=== PATIENT | male | born 1970 | race Caucasian/White ===

== ENCOUNTER 2021-03-29 15:04 | Emergency (ER) | payer MEDICAID, SELFPAY ==
--- NOTE | ~2021-03-29 | XR_ITS ---
EXAMINATION: XR WRIST, RIGHT CLINICAL INFORMATION: Pain COMPARISON: None TECHNIQUE: PA, lateral, and oblique views of the right wrist. FINDINGS: An old unhealed ulnar styloid fracture versus congenitally unfused ossification center. The bones and soft tissues are normal. No fracture. Alignment is anatomic with normal joint spaces. No erosions or abnormal soft tissue calcifications. XR/XR wrist RT 2V IMPRESSION: No radiographic evidence of acute fracture. 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
[2021-03-29 15:09] VITALS: BP 137/99; PULSE 93; RESP 18; TEMP 36.7; O2SAT 96; BMI 48.0
--- NOTE | 2021-03-29 17:17 | ED.EXTPRO ---
HPI - Extremity Problem General Chief complaint: Extremity Injury, Upper Stated complaint: hand inj Time Seen by Provider: 03/29/21 17:17 Source: patient Limitations: language barrier History of Present Illness HPI Narrative: Patient interviewed with a patient access complaining of right wrist pain the patient states he injured his wrist over a month ago. Patient has a splint currently at this time. Patient states pain increases with palpation or movement of the right wrist. Symptoms are moderate. No other complaints this time. Related Data Previous Rx's Medication Instructions Recorded tramadol 50 mg PO BID PRN #14 tab 03/29/21 Allergies Allergy/AdvReac Type Severity Reaction Status Date / Time No Known Allergies Allergy Verified 03/29/21 17:18 [No Known Allergies*] Review of Systems Review of Systems: Yes all other systems are reviewed and are negative Constitutional: Constitutional: Denies chills, Denies fever(s) and Denies headache(s) ENT: Denies headache(s) Cardiovascular: Cardiovascular: Denies chest pain and Denies dyspnea Respiratory: Respiratory: Denies cough and Denies dyspnea Gastrointestinal: Gastrointestinal: Denies diarrhea, Denies nausea and Denies vomiting Musculoskeletal: Musculoskeletal: Reports arthralgias and Denies numbness Comments: Left wrist pain Neurologic: Denies headache(s) and Denies numbness Hematologic/Lymphatic: Hematologic/Lymphatic: Reports no additional hematologic/lymphatic complaints PMFSH Past Medical History Attestation statement: The following information was validated with the patient. Social History Social History Advance Directives: No Advance Directives Information Provided: No Physical Exam Vital Signs: Vital Signs: Last Vital Signs Temp 98.0 F 03/29/21 15:09 Pulse 93 03/29/21 15:09 Resp 18 03/29/21 15:09 BP 137/99 H 03/29/21 15:09 Pulse Ox 96 03/29/21 15:09 Body Mass Index 48.0 vital signs have been reviewed as normal and appeared to be correct. Blood pressure normal. Heart rate normal. Respiration rate normal. Temperature normal. Oxygen saturation normal. Appearance: Alert. Oriented X3. No acute distress. Head: Normal external exam. Normocephalic. Atraumatic. Eyes: PERRLA. EOMI. Conjunctiva and sclera normal. Eyelids normal. ENT: Pharynx normal. Uvula midline. Moist mucous membranes. Neck: Soft full range of motion, no JVD CVS: Heart regular rate and rhythm no murmurs and rubs Respiratory: Breath sounds are clear to auscultation bilaterally. No accessory muscle use noted. Skin: Skin warm and dry. Normal skin color. Normal skin turgor. No rashes/lesions/lacerations noted. Extremities: right wrist distal ulnar tenderness full range of motion positive pulses positive sensation Neuro: Oriented X 3. No motor deficit. No sensory deficit. Reflexes normal. Course Course Course Narrative: Right wrist fracture Contusion Sprain Nonhealing fracture right wrist MDM - Extremity (Nontraumatic) Imaging Data wrist: Radiologist's impression: [address] [id number] ReportSigned Patient: Gelacio GarciaMR#: [id number]: 1970Acct:[id number]/Sex: 50 / MADM Date: 03/29/21Loc: EDAttending Dr: Ordering Physician: Generic ED Physician Date of Service: 03/29/21 Procedure(s): XR wrist RT 2V Accession Number(s): [id number] cc: Generic ED Physician~ EXAMINATION: XR WRIST, RIGHT CLINICAL INFORMATION: Pain COMPARISON: None TECHNIQUE: PA, lateral, and oblique views of the right wrist. FINDINGS: An old unhealed ulnar styloid fracture versus congenitally unfused ossification center. The bones and soft tissues are normal. No fracture. Alignment is anatomic with normal joint spaces. No erosions or abnormal soft tissue calcifications. XR/XR wrist RT 2V IMPRESSION: No radiographic evidence of acute fracture. 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 Dictated By:JAMES COOPER MDSigned By:<Electronically signed by JAMES COOPER MD in OV>03/29/21 1524 DD/ 1517TD/TT: Retina Subspecialist: Discharge Plan Discharge Clinical Impression: Acute pain of right wrist Patient Disposition: Home, Self-Care Additional Instructions: rest splint elevation Prescriptions: New tramadol 50 mg tablet 50 mg PO BID PRN (Reason: pain) Qty: 14 RF: 0 Referrals: Mariely Oleary MD [Physician] - 2 days Print Language: [place] Islander
== END 2021-03-29 17:32 | disposition home or self-care (01) ==
PROVIDERS: Emergency Provider Internal Medicine
DX: M25.531 Pain in right wrist (principal)
CPT/HCPCS: 73100; 99283

== ENCOUNTER → 2021-04-06 13:50 | Outpatient (BNVA) | payer MEDICAID, SELFPAY | PROVIDERS: Visit Provider Physician Assistant | DX: S63.501A Unspecified sprain of right wrist, initial encounter (principal) | CPT/HCPCS: 99202 ==

== ENCOUNTER 2021-04-19 17:15 | Emergency (ER) | payer MEDICAID, SELFPAY ==
--- NOTE | 2021-04-19 | ECG_ITS ---
Test Reason : CHEST PAIN Blood Pressure : / mmHG Vent. Rate : 085 BPM Atrial Rate : 085 BPM P-R Int : 152 ms QRS Dur : 094 ms QT Int : 368 ms P-R-T Axes : 042 065 037 degrees QTc Int : 437 ms Normal sinus rhythm Normal ECG When compared with ECG of 06-AUG-2019 09:24, Vent. rate has increased BY 28 BPM Referred By: Generic ED Physician Electronically Signed By:Lam Cisneros
[2021-04-19 17:17] VITALS: BP 134/85; PULSE 84; RESP 18; TEMP 36.1; O2SAT 98; BMI 25.8
== END 2021-04-19 21:32 | disposition left against medical advice (07) ==
LOC: HO.ED 22:10
PROVIDERS: Emergency Provider Emergency Medicine
DX: R07.9 Chest pain, unspecified (principal)
CPT/HCPCS: 93005; 99283

== ENCOUNTER 2021-05-04 14:15 | Emergency (ER) | payer MEDICAID, SELFPAY ==
--- NOTE | ~2021-05-04 | XR_ITS ---
EXAMINATION: XR KNEE, RIGHT CLINICAL INFORMATION: Syncope. Fall. COMPARISON: None TECHNIQUE: Four views of the right knee. FINDINGS: No fracture. No dislocation. There is no joint effusion. There is a soft tissue ossification at the distal thigh at the lateral side of the suprapatellar soft tissues measuring 1.8 x 1 X 0.6 cm. XR/XR knee RT 4V IMPRESSION: No acute abnormality of the knee.
--- NOTE | ~2021-05-04 | US_ITS ---
EXAMINATION: US ABDOMEN LIMITED CLINICAL INFORMATION: Abnormal LFTs and lipase. Alcohol abuse. COMPARISON: Ultrasound abdomen 06/01/2019 TECHNIQUE: Real-time imaging of the right upper quadrant abdominal viscera. FINDINGS: PANCREAS: Normal. LIVER: Liver size could not be adequately assessed. The liver contour is normal. There is diffuse increased liver parenchymal echogenicity, consistent with hepatic steatosis. No focal hepatic lesion. There is no intrahepatic biliary duct dilatation seen. GALLBLADDER: The gallbladder is physiologically distended without evidence of stones, sludge, polyps, wall thickening or pericholecystic fluid. COMMON BILE DUCT: Normal in caliber measuring 0.3 cm in diameter. RIGHT KIDNEY: Normal. No hydronephrosis. No renal calculi or focal parenchymal lesions. The kidney measures 10.6 cm in maximum dimension. FREE FLUID: None. US/US abdomen limited IMPRESSION: Echogenic liver consistent with hepatic steatosis. Similar findings were noted in the past.
--- NOTE | ~2021-05-04 | CT_ITS ---
EXAMINATION: CT HEAD WITHOUT CONTRAST CT CERVICAL SPINE WITHOUT CONTRAST CLINICAL INFORMATION: Syncope and fall. EtOH. COMPARISON: CT from 03/04/2019. TECHNIQUE: Contiguous axial imaging was performed from the skullbase to vertex without intravenous administration of contrast. Multidetector helical imaging was performed through the cervical spine. This CT examination was performed using dose optimization techniques as appropriate, variously including the following: *Automated exposure control *Adjustment of mA and/or kV according to patient size (this includes techniques or standardized protocols for targeted exams where dose is matched to indication/reason for exam; i.e. extremities or head) *Use of iterative reconstruction technique DLP: 693, 330 mGy-cm. FINDINGS: HEAD: There is no evidence of acute intracranial hemorrhage or territorial infarction. No abnormal mass effect or midline shift is seen. [place] to white matter differentiation is well preserved. No extra-axial fluid collections are identified. There is moderate diffuse parenchymal volume loss for patient age. No hydrocephalus. Nonspecific mild patchy areas of low-density change are present in the cerebral white matter. The osseous structures and soft tissues are normal. The mastoid air cells are well aerated. There is mild to moderate ethmoid sinus mucosal thickening and milder bilateral maxillary sinus mucosal thickening. CERVICAL SPINE: No acute fracture or subluxation is identified in the cervical spine. Mild disc space narrowing and endplate spurring visible at the C5-C6 and C6-C7 levels. Mild atherosclerotic wall calcifications at the carotid bifurcations. The atlantoaxial articulation is normally maintained. The paraspinal soft tissues are normal. The lung apices are clear. CT/CT cervical spine wo con IMPRESSION: 1. No acute intracranial pathology. Moderate diffuse parenchymal volume loss for patient age. 2. No evidence of acute cervical spine traumatic injury. Mild to moderate lower cervical spondylosis.
--- NOTE | ~2021-05-04 | XR_ITS ---
EXAMINATION: XR CHEST CLINICAL INFORMATION: Syncope COMPARISON: Chest x-ray November 08, 2018 TECHNIQUE: Frontal portable view of the chest was obtained. 3:53 PM FINDINGS: No significant abnormality is noted involving the heart, lungs, mediastinum, bony thorax or soft tissues. XR/XR chest 1V IMPRESSION: Unremarkable examination.
--- NOTE | ~2021-05-04 | XR_ITS ---
EXAMINATION: XR WRIST, RIGHT CLINICAL INFORMATION: Fall. EtOH. COMPARISON: None TECHNIQUE: Four views of the right wrist. FINDINGS: Bones are normal anatomic alignment. I do not appreciate any acute superimposed fracture or dislocation. 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 Incidental ulnar negative variance of the wrist. Carpal bone alignment is unremarkable. Extensive vascular calcification noted. XR/XR wrist RT min 3V IMPRESSION: Chronic appearing changes as described above. I do not appreciate any acute fracture or dislocation.
--- NOTE | ~2021-05-04 | XR_ITS ---
EXAMINATION: XR LUMBOSACRAL SPINE CLINICAL INFORMATION: Syncope. Fall. COMPARISON: 05/25/2016 plain films and 01/29/2018 CT scan TECHNIQUE: Three views of the lumbosacral spine. FINDINGS: Trace anterolisthesis of L5 on S1 is again seen with chronic bilateral pars defects at this level best appreciated on the prior 01/29/2018 CT scan. Otherwise anatomic alignment with no acute fracture or acute appearing spondylolisthesis. Vertebral body heights are preserved. Bowel gas pattern unremarkable. XR/XR lumbar spine 2-3V IMPRESSION: Chronic appearing changes at L5/S1 similar to multiple prior studies. No acute bony abnormality.
[2021-05-04 14:36] VITALS: BP 127/84; PULSE 89; RESP 18; TEMP 36.6; O2SAT 98; BMI 22.9
--- NOTE | 2021-05-04 15:38 | ECG_ITS ---
Test Reason : FALL Blood Pressure : / mmHG Vent. Rate : 072 BPM Atrial Rate : 072 BPM P-R Int : 150 ms QRS Dur : 086 ms QT Int : 404 ms P-R-T Axes : 074 074 059 degrees QTc Int : 442 ms Normal sinus rhythm Normal ECG When compared with ECG of 19-APR-2021 17:24, No significant change was found Referred By: Marilee León Electronically Signed By:ARON BROWER
--- NOTE | 2021-05-04 15:40 | ED.FALL ---
HPI - Fall General Chief Complaint: Fall Stated Complaint: ?SYNCOPE, LEG/PAIN PAIN, FOUND ON SIDEWALK Time Seen by Provider: 05/04/21 15:25 Source: patient and EMS Mode of arrival: EMS History of Present Illness HPI Narrative: 50-year-old male with no significant past medical history BIBA after being found on the sidewalk s/p syncopal episode. Patient admits to drinking 6 pack of beer today, states he was outside in the sun, walked a long distance became dizzy/lightheaded and syncopized. Reports right knee and low back pain. Patient is poor historian. Reports feeling lightheaded/dizzy, having CP/SOB, and palpitations prior to episode. Reports feeling improved at present. Denies headache, nausea/vomiting, abdominal pain, urinary incontinence, numbness, tingling, weakness complaint: fall Onset (ago): hour(s) Related Data Previous Rx's Medication Instructions Recorded tramadol 50 mg tablet 50 mg PO BID PRN #14 tab 03/29/21 Allergies Allergy/AdvReac Type Severity Reaction Status Date / Time No Known Allergies Allergy Verified 04/06/21 13:54 [No Known Allergies*] Review of Systems Review of Systems: Constitutional: No Fever, No Chills,No Fatigue, No Malaise ENT/Mouth: No Hearing loss, No Ear Pain, No Swallowing Difficulty Eyes: No Eye Pain, No Swelling Cardiovascular: + Chest Pain, + SOB, + Palpitations Respiratory: No Cough, No Dyspnea Gastrointestinal: No Nausea, No Vomiting, No Diarrhea, No Abdominal pain Genitourinary: No Dysuria, No Urinary Frequency, No Hematuria, No Urinary Incontinence Musculoskeletal: + joint pain, No Myalgias, No Joint Swelling Skin: No Skin Lesions, No rash Neuro: No Weakness, No Numbness, No Paresthesias, + Loss of Consciousness, + Dizziness, No Headache Patient is poor historian Yes all other systems are reviewed and are negative [facility] Past Medical History Attestation statement: The following information was validated with the patient. Social History Social History (Updated 04/06/21 @ 14:19 by Malik Bolivar) Alcohol intake: current Alcohol intake frequency: a few times a month Patient Tobacco Use Status: Tobacco use Unknown Use of substances other than those prescribed or required for medical reasons: No Advance Directives: No Advance Directives Information Provided: Yes Current occupational status: disabled Current occupation: rt handed Physical Exam Vital Signs: Vital Signs: Last Vital Signs Temp 98.6 F 05/04/21 17:29 Pulse 104 H 05/04/21 22:01 Resp 20 05/04/21 17:29 BP 103/78 05/04/21 22:01 Pulse Ox 95 05/04/21 17:29 Body Mass Index 22.9 Const: Other: Appears intoxicated General: cooperative and no acute distress Orientation/consciousness: oriented to person and oriented to place Limitations: no limitations HENMT: Head: Yes normal to inspection and Yes atraumatic Ears: hearing grossly normal bilaterally General nose exam: Normal external nose present Face and sinus: Yes normal facial exam Throat: Yes posterior oropharynx normal Eyes: General: appearance normal, both eyes and all related structures Pupils: Equal, round and reactive pupils present EOM: EOMs intact bilaterally Neck: Other: No midline cervical spinous tenderness/step-off Neck: Yes normal visual inspection and Yes no meningeal signs Chest: Chest palpation & inspection: normal inspection of the chest, no crepitus and no tenderness Resp: Effort & Inspection: normal respiratory effort Auscultation: clear to auscultation bilaterally, no rales, no rhonchi and no wheezes Cardio: Rate: regular rate Heart sounds: S1 normal heart sound present and S2 normal heart sound present GI: Inspection: Yes normal to inspection Palpation (GI): Soft to palpation, nontender, no guarding and not rigid : General: Yes no CVA tenderness Back/Spine/Pelvis: Other: No midline thoracic/lumbar spinous tenderness or step-off/deformity Back: no CVA tenderness Skin: Rashes: no rashes Wounds: no wounds Neuro: General: oriented to person, oriented to place, tone normal, moves all extremities, no meningeal signs, no focal motor deficits and CN's II-XI intact bilaterally Cranial nerves: Yes Equal, round and reactive pupils present Gait exam (Neuro): Normal gait present Coordination: [id number] test normal Extrem: Other: Right knee tender to palpation. ROM intact. Neurovascularly intact distally General: Yes normal to inspection Course Course Course Narrative: -1733--wrist and lumbar x-ray without acute findings, knee x-ray and CXR unremarkable -leukopenia 3.8 > will obtain COVID-19 testing. H&H around patient's baseline -1833--AST/ALT elevated suggestive of alcoholic liver disease. CPK 914 likely from dehydration. Lipase elevated to 116 > will obtain abdomen ultrasound for further eval -UA negative, ethanol elevated to 326 -195--COVID-[address] head/brain wo con & CT cervical spine wo con IMPRESSION: 1. No acute intracranial pathology. Moderate diffuse parenchymal volume loss for patient age. 2. No evidence of acute cervical spine traumatic injury. Mild to moderate lower cervical spondylosis. US abdomen limited IMPRESSION: Echogenic liver consistent with hepatic steatosis. Similar findings were noted in the past. -2009--on re-evaluation patient is sleeping comfortably in stretcher. In no acute distress -2245--repeat troponin without 50% rise. Results discussed with patient in library clerk talking books including worrisome signs and symptoms and strict return precautions. Patient is to follow-up with his PCP, who verbalized understanding. Patient has a sober ride coming to pick him up from the ED MDM - Fall MDM Narrative Medical decision making narrative: 50-year-old male with no significant past medical history BIBA after being found on the sidewalk s/p syncopal episode. Patient admits to drinking 6 pack of beer today, states he was outside in the sun, walked a long distance became dizzy/lightheaded and syncopized. Patient is poor historian. On exam VSS, NAD, appears intoxicated, A&O x2, no evidence of trauma, no midline spinous tenderness throughout, no focal neuro deficits. Rule out fracture/ICH vs metabolic abnormalities and infectious etiology vs ETOH complication vs ACS. Low concern for PE Plan: EKG, labs, UA, head/C-spine CT, x-rays, IVF, orthostatic vital signs, reassess Medical Records Attestation: I reviewed the patient's medical records. Lab Data Attestation: I reviewed the patient's lab results. Result diagrams: 05/04/21 17:28 05/04/21 17:28 Labs: Lab Results 05/04/21 05/04/21 05/04/21 Range/Units 17:28 17:28 17:28 WBC 3.8 L (4.8-10.8) X10*3/uL RBC 3.99 L (4.60-5.80) X10*6/uL Hgb 13.5 L (14.0-18.0) g/dl Hct 37.8 L (42-52) % MCV 94.7 (80-98) fL MCH 33.8 H (27.0-33.0) pg MCHC 35.7 (31.0-36.0) g/dl RDW 14.3 (11.0-16.0) % Plt Count 146 L (160-400) X10*3/uL MPV 9.2 L (9.4-12.4) fL Immature Gran % (Auto) 0.3 (0.0-0.4) % Neut % (Auto) 40.9 L (45-73) % Lymph % (Auto) 41.3 H (20-40) % [place] % (Auto) 13.6 H (2-11) % Eos % (Auto) 2.6 (0-4) % Baso % (Auto) 1.3 (0-2) % Lymph # (Auto) 1.6 (1.2-4.9) X10*3/uL [place] # (Auto) 0.5 (0.1-1.2) X10*3/uL Eos # (Auto) 0.1 (0.0-0.4) X10*3/uL Baso # (Auto) 0.1 (0.0-0.2) X10*3/uL Abs Immat Gran (auto) 0.01 (0.00-0.03) X10*3/uL Absolute Neuts (auto) 1.6 L (2.0-8.3) X10*3/uL Absolute Nucleated RBC 0.000 (0.0-0.012) X10*3/uL Nucleated RBC % (auto) 0.0 (0.0-0.2) /100WBC Sodium 145 (135-145) mmol/L Potassium 4.1 (3.3-5.1) mmol/L Chloride 107 (96-108) mmol/L Carbon Dioxide 24 (22-29) mmol/L Anion Gap 18 (12-20) BUN 7 L (9-16) mg/dL Creatinine 0.74 (0.5-1.4) mg/dL Estim Creat Clear Calc 123.9 Estimated GFR > 60 Random Glucose 82 (60-115) mg/dL Calcium 9.2 (8.4-10.2) mg/dL Magnesium 2.2 (1.6-2.6) mg/dL Total Bilirubin 0.6 (0.0-1.0) mg/dL Direct Bilirubin 0.3 (0.0-0.5) mg/dL AST 164 H (5-37) U/L ALT 90 H (0-40) U/L Alkaline Phosphatase 90 (39-117) U/L Total Creatine Kinase 914 H (38-174) U/L Troponin I High Sens 3.8 (<3.5-35.0) ng/L Total Protein 8.6 H (6.5-8.0) g/dL Albumin 4.3 (3.5-5.0) g/dL Lipase 116 H (8-78) U/L Urine Color Urine Appearance Urine pH (5.0-8.0) Ur Specific [place] (1.005-1.025) Urine Protein (NEG-TRACE) MG/DL Urine Glucose (UA) (NEG) MG/DL Urine Ketones (NEG) MG/DL Urine Blood (NEG) Urine Nitrite (NEG) Ur Leukocyte Esterase (NEG) Salicylates < 5.0 L (15-30) mg/dL Urine Opiates Screen (Not Detect) Urine Fentanyl Screen (Not Detect) Acetaminophen < 1 (<30) mcg/mL Ur Barbiturates Screen (Not Detect) Ur Phencyclidine Scrn (Not Detect) Ur Amphetamines Screen (Not Detect) U Benzodiazepines Scrn (Not Detect) Urine Cocaine Screen (Not Detect) U Marijuana (THC) Screen (Not Detect) Ethyl Alcohol mg/dL COVID-19 ([facility]) (Negative) COVID-19 Clin Com 05/04/21 05/04/21 05/04/21 Range/Units 17:28 17:34 17:34 WBC (4.8-10.8) X10*3/uL RBC (4.60-5.80) X10*6/uL Hgb (14.0-18.0) g/dl Hct (42-52) % MCV (80-98) fL MCH (27.0-33.0) pg MCHC (31.0-36.0) g/dl RDW (11.0-16.0) % Plt Count (160-400) X10*3/uL MPV (9.4-12.4) fL Immature Gran % (Auto) (0.0-0.4) % Neut % (Auto) (45-73) % Lymph % (Auto) (20-40) % [place] % (Auto) (2-11) % Eos % (Auto) (0-4) % Baso % (Auto) (0-2) % Lymph # (Auto) (1.2-4.9) X10*3/uL [place] # (Auto) (0.1-1.2) X10*3/uL Eos # (Auto) (0.0-0.4) X10*3/uL Baso # (Auto) (0.0-0.2) X10*3/uL Abs Immat Gran (auto) (0.00-0.03) X10*3/uL Absolute Neuts (auto) (2.0-8.3) X10*3/uL Absolute Nucleated RBC (0.0-0.012) X10*3/uL Nucleated RBC % (auto) (0.0-0.2) /100WBC Sodium (135-145) mmol/L Potassium (3.3-5.1) mmol/L Chloride (96-108) mmol/L Carbon Dioxide (22-29) mmol/L Anion Gap (12-20) BUN (9-16) mg/dL Creatinine (0.5-1.4) mg/dL Estim Creat Clear Calc Estimated GFR Random Glucose (60-115) mg/dL Calcium (8.4-10.2) mg/dL Magnesium (1.6-2.6) mg/dL Total Bilirubin (0.0-1.0) mg/dL Direct Bilirubin (0.0-0.5) mg/dL AST (5-37) U/L ALT (0-40) U/L Alkaline Phosphatase (39-117) U/L Total Creatine Kinase (38-174) U/L Troponin I High Sens (<3.5-35.0) ng/L Total Protein (6.5-8.0) g/dL Albumin (3.5-5.0) g/dL Lipase (8-78) U/L Urine Color STRAW Urine Appearance CLEAR Urine pH 6.0 (5.0-8.0) Ur Specific [place] <= 1.005 (1.005-1.025) Urine Protein NEG (NEG-TRACE) MG/DL Urine Glucose (UA) NEG (NEG) MG/DL Urine Ketones NEG (NEG) MG/DL Urine Blood NEG (NEG) Urine Nitrite NEG (NEG) Ur Leukocyte Esterase NEG (NEG) Salicylates (15-30) mg/dL Urine Opiates Screen Not Detected (Not Detect) Urine Fentanyl Screen Not Detected (Not Detect) Acetaminophen (<30) mcg/mL Ur Barbiturates Screen Not Detected (Not Detect) Ur Phencyclidine Scrn Not Detected (Not Detect) Ur Amphetamines Screen Not Detected (Not Detect) U Benzodiazepines Scrn Not Detected (Not Detect) Urine Cocaine Screen Not Detected (Not Detect) U Marijuana (THC) Screen Not Detected (Not Detect) Ethyl Alcohol 326 H* mg/dL COVID-19 ([facility]) (Negative) COVID-19 Clin Com 05/04/21 05/04/21 Range/Units 19:29 22:10 WBC (4.8-10.8) X10*3/uL RBC (4.60-5.80) X10*6/uL Hgb (14.0-18.0) g/dl Hct (42-52) % MCV (80-98) fL MCH (27.0-33.0) pg MCHC (31.0-36.0) g/dl RDW (11.0-16.0) % Plt Count (160-400) X10*3/uL MPV (9.4-12.4) fL Immature Gran % (Auto) (0.0-0.4) % Neut % (Auto) (45-73) % Lymph % (Auto) (20-40) % [place] % (Auto) (2-11) % Eos % (Auto) (0-4) % Baso % (Auto) (0-2) % Lymph # (Auto) (1.2-4.9) X10*3/uL [place] # (Auto) (0.1-1.2) X10*3/uL Eos # (Auto) (0.0-0.4) X10*3/uL Baso # (Auto) (0.0-0.2) X10*3/uL Abs Immat Gran (auto) (0.00-0.03) X10*3/uL Absolute Neuts (auto) (2.0-8.3) X10*3/uL Absolute Nucleated RBC (0.0-0.012) X10*3/uL Nucleated RBC % (auto) (0.0-0.2) /100WBC Sodium (135-145) mmol/L Potassium (3.3-5.1) mmol/L Chloride (96-108) mmol/L Carbon Dioxide (22-29) mmol/L Anion Gap (12-20) BUN (9-16) mg/dL Creatinine (0.5-1.4) mg/dL Estim Creat Clear Calc Estimated GFR Random Glucose (60-115) mg/dL Calcium (8.4-10.2) mg/dL Magnesium (1.6-2.6) mg/dL Total Bilirubin (0.0-1.0) mg/dL Direct Bilirubin (0.0-0.5) mg/dL AST (5-37) U/L ALT (0-40) U/L Alkaline Phosphatase (39-117) U/L Total Creatine Kinase (38-174) U/L Troponin I High Sens 3.9 (<3.5-35.0) ng/L Total Protein (6.5-8.0) g/dL Albumin (3.5-5.0) g/dL Lipase (8-78) U/L Urine Color Urine Appearance Urine pH (5.0-8.0) Ur Specific [place] (1.005-1.025) Urine Protein (NEG-TRACE) MG/DL Urine Glucose (UA) (NEG) MG/DL Urine Ketones (NEG) MG/DL Urine Blood (NEG) Urine Nitrite (NEG) Ur Leukocyte Esterase (NEG) Salicylates (15-30) mg/dL Urine Opiates Screen (Not Detect) Urine Fentanyl Screen (Not Detect) Acetaminophen (<30) mcg/mL Ur Barbiturates Screen (Not Detect) Ur Phencyclidine Scrn (Not Detect) Ur Amphetamines Screen (Not Detect) U Benzodiazepines Scrn (Not Detect) Urine Cocaine Screen (Not Detect) U Marijuana (THC) Screen (Not Detect) Ethyl Alcohol mg/dL COVID-19 ([facility]) Negative (Negative) COVID-19 Clin Com See Note Discharge Plan Discharge Clinical Impression: Syncope, Alcohol intoxication Patient Disposition: Home, Self-Care Instructions: Syncope (ED), Alcohol Intoxication (ED) Additional Instructions: Your blood work showed elevations in your liver and pancreatic enzymes, and dehydration likely from your alcohol consumption, avoid use of alcohol, you need to follow-up with your primary care doctor for repeat lab work in 1 week Make sure you are drinking plenty of fluids at home, water, Gatorade and Pedialyte You are dehydrated. If your symptoms persist or worsen, you pass out again you have chest pain, shortness of breath please return to the ED Your imaging studies did not show any new fractures rest Doss an?lisis de dylan mostr? elevaciones en jennie enzimas hep?xavier y pancre?xavier, y probablemente deshidrataci?n por doss consumo de alcohol, evite el consumo de alcohol, necesita hacer un seguimiento con doss m?dico de atenci?n primaria para repetir los an?lisis de laboratorio en 1 semana Aseg?rese de beber muchos l?quidos en casa, agua, Gatorade y Pedialyte. Est?s deshidratado. Si jennie s?ntomas persisten o empeoran, se desmaya nuevamente, tiene dolor en el pecho, dificultad para respirar, regrese al servicio de urgencias Jennie estudios de im?genes no mostraron nuevas fracturas. descanso Prescriptions: No Action tramadol 50 mg tablet 50 mg PO BID PRN (Reason: pain) Qty: 14 RF: 0 Referrals: Carla Abraham MD [Primary Care Provider] - 2 days Print Language: [place]ian
[2021-05-04 17:29] VITALS: BP 126/85; PULSE 64; RESP 20; TEMP 37; O2SAT 95
[2021-05-04 17:42] LABS: MANUAL DIFF FLAG NO
[2021-05-04 17:43] LABS: Basophils Absolute Auto 0.1 X10*3/uL (0.0-0.2); Basophils Percent Auto 1.3 % (0-2); Eosinophils Absolute Auto 0.1 X10*3/uL (0.0-0.4); Eosinophils Percent Auto 2.6 % (0-4); Hematocrit 37.8 % (42-52); Hemoglobin 13.5 g/dl (14.0-18.0); Imm Gran Abs Auto 0.01 X10*3/uL (0.00-0.03); Imm Gran Pct Auto 0.3 % (0.0-0.4); Lymphocytes Absolute Auto 1.6 X10*3/uL (1.2-4.9); Lymphocytes Percent Auto 41.3 % (20-40); Mean Corpuscular HGB Conc 35.7 g/dl (31.0-36.0); Mean Corpuscular Hemoglobin 33.8 pg (27.0-33.0); Mean Corpuscular Volume 94.7 fL (80-98); Mean Platelet Volume 9.2 fL (9.4-12.4); Monocytes Absolute Auto 0.5 X10*3/uL (0.1-1.2); Monocytes Percent Auto 13.6 % (2-11); Neutrophils Absolute Auto 1.6 X10*3/uL (2.0-8.3); Neutrophils Percent Auto 40.9 % (45-73); Platelet Count 146 X10*3/uL (160-400); Red Blood Count 3.99 X10*6/uL (4.60-5.80); Red Cell Distribution Width 14.3 % (11.0-16.0); White Blood Count 3.8 X10*3/uL (4.8-10.8)
[2021-05-04 17:47] LABS: Glucose Urine UA NEG (NEG); Leukocyte Esterase Urine NEG (NEG); Nitrite Urine NEG (NEG); Specific Gravity - Urine <= 1.005 (1.005-1.025); Urine Blood NEG (NEG); Urine Ketones NEG (NEG); Urine Protein NEG (NEG-TRACE)
[2021-05-04] MEDS: 0.9 % Sodium Chloride 1,000 ML 999 ML IVCONT ×2 (17:47→19:00)
[2021-05-04 17:49] LABS: Appearance Urine CLEAR; Color Urine STRAW
[2021-05-04 18:06] LABS: Ethanol 326 mg/dL
[2021-05-04 18:09] LABS: Amphetamine Screen Urine Not Detected (Not Detect); Barbiturates, Urine Not Detected (Not Detect); Benzodiazepines Screen Urine Not Detected (Not Detect); Cannabinoid Screen Urine Not Detected (Not Detect); Cocaine Screen Urine Not Detected (Not Detect); Fentanyl, urine Not Detected (Not Detect); Opiate Screen Urine Not Detected (Not Detect); Phencyclidine Screen Urine Not Detected (Not Detect)
[2021-05-04 18:11] LABS: Acetaminophen LAB < 1 mcg/mL (<30); Alanine Aminotransferase 90 U/L (0-40); Albumin Level 4.3 g/dL (3.5-5.0); Alkaline Phosphatase 90 U/L (39-117); Anion Gap 18 (12-20); Aspartate Amino Transferase 164 U/L (5-37); Bilirubin Direct 0.3 mg/dL (0.0-0.5); Bilirubin Total 0.6 mg/dL (0.0-1.0); Blood Urea Nitrogen 7 mg/dL (9-16); Calcium 9.2 mg/dL (8.4-10.2); Carbon Dioxide 24 mmol/L (22-29); Chloride 107 mmol/L (96-108); Creatinine Clr Calc Pharmacy 123.9; Estimated Glomerular Filt Rate > 60; Glucose Random 82 mg/dL (60-115); Lipase 116 U/L (8-78); Magnesium 2.2 mg/dL (1.6-2.6); Potassium 4.1 mmol/L (3.3-5.1); Sodium 145 mmol/L (135-145); Total Protein 8.6 g/dL (6.5-8.0)
[2021-05-04 18:12] LABS: Troponin-I High Sensitivity 3.8 ng/L (<3.5-35.0)
[2021-05-04 18:16] LABS: Salicylate < 5.0 mg/dL (15-30)
[2021-05-04 19:49] LABS: COVID-19 Test Negative (Negative)
[2021-05-04 21:58] VITALS: BP 122/83; PULSE 72
[2021-05-04 22:00] VITALS: BP 120/87; PULSE 83
[2021-05-04 22:01] VITALS: BP 103/78; PULSE 104
[2021-05-04 22:40] LABS: Troponin-I High Sensitivity 3.9 ng/L (<3.5-35.0)
== END 2021-05-04 23:33 | disposition home or self-care (01) ==
PROVIDERS: Physician Assistant; Emergency Provider Emergency Medicine; PCP Internal Medicine
DX: R55 Syncope and collapse (principal); F10.920 Alcohol use, unspecified with intoxication, uncomplicated; Y90.8 Blood alcohol level of 240 mg/100 ml or more; Z20.822 Contact with and (suspected) exposure to COVID-19; R74.8 Abnormal levels of other serum enzymes; R06.02 Shortness of breath
CPT/HCPCS: 36415; 70450; 71045; 72100; 72125; 73110; 73564; 76705; 80048; 80076; 80143; 80179; 80307; 81003; 82077; 82550; 83690; 83735; 84484; 85025; 87635; 93005; 96360; 96361; 99285

== ENCOUNTER 2021-05-20 08:28 | Emergency (ER) | payer MEDICAID, SELFPAY ==
[2021-05-20 09:10] VITALS: BP 140/88; PULSE 73; RESP 16; TEMP 36.6; O2SAT 98; BMI 27.6
--- NOTE | 2021-05-20 09:17 | ED_ITS ---
HPI - Psych General Chief Complaint: Psychiatric Symptoms <MANUEL Ko - Last Filed: 05/20/21 17:28> Stated Complaint: SI <MANUEL Ko - Last Filed: 05/20/21 17:28> Time Seen by Provider: 05/20/21 09:00 <MANUEL Ko - Last Filed: 05/20/21 17:28> Source: patient <MANUEL Ko - Last Filed: 05/20/21 17:28> Mode of arrival: ambulatory <MANUEL Ko - Last Filed: 05/20/21 17:28> Limitations: language barrier <MANUEL Ko - Last Filed: 05/20/21 17:28> History of Present Illness HPI Narrative: 50 y/o male with history of alcohol abuse presents to the ER with increased depression, suicidal thoughts and desire to get sober. He reports trying to drink himself to at home. He drinks 30 beers per day and 2 nips. He wants to stop drinking and get sober. He was recently seen here in the ER for alcohol intoxication & syncope on 05/04. <MANUEL Ko - Last Filed: 05/20/21 17:28> MD complaint: feels depressed and alcohol abuse <MANUEL Ko - Last Filed: 05/20/21 17:28> Onset (ago): week(s) <MANUEL Ko - Last Filed: 05/20/21 17:28> Duration: constant <MANUEL Ko - Last Filed: 05/20/21 17:28> History of same: Yes <MANUEL Ko - Last Filed: 05/20/21 17:28> Relieving factors: none <MANUEL Ko - Last Filed: 05/20/21 17:28> Exacerbating factors: alcohol <MANUEL Ko - Last Filed: 05/20/21 17:28> Context: recent alcohol abuse <MANUEL Ko - Last Filed: 05/20/21 17:28> Associated psychiatric symptoms: depression and suicidal ideation <MANUEL Ko - Last Filed: 05/20/21 17:28> Associated symptoms: denies other symptoms <MANUEL Ko - Last Filed: 05/20/21 17:28> Treatments prior to arrival: none <MANUEL Ko - Last Filed: 05/20/21 17:28> If self harm: admits thoughts of self harm <MANUEL Ko - Last Filed: 05/20/21 17:28> Related Data Home Medications: Home Medications Medication Instructions Recorded Confirmed No Known Home Meds 05/20/21 05/20/21 <MANUEL Ko - Last Filed: 05/20/21 17:28> Allergies/Adverse Reactions: Allergies Allergy/AdvReac Type Severity Reaction Status Date / Time No Known Allergies Allergy Verified 04/06/21 13:54 [No Known Allergies*] <MANUEL Ko - Last Filed: 05/20/21 17:28> Review of Systems Review of Systems: Constitutional: No Fever, No Chills ENT/Mouth: No sore throat, No Rhinorrhea, No Swallowing Difficulty Cardiovascular: No Chest Pain, No SOB, No Orthopnea, No Edema Respiratory: No Cough, No Sputum, No Wheezing, No dyspnea Gastrointestinal: No Nausea, No Vomiting, No Diarrhea, No abdominal Pain Genitourinary: No Dysuria, No Urinary Frequency, No Hematuria Musculoskeletal: No joint pain, No Myalgias Skin: No Skin Lesions, No rash Neuro: No Weakness, No Numbness, No Dizziness, No Headache Psych: + Anxiety/Panic, + Depression Heme/Lymph: No Bruising, No Lymphadenopathy Endocrine: No Polyuria, No Polydipsia <MANUEL Ko - Last Filed: 05/20/21 17:28> [facility] Past Medical History Attestation statement: The following information was validated with the patient. <MANUEL Ko - Last Filed: 05/20/21 17:28> Social History Social History: Social History Alcohol intake: current Alcohol intake frequency: a few times a month Patient Tobacco Use Status: Never used Tobacco Use of substances other than those prescribed or required for medical reasons: No Advance Directives: Yes Advance Directives Information Provided: Yes Advance Directives on File: No Current occupational status: disabled Current occupation: rt handed <MANUEL Ko - Last Filed: 05/20/21 17:28> Physical Exam Vital Signs: Vital Signs: Last Vital Signs Temp 99.9 F 05/20/21 18:03 Pulse 80 05/20/21 18:03 Resp 20 05/20/21 18:03 BP 135/89 05/20/21 18:03 Pulse Ox 96 05/20/21 18:03 Body Mass Index 27.6 <MANUEL Ko - Last Filed: 05/20/21 17:28> Vital Signs: Last Vital Signs Temp 99.9 F 05/20/21 18:03 Pulse 80 05/20/21 18:03 Resp 20 05/20/21 18:03 BP 135/89 05/20/21 18:03 Pulse Ox 96 05/20/21 18:03 Body Mass Index 27.6 <Celena Reagan NP - Last Filed: 05/20/21 20:29> Appearance: Alert. Oriented X3. Thin, frail, appears older than stated age Eyes: Pupils equal, round and reactive to light. ENT: Pharynx normal. Neck: Normal inspection. Neck supple. CVS: Normal heart rate and rhythm. Pulses normal. Respiratory: No respiratory distress. Breath sounds normal. Abdomen: Soft and nontender. +BS x4 Skin: Skin warm and dry. Normal skin color. Normal skin turgor. No rashes. Extremities: No lower extremity edema. Neuro/psych: Oriented X 3. No motor deficit. No sensory deficit. Flat affect, depressed, suicidal, poor insight & judgement <MANUEL Ko - Last Filed: 05/20/21 17:28> Course Course Course Narrative: 50 y/o male with history of severe alcohol abuse presenting with worsening depression and suicidal thoughts related to his severe alcohol disease. Will get basic labs, Utox, ETOH level, and COVID swab. Will require N evaluation. <MANUEL Ko - Last Filed: 05/20/21 17:28> Reevaluation(s) Reevaluation #1: Patient found to be COVID positive on routine swab. He currently has NO symptoms of COVID-19. He was told of the diagnosis. He denies sick contacts. He will be moved out of the pod to bed 3 in the main for isolation. CARE Team to see once ETOH level returns. <MANUEL Ko - Last Filed: 05/20/21 17:28> Reevaluation #2: ETOH 179 - Vickie from CARE team will speak to him soon. He is starting to c/o anxiety and has a slight tremor. Will check CIWA score and give small dose of ativan for probable early withdrawal. Physician observation started at 4pm. Patient placed in physician observation because patient is awaiting [facility] evaluation for the possible need of inpatient psych admission. At the time observation was started patient's vital signs were stable. Patient is alert and oriented. Neuro exam is non-focal. CV: RRR and lungs are clear. Will continue to monitor. <MANUEL Ko - Last Filed: 05/20/21 17:28> Time: 20:27 <Celena Reagan NP - Last Filed: 05/20/21 20:29> Reevaluation #3: Patient was seen by crisis. He is currently not suicidal. He is not actively withdrawing. His vitals are stable. He is COVID positive Asymptomatic. The family have obtained a detox bed for him in [facility] and will bring him there. Plan for discharge with family. <Celena Reagan NP - Last Filed: 05/20/21 20:29> MDM - Psych Lab Data Result diagrams: : 05/20/21 13:08 05/20/21 13:08 <MANUEL Ko - Last Filed: 05/20/21 17:28> Labs: Lab Results 05/20/21 05/20/21 05/20/21 Range/Units 09:42 09:43 11:24 WBC (4.8-10.8) X10*3/uL RBC (4.60-5.80) X10*6/uL Hgb (14.0-18.0) g/dl Hct (42-52) % MCV (80-98) fL MCH (27.0-33.0) pg MCHC (31.0-36.0) g/dl RDW (11.0-16.0) % Plt Count (160-400) X10*3/uL MPV (9.4-12.4) fL Immature Gran % (Auto) (0.0-0.4) % Neut % (Auto) (45-73) % Lymph % (Auto) (20-40) % Jack % (Auto) (2-11) % Eos % (Auto) (0-4) % Baso % (Auto) (0-2) % Lymph # (Auto) (1.2-4.9) X10*3/uL Jack # (Auto) (0.1-1.2) X10*3/uL Eos # (Auto) (0.0-0.4) X10*3/uL Baso # (Auto) (0.0-0.2) X10*3/uL Abs Immat Gran (auto) (0.00-0.03) X10*3/uL Absolute Neuts (auto) (2.0-8.3) X10*3/uL Absolute Nucleated RBC (0.0-0.012) X10*3/uL Nucleated RBC % (auto) (0.0-0.2) /100WBC Sodium (135-145) mmol/L Potassium (3.3-5.1) mmol/L Chloride (96-108) mmol/L Carbon Dioxide (22-29) mmol/L Anion Gap (12-20) BUN (9-16) mg/dL Creatinine (0.5-1.4) mg/dL Estim Creat Clear Calc Estimated GFR Random Glucose (60-115) mg/dL Calcium (8.4-10.2) mg/dL Magnesium (1.6-2.6) mg/dL Total Bilirubin (0.0-1.0) mg/dL Direct Bilirubin (0.0-0.5) mg/dL AST (5-37) U/L ALT (0-40) U/L Alkaline Phosphatase (39-117) U/L Total Protein (6.5-8.0) g/dL Albumin (3.5-5.0) g/dL Urine Color YELLOW Urine Appearance CLEAR Urine pH 6.0 (5.0-8.0) Ur Specific [place] <= 1.005 (1.005-1.025) Urine Protein NEG (NEG-TRACE) MG/DL Urine Glucose (UA) NEG (NEG) MG/DL Urine Ketones NEG (NEG) MG/DL Urine Blood NEG (NEG) Urine Nitrite NEG (NEG) Ur Leukocyte Esterase NEG (NEG) Urine Opiates Screen Not Detected (Not Detect) Urine Fentanyl Screen Not Detected (Not Detect) Ur Barbiturates Screen Not Detected (Not Detect) Ur Phencyclidine Scrn Not Detected (Not Detect) Ur Amphetamines Screen Not Detected (Not Detect) U Benzodiazepines Scrn Not Detected (Not Detect) Urine Cocaine Screen Not Detected (Not Detect) U Marijuana (THC) Screen Not Detected (Not Detect) Ethyl Alcohol mg/dL COVID-19 ([facility]IA) Positive A (Negative) COVID-19 Clin Com See Note 05/20/21 05/20/21 05/20/21 Range/Units 13:08 13:08 13:08 WBC 4.0 L (4.8-10.8) X10*3/uL RBC 3.92 L (4.60-5.80) X10*6/uL Hgb 13.2 L (14.0-18.0) g/dl Hct 38.1 L (42-52) % MCV 97.2 (80-98) fL MCH 33.7 H (27.0-33.0) pg MCHC 34.6 (31.0-36.0) g/dl RDW 14.1 (11.0-16.0) % Plt Count 152 L (160-400) X10*3/uL MPV 9.0 L (9.4-12.4) fL Immature Gran % (Auto) 0.2 (0.0-0.4) % Neut % (Auto) 65.0 (45-73) % Lymph % (Auto) 18.9 L (20-40) % Jack % (Auto) 12.7 H (2-11) % Eos % (Auto) 2.2 (0-4) % Baso % (Auto) 1.0 (0-2) % Lymph # (Auto) 0.8 L (1.2-4.9) X10*3/uL Jack # (Auto) 0.5 (0.1-1.2) X10*3/uL Eos # (Auto) 0.1 (0.0-0.4) X10*3/uL Baso # (Auto) 0.0 (0.0-0.2) X10*3/uL Abs Immat Gran (auto) 0.01 (0.00-0.03) X10*3/uL Absolute Neuts (auto) 2.6 (2.0-8.3) X10*3/uL Absolute Nucleated RBC 0.000 (0.0-0.012) X10*3/uL Nucleated RBC % (auto) 0.0 (0.0-0.2) /100WBC Sodium 140 (135-145) mmol/L Potassium 4.0 (3.3-5.1) mmol/L Chloride 107 (96-108) mmol/L Carbon Dioxide 23 (22-29) mmol/L Anion Gap 14 (12-20) BUN 7 L (9-16) mg/dL Creatinine 0.70 (0.5-1.4) mg/dL Estim Creat Clear Calc 135.9 Estimated GFR > 60 Random Glucose 100 (60-115) mg/dL Calcium 8.9 (8.4-10.2) mg/dL Magnesium 2.2 (1.6-2.6) mg/dL Total Bilirubin 0.5 (0.0-1.0) mg/dL Direct Bilirubin 0.2 (0.0-0.5) mg/dL AST 136 H (5-37) U/L ALT 60 H (0-40) U/L Alkaline Phosphatase 79 (39-117) U/L Total Protein 8.2 H (6.5-8.0) g/dL Albumin 4.0 (3.5-5.0) g/dL Urine Color Urine Appearance Urine pH (5.0-8.0) Ur Specific [place] (1.005-1.025) Urine Protein (NEG-TRACE) MG/DL Urine Glucose (UA) (NEG) MG/DL Urine Ketones (NEG) MG/DL Urine Blood (NEG) Urine Nitrite (NEG) Ur Leukocyte Esterase (NEG) Urine Opiates Screen (Not Detect) Urine Fentanyl Screen (Not Detect) Ur Barbiturates Screen (Not Detect) Ur Phencyclidine Scrn (Not Detect) Ur Amphetamines Screen (Not Detect) U Benzodiazepines Scrn (Not Detect) Urine Cocaine Screen (Not Detect) U Marijuana (THC) Screen (Not Detect) Ethyl Alcohol 179 mg/dL COVID-19 ([facility]ANIA) (Negative) COVID-19 Clin Com <MANUEL Ko - Last Filed: 05/20/21 17:28> Lab Results 05/20/21 05/20/21 05/20/21 Range/Units 09:42 09:43 11:24 WBC (4.8-10.8) X10*3/uL RBC (4.60-5.80) X10*6/uL Hgb (14.0-18.0) g/dl Hct (42-52) % MCV (80-98) fL MCH (27.0-33.0) pg MCHC (31.0-36.0) g/dl RDW (11.0-16.0) % Plt Count (160-400) X10*3/uL MPV (9.4-12.4) fL Immature Gran % (Auto) (0.0-0.4) % Neut % (Auto) (45-73) % Lymph % (Auto) (20-40) % Jack % (Auto) (2-11) % Eos % (Auto) (0-4) % Baso % (Auto) (0-2) % Lymph # (Auto) (1.2-4.9) X10*3/uL Jack # (Auto) (0.1-1.2) X10*3/uL Eos # (Auto) (0.0-0.4) X10*3/uL Baso # (Auto) (0.0-0.2) X10*3/uL Abs Immat Gran (auto) (0.00-0.03) X10*3/uL Absolute Neuts (auto) (2.0-8.3) X10*3/uL Absolute Nucleated RBC (0.0-0.012) X10*3/uL Nucleated RBC % (auto) (0.0-0.2) /100WBC Sodium (135-145) mmol/L Potassium (3.3-5.1) mmol/L Chloride (96-108) mmol/L Carbon Dioxide (22-29) mmol/L Anion Gap (12-20) BUN (9-16) mg/dL Creatinine (0.5-1.4) mg/dL Estim Creat Clear Calc Estimated GFR Random Glucose (60-115) mg/dL Calcium (8.4-10.2) mg/dL Magnesium (1.6-2.6) mg/dL Total Bilirubin (0.0-1.0) mg/dL Direct Bilirubin (0.0-0.5) mg/dL AST (5-37) U/L ALT (0-40) U/L Alkaline Phosphatase (39-117) U/L Total Protein (6.5-8.0) g/dL Albumin (3.5-5.0) g/dL Urine Color YELLOW Urine Appearance CLEAR Urine pH 6.0 (5.0-8.0) Ur Specific [place] <= 1.005 (1.005-1.025) Urine Protein NEG (NEG-TRACE) MG/DL Urine Glucose (UA) NEG (NEG) MG/DL Urine Ketones NEG (NEG) MG/DL Urine Blood NEG (NEG) Urine Nitrite NEG (NEG) Ur Leukocyte Esterase NEG (NEG) Urine Opiates Screen Not Detected (Not Detect) Urine Fentanyl Screen Not Detected (Not Detect) Ur Barbiturates Screen Not Detected (Not Detect) Ur Phencyclidine Scrn Not Detected (Not Detect) Ur Amphetamines Screen Not Detected (Not Detect) U Benzodiazepines Scrn Not Detected (Not Detect) Urine Cocaine Screen Not Detected (Not Detect) U Marijuana (THC) Screen Not Detected (Not Detect) Ethyl Alcohol mg/dL COVID-19 ([facility]) Positive A (Negative) COVID-19 Clin Com See Note 05/20/21 05/20/21 05/20/21 Range/Units 13:08 13:08 13:08 WBC 4.0 L (4.8-10.8) X10*3/uL RBC 3.92 L (4.60-5.80) X10*6/uL Hgb 13.2 L (14.0-18.0) g/dl Hct 38.1 L (42-52) % MCV 97.2 (80-98) fL MCH 33.7 H (27.0-33.0) pg MCHC 34.6 (31.0-36.0) g/dl RDW 14.1 (11.0-16.0) % Plt Count 152 L (160-400) X10*3/uL MPV 9.0 L (9.4-12.4) fL Immature Gran % (Auto) 0.2 (0.0-0.4) % Neut % (Auto) 65.0 (45-73) % Lymph % (Auto) 18.9 L (20-40) % Jack % (Auto) 12.7 H (2-11) % Eos % (Auto) 2.2 (0-4) % Baso % (Auto) 1.0 (0-2) % Lymph # (Auto) 0.8 L (1.2-4.9) X10*3/uL Jack # (Auto) 0.5 (0.1-1.2) X10*3/uL Eos # (Auto) 0.1 (0.0-0.4) X10*3/uL Baso # (Auto) 0.0 (0.0-0.2) X10*3/uL Abs Immat Gran (auto) 0.01 (0.00-0.03) X10*3/uL Absolute Neuts (auto) 2.6 (2.0-8.3) X10*3/uL Absolute Nucleated RBC 0.000 (0.0-0.012) X10*3/uL Nucleated RBC % (auto) 0.0 (0.0-0.2) /100WBC Sodium 140 (135-145) mmol/L Potassium 4.0 (3.3-5.1) mmol/L Chloride 107 (96-108) mmol/L Carbon Dioxide 23 (22-29) mmol/L Anion Gap 14 (12-20) BUN 7 L (9-16) mg/dL Creatinine 0.70 (0.5-1.4) mg/dL Estim Creat Clear Calc 135.9 Estimated GFR > 60 Random Glucose 100 (60-115) mg/dL Calcium 8.9 (8.4-10.2) mg/dL Magnesium 2.2 (1.6-2.6) mg/dL Total Bilirubin 0.5 (0.0-1.0) mg/dL Direct Bilirubin 0.2 (0.0-0.5) mg/dL AST 136 H (5-37) U/L ALT 60 H (0-40) U/L Alkaline Phosphatase 79 (39-117) U/L Total Protein 8.2 H (6.5-8.0) g/dL Albumin 4.0 (3.5-5.0) g/dL Urine Color Urine Appearance Urine pH (5.0-8.0) Ur Specific [place] (1.005-1.025) Urine Protein (NEG-TRACE) MG/DL Urine Glucose (UA) (NEG) MG/DL Urine Ketones (NEG) MG/DL Urine Blood (NEG) Urine Nitrite (NEG) Ur Leukocyte Esterase (NEG) Urine Opiates Screen (Not Detect) Urine Fentanyl Screen (Not Detect) Ur Barbiturates Screen (Not Detect) Ur Phencyclidine Scrn (Not Detect) Ur Amphetamines Screen (Not Detect) U Benzodiazepines Scrn (Not Detect) Urine Cocaine Screen (Not Detect) U Marijuana (THC) Screen (Not Detect) Ethyl Alcohol 179 mg/dL COVID-19 ([facility]) (Negative) COVID-19 Clin Com <Celena Reagan NP - Last Filed: 05/20/21 20:29> Discharge Plan Discharge Clinical Impression: Alcohol abuse, COVID-19 Depression Qualifiers: Depression Type: unspecified Qualified Code(s): F32.9 - Major depressive disorder, single episode, unspecified <MANUEL Ko - Last Filed: 05/20/21 17:28> Patient Disposition: Home, Self-Care <MANUEL Ko - Last Filed: 05/20/21 17:28> Instructions: Depression (ED), Abuse of Alcohol (ED), COVID-19 (Coronavirus Disease 2019) (ED) <MANUEL Ko - Last Filed: 05/20/21 17:28> Additional Instructions: Go direct to detox as arranged by your family <MANUEL Ko - Last Filed: 05/20/21 17:28> Prescriptions: No Action No Known Home Meds RF: 0 <MANUEL Ko - Last Filed: 05/20/21 17:28> Referrals: Carla Abraham MD [Primary Care Provider] - 2 days (as needed) <MANUEL Ko - Last Filed: 05/20/21 17:28>
[2021-05-20 10:18] LABS: COVID-19 Test Positive (Negative); IDNOW Serial# 9DD0AD1C
[2021-05-20 10:22] LABS: Amphetamine Screen Urine Not Detected (Not Detect); Barbiturates, Urine Not Detected (Not Detect); Benzodiazepines Screen Urine Not Detected (Not Detect); Cannabinoid Screen Urine Not Detected (Not Detect); Cocaine Screen Urine Not Detected (Not Detect); Fentanyl, urine Not Detected (Not Detect); Opiate Screen Urine Not Detected (Not Detect); Phencyclidine Screen Urine Not Detected (Not Detect)
[2021-05-20] MEDS: Magnesium Hydrox/Alum Hydrox 30 ML ORAL.SUSP PO (11:11)
[2021-05-20 11:26] LABS: Appearance Urine CLEAR; Color Urine YELLOW; Glucose Urine UA NEG (NEG); Leukocyte Esterase Urine NEG (NEG); Nitrite Urine NEG (NEG); Specific Gravity - Urine <= 1.005 (1.005-1.025); Urine Blood NEG (NEG); Urine Ketones NEG (NEG); Urine Protein NEG (NEG-TRACE)
[2021-05-20 13:13] LABS: MANUAL DIFF FLAG NO
[2021-05-20 13:17] LABS: Eosinophils Absolute Auto 0.1 X10*3/uL (0.0-0.4); Eosinophils Percent Auto 2.2 % (0-4); Hematocrit 38.1 % (42-52); Hemoglobin 13.2 g/dl (14.0-18.0); Imm Gran Abs Auto 0.01 X10*3/uL (0.00-0.03); Imm Gran Pct Auto 0.2 % (0.0-0.4); Lymphocytes Absolute Auto 0.8 X10*3/uL (1.2-4.9); Lymphocytes Percent Auto 18.9 % (20-40); Mean Corpuscular HGB Conc 34.6 g/dl (31.0-36.0); Mean Corpuscular Hemoglobin 33.7 pg (27.0-33.0); Mean Corpuscular Volume 97.2 fL (80-98); Monocytes Absolute Auto 0.5 X10*3/uL (0.1-1.2); Monocytes Percent Auto 12.7 % (2-11); Neutrophils Absolute Auto 2.6 X10*3/uL (2.0-8.3); Platelet Count 152 X10*3/uL (160-400); Red Blood Count 3.92 X10*6/uL (4.60-5.80); Red Cell Distribution Width 14.1 % (11.0-16.0)
[2021-05-20 13:36] LABS: Ethanol 179 mg/dL
[2021-05-20 13:47] LABS: Alanine Aminotransferase 60 U/L (0-40); Alkaline Phosphatase 79 U/L (39-117); Anion Gap 14 (12-20); Aspartate Amino Transferase 136 U/L (5-37); Bilirubin Direct 0.2 mg/dL (0.0-0.5); Bilirubin Total 0.5 mg/dL (0.0-1.0); Blood Urea Nitrogen 7 mg/dL (9-16); Calcium 8.9 mg/dL (8.4-10.2); Carbon Dioxide 23 mmol/L (22-29); Chloride 107 mmol/L (96-108); Creatinine Clr Calc Pharmacy 135.9; Estimated Glomerular Filt Rate > 60; Glucose Random 100 mg/dL (60-115); Magnesium 2.2 mg/dL (1.6-2.6); Sodium 140 mmol/L (135-145); Total Protein 8.2 g/dL (6.5-8.0)
[2021-05-20 14:23] VITALS: BP 129/90; PULSE 96; RESP 18; O2SAT 98
[2021-05-20] MEDS: LORazepam 1 MG TABLET PO (14:25)
--- NOTE | 2021-05-20 17:12 | PC.NURSE ---
pt is currently calm and cooperative, sitter at bedside pt awaiting bhn evaluation
[2021-05-20 18:03] VITALS: BP 135/89; PULSE 80; RESP 20; TEMP 37.7; O2SAT 96
--- NOTE | 2021-05-20 18:15 | PC.NURSE ---
pt is currently resting in the stretcher, vs stable, pt denies si, stats he sometimes feels like hurting himself while he is drinking, pt has very slight tremor and slight headache at this time. pt reports drinking about 28 beers a day and 2 nips as well. pt awaiting n evaluation
--- NOTE | 2021-05-20 20:37 | PC.NURSE ---
Renetta SPOKE WITH PT, REPORTS THAT HE IS NO LONGER FEELING SUICIDAL. Renetta SPOKE WITH SISTER JESSE, PLAN IS FOR PT TO DETOX AND QUARANTINE, PT HAS A BED AT A FACILITY IN [facility]. PRIMARY SISTER DAIN CALLED, ASKED THAT WE CALL JESSE, HIS OTHER SISTER. JESSE SPOKE WITH Renetta, SHE IS SENDING HER TO PICK HIM UP. DANIEL LIVES WITH JESSE. BOTH PATIENT AND JESSE UNDERSTAND THAT THEY NEED TO QUARANTINE FOR 10 DAYS.
--- NOTE | 2021-05-20 21:32 | PC.NURSE ---
PT DRESSED, READY FOR DISCHARGE. BROTHER IN LAW HERE TO BRING HIM HOME. UNDERSTANDS ABOUT QUARANTINE. PT INSTRUCTED TO RETURN IF EXPERIENCING DYSPNEA.
== END 2021-05-20 21:40 | disposition home or self-care (01) ==
PROVIDERS: Physician Assistant; Emergency Provider Emergency Medicine; PCP Internal Medicine
DX: F32.9 Major depressive disorder, single episode, unspecified (principal); R45.851 Suicidal ideations; F41.9 Anxiety disorder, unspecified; F10.10 Alcohol abuse, uncomplicated; Y90.6 Blood alcohol level of 120-199 mg/100 ml; U07.1 COVID-19
CPT/HCPCS: 36415; 80048; 80076; 80307; 81003; 82077; 83735; 85025; 87635; 99285

== ENCOUNTER 2021-06-08 16:42 | Emergency (ER) | payer MEDICAID, SELFPAY ==
--- NOTE | ~2021-06-08 | XR_ITS ---
EXAMINATION: XR KNEE, RIGHT CLINICAL INFORMATION: Swelling. COMPARISON: None TECHNIQUE: Four views of the right knee. FINDINGS: The tricompartment joint space is maintained normal. No loose bodies, joint effusion or fracture seen. There is soft tissue calcification along the posterior quadriceps tendon likely old injury or calcific tendinitis. There is moderate edema of the quadriceps tendon. XR/XR knee RT 2V IMPRESSION: No acute fracture or dislocation. Moderate soft tissue edema with calcification of the quadriceps tendon likely old or calcific tendinitis.
[2021-06-08 17:41] VITALS: BP 102/55; PULSE 78; RESP 18; TEMP 37.2; O2SAT 98; BMI 26.6
--- NOTE | 2021-06-08 18:18 | ED_ITS ---
HPI - Extremity Problem General Chief complaint: Extremity Problem Stated complaint: rt knee pain Time Seen by Provider: 06/08/21 18:15 Source: patient and project management Mode of arrival: ambulatory Limitations: language barrier History of Present Illness HPI Narrative: 50-year-old male previously healthy here with complaints of right knee swelling and pain for 2 weeks. Denies any injury or trauma. Does report some redness and warmth the knee but denies any difficulty extending or flexing the knee. No fevers or chills. The patient is able to ambulate with some assistance Related Data Previous Rx's Medication Instructions Recorded naproxen 500 mg tablet 500 mg PO BID #20 tab 06/08/21 prednisone 20 mg tablet 40 mg PO DAILY #10 tab 06/08/21 Allergies Allergy/AdvReac Type Severity Reaction Status Date / Time No Known Allergies Allergy Verified 04/06/21 13:54 [No Known Allergies*] Review of Systems Review of Systems: Yes all other systems are reviewed and are negative Constitutional: Constitutional: Reports no additional constitutional complaints, Denies body ache(s), Denies chills, Denies fever(s), Denies headache(s) and Denies weakness Eyes: Eyes: Reports no additional eye complaints and Denies change in vision ENT: Reports system reviewed and no additional complaints, except as documented, Denies dizziness, Denies headache(s), Denies nasal congestion, Denies nasal discharge and Denies neck pain Cardiovascular: Cardiovascular: Reports no additional cardiovascular complaints, Denies chest pain, Denies leg edema and Denies dyspnea Respiratory: Respiratory: Reports no additional respiratory complaints, Denies cough and Denies dyspnea Gastrointestinal: Gastrointestinal: Reports no additional gastrointestinal complaints, Denies abdominal pain, Denies diarrhea, Denies nausea and Denies vomiting Genitourinary: Genitourinary: Denies urinary incontinence Musculoskeletal: Musculoskeletal: Reports no additional musculoskeletal complaints, Denies back pain, Reports arthralgias, Reports joint swelling, Reports limited range of motion, Denies neck pain, Denies numbness and Denies tingling Integumentary/Breasts: Skin/Breast: Reports system reviewed and no additional complaints, except as docu and Denies rash Neurologic: Reports system reviewed and no additional complaints, except as documented, Denies Abnormal speech present, Denies dizziness, Denies headache(s), Denies numbness, Denies tingling and Denies weakness PMFSH Past Medical History Attestation statement: The following information was validated with the patient. Source: old records reviewed and nursing notes reviewed Social History Social History Alcohol intake: current Alcohol intake frequency: a few times a month Patient Tobacco Use Status: Never used Tobacco Advance Directives: No Advance Directives Information Provided: No Current occupational status: disabled Current occupation: rt handed Physical Exam Vital Signs: Vital Signs: Last Vital Signs Temp 99.0 F 06/08/21 17:41 Pulse 78 06/08/21 17:41 Resp 18 06/08/21 17:41 BP 102/55 L 06/08/21 17:41 Pulse Ox 98 06/08/21 17:41 Body Mass Index 26.6 Const: General: cooperative, healthy appearing, comfortable and no acute distress Orientation/consciousness: patient oriented x3 Limitations: no limitations HENMT: Head: Yes normal to inspection Ears: hearing grossly normal bilaterally and TM's normal bilaterally General nose exam: Normal external nose present Face and sinus: Yes normal facial exam Mouth: Normal oral and palatal mucosa present Throat: Yes posterior oropharynx normal, Yes tonsils normal and Yes uvula midline Eyes: General: appearance normal, both eyes and all related structures Pupils: Equal, round and reactive pupils present Neck: Neck: Yes normal visual inspection Chest: Chest palpation & inspection: normal inspection of the chest Resp: Effort & Inspection: normal respiratory effort Auscultation: clear to auscultation bilaterally Cardio: Rate: regular rate Rhythm: regular rhythm Peripheral pulses: Peripheral pulses 2+ throughout GI: Inspection: Yes normal to inspection Palpation (GI): Soft to palpation and nontender Auscultation: normal bowel sounds Back/Spine/Pelvis: Thoracic/Lumbar Spine: thoracic and lumbar spine normal to inspection Skin: General skin exam: no rashes or lesions noted Neuro: General: patient oriented x3, no focal motor deficits and normal sensation to monofilament Cranial nerves: Yes Equal, round and reactive pupils present Cognition (Neuro): normal cognition Speech: No Abnormal speech present Gait exam (Neuro): Normal gait present Motor exam (neuro): 5/5 motor strength present throughout Extrem: Other: To the right knee there is moderate swelling. There is some warmth and tenderness over the anterior aspect of the knee. The patient is able to flex and extend the knee without any difficulty. He does have some tenderness over the lateral aspect of the knee. No pain over the posterior aspect. No calf pain or swelling General: Yes normal to inspection Course Course Course Narrative: Atraumatic right knee pain with swelling for 2 weeks. No fevers or chills. On exam the patient has moderate swelling. He has tenderness over the lateral aspect of the right knee. He is able to flex and extend the knee with no difficulty. No fever here. No diabetes history, X-rays consistent with a quadriceps tendonitis. There is no effusion noted on x-ray. Will give patient pred burst, NSAID and refer to orthopedics for follow-up. Reviewed worrisome signs and symptoms of when to return to the emergency department. Comfortable discharge home. MDM - Extremity (Nontraumatic) MDM Narrative Medical decision making narrative: low concern for septic joint with FROM of the joint. Medical Records Attestation: I reviewed the patient's medical records. Lab Data Attestation: I reviewed the patient's lab results. Imaging Data right knee xray: Attestation: I personally reviewed and interpreted this imaging study as follows: Radiologist's impression: [address] [address] XRay Report Signed Patient: Gelacio Garcia MR#: [id number] : 1970 Acct:[id number] Age/Sex: 50 / M ADM Date: 06/08/21 Loc: .ED Attending Dr: Ordering Physician: Generic ED Physician Date of Service: 06/08/21 Procedure(s): XR knee RT 2V Accession Number(s): [id number] cc: Generic ED Physician~ EXAMINATION: XR KNEE, RIGHT? CLINICAL INFORMATION: Swelling.? COMPARISON: None? TECHNIQUE: Four views of the right knee. FINDINGS: The tricompartment joint space is maintained normal. No loose bodies, joint effusion or fracture seen. There is soft tissue calcification along the posterior quadriceps tendon likely old injury or calcific tendinitis. There is moderate edema of the quadriceps tendon. XR/XR knee RT 2V IMPRESSION: No acute fracture or dislocation. ? Moderate soft tissue edema with calcification of the quadriceps tendon likely old or calcific tendinitis. ? Procedures Procedure Narrative Procedure Narrative: Felice wrap Crutches Discharge Plan Discharge Clinical Impression: Tendonitis Patient Disposition: Home, Self-Care Instructions: Tendinitis (ED) Additional Instructions: felice wrap, crutches for ambulation elevation, ice 20 minutes on 20 minutes off Call orthopedics for a follow-up appointment. Return for fever, inability to extend or flex the knee Prescriptions: New prednisone 20 mg tablet 40 mg PO DAILY Qty: 10 RF: 0 naproxen 500 mg tablet 500 mg PO BID Qty: 20 RF: 0 Referrals: Luis Manuel Francisco MD [Physician] - 2 days Interventions: ED Discharge Assessment Last Done: 06/08/21 19:18 Discharge Date/Time: 06/08/21 19:27 Print Language: Kinyarwanda
[2021-06-08] MEDS: Ketorolac Tromethamine 60 MG/2 ML VIAL IM (19:12)
== END 2021-06-08 19:27 | disposition home or self-care (01) ==
LOC: HO.ED 18:19
PROVIDERS: Emergency Provider Emergency Medicine; PCP Family Medicine
DX: M65.261 Calcific tendinitis, right lower leg (principal); M25.561 Pain in right knee; Z79.899 Other long term (current) drug therapy
CPT/HCPCS: 73560; 96372; 99284; J1885

== ENCOUNTER 2021-09-01 08:45 | Outpatient (REF) | payer MEDICAID, SELFPAY ==
--- NOTE | ~2021-09-01 | US_ITS ---
EXAMINATION: US ABDOMEN COMPLETE CLINICAL INFORMATION: Elevated LFTs. COMPARISON: CT abdomen and pelvis 08/19/2021. Limited abdominal ultrasound 05/04/2021. Ultrasound abdomen 06/01/2019. TECHNIQUE: Real-time imaging of the abdominal viscera. FINDINGS: PANCREAS: No abnormal mass or peripancreatic inflammatory change. ABDOMINAL AORTA: The proximal, mid, and distal segments are normal in caliber. INFERIOR VENA CAVA: Visualized portions are normal. LIVER: The liver is normal in size. The liver contour is normal. There is diffusely increased echogenicity consistent with fatty infiltration. No focal hepatic lesion. There is no intrahepatic biliary duct dilatation seen. GALLBLADDER: Normal. The gallbladder is physiologically distended without evidence of stones, sludge, polyps, wall thickening or pericholecystic fluid. COMMON BILE DUCT: Normal in caliber measuring 0.3 cm in diameter. RIGHT KIDNEY: Normal. No hydronephrosis. No renal calculi or focal parenchymal lesions. The kidney measures 10.4 cm in maximum dimension. LEFT KIDNEY: Normal. No hydronephrosis. No renal calculi or focal parenchymal lesions. The kidney measures 11.7 cm in maximum dimension. SPLEEN: Normal. The spleen measures 8.2 cm in maximum dimension. FREE FLUID: None. US/US abdomen complete IMPRESSION: Diffusely increased echogenicity of the liver consistent with fatty infiltration.
== END 2021-09-01 08:46 | disposition home or self-care (01) ==
LOC: HO.US 08:45
PROVIDERS: PCP Family Medicine; Visit Provider Family Medicine
DX: R77.2 Abnormality of alphafetoprotein (principal)
CPT/HCPCS: 76700

== ENCOUNTER → 2021-09-28 11:43 | Outpatient (BNVA) | payer MEDICAID, SELFPAY | PROVIDERS: PCP Family Medicine; Referring Provider Family Medicine; Visit Provider Nurse Practitioner Family ==

== ENCOUNTER 2021-09-29 09:22 | Outpatient (REF) | payer MEDICAID, SELFPAY ==
[2021-09-29 09:39] LABS: Binax Internal Control QC Valid; Binax Now Covid-19 Ag Negative (Negative)
== END 2021-09-29 09:23 | disposition home or self-care (01) ==
LOC: HO.LAB 09:22
PROVIDERS: Visit Provider Internal Medicine
DX: Z20.822 Contact with and (suspected) exposure to COVID-19 (principal)
CPT/HCPCS: C9803

== ENCOUNTER 2021-09-29 19:10 | Emergency (ER) | payer MEDICAID, SELFPAY ==
[2021-09-29 19:40] VITALS: BP 112/74; PULSE 94; RESP 18; TEMP 37.1; O2SAT 96; BMI 15.8
--- NOTE | 2021-09-29 20:01 | ED.PSYCH ---
HPI - Psych General Chief Complaint: Psychiatric Symptoms Stated Complaint: Detox Time Seen by Provider: 09/29/21 20:01 Source: patient Mode of arrival: ambulatory Limitations: language barrier History of Present Illness HPI Narrative: 51-year-old male presents to the emergency department asking for detox. During triage stated he had mild SI. States this started drinking as soon as he wakes up at approximately 5:00 a.m.. complaint: feels depressed and alcohol abuse Onset (ago): year(s) Duration: constant History of same: Yes Relieving factors: none Exacerbating factors: alcohol Context: recent alcohol abuse Associated psychiatric symptoms: depression and suicidal ideation Associated symptoms: denies other symptoms Treatments prior to arrival: none If self harm: admits thoughts of self harm Related Data Home Medications Medication Instructions Recorded Confirmed No Known Home Meds 09/29/21 09/29/21 Allergies Allergy/AdvReac Type Severity Reaction Status Date / Time No Known Allergies Allergy Verified 04/06/21 13:54 [No Known Allergies*] Review of Systems Review of Systems: Constitutional: No Fever, No Chills ENT/Mouth: No sore throat, No Rhinorrhea Eyes: No Eye Pain, No Swelling, No Redness Cardiovascular: No Chest Pain, No SOB Respiratory: No Cough, No Sputum Gastrointestinal: No Nausea, No Vomiting, No Diarrhea, No abdominal Pain Genitourinary: No Dysuria, No Hematuria Musculoskeletal: No joint pain, No Myalgias, No Joint Swelling Skin: No Skin Lesions, No rash Neuro: No Weakness, No Numbness, No Loss of Consciousness, No Dizziness, No Headache Psych: Positive alcohol abuse, No Anxiety, No Depression, No SI/HI/AH/VH Heme/Lymph: No Bruising, No Bleeding,No Lymphadenopathy Endocrine: No Polyuria, No Polydipsia Yes all other systems are reviewed and are negative PMFSH Past Medical History Attestation statement: The following information was validated with the patient. Source: old records reviewed Social History Social History Alcohol intake: current Alcohol intake frequency: a few times a month Patient Tobacco Use Status: Never used Tobacco Advance Directives: No Advance Directives Information Provided: Yes Current occupational status: disabled Current occupation: rt handed Physical Exam Vital Signs: Vital Signs: Last Vital Signs Temp 98.8 F 09/29/21 19:40 Pulse 94 09/29/21 19:40 Resp 18 09/29/21 19:40 BP 112/74 09/29/21 19:40 Pulse Ox 96 09/29/21 19:40 BMI result Body Mass Index 15.8 Appearance: Alert. Oriented X3. Mild distress. Thin. Eyes: Pupils equal, round and reactive to light. EOMI. No nystagmus. Sclerae nonicteric. ENT: Pharynx normal. Moist mucous membranes. Neck: Normal inspection. Neck supple. CVS: Normal heart rate and rhythm. Pulses normal. Respiratory: No respiratory distress. Breath sounds normal. Abdomen: Soft and nontender. Skin: Skin warm and dry. Normal skin color. Normal skin turgor. Extremities: No lower extremity edema. Moves all extremities against resistance. Gait well-balanced well coordinated. No asterixis. Neuro: No motor deficit. No sensory deficit. Cranial nerves 2-12 intact. Course Course Course Narrative: 51-year-old male presents to the emergency department for alcohol detox and suicidal ideation. Had been living with his sister, drinks large quantities of alcohol daily. Does not know how much. Usually starts at 5:00 a.m. and drinks only passes out. Has history of withdrawal seizures. States that his last drink was earlier this morning but does not recall what time. His sister brought him to the emergency department because he is seeking assistance to help with alcohol addiction. 9:00 p.m. ETOH level 412. CIWA Q 2, Ativan 2 mg q.3 hours p.r.n. as needed. aerial installer utilized for all correspondence. MDM - Psych MDM Narrative Medical decision making narrative: Alcohol withdrawal Differential Diagnosis Differential diagnosis: Likely suicidal ideation, depression, substance abuse and alcohol intoxication Medical Records Attestation: I reviewed the patient's medical records. Lab Data Attestation: I reviewed the patient's lab results. Result diagrams: 09/29/21 20:09 09/29/21 20:09 Labs: Lab Results 09/29/21 09/29/21 09/29/21 Range/Units 19:51 19:59 19:59 WBC (4.8-10.8) X10*3/uL RBC (4.60-5.80) X10*6/uL Hgb (14.0-18.0) g/dl Hct (42.0-52.0) % MCV (80.0-98.0) fL MCH (27.0-33.0) pg MCHC (31.0-36.0) g/dl RDW (11.0-16.0) % Plt Count (160-400) X10*3/uL MPV (9.4-12.4) fL Immature Gran % (Auto) (0.0-0.4) % Neut % (Auto) (45-73) % Lymph % (Auto) (20-40) % Geary % (Auto) (2-11) % Eos % (Auto) (0-4) % Baso % (Auto) (0-2) % Lymph # (Auto) (1.2-4.9) X10*3/uL Geary # (Auto) (0.1-1.2) X10*3/uL Eos # (Auto) (0.0-0.4) X10*3/uL Baso # (Auto) (0.0-0.2) X10*3/uL Abs Immat Gran (auto) (0.00-0.03) X10*3/uL Absolute Neuts (auto) (2.0-8.3) x10*3/uL Absolute Nucleated RBC (0.0-0.012) X10*3/uL Nucleated RBC % (auto) (0.0-0.2) /100WBC Sodium (135-145) mmol/L Potassium (3.3-5.1) mmol/L Chloride (96-108) mmol/L Carbon Dioxide (22-29) mmol/L Anion Gap (12-20) BUN (9-16) mg/dL Creatinine (0.5-1.4) mg/dL Estim Creat Clear Calc Estimated GFR Random Glucose (60-115) mg/dL Calcium (8.4-10.2) mg/dL Urine Color STRAW Urine Appearance CLEAR Urine pH 6.0 (5.0-8.0) Ur Specific [place] <= 1.005 (1.005-1.025) Urine Protein NEG (NEG-TRACE) MG/DL Urine Glucose (UA) NEG (NEG) MG/DL Urine Ketones NEG (NEG) MG/DL Urine Blood NEG (NEG) Urine Nitrite NEG (NEG) Ur Leukocyte Esterase NEG (NEG) Urine RBC 0 (0) /HPF Urine WBC 0 (0-4) /HPF Ur Squamous Epith Cells TRACE /LPF Urine Bacteria NONE /LPF Urine Opiates Screen Not Detected (Not Detect) Urine Fentanyl Screen Not Detected (Not Detect) Ur Barbiturates Screen Not Detected (Not Detect) Ur Phencyclidine Scrn Not Detected (Not Detect) Ur Amphetamines Screen Not Detected (Not Detect) U Benzodiazepines Scrn Not Detected (Not Detect) Urine Cocaine Screen Not Detected (Not Detect) U Marijuana (THC) Screen Not Detected (Not Detect) Ethyl Alcohol mg/dL COVID-19 ([facility]) Negative (Negative) COVID-19 Clin Com See Note 09/29/21 09/29/21 09/29/21 Range/Units 20:09 20:09 20:09 WBC 6.3 (4.8-10.8) X10*3/uL RBC 4.16 L (4.60-5.80) X10*6/uL Hgb 13.8 L (14.0-18.0) g/dl Hct 39.8 L (42.0-52.0) % MCV 95.7 (80.0-98.0) fL MCH 33.2 H (27.0-33.0) pg MCHC 34.7 (31.0-36.0) g/dl RDW 12.4 (11.0-16.0) % Plt Count 199 (160-400) X10*3/uL MPV 8.7 L (9.4-12.4) fL Immature Gran % (Auto) 0.2 (0.0-0.4) % Neut % (Auto) 33.4 L (45-73) % Lymph % (Auto) 54.7 H (20-40) % Geary % (Auto) 8.8 (2-11) % Eos % (Auto) 2.1 (0-4) % Baso % (Auto) 0.8 (0-2) % Lymph # (Auto) 3.4 (1.2-4.9) X10*3/uL Geary # (Auto) 0.6 (0.1-1.2) X10*3/uL Eos # (Auto) 0.1 (0.0-0.4) X10*3/uL Baso # (Auto) 0.1 (0.0-0.2) X10*3/uL Abs Immat Gran (auto) 0.01 (0.00-0.03) X10*3/uL Absolute Neuts (auto) 2.1 (2.0-8.3) x10*3/uL Absolute Nucleated RBC 0.000 (0.0-0.012) X10*3/uL Nucleated RBC % (auto) 0.0 (0.0-0.2) /100WBC Sodium 140 (135-145) mmol/L Potassium 3.9 (3.3-5.1) mmol/L Chloride 107 (96-108) mmol/L Carbon Dioxide 24 (22-29) mmol/L Anion Gap 13 (12-20) BUN 8 L (9-16) mg/dL Creatinine 0.73 (0.5-1.4) mg/dL Estim Creat Clear Calc 109.4 Estimated GFR > 60 Random Glucose 85 (60-115) mg/dL Calcium 9.0 (8.4-10.2) mg/dL Urine Color Urine Appearance Urine pH (5.0-8.0) Ur Specific [place] (1.005-1.025) Urine Protein (NEG-TRACE) MG/DL Urine Glucose (UA) (NEG) MG/DL Urine Ketones (NEG) MG/DL Urine Blood (NEG) Urine Nitrite (NEG) Ur Leukocyte Esterase (NEG) Urine RBC (0) /HPF Urine WBC (0-4) /HPF Ur Squamous Epith Cells /LPF Urine Bacteria /LPF Urine Opiates Screen (Not Detect) Urine Fentanyl Screen (Not Detect) Ur Barbiturates Screen (Not Detect) Ur Phencyclidine Scrn (Not Detect) Ur Amphetamines Screen (Not Detect) U Benzodiazepines Scrn (Not Detect) Urine Cocaine Screen (Not Detect) U Marijuana (THC) Screen (Not Detect) Ethyl Alcohol 415 H* mg/dL COVID-19 ([facility]) (Negative) COVID-19 Clin Com Discharge Plan Discharge Clinical Impression: Alcohol abuse Depression Qualifiers: Depression Type: major depressive disorder Major depression recurrence: recurrent Active/Remission status: currently active Major depression episode severity: moderate Qualified Code(s): F33.1 - Major depressive disorder, recurrent, moderate Patient Disposition: Still a Patient Prescriptions: No Action No Known Home Meds RF: 0
[2021-09-29 20:06] LABS: Appearance Urine CLEAR; Color Urine STRAW; Glucose Urine UA NEG (NEG); Leukocyte Esterase Urine NEG (NEG); Nitrite Urine NEG (NEG); Specific Gravity - Urine <= 1.005 (1.005-1.025); Urine Blood NEG (NEG); Urine Ketones NEG (NEG); Urine Protein NEG (NEG-TRACE)
[2021-09-29 20:13] LABS: COVID-19 Test Negative (Negative)
[2021-09-29 20:13] LABS: MANUAL DIFF FLAG NO
[2021-09-29 20:15] LABS: Basophils Absolute Auto 0.1 X10*3/uL (0.0-0.2); Basophils Percent Auto 0.8 % (0-2); Eosinophils Absolute Auto 0.1 X10*3/uL (0.0-0.4); Eosinophils Percent Auto 2.1 % (0-4); Hematocrit 39.8 % (42.0-52.0); Hemoglobin 13.8 g/dl (14.0-18.0); Imm Gran Abs Auto 0.01 X10*3/uL (0.00-0.03); Imm Gran Pct Auto 0.2 % (0.0-0.4); Lymphocytes Absolute Auto 3.4 X10*3/uL (1.2-4.9); Lymphocytes Percent Auto 54.7 % (20-40); Mean Corpuscular HGB Conc 34.7 g/dl (31.0-36.0); Mean Corpuscular Hemoglobin 33.2 pg (27.0-33.0); Mean Corpuscular Volume 95.7 fL (80.0-98.0); Mean Platelet Volume 8.7 fL (9.4-12.4); Monocytes Absolute Auto 0.6 X10*3/uL (0.1-1.2); Monocytes Percent Auto 8.8 % (2-11); Neutrophils Absolute Auto 2.1 x10*3/uL (2.0-8.3); Neutrophils Percent Auto 33.4 % (45-73); Platelet Count 199 X10*3/uL (160-400); Red Blood Count 4.16 X10*6/uL (4.60-5.80); Red Cell Distribution Width 12.4 % (11.0-16.0); White Blood Count 6.3 X10*3/uL (4.8-10.8)
[2021-09-29 20:21] LABS: Amphetamine Screen Urine Not Detected (Not Detect); Barbiturates, Urine Not Detected (Not Detect); Benzodiazepines Screen Urine Not Detected (Not Detect); Cannabinoid Screen Urine Not Detected (Not Detect); Cocaine Screen Urine Not Detected (Not Detect); Fentanyl, urine Not Detected (Not Detect); Opiate Screen Urine Not Detected (Not Detect); Phencyclidine Screen Urine Not Detected (Not Detect)
[2021-09-29 20:23] LABS: RBC Urine 0 /HPF (0); Squamous Epithelial Cell Urine TRACE /LPF; WBC Urine 0 /HPF (0-4)
[2021-09-29 20:25] LABS: Ethanol 415 mg/dL
[2021-09-29 20:27] LABS: Anion Gap 13 (12-20); Blood Urea Nitrogen 8 mg/dL (9-16); Carbon Dioxide 24 mmol/L (22-29); Chloride 107 mmol/L (96-108); Creatinine Clr Calc Pharmacy 109.4; Estimated Glomerular Filt Rate > 60; Glucose Random 85 mg/dL (60-115); Potassium 3.9 mmol/L (3.3-5.1); Sodium 140 mmol/L (135-145)
--- NOTE | 2021-09-30 05:58 | PC.NURSE ---
Patient slept through the night, no distress observed/reported, asymptomatic of withdrawal at this time, patient will be assessed by assistant coach in the morning for detox help, behavior appropriate and cooperative, VSS, will continue to monitor
[2021-09-30 06:36] VITALS: BP 106/72; PULSE 100; RESP 17; TEMP 37.5; O2SAT 98
[2021-09-30] MEDS: LORazepam 1 MG TABLET 2 MG PO ×2 (07:09→16:09)
--- NOTE | 2021-09-30 07:23 | PC.NURSE ---
patient appears to remain at rest at present patient arose soon after t/ws arrival and soon thereafter reported EVANS patient received 2mg ativan PO for seemingly mild etoh WD sx. patient appears minimally distressed this AM. to see acetone recovery worker.
--- NOTE | 2021-09-30 09:05 | ECG_ITS ---
Test Reason : med clearance Blood Pressure : / mmHG Vent. Rate : 106 BPM Atrial Rate : 106 BPM P-R Int : 140 ms QRS Dur : 086 ms QT Int : 320 ms P-R-T Axes : 042 073 043 degrees QTc Int : 425 ms Artifact in tracing Sinus tachycardia Otherwise normal ECG When compared with ECG of 04-MAY-2021 17:13, No significant change was found Referred By: Marilee León Electronically Signed By:CHRIS LAWRENCE
--- NOTE | 2021-09-30 11:07 | MHC.RECOVSUP ---
Recovery Support note: Patient is a 51 year old Greek speaking male who presented to [facility] ED seeking detox reporting vague SI. Patient reports drinking at least two nips of fireball everyday and reports drinking much more some days, including on 09/29/21 when he presented to [facility]. Patient expressed interest in going to detox and reports he has been before, stating he was at [facility] several years ago. Patient was referred to [facility] however was unable to complete intake. yoga coordinator reports that she was unable to get the necessary information from patient and that the information she got was concerning. Patient reportedly stated that he feels people are trying to hurt him and he is hearing voices telling him to get a knife. Discussed case with CARE Team and ED provider. Patient will be referred to [facility] for crisis evaluation.
[2021-09-30 11:08] VITALS: BP 132/74; PULSE 91; O2SAT 98
[2021-09-30 16:01] VITALS: BP 130/93; PULSE 95; TEMP 36.6; O2SAT 97
--- NOTE | 2021-09-30 19:14 | MHC.RECOVSUP ---
Met with Pt. states that he's been drinking for awhile .Stated that he was trying to get into a detox but had covid. Spoke to the provider and she stated that the sister does not want him back.Told the provider that I will leave a note with the care team and hopefully they will be able to find a detox for him in the morning. Gave the Pt. information and resoures about HF.
[2021-10-01 03:48] VITALS: BP 129/92; PULSE 108; RESP 18; TEMP 36.6; O2SAT 99
--- NOTE | 2021-10-01 05:48 | PC.NURSE ---
Patient slept through the night, no distress observed/reported, asymptomatic of withdrawal, VSS, BHN cleared the patient, refinery operator light ends recovery will coordinate detox bed search, behavior appropriate, medication compliant, will continue to monitor.
--- NOTE | 2021-10-01 07:12 | PC.NURSE ---
Report recieved. PT currently eating breakfast, in no apparent distress. Pt awaiting oil recovery unit operator detox placement.
[2021-10-01 08:02] VITALS: BP 149/97; PULSE 104; RESP 12; TEMP 36.8; O2SAT 99
--- NOTE | 2021-10-01 12:21 | MHC.RECOVSUP ---
? Reason for consult:Recovery Support o Current location:[facility] o Identified substance use concern:ETOH - Withdrawal - Seeking ATS (detox) - Support ? Intervention: o ATS bed search started/completed/in process o MAT started or to be started o Community resources provided o ? Plan: o Follow up tomorrow o Patient to follow up with [facility] after discharge ? Additional information:Referred patient to [facility] and Sandy Khalil. Patient still looking for a bed to detox. Patient given community resources
[2021-10-01 14:26] VITALS: BP 141/99; PULSE 94; TEMP 36.5; O2SAT 100
== END 2021-10-01 15:06 | disposition home or self-care (01) ==
PROVIDERS: Nurse Practitioner Family; Emergency Provider Student in an Organized Health Care Education/Training Program; PCP Family Medicine
DX: F33.1 Major depressive disorder, recurrent, moderate (principal); R45.851 Suicidal ideations; F10.10 Alcohol abuse, uncomplicated; Y90.8 Blood alcohol level of 240 mg/100 ml or more; Z20.822 Contact with and (suspected) exposure to COVID-19
CPT/HCPCS: 36415; 80048; 80307; 81001; 82077; 85025; 87635; 93005; 99285

== ENCOUNTER 2022-05-16 21:03 | Emergency (ER) | payer MEDICAID, SELFPAY ==
--- NOTE | 2022-05-16 | ECG_ITS ---
Test Reason : CP Blood Pressure : / mmHG Vent. Rate : 076 BPM Atrial Rate : 076 BPM P-R Int : 172 ms QRS Dur : 100 ms QT Int : 374 ms P-R-T Axes : 055 022 021 degrees QTc Int : 420 ms Normal sinus rhythm RSR' or QR pattern in V1 suggests right ventricular conduction delay Abnormal ECG When compared with ECG of 30-SEP-2021 09:50, RSR' or QR pattern in V1 suggests right ventricular conduction delay Heart rate has decreased Referred By: Generic ED Physician Electronically Signed By:ARON BROWER
--- NOTE | ~2022-05-16 | XR_ITS ---
EXAMINATION: XR CHEST CLINICAL INFORMATION: Chest pain COMPARISON: Chest x-ray 05/04/2021 TECHNIQUE: Frontal view of the chest was obtained. FINDINGS: The lungs are clear. No airspace consolidation, pleural effusion, or pneumothorax. The cardiomediastinal silhouette is within normal limits. No acute osseous injury. Tiny punctate metallic foreign body projects over the lower left lateral hemithorax, unchanged. XR/XR chest 1V IMPRESSION: No acute pulmonary process.
[2022-05-16 21:10] VITALS: BP 119/83; PULSE 83; RESP 18; TEMP 36.9; O2SAT 100; BMI 23.3
[2022-05-16 21:34] LABS: MANUAL DIFF FLAG NO
[2022-05-16 21:41] LABS: Eosinophils Absolute Auto 0.1 X10*3/uL (0.0-0.4); Eosinophils Percent Auto 2.6 % (0-4); Hematocrit 36.7 % (42.0-52.0); Hemoglobin 12.9 g/dl (14.0-18.0); Imm Gran Abs Auto 0.01 X10*3/uL (0.00-0.03); Imm Gran Pct Auto 0.2 % (0.0-0.4); Lymphocytes Absolute Auto 1.9 X10*3/uL (1.2-4.9); Lymphocytes Percent Auto 44.8 % (20-40); Mean Corpuscular HGB Conc 35.1 g/dl (31.0-36.0); Mean Corpuscular Hemoglobin 32.6 pg (27.0-33.0); Mean Corpuscular Volume 92.7 fL (80.0-98.0); Mean Platelet Volume 8.6 fL (9.4-12.4); Monocytes Absolute Auto 0.7 X10*3/uL (0.1-1.2); Monocytes Percent Auto 15.8 % (2-11); Neutrophils Absolute Auto 1.5 x10*3/uL (2.0-8.3); Neutrophils Percent Auto 35.6 % (45-73); Platelet Count 136 X10*3/uL (160-400); Red Blood Count 3.96 X10*6/uL (4.60-5.80); Red Cell Distribution Width 14.2 % (11.0-16.0); White Blood Count 4.2 X10*3/uL (4.8-10.8)
--- NOTE | 2022-05-16 21:54 | ED_ITS ---
HPI - Chest Pain General Chief Complaint: Chest Pain Stated Complaint: chest pain, difficulty breathing Time Seen by Provider: 05/16/22 21:40 Source: patient Mode of arrival: ambulatory Limitations: no limitations History of Present Illness HPI narrative: 51-year-old male presents for a racing heart and chest pain that started around 16:00 while he was mowing the lawn. Patient states to have been drinking alcoho l and using cocaine today during strenuous physical activity. MD complaint: chest pain Onset (ago): hour(s) (A few hours prior to arrival) Timing of current episode: episodic Prior episodes: Yes Onset: during exertion Pain location: substernal Pain radiation: none Severity: moderate Pain scale (0-10): 4 Quality: tightness Relieving factors: nothing Exacerbating factors: other (Exertion and cocaine) Associated symptoms: cough Treatment prior to arrival: none Risk Factors Coronary artery disease risk factors: smoking history Thoracic aortic dissection risk factors: none Related Data Home Medications Medication Instructions Recorded Confirmed folic acid 1 mg tablet 1 mg PO DAILY 10/01/21 thiamine HCl (vitamin B1) 100 mg 100 mg PO DAILY 10/01/21 tablet Allergies Allergy/AdvReac Type Severity Reaction Status Date / Time No Known Allergies Allergy Verified 05/16/22 21:17 [No Known Allergies*] Review of Systems Review of Systems: Constitutional: No Fever, No Chills ENT/Mouth: No Ear Pain, No Hoarseness, No sore throat Eyes: No Eye Pain, No Swelling, No Redness, No Foreign Body Cardiovascular: No Chest Pain, No SOB Respiratory: No Cough, No Dyspnea Gastrointestinal: No Nausea, No Vomiting, No Diarrhea, No abdominal Pain Genitourinary: No Dysuria, No Hematuria Musculoskeletal: positive chest wall pain, No Myalgias, No Joint Swelling Skin: No Skin lacerations, No rash Neuro: No Weakness, No Numbness, No Paresthesias, No Loss of Consciousness, No Dizziness, No Headache Psych: Positive substance abuse, No Anxiety/Panic, No Depression Heme/Lymph: no easy bruising, no Lymphadenopathy Endocrine: No Polyuria, No Polydipsia Yes all other systems are reviewed and are negative [facility] Past Medical History Attestation statement: The following information was validated with the patient. Source: old records reviewed Social History Social History Alcohol intake: current Alcohol intake frequency: a few times a month Patient Tobacco Use Status: Never used Tobacco Advance Directives: No Advance Directives Information Provided: No Current occupational status: disabled Current occupation: rt handed Physical Exam Vital Signs: Vital Signs: Last Vital Signs Temp 98.5 F 05/16/22 21:10 Pulse 65 05/16/22 23:58 Resp 16 05/16/22 23:58 BP 125/81 05/16/22 23:58 Pulse Ox 98 05/16/22 23:58 O2 Del Method 05/16/22 23:58 BMI result Body Mass Index 23.3 Appearance: Alert. Oriented X3. No acute distress. Eyes: Pupils equal, round and reactive to light. ENT: Pharynx normal. Neck: Normal inspection. Neck supple. CVS: Normal heart rate and rhythm. Pulses normal. Reproducible chest pain to palpation Respiratory: No respiratory distress. Breath sounds normal. Abdomen: Soft and nontender. Skin: Skin warm and dry. Normal skin color. Normal skin turgor. Extremities: No lower extremity edema. Gait well-balanced well coordinated Neuro: No motor deficit. No sensory deficit. Cranial nerves 2-12 intact Course Course Course Narrative: 51-year-old male presents for chest tightness and palpitations that started around 16:00 when he was mowing the lawn. He does report drinking approximately 12 beers or more, and using cocaine throughout the day. Patient appears comfortable, is speaking in complete sentences, is afebrile, nontoxic, and vital signs are stable within normal limits. Will order EKG, labs, and COVID testing. 23:24 labs are consistent with his prior values, x-rays negative for acute findings, EKG is normal sinus, troponins are negative, COVID is positive. Plan of care is to discharge home with supportive measures. Patient verbalized understanding of and agrees to plan of care. dye house worker utilized for all correspondence. Google translate utilized for discharge instructions. MDM - Chest Pain Differential Diagnosis Differential diagnosis: Likely pneumothorax, stable angina, atypical chest pain, st elevation myocardial infarction, costochondritis and chest pain Medical Records Data Attestation: I reviewed the patient's medical records. Lab Data Attestation: I reviewed the patient's lab results. Result diagrams: 05/16/22 21:22 05/16/22 21:22 Labs: Lab Results 05/16/22 05/16/22 05/16/22 Range/Units 21:22 21:22 21:22 WBC 4.2 L (4.8-10.8) X10*3/uL RBC 3.96 L (4.60-5.80) X10*6/uL Hgb 12.9 L (14.0-18.0) g/dl Hct 36.7 L (42.0-52.0) % MCV 92.7 (80.0-98.0) fL MCH 32.6 (27.0-33.0) pg MCHC 35.1 (31.0-36.0) g/dl RDW 14.2 (11.0-16.0) % Plt Count 136 L D (160-400) X10*3/uL MPV 8.6 L (9.4-12.4) fL Immature Gran % (Auto) 0.2 (0.0-0.4) % Neut % (Auto) 35.6 L (45-73) % Lymph % (Auto) 44.8 H (20-40) % [place] % (Auto) 15.8 H (2-11) % Eos % (Auto) 2.6 (0-4) % Baso % (Auto) 1.0 (0-2) % Lymph # (Auto) 1.9 (1.2-4.9) X10*3/uL [place] # (Auto) 0.7 (0.1-1.2) X10*3/uL Eos # (Auto) 0.1 (0.0-0.4) X10*3/uL Baso # (Auto) 0.0 (0.0-0.2) X10*3/uL Abs Immat Gran (auto) 0.01 (0.00-0.03) X10*3/uL Absolute Neuts (auto) 1.5 L (2.0-8.3) x10*3/uL Absolute Nucleated RBC 0.000 (0.0-0.012) X10*3/uL Nucleated RBC % (auto) 0.0 (0.0-0.2) /100WBC Sodium 137 (135-145) mmol/L Potassium 3.6 (3.3-5.1) mmol/L Chloride 102 (96-108) mmol/L Carbon Dioxide 22 (22-29) mmol/L Anion Gap 17 (12-20) BUN 9 (9-16) mg/dL Creatinine 0.86 (0.5-1.4) mg/dL Estim Creat Clear Calc 92.7 Estimated GFR > 60 Random Glucose 123 H D (60-115) mg/dL Calcium 8.2 L D (8.4-10.2) mg/dL Troponin I High Sens 3.6 (<3.5-35.0) ng/L COVID-19 ([facility]) (Negative) COVID-19 Clin Com 05/16/22 Range/Units 21:44 WBC (4.8-10.8) X10*3/uL RBC (4.60-5.80) X10*6/uL Hgb (14.0-18.0) g/dl Hct (42.0-52.0) % MCV (80.0-98.0) fL MCH (27.0-33.0) pg MCHC (31.0-36.0) g/dl RDW (11.0-16.0) % Plt Count (160-400) X10*3/uL MPV (9.4-12.4) fL Immature Gran % (Auto) (0.0-0.4) % Neut % (Auto) (45-73) % Lymph % (Auto) (20-40) % [place] % (Auto) (2-11) % Eos % (Auto) (0-4) % Baso % (Auto) (0-2) % Lymph # (Auto) (1.2-4.9) X10*3/uL [place] # (Auto) (0.1-1.2) X10*3/uL Eos # (Auto) (0.0-0.4) X10*3/uL Baso # (Auto) (0.0-0.2) X10*3/uL Abs Immat Gran (auto) (0.00-0.03) X10*3/uL Absolute Neuts (auto) (2.0-8.3) x10*3/uL Absolute Nucleated RBC (0.0-0.012) X10*3/uL Nucleated RBC % (auto) (0.0-0.2) /100WBC Sodium (135-145) mmol/L Potassium (3.3-5.1) mmol/L Chloride (96-108) mmol/L Carbon Dioxide (22-29) mmol/L Anion Gap (12-20) BUN (9-16) mg/dL Creatinine (0.5-1.4) mg/dL Estim Creat Clear Calc Estimated GFR Random Glucose (60-115) mg/dL Calcium (8.4-10.2) mg/dL Troponin I High Sens (<3.5-35.0) ng/L COVID-19 ([facility]) Positive A (Negative) COVID-19 Clin Com See Note Imaging Data Chest x-ray: Attestation: I personally reviewed and interpreted this imaging study as follows: Radiologist's impression: EXAMINATION: XR CHEST CLINICAL INFORMATION: Chest pain COMPARISON: Chest x-ray 05/04/2021 TECHNIQUE: Frontal view of the chest was obtained. FINDINGS: The lungs are clear. No airspace consolidation, pleural effusion, or pneumothorax. The cardiomediastinal silhouette is within normal limits. No acute osseous injury. Tiny punctate metallic foreign body projects over the lower left lateral hemithorax, unchanged. XR/XR chest 1V IMPRESSION: ECG Data ECG #1: Attestation: I personally reviewed and interpreted this ECG as follows: ECG interpretation date: 05/16/22 ECG interpretation time: 21:17 Prior ECG tracings: available for review Interpretation: Ventricular rate 76, [place] 172, QRS 100, QT 374, QTC 420, normal sinus rhythm, no indication of ST elevation or depression, no changes when compared to 05/04/2021 Scores Heart Score History: -0- slightly suspicious ECG: -0- normal Age: -1- >45 - <65 Risk factory: -1- 1 or 2 risk factors Troponin: -0- < or = normal limit Score: 2 Risk: 1.7% Discharge Plan Discharge Clinical Impression: COVID-19, Atypical chest pain Patient Disposition: Home, Self-Care Instructions: Noncardiac Chest Pain (ED), COVID-19 (Coronavirus Disease 2019) (ED) Additional Instructions: Le evaluaron por dolor en el pecho. Chaudhari electrocardiograma es de ritmo sinusal normal. Chaudhari prueba de COVID jamey positivo. Mantenga las pautas de aislamiento seg?n las regulaciones estatales y federales. Seguimiento con m?dico de atenci?n primaria. Regrese al departamento de emergencias por cualquier s?ntoma nuevo, preocupante o que empeore. You were evaluated for chest pain. Your EKG is normal sinus rhythm. Your COVID test came back positive. Please maintain isolation guidelines per state and Federal regulations. Follow-up with primary care physician. Return to the emergency department for any new, concerning, worsening symptoms. Prescriptions: No Action folic acid 1 mg tablet 1 mg PO DAILY thiamine HCl (vitamin B1) 100 mg tablet 100 mg PO DAILY Stand Alone Forms: Work/School Release Interventions: ED Discharge Assessment Last Done: 05/17/22 00:09 Discharge Date/Time: 05/17/22 00:04 Print Language: [place] Islander
[2022-05-16 21:58] LABS: Anion Gap 17 (12-20); Blood Urea Nitrogen 9 mg/dL (9-16); Calcium 8.2 mg/dL (8.4-10.2); Carbon Dioxide 22 mmol/L (22-29); Chloride 102 mmol/L (96-108); Creatinine Clr Calc Pharmacy 92.7; Estimated Glomerular Filt Rate > 60; Glucose Random 123 mg/dL (60-115); Potassium 3.6 mmol/L (3.3-5.1); Sodium 137 mmol/L (135-145)
[2022-05-16 22:10] LABS: Troponin-I High Sensitivity 3.6 ng/L (<3.5-35.0)
[2022-05-16 22:15] LABS: COVID-19 Test Positive (Negative)
[2022-05-16 23:58] VITALS: BP 125/81; PULSE 65; RESP 16; O2SAT 98
== END 2022-05-17 00:04 | disposition home or self-care (01) ==
PROVIDERS: Internal Medicine; Emergency Provider Emergency Medicine; PCP Internal Medicine
DX: U07.1 COVID-19 (principal); R07.89 Other chest pain; R06.02 Shortness of breath; Z79.899 Other long term (current) drug therapy
CPT/HCPCS: 36415; 71045; 80048; 84484; 85025; 87635; 93005; 99284

== ENCOUNTER 2022-05-22 19:01 | Emergency (ER) | payer MEDICAID, SELFPAY ==
[2022-05-22 20:11] VITALS: BP 116/76; PULSE 81; RESP 18; TEMP 36.9; O2SAT 96; BMI 22.1
[2022-05-22 20:43] LABS: Basophils Percent Auto 0.6 % (0-2); Eosinophils Absolute Auto 0.1 X10*3/uL (0.0-0.4); Eosinophils Percent Auto 1.9 % (0-4); Hemoglobin 12.9 g/dl (14.0-18.0); Mean Corpuscular Volume 91.9 fL (80.0-98.0); PLT CLUMP 1; Red Cell Distribution Width 13.7 % (11.0-16.0); SCAN SMEAR FLAG 1
[2022-05-22 20:45] LABS: Hematocrit 36.1 % (42.0-52.0); Imm Gran Abs Auto 0.02 X10*3/uL (0.00-0.03); Imm Gran Pct Auto 0.4 % (0.0-0.4); Lymphocytes Absolute Auto 2.1 X10*3/uL (1.2-4.9); Lymphocytes Percent Auto 42.9 % (20-40); Mean Corpuscular HGB Conc 35.7 g/dl (31.0-36.0); Mean Corpuscular Hemoglobin 32.8 pg (27.0-33.0); Mean Platelet Volume 8.8 fL (9.4-12.4); Monocytes Absolute Auto 0.6 X10*3/uL (0.1-1.2); Monocytes Percent Auto 13.2 % (2-11); Red Blood Count 3.93 X10*6/uL (4.60-5.80)
[2022-05-22 20:53] LABS: MANUAL DIFF FLAG NO; Platelet Count 159 X10*3/uL (160-400); White Blood Count 4.8 X10*3/uL (4.8-10.8)
[2022-05-22 20:56] LABS: Anion Gap 18 (12-20); Blood Urea Nitrogen 8 mg/dL (9-16); Calcium 8.6 mg/dL (8.4-10.2); Carbon Dioxide 21 mmol/L (22-29); Chloride 101 mmol/L (96-108); Creatinine Clr Calc Pharmacy 109.8; Estimated Glomerular Filt Rate > 60; Glucose Random 100 mg/dL (60-115); Potassium 3.8 mmol/L (3.3-5.1); Sodium 136 mmol/L (135-145)
[2022-05-23 00:41] VITALS: BP 120/75; PULSE 67; RESP 16; TEMP 36.8; O2SAT 98
[2022-05-23 02:19] VITALS: BP 121/83; PULSE 79; RESP 18; TEMP 36.6; O2SAT 98
--- NOTE | 2022-05-23 03:58 | ED_ITS ---
HPI - Extremity Problem General Chief complaint: Extremity Problem Stated complaint: left leg/ toe pain Time Seen by Provider: 05/23/22 02:29 Source: patient Mode of arrival: ambulatory Limitations: language barrier ( Faroese speaking only, iPad emergency management consultant used) History of Present Illness HPI Narrative: 51-year-old male who presents emergency department for evaluation of left lower abdominal pain and pain and numbness in his left leg. Patient states that the pain started yesterday and got progressively worse. He describes the pain is a burning sensation and he states he is feeling a numb sensation in his toes. He states that his leg is not weak but he is limping secondary to the pain. He states that the pain is 10/10. He denied any injury to his leg or to his lower back. He denied any systemic symptoms such as fever, chills, rhinorrhea, sore throat, cough, chest pain, shortness of breath, dyspnea on exertion, nausea, vomiting or diarrhea. This is the patient's 1st episode of this type of pain. The patient states he does drink alcohol daily. He drinks 12 beers per day. He denies using injection drugs. Related Data Home Medications Medication Instructions Recorded Confirmed folic acid 1 mg tablet 1 mg PO DAILY 10/01/21 thiamine HCl (vitamin B1) 100 mg 100 mg PO DAILY 10/01/21 tablet Previous Rx's Medication Instructions Recorded multivit no.40-iron 18 mg-folate 1 cap PO DAILY #30 caps 05/23/22 comb no.1 1 mg-dha 300 mg capsule prednisone 20 mg tablet 60 mg PO DAILY 7 days #21 tabs 05/23/22 thiamine HCl (vitamin B1) 100 mg 100 mg PO DAILY #30 tabs 05/23/22 tablet Allergies Allergy/AdvReac Type Severity Reaction Status Date / Time No Known Allergies Allergy Verified 05/22/22 20:14 [No Known Allergies*] Review of Systems Review of Systems: Yes all other systems are reviewed and are negative [facility] Past Medical History [facility] Narrative: Past medical history: Depression. Past surgical history: None. Social history: He denies tobacco use. He drinks 12 beers per day. He denies drug use. Social History Social History Alcohol intake: current Alcohol intake frequency: a few times a month Patient Tobacco Use Status: Never used Tobacco Advance Directives: No Advance Directives Information Provided: Yes Current occupational status: disabled Current occupation: rt handed Physical Exam Vital Signs: Vital Signs: Last Vital Signs Temp 97.9 F 05/23/22 02:19 Pulse 79 05/23/22 02:19 Resp 18 05/23/22 02:19 BP 121/83 05/23/22 02:19 Pulse Ox 98 05/23/22 02:19 O2 Del Method 05/23/22 02:19 BMI result Body Mass Index 22.1 Const: General: cooperative and no acute distress Orientation/consciousness: oriented to person and oriented to place Limitations: no limitations HEENT: Head: Yes normal to inspection, Yes normocephalic and Yes atraumatic Ears: external ears normal General nose exam: Normal external nose present Face and sinus: Yes normal facial exam Mouth: Normal oral and palatal mucosa present Throat: Yes posterior oropharynx normal Eyes: General: appearance normal, both eyes and all related structures Pupils: Equal, round and reactive pupils present Neck: Neck: Yes normal visual inspection, Yes no lymphadenopathy, Yes trachea midline and Yes supple Chest: Chest palpation & inspection: normal inspection of the chest and normal palpation of entire chest wall Resp: Effort & Inspection: normal respiratory effort and able to speak in complete sentences Auscultation: clear to auscultation bilaterally Cardio: Rate: regular rate Rhythm: regular rhythm Heart sounds: S1 normal heart sound present, S2 normal heart sound present and no murmurs GI: Inspection: Yes normal to inspection Palpation (GI): Soft to palpation, nontender and no guarding Auscultation: normal bowel sounds : General: Yes no CVA tenderness Back/Spine/Pelvis: Other: patient has tenderness palpation of his left lower paraspinal muscles, the patient also has tenderness palpation of his left SI joint. He has negative straight leg raises bilaterally. Back: no CVA tenderness Skin: General skin exam: no rashes or lesions noted Neuro: General: oriented to person and oriented to place Cranial nerves: Yes CN's II-XII intact bilaterally and Yes Equal, round and reactive pupils present Cognition (Neuro): normal cognition Motor exam (neuro): 5/5 motor strength present throughout Extrem: Other: The patient has no swelling of his left lower extremity compared to the right. There is no increased warmth noted, there is no lesions noted, patient has no pain with palpation of his left lower extremity. Psych: Appearance: grossly normal Speech and movement: Normal speech and movement present Affect: normal affect Attitude: cooperative Thought process: Normal thought process present Thought content: Normal thought content present Course Course Course Narrative: 51-year-old male who presents emergency department for evaluation of left lower back pain and left leg pain with numbness of his toes which began yesterday. Patient does not recount any injury. He states that the pain is a burning like sensation in his leg feels warm on the left compared to the right. The patient did have tenderness palpation of his left lower back paraspinal muscles and his left SI joint but he had negative straight leg raises bila terally. At this time I believe the patient's pain is secondary to lower back strain with radiculopathy. I do not think that he has cellulitis, DVT or a arterial/vascular injury. Patient does drink a significant amount of alcohol daily and he does not want to get into a detox program. The patient will be treated with prednisone 60 mg once a day for 1 week. He was given his 1st dose here in the emergency department. I will start the patient on a multi vitamin with thiamine and folate to see if this also helps improve his symptoms. Patient was advised to follow-up with his PCP in 1 week. MDM - Extremity (Nontraumatic) Lab Data Result diagrams: 05/22/22 20:36 05/22/22 20:36 Labs: Lab Results 05/22/22 05/22/22 Range/Units 20:36 20:36 WBC 4.8 (4.8-10.8) X10*3/uL RBC 3.93 L (4.60-5.80) X10*6/uL Hgb 12.9 L (14.0-18.0) g/dl Hct 36.1 L (42.0-52.0) % MCV 91.9 (80.0-98.0) fL MCH 32.8 (27.0-33.0) pg MCHC 35.7 (31.0-36.0) g/dl RDW 13.7 (11.0-16.0) % Plt Count 159 L (160-400) X10*3/uL MPV 8.8 L (9.4-12.4) fL Immature Gran % (Auto) 0.4 (0.0-0.4) % Neut % (Auto) 41.0 L (45-73) % Lymph % (Auto) 42.9 H (20-40) % [place] % (Auto) 13.2 H (2-11) % Eos % (Auto) 1.9 (0-4) % Baso % (Auto) 0.6 (0-2) % Lymph # (Auto) 2.1 (1.2-4.9) X10*3/uL [place] # (Auto) 0.6 (0.1-1.2) X10*3/uL Eos # (Auto) 0.1 (0.0-0.4) X10*3/uL Baso # (Auto) 0.0 (0.0-0.2) X10*3/uL Abs Immat Gran (auto) 0.02 (0.00-0.03) X10*3/uL Absolute Neuts (auto) 2.0 (2.0-8.3) x10*3/uL Absolute Nucleated RBC 0.000 (0.0-0.012) X10*3/uL Nucleated RBC % (auto) 0.0 (0.0-0.2) /100WBC Sodium 136 (135-145) mmol/L Potassium 3.8 (3.3-5.1) mmol/L Chloride 101 (96-108) mmol/L Carbon Dioxide 21 L (22-29) mmol/L Anion Gap 18 (12-20) BUN 8 L (9-16) mg/dL Creatinine 0.75 (0.5-1.4) mg/dL Estim Creat Clear Calc 109.8 Estimated GFR > 60 Random Glucose 100 (60-115) mg/dL Calcium 8.6 (8.4-10.2) mg/dL Discharge Plan Discharge Clinical Impression: Lower back pain, Acute left lumbar radiculopathy, Alcohol use disorder, severe, dependence Patient Disposition: Home, Self-Care Instructions: Lumbar Radiculopathy (ED) Prescriptions: New prednisone 20 mg tablet 60 mg PO DAILY 7 Days Qty: 21 0RF thiamine HCl (vitamin B1) 100 mg tablet 100 mg PO DAILY Qty: 30 0RF multivit [id number] 1-dha 18 mg iron- 1 mg-300 mg capsule 1 cap PO DAILY Qty: 30 0RF No Action folic acid 1 mg tablet 1 mg PO DAILY thiamine HCl (vitamin B1) 100 mg tablet 100 mg PO DAILY Interventions: LWBS Worksheet Last Done: 05/22/22 23:49
[2022-05-23 04:00] VITALS: BP 126/87; PULSE 76; O2SAT 97
[2022-05-23] MEDS: predniSONE 20 MG TABLET 60 MG PO (04:26)
== END 2022-05-23 04:31 | disposition home or self-care (01) ==
PROVIDERS: Emergency Medicine; Emergency Provider Emergency Medicine Emergency Medical Services
DX: M54.50 Low back pain, unspecified (principal); M54.16 Radiculopathy, lumbar region; F10.20 Alcohol dependence, uncomplicated; Y90.9 Presence of alcohol in blood, level not specified; Z79.899 Other long term (current) drug therapy
CPT/HCPCS: 36415; 80048; 85025; 99283

== ENCOUNTER 2022-06-08 15:19 | Emergency (ER) | payer MEDICAID, SELFPAY ==
--- NOTE | ~2022-06-08 | XR_ITS ---
EXAMINATION: XR hand wrist LT CLINICAL INFORMATION: Reason for Exam fall COMPARISON: Left hand radiographs 11/28/2015 TECHNIQUE: 3 views left hand FINDINGS: No acute fracture or dislocation. Healed fourth metacarpal fracture deformity redemonstrated. Joint spaces are maintained. Small 1-2 mm punctate metallic foreign body in the palmar soft tissues overlying the index finger proximal phalanx is noted. Atherosclerotic vascular calcifications of the radial and ulnar arteries also seen. XR/XR hand wrist LT IMPRESSION: No acute fracture or dislocation.
--- NOTE | ~2022-06-08 | CT_ITS ---
EXAMINATION: NONCONTRAST HEAD CT NONCONTRAST CERVICAL SPINE CT INDICATION INFORMATION: Fall 2 days ago drinking. Headache COMPARISON: CT head cervical spine 05/04/2021 TECHNIQUE: Separate noncontrast CT examinations of the head and cervical spine were performed. Coronal and sagittal images were created for each examination at the technologist workstation. This CT examination was performed using dose optimization techniques as appropriate, variously including the following: *Automated exposure control *Adjustment of mA and/or kV according to patient size (this includes techniques or standardized protocols for targeted exams where dose is matched to indication/reason for exam; i.e. extremities or head) *Use of iterative reconstruction technique DLP: 1033 mGy-cm FINDINGS: HEAD: No intra or extra-axial fluid collection, hemorrhage, or mass. No ventriculomegaly. No midline shift or herniation. Basal cisterns are patent. Barrios-white matter differentiation is maintained. No territorial encephalomalacia. Proportional prominence of the ventricles and sulcal spaces is consistent with mild to moderate volume loss, prominent for patient age. Scattered mild hypoattenuation in the subcortical white matter bilaterally, nonspecific and unchanged. No calvarial fracture or soft tissue abnormality. No mucosal thickening in a few ethmoid air cells and right maxillary sinus. Mastoid air cells normally aerated. CERVICAL SPINE: Alignment: Straightening and slight reversal the normal cervical lordosis. Minimal retrolisthesis at C5-C6 and C6-C7. No additional subluxation. Vertebra: No acute fracture. No prevertebral soft tissue swelling. Degenerative disc disease: Cervical spondylosis at C5-C6, C6-C7, and C7-T1 with mild disc height loss, endplate sclerosis, and endplate proliferative change. Bilateral uncovertebral spurring in the mid and lower cervical spine and mild facet arthrosis. Other findings: Visualized lung apices grossly clear. No cervical lymphadenopathy or appreciable mass in the [id number]. CT/CT head/brain wo IV con IMPRESSION: 1. No intracranial hemorrhage or calvarial fracture. 2. No traumatic subluxation or acute cervical spine fracture.
--- NOTE | ~2022-06-08 | CT_ITS ---
EXAMINATION: NONCONTRAST HEAD CT NONCONTRAST CERVICAL SPINE CT INDICATION INFORMATION: Fall 2 days ago drinking. Headache COMPARISON: CT head cervical spine 05/04/2021 TECHNIQUE: Separate noncontrast CT examinations of the head and cervical spine were performed. Coronal and sagittal images were created for each examination at the technologist workstation. This CT examination was performed using dose optimization techniques as appropriate, variously including the following: *Automated exposure control *Adjustment of mA and/or kV according to patient size (this includes techniques or standardized protocols for targeted exams where dose is matched to indication/reason for exam; i.e. extremities or head) *Use of iterative reconstruction technique DLP: 1033 mGy-cm FINDINGS: HEAD: No intra or extra-axial fluid collection, hemorrhage, or mass. No ventriculomegaly. No midline shift or herniation. Basal cisterns are patent. Barrios-white matter differentiation is maintained. No territorial encephalomalacia. Proportional prominence of the ventricles and sulcal spaces is consistent with mild to moderate volume loss, prominent for patient age. Scattered mild hypoattenuation in the subcortical white matter bilaterally, nonspecific and unchanged. No calvarial fracture or soft tissue abnormality. No mucosal thickening in a few ethmoid air cells and right maxillary sinus. Mastoid air cells normally aerated. CERVICAL SPINE: Alignment: Straightening and slight reversal the normal cervical lordosis. Minimal retrolisthesis at C5-C6 and C6-C7. No additional subluxation. Vertebra: No acute fracture. No prevertebral soft tissue swelling. Degenerative disc disease: Cervical spondylosis at C5-C6, C6-C7, and C7-T1 with mild disc height loss, endplate sclerosis, and endplate proliferative change. Bilateral uncovertebral spurring in the mid and lower cervical spine and mild facet arthrosis. Other findings: Visualized lung apices grossly clear. No cervical lymphadenopathy or appreciable mass in the [id number]. CT/CT cervical spine wo IV con IMPRESSION: 1. No intracranial hemorrhage or calvarial fracture. 2. No traumatic subluxation or acute cervical spine fracture.
--- NOTE | ~2022-06-08 | XR_ITS ---
EXAMINATION: XR HIP, LEFT CLINICAL INFORMATION: Fall. COMPARISON: None TECHNIQUE: Frontal view of pelvis. Two views of the left hip. FINDINGS: Bones and soft tissues are normal. No fracture. Alignment is anatomic. Hip joint space is maintained. Vascular calcifications in the soft tissues of the thigh XR/XR hip LT min 2V IMPRESSION: Normal left hip.
[2022-06-08 17:49] VITALS: BP 127/91; PULSE 87; RESP 18; TEMP 36.4; O2SAT 97; BMI 22.6
--- NOTE | 2022-06-08 21:03 | ED.GENADULT ---
HPI - General Adult General Chief complaint: Fall Stated complaint: fall left hand finger injury leg pain Time Seen by Provider: 06/08/22 20:50 Source: patient Mode of arrival: ambulatory Limitations: no limitations History of Present Illness HPI narrative: 51-year-old male presents to ED for left hip pain, left middle finger pain, and headache after falling 2 days ago after tripping over wound. Patient admits he was drinking alcohol at that time. He denies any loss of consciousness. Patient denies any chest pain, shortness of breath, abdominal pain, or rectal bleeding Related Data Home Medications Medication Instructions Recorded Confirmed folic acid 1 mg tablet 1 mg PO DAILY 10/01/21 thiamine HCl (vitamin B1) 100 mg 100 mg PO DAILY 10/01/21 tablet Previous Rx's Medication Instructions Recorded multivit no.40-iron 18 mg-folate 1 cap PO DAILY #30 caps 05/23/22 comb no.1 1 mg-dha 300 mg capsule prednisone 20 mg tablet 60 mg PO DAILY 7 days #21 tabs 05/23/22 thiamine HCl (vitamin B1) 100 mg 100 mg PO DAILY #30 tabs 05/23/22 tablet naproxen 500 mg tablet 500 mg PO BID PRN pain 10 days #20 06/08/22 tabs Allergies Allergy/AdvReac Type Severity Reaction Status Date / Time No Known Allergies Allergy Verified 06/08/22 17:49 [No Known Allergies*] Review of Systems Review of Systems: fall. Left finger pain. Left hip pain Yes all other systems are reviewed and are negative PMFSH Social History Social History Alcohol intake: current Alcohol intake frequency: a few times a month Patient Tobacco Use Status: Never used Tobacco Advance Directives: No Advance Directives Information Provided: Yes Current occupational status: disabled Current occupation: rt handed Physical Exam ED Vital Signs: Vital Signs - 24 hr 06/08/22 17:49 06/08/22 21:50 Temperature 97.5 F Pulse Rate 87 98 Respiratory Rate 18 Blood Pressure 127/91 H 104/67 Pulse Oximetry 97 63 L Oxygen Delivery Method Room Air Room Air BMI result Body Mass Index 22.6 Const General: cooperative, healthy appearing, comfortable, no acute distress, well developed, alert, awake and Physically active Orientation/consciousness: oriented to time and patient oriented x3 HENMT Head: Yes normal to inspection, Yes No palpable skull fracture present, Yes normocephalic, Yes atraumatic and No abrasion Eyes General: appearance normal, both eyes and all related structures Neck Neck: Yes normal visual inspection, Yes full ROM, Yes no lymphadenopathy, Yes no meningeal signs, Yes trachea midline, Yes supple, No anterior neck swelling and No tender Chest Chest palpation & inspection: normal inspection of the chest and normal palpation of entire chest wall Resp Effort & Inspection: normal respiratory effort and able to speak in complete sentences Auscultation: clear to auscultation bilaterally Cardio Jugular venous distension: no JVD Heart sounds: S1 normal heart sound present and S2 normal heart sound present GI Inspection: Yes normal to inspection and No abdominal wall ecchymosis Palpation (GI): Soft to palpation, not firm, nontender, no guarding and not rigid General: No CVA tenderness and Yes no CVA tenderness Back/Spine/Pelvis Back: no CVA tenderness, No CVA tenderness and No back tenderness Skin General skin exam: no rashes or lesions noted and elasticity normal Neuro General: oriented to time, patient oriented x3, gait normal, no meningeal signs and CN's II-XI intact bilaterally Cranial nerves: Yes CN's II-XII intact bilaterally Extrem General: Yes normal to inspection and Yes full ROM Hand/finger images: 1. positive for ecchymosis and slight swelling. negaitive for crepitus, redness, or coldness. Capillar refill intact. pain on range of motion. Rest of hand is normal. vascular, motor, and neuro exam is intact Psych Appearance: grossly normal, well kempt and not disheveled Course Course Course Narrative: patient was sent for left hand and left hip x-ray which were normal or negative for fractures. Due to patient drinking alcohol and falling and states headaches since falling was sent for head CT scanning shows no brain bleed. Reevaluation(s) Reevaluation #1: Patient is safe for discharges. Images are negative. 02 sat read of 63 placed in chart was actually 95 % as per nurse Torres. 02 sat of 63% was written in error 02 sat before discharge was 97%. Patient placed in finger splint Time: 23:15 Medical Decision Making MDM Narrative Medical decision making narrative: finger sprain. contusion Discharge Plan Discharge Clinical Impression: Finger sprain, Contusion Patient Disposition: Home, Self-Care Instructions: Contusion in Adults (ED), Finger Sprain (ED) Additional Instructions: Tus im?genes volvieron a la normalidad. Por favor, daniella un seguimiento con el PCP. Regrese al servicio de urgencias inmediatamente si tiene dolor de jesica, dolor de pecho, dificultad para respirar, mareos, debilidad, dolor abdominal, hinchaz?n, enrojecimiento o cualquier otro s?ntoma preocupante. Prescriptions: New naproxen 500 mg tablet 500 mg PO BID PRN (Reason: pain) 10 Days Qty: 20 0RF No Action prednisone 20 mg tablet 60 mg PO DAILY 7 Days Qty: 21 0RF thiamine HCl (vitamin B1) 100 mg tablet 100 mg PO DAILY Qty: 30 0RF multivit [id number] 1-dha 18 mg iron- 1 mg-300 mg capsule 1 cap PO DAILY Qty: 30 0RF folic acid 1 mg tablet 1 mg PO DAILY thiamine HCl (vitamin B1) 100 mg tablet 100 mg PO DAILY Stand Alone Forms: Work/School Release Print Language: Malay
[2022-06-08 21:50] VITALS: BP 104/67; PULSE 98; O2SAT 63
--- NOTE | 2022-06-09 00:15 | PC.NURSE ---
Attempted to give discharge instructions to pt. pt left before discharge instruction given.
== END 2022-06-09 00:15 | disposition home or self-care (01) ==
PROVIDERS: Emergency Provider Emergency Medicine
DX: S63.613A Unspecified sprain of left middle finger, initial encounter (principal); M25.552 Pain in left hip; R51.9 Headache, unspecified; M79.642 Pain in left hand; M54.2 Cervicalgia; W01.0XXA Fall on same level from slipping, tripping and stumbling without subsequent striking against object, initial encounter; Y93.9 Activity, unspecified; Y92.9 Unspecified place or not applicable; Y99.9 Unspecified external cause status; Z79.899 Other long term (current) drug therapy
CPT/HCPCS: 70450; 72125; 73110; 73130; 73502; 99283; 99284

== ENCOUNTER 2022-06-13 15:42 | Emergency (ER) | payer MEDICAID, SELFPAY ==
--- NOTE | ~2022-06-13 | XR_ITS ---
EXAMINATION: XR CHEST CLINICAL INFORMATION: Chest pain COMPARISON: Chest x-ray 05/08/2022 TECHNIQUE: Frontal view of the chest was obtained. FINDINGS: The lungs are clear. No airspace consolidation, pleural effusion, or pneumothorax. The cardiomediastinal silhouette is within normal limits. No acute osseous injury. Punctate metallic foreign body projecting over the left lower hemithorax is unchanged. XR/XR chest 1V IMPRESSION: No acute pulmonary process.
--- NOTE | 2022-06-13 15:45 | ECG_ITS ---
Test Reason : CP Blood Pressure : / mmHG Vent. Rate : 076 BPM Atrial Rate : 076 BPM P-R Int : 150 ms QRS Dur : 096 ms QT Int : 376 ms P-R-T Axes : 057 041 043 degrees QTc Int : 423 ms Normal sinus rhythm RSR' or QR pattern in V1 suggests right ventricular conduction delay Abnormal ECG When compared with ECG of 16-MAY-2022 21:17, No significant change was found Referred By: Generic ED Physician Electronically Signed By:ARON BROWER
[2022-06-13 15:46] VITALS: BP 141/83; PULSE 80; O2SAT 99
[2022-06-13 16:06] LABS: MANUAL DIFF FLAG NO
[2022-06-13 16:08] LABS: Basophils Percent Auto 0.7 % (0-2); Eosinophils Percent Auto 0.5 % (0-4); Hematocrit 37.2 % (42.0-52.0); Hemoglobin 13.2 g/dl (14.0-18.0); Imm Gran Abs Auto 0.01 X10*3/uL (0.00-0.03); Imm Gran Pct Auto 0.2 % (0.0-0.4); Lymphocytes Absolute Auto 1.9 X10*3/uL (1.2-4.9); Lymphocytes Percent Auto 34.3 % (20-40); Mean Corpuscular HGB Conc 35.5 g/dl (31.0-36.0); Mean Corpuscular Hemoglobin 33.2 pg (27.0-33.0); Mean Corpuscular Volume 93.5 fL (80.0-98.0); Mean Platelet Volume 8.6 fL (9.4-12.4); Monocytes Absolute Auto 0.5 X10*3/uL (0.1-1.2); Monocytes Percent Auto 9.4 % (2-11); Neutrophils Percent Auto 54.9 % (45-73); Platelet Count 208 X10*3/uL (160-400); Red Blood Count 3.98 X10*6/uL (4.60-5.80); Red Cell Distribution Width 13.2 % (11.0-16.0); White Blood Count 5.5 X10*3/uL (4.8-10.8)
[2022-06-13 16:21] LABS: Anion Gap 18 (12-20); Blood Urea Nitrogen 6 mg/dL (9-16); Calcium 8.6 mg/dL (8.4-10.2); Carbon Dioxide 20 mmol/L (22-29); Chloride 103 mmol/L (96-108); Estimated Glomerular Filt Rate > 60; Glucose Random 98 mg/dL (60-115); Sodium 137 mmol/L (135-145)
[2022-06-13 16:29] LABS: Troponin-I High Sensitivity < 3.5 ng/L (<3.5-35.0)
[2022-06-13 17:19] VITALS: BP 113/79; PULSE 92; RESP 18; TEMP 36.7; O2SAT 98; BMI 21.1
== END 2022-06-13 21:33 | disposition left against medical advice (07) ==
PROVIDERS: Emergency Provider Emergency Medicine
DX: R07.89 Other chest pain (principal); R11.10 Vomiting, unspecified; Z79.899 Other long term (current) drug therapy
CPT/HCPCS: 36415; 71045; 80048; 84484; 85025; 93005; 99283

== ENCOUNTER 2022-06-16 06:36 | Emergency (ER) | payer MEDICAID, SELFPAY ==
[2022-06-16 06:40] VITALS: BP 133/82; PULSE 88; RESP 15; TEMP 36.6; O2SAT 96; BMI 26.9
[2022-06-16 07:07] LABS: MANUAL DIFF FLAG NO
[2022-06-16 07:37] LABS: Basophils Percent Auto 0.3 % (0-2); Hematocrit 38.7 % (42.0-52.0); Hemoglobin 13.6 g/dl (14.0-18.0); Imm Gran Abs Auto 0.01 X10*3/uL (0.00-0.03); Imm Gran Pct Auto 0.3 % (0.0-0.4); Lymphocytes Absolute Auto 0.5 X10*3/uL (1.2-4.9); Lymphocytes Percent Auto 15.6 % (20-40); Mean Corpuscular HGB Conc 35.1 g/dl (31.0-36.0); Mean Corpuscular Hemoglobin 32.9 pg (27.0-33.0); Mean Corpuscular Volume 93.7 fL (80.0-98.0); Monocytes Absolute Auto 0.1 X10*3/uL (0.1-1.2); Monocytes Percent Auto 2.4 % (2-11); Neutrophils Absolute Auto 2.4 x10*3/uL (2.0-8.3); Neutrophils Percent Auto 81.4 % (45-73); Platelet Count 199 X10*3/uL (160-400); Red Blood Count 4.13 X10*6/uL (4.60-5.80); Red Cell Distribution Width 13.3 % (11.0-16.0); White Blood Count 2.9 X10*3/uL (4.8-10.8)
[2022-06-16 07:49] LABS: Alanine Aminotransferase 46 U/L (0-40); Albumin Level 4.3 g/dL (3.5-5.0); Alkaline Phosphatase 84 U/L (39-117); Anion Gap 19 (12-20); Aspartate Amino Transferase 78 U/L (5-37); Bilirubin Total 0.6 mg/dL (0.0-1.0); Blood Urea Nitrogen 7 mg/dL (9-16); Calcium 9.1 mg/dL (8.4-10.2); Carbon Dioxide 21 mmol/L (22-29); Chloride 104 mmol/L (96-108); Creatinine Clr Calc Pharmacy 140.7; Estimated Glomerular Filt Rate > 60; Glucose Random 170 mg/dL (60-115); Potassium 4.2 mmol/L (3.3-5.1); Sodium 140 mmol/L (135-145); Total Protein 7.9 g/dL (6.5-8.0)
--- NOTE | 2022-06-16 16:53 | ED_ITS ---
HPI - Wound/Laceration General Chief Complaint: Wound/Laceration Stated Complaint: R Foot pain Time Seen by Provider: 06/16/22 11:15 Source: patient Mode of arrival: ambulatory Limitations: language barrier (Croatian-speaking) History of Present Illness HPI narrative: 51-year-old male presenting to the ER with complaints of a burn to his right thigh that he believes he sustained from a muffler while he was working on a car a few days ago. He reports he is unsure if he is up-to-date on tetanus. He denies any fevers, chills, history of MRSA or any other injuries complaints or concerns at this time. Onset (ago): day(s) (Few days ago worse today) Extremity Location: right: thigh Place: outdoors Patient tetanus UTD: No Context: accidental Associated symptoms: pain Related Data Home Medications Medication Instructions Recorded Confirmed folic acid 1 mg tablet 1 mg PO DAILY 10/01/21 thiamine HCl (vitamin B1) 100 mg 100 mg PO DAILY 10/01/21 tablet Previous Rx's Medication Instructions Recorded multivit no.40-iron 18 mg-folate 1 cap PO DAILY #30 caps 05/23/22 comb no.1 1 mg-dha 300 mg capsule prednisone 20 mg tablet 60 mg PO DAILY 7 days #21 tabs 05/23/22 thiamine HCl (vitamin B1) 100 mg 100 mg PO DAILY #30 tabs 05/23/22 tablet naproxen 500 mg tablet 500 mg PO BID PRN pain 10 days #20 06/08/22 tabs cephalexin 500 mg capsule 500 mg PO Q6H 10 days #40 caps 06/16/22 doxycycline monohydrate 100 mg 100 mg PO BID 10 days #20 tabs 06/16/22 tablet ibuprofen 600 mg tablet 600 mg PO Q6H PRN fever #10 tabs 06/16/22 oxycodone 5 mg tablet 5 mg PO Q6H PRN pain #10 tabs 06/16/22 silver sulfadiazine 1 % topical 1 appl topical BID Second-degree 06/16/22 cream (Silvadene) burn #400 grams Allergies Allergy/AdvReac Type Severity Reaction Status Date / Time No Known Allergies Allergy Verified 06/08/22 17:49 [No Known Allergies*] Review of Systems Review of Systems: Constitutional : Denies history of same, Denies any other sites involved, Denies IV drug use, Denies history of MRSA, Denies swollen glands, Denies injury, Denies Fever, Denies Chills, + Sig Pain, Denies Systemic symptoms Cardiovascular : No Chest Pain, No SOB Respiratory : No Dyspnea Gastrointestinal : No abdominal pain Musculoskeletal : No Joint Swelling Skin : + skin burn with surrounding erythema. No abscess, No skin laceration, No Foreign bodies, No spreading rash, Denies bites, Denies discharge, Neuro : No Weakness, No Numbness/tingling Psych : No SI/HI/thoughts of self injury Yes all other systems are reviewed and are negative [facility] Past Medical History Attestation statement: The following information was validated with the patient. Source: old records reviewed Social History Social History Alcohol intake: current Alcohol intake frequency: a few times a month Patient Tobacco Use Status: Never used Tobacco Advance Directives: No Advance Directives Information Provided: Yes Current occupational status: disabled Current occupation: rt handed Physical Exam Vital Signs: Vital Signs: Last Vital Signs Temp 97.8 F 06/16/22 06:40 Pulse 88 06/16/22 06:40 Resp 15 06/16/22 06:40 BP 133/82 06/16/22 06:40 Pulse Ox 96 06/16/22 06:40 O2 Del Method 06/16/22 06:40 BMI result Body Mass Index 26.9 vital signs have been reviewed as normal and appeared to be correct. Blood pre ssure normal Heart rate normal. Respiration rate normal. Temperature normal. Oxygen saturation normal. Appearance: Alert. Oriented X3. No acute distress. Head: Normal external exam. Normocephalic. Atraumatic. Eyes: PERRLA. EOMI. Conjunctiva and sclera normal. Eyelids normal. ENT: Pharynx normal. Uvula midline. Moist mucous membranes. Neck: Normal inspection. Neck supple. FROM. CVS: Normal heart rate and rhythm. Respiratory: No respiratory distress. Painless inspiration. Skin: Skin warm and dry. Normal skin color. Normal skin turgor. Patient with superficial second-degree burn to the right thigh with mild surrounding erythema/warmth to touch in tenderness to palpation consistent with cellulitis. No streaking noted. No fluctuance noted. No foreign bodies noted. No purulent drainage noted. No additional rashes/lesions/lacerations noted. Extremities: No lower extremity edema. Extremities exhibit normal range of motion. Extremities nontender. Neuro: Oriented X 3. No motor deficit. No sensory deficit. Reflexes normal. Normal steady gait. No focal neuro deficits noted. Course Course Course Narrative: Labs were obtained while the patient the patient was in the waiting room patient has a white blood cell count of 2000. Mild baseline anemia which is similar compared to prior. Carbon dioxide 21. BUN 7. These are chronic. Random glucose 170. AST/ALT 78/46. Otherwise all other labs are within normal limits. No imaging indicated at this time. Will DC home with antibiotics and symptomatic treatment instructions return in 2 days if symptoms worsen and to follow-up with the wound clinic and PCP. Patient understands agrees with this plan. MDM - Wound/Laceration Medical Records Attestation: I reviewed the patient's medical records. Lab Data Attestation: I reviewed the patient's lab results. Result diagrams: 06/16/22 07:01 06/16/22 07:01 Labs: Lab Results 06/16/22 06/16/22 Range/Units 07:01 07:01 WBC 2.9 L (4.8-10.8) X10*3/uL RBC 4.13 L (4.60-5.80) X10*6/uL Hgb 13.6 L (14.0-18.0) g/dl Hct 38.7 L (42.0-52.0) % MCV 93.7 (80.0-98.0) fL MCH 32.9 (27.0-33.0) pg MCHC 35.1 (31.0-36.0) g/dl RDW 13.3 (11.0-16.0) % Plt Count 199 (160-400) X10*3/uL MPV 9.0 L (9.4-12.4) fL Immature Gran % (Auto) 0.3 (0.0-0.4) % Neut % (Auto) 81.4 H (45-73) % Lymph % (Auto) 15.6 L (20-40) % [place] % (Auto) 2.4 (2-11) % Eos % (Auto) 0.0 (0-4) % Baso % (Auto) 0.3 (0-2) % Lymph # (Auto) 0.5 L (1.2-4.9) X10*3/uL [place] # (Auto) 0.1 (0.1-1.2) X10*3/uL Eos # (Auto) 0.0 (0.0-0.4) X10*3/uL Baso # (Auto) 0.0 (0.0-0.2) X10*3/uL Abs Immat Gran (auto) 0.01 (0.00-0.03) X10*3/uL Absolute Neuts (auto) 2.4 (2.0-8.3) x10*3/uL Absolute Nucleated RBC 0.000 (0.0-0.012) X10*3/uL Nucleated RBC % (auto) 0.0 (0.0-0.2) /100WBC Sodium 140 (135-145) mmol/L Potassium 4.2 (3.3-5.1) mmol/L Chloride 104 (96-108) mmol/L Carbon Dioxide 21 L (22-29) mmol/L Anion Gap 19 (12-20) BUN 7 L (9-16) mg/dL Creatinine 0.73 (0.5-1.4) mg/dL Estim Creat Clear Calc 140.7 Estimated GFR > 60 Random Glucose 170 H D (60-115) mg/dL Calcium 9.1 (8.4-10.2) mg/dL Total Bilirubin 0.6 (0.0-1.0) mg/dL AST 78 H (5-37) U/L ALT 46 H (0-40) U/L Alkaline Phosphatase 84 (39-117) U/L Total Protein 7.9 (6.5-8.0) g/dL Albumin 4.3 (3.5-5.0) g/dL Discharge Plan Discharge Clinical Impression: Burn of second degree of right thigh, initial encounter, Cellulitis of right thigh Patient Disposition: Home, Self-Care Instructions: Cellulitis (ED), Second Degree Burn (ED) Prescriptions: New doxycycline monohydrate 100 mg tablet 100 mg PO BID 10 Days Qty: 20 0RF cephalexin 500 mg capsule 500 mg PO Q6H 10 Days Qty: 40 0RF oxycodone 5 mg tablet 5 mg PO Q6H PRN (Reason: pain) Qty: 10 0RF Rx Instructions: Partial Fill upon patient request. ibuprofen 600 mg tablet 600 mg PO Q6H PRN (Reason: fever) Qty: 10 0RF silver sulfadiazine [Silvadene] 1 % cream 1 appl topical BID Qty: 400 0RF Rx Instructions: apply a 1.5 mm thickness No Action prednisone 20 mg tablet 60 mg PO DAILY 7 Days Qty: 21 0RF thiamine HCl (vitamin B1) 100 mg tablet 100 mg PO DAILY Qty: 30 0RF multivit [id number] 1-dha 18 mg iron- 1 mg-300 mg capsule 1 cap PO DAILY Qty: 30 0RF naproxen 500 mg tablet 500 mg PO BID PRN (Reason: pain) 10 Days Qty: 20 0RF folic acid 1 mg tablet 1 mg PO DAILY thiamine HCl (vitamin B1) 100 mg tablet 100 mg PO DAILY Referrals: [facility] [place] Wound Care Management [Provider Group] (Call to make a follow-up appointment within the next 1-2 weeks) [place],[facility] [Primary Care Provider] - 2 days
[2022-06-16] MEDS: cephALEXin 500 MG CAPSULE PO (17:59)
[2022-06-16] MEDS: Diphth,Pertus(ACell),Tet Adult 0.5 ML SYRINGE IM (17:59)
[2022-06-16] MEDS: Bacitracin Oint 14 GM TUBE 1 APPL TOPICAL (18:04)
== END 2022-06-16 18:06 | disposition home or self-care (01) ==
PROVIDERS: Emergency Provider Emergency Medicine
DX: T24.211A Burn of second degree of right thigh, initial encounter (principal); T31.0 Burns involving less than 10% of body surface; X17.XXXA Contact with hot engines, machinery and tools, initial encounter; Y93.89 Activity, other specified; Y92.9 Unspecified place or not applicable; Y99.9 Unspecified external cause status; L03.115 Cellulitis of right lower limb; Z20.822 Contact with and (suspected) exposure to COVID-19
CPT/HCPCS: 36415; 80053; 85025; 90471; 90715; 99282; 99284

== ENCOUNTER 2022-07-04 13:24 | Emergency (ER) | payer MEDICAID, SELFPAY ==
--- NOTE | ~2022-07-04 | XR_ITS ---
EXAMINATION: XR chest 1V CLINICAL INFORMATION: Reason for Exam cp COMPARISON: Chest radiograph 06/13/2022 TECHNIQUE: One view of the chest FINDINGS: Clear lungs. No pneumothorax or pleural effusion. Cardiac silhouette appears mildly enlarged with respect to recent prior, however may be exaggerated by AP technique. XR/XR chest 1V Impression: * Cardiac silhouette appears mildly enlarged with respect to recent prior, however may be exaggerated by AP technique.
--- NOTE | ~2022-07-04 | CT_ITS ---
EXAMINATION: CT ANGIOGRAM OF THE CHEST WITH AND WITHOUT CONTRAST (CT PULMONARY ANGIOGRAM FOR PE) CLINICAL INFORMATION: Reason for Exam Chest pain and elevated D-dimer COMPARISON: Chest x-ray dated 07/04/2022. The scan of the chest dated 08/19/2021. TECHNIQUE: Prior to contrast administration, noncontrast localization images were obtained. Subsequently, multidetector volumetric imaging was performed from the thoracic inlet to below the diaphragms following the administration of 65 mL Omnipaque 350 intravenous contrast. No contrast reaction reported Sagittal, coronal, and MIP oblique sagittal reformatted images were obtained on the CT workstation, uploaded to PACS, and reviewed. This CT examination was performed using dose optimization techniques as appropriate, variously including the following: *Automated exposure control *Adjustment of mA and/or kV according to patient size (this includes techniques or standardized protocols for targeted exams where dose is matched to indication/reason for exam; i.e. extremities or head) *Use of iterative reconstruction technique Total exam dose-length product 241 mGy-cm FINDINGS: Pulmonary arteries: The bolus timing on this study was acceptable for visualization of the pulmonary arterial tree. Evaluation is, however, mildly limited due to motion artifact as well as beam hardening artifact related to dense contrast bolus in the SVC and 2 overlying metallic EKG wires. There are no central or segmental pulmonary emboli. Subsegmental pulmonary emboli are difficult to exclude Lungs: Again seen are scattered tiny 2-3 mm solid noncalcified pulmonary nodules, largest of which is seen anteriorly within the right lower lobe (series 7, image 285). In the posterior lateral left lower lobe, a elongated pleural-based opacity is seen, similar to slightly smaller compared to 08/19/2021. No new or enlarging pulmonary nodule or mass is seen. Small calcified granuloma seen in the right upper lobe. No pleural effusion or pneumothorax. The central airways are patent. Aorta and heart: The heart is normal in size. The aorta is normal. There is no pericardial effusion, No ventricular septal bowing seen to suggest right heart strain. No reflux of contrast into the intrahepatic IVC or hepatic veins is noted. Lymphatic structures: There is no lymphadenopathy. Upper abdomen: Limited evaluation of the upper abdominal viscera demonstrates no focal abnormality. Bones: No significant focal findings. CT/CT angio chest PE protocol IMPRESSION: 1. No evidence of central or segmental pulmonary embolism. 2. Tiny micronodules in the lungs bilaterally are unchanged since 08/19/2021. According to the UPDATED 2017 Fleischner Society recommendations, the advised follow-up imaging for solid nodules < 6 mm is: LOW RISK PATIENT: No routine follow-up. HIGH RISK PATIENT: Optional CT at 12 months. VTE: Negative
[2022-07-04 13:28] VITALS: BP 130/90; PULSE 66; O2SAT 99; BMI 21.1
[2022-07-04 13:35] VITALS: BP 122/87; PULSE 63; RESP 13; TEMP 36.6; O2SAT 98
--- NOTE | 2022-07-04 13:49 | ECG_ITS ---
Test Reason : CHEST PAIN Blood Pressure : / mmHG Vent. Rate : 063 BPM Atrial Rate : 063 BPM P-R Int : 160 ms QRS Dur : 098 ms QT Int : 406 ms P-R-T Axes : 061 066 052 degrees QTc Int : 415 ms Normal sinus rhythm Incomplete right bundle branch block Abnormal ECG When compared with ECG of 13-JUN-2022 15:53, No significant change was found Referred By: Vianey Ferrari Electronically Signed By:TYLER PARISI MD
--- NOTE | 2022-07-04 13:55 | ED_ITS ---
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 Chest wall pain started 2 days ago, pain is localized to the left chest area with no radiation, feels dull aching pain, pain is worsening with touch and palpation, no SOB, no fever, no chills, no fever, no chest wall injuries or trauma. No recent travel, no lower extremity swelling or tenderness. Patient admitted that he has been walking a lot lately and this may be causing his pain. Patient drank 12 beers before coming to the hospital. Related Data Home Medications Medication Instructions Recorded Confirmed folic acid 1 mg tablet 1 mg PO DAILY 10/01/21 thiamine HCl (vitamin B1) 100 mg 100 mg PO DAILY 10/01/21 tablet Previous Rx's Medication Instructions Recorded multivit no.40-iron 18 mg-folate 1 cap PO DAILY #30 caps 05/23/22 comb no.1 1 mg-dha 300 mg capsule prednisone 20 mg tablet 60 mg PO DAILY 7 days #21 tabs 05/23/22 thiamine HCl (vitamin B1) 100 mg 100 mg PO DAILY #30 tabs 05/23/22 tablet naproxen 500 mg tablet 500 mg PO BID PRN pain 10 days #20 06/08/22 tabs cephalexin 500 mg capsule 500 mg PO Q6H 10 days #40 caps 06/16/22 doxycycline monohydrate 100 mg 100 mg PO BID 10 days #20 tabs 06/16/22 tablet ibuprofen 600 mg tablet 600 mg PO Q6H PRN fever #10 tabs 06/16/22 oxycodone 5 mg tablet 5 mg PO Q6H PRN pain #14 tabs 06/16/22 silver sulfadiazine 1 % topical 1 appl topical BID Second-degree 06/16/22 cream (Silvadene) burn #400 grams Allergies Allergy/AdvReac Type Severity Reaction Status Date / Time No Known Allergies Allergy Verified 06/08/22 17:49 [No Known Allergies*] Review of Systems Review of Systems: All other systems are reviewed and are negative Constitutional: Reports as per HPI and Reports no additional constitutional complaints Eyes: Reports as per HPI and Reports no additional eye complaints Reports system reviewed and no additional complaints, except as documented Cardiovascular: Reports as per HPI and Reports no additional cardiovascular complaints Respiratory: Reports as per HPI and Reports no additional respiratory complaints Gastrointestinal: Reports as per HPI and Reports no additional gastrointestinal complaints Genitourinary: Reports no additional female genitourinary complaints Musculoskeletal: Reports no additional musculoskeletal complaints Skin/Breast: Reports system reviewed and no additional complaints, except as docu Psychiatric: Reports no additional psychiatric complaints Endocrine: Reports no additional endocrine complaints Hematologic/Lymphatic: Reports no additional hematologic/lymphatic complaints Allergic/Immunologic: Reports no additional allergic/immunologic complaints Reports system reviewed and no additional complaints, except as documented and Reports Abnormal speech present [facility] Social History Social History Alcohol intake: current Alcohol intake frequency: 3 or more drinks per day Alcohol type: beer Patient Tobacco Use Status: Never used Tobacco Use of substances other than those prescribed or required for medical reasons: No Advance Directives: No Advance Directives Information Provided: Yes Current occupational status: disabled Current occupation: rt handed Physical Exam Vital Signs: Vital Signs: Last Vital Signs Temp 98 F 07/04/22 13:35 Pulse 63 07/04/22 13:35 Resp 13 07/04/22 13:35 BP 122/87 07/04/22 13:35 Pulse Ox 98 07/04/22 13:35 BMI result Body Mass Index 21.1 Vital signs have been reviewed as appeared to be correct. Blood pressure normal. Heart rate normal. Respiration rate normal. Temperature normal. Oxygen saturation normal. Appearance: Alert. Oriented X3. No acute distress. Head: Normal external exam. Normocephalic. Atraumatic. No Zepeda signs noted. No raccoon eyes noted Eyes: PERRLA. EOMI. Conjunctiva and sclera normal. Eyelids normal. ENT: TM's Normal. Pharynx normal. Uvula midline. Moist mucous membranes. No trismus noted. No drooling noted. No muffled voice noted. Neck: Normal inspection. Neck supple. FROM. No adenopathy. Thyroid Normal. No meningeal signs. No neck mass noted. CVS: Normal heart rate and rhythm. Heart sound normal. No murmurs noted. Pulses normal throughout. Respiratory: No respiratory distress. Painless inspiration. Breath sounds normal. No wheezes/rales/rhonchi noted. Left chest wall reproducible tenderness, no step-off, no deformity. No accessory muscle usage noted or decreased air movement noted. Abdomen: Soft and nontender. Bowel sounds normal in all 4 quadrants. No distention noted. No organomegaly noted. No visible injury noted. Back: No CVA tenderness. Full range of motion noted. Skin: Skin warm and dry. Normal skin color. Normal skin turgor. No rashes/lesions/lacerations noted. Extremities: No lower extremity edema. Extremities exhibit normal range of motion. Extremities nontender. Neuro: Oriented X 3. Cranial nerve exam: II-XII are grossly intact No motor deficit. No sensory deficit. Reflexes normal. Course Course Course Narrative: 51-year-old male came in for evaluation of chest pain, symptoms exam and risk factor not suggesting ACS patient with HEART score of 1, patient at low risk for PE however D-dimer slightly elevated patient will get CT angiogram of the chest, patient will be monitored in the emergency department until he is sober. Case signed out to . [facility] - Chest Pain Lab Data Attestation: I reviewed the patient's lab results. Result diagrams: 07/04/22 14:05 07/04/22 14:05 Labs: Lab Results 07/04/22 07/04/22 07/04/22 Range/Units 14:05 14:05 14:05 WBC 3.7 L (4.8-10.8) X10*3/uL RBC 4.04 L (4.60-5.80) X10*6/uL Hgb 13.5 L (14.0-18.0) g/dl Hct 38.8 L (42.0-52.0) % MCV 96.0 (80.0-98.0) fL MCH 33.4 H (27.0-33.0) pg MCHC 34.8 (31.0-36.0) g/dl RDW 13.2 (11.0-16.0) % Plt Count 157 L (160-400) X10*3/uL MPV 8.9 L (9.4-12.4) fL Immature Gran % (Auto) 0.0 (0.0-0.4) % Neut % (Auto) 47.0 (45-73) % Lymph % (Auto) 39.4 (20-40) % [place] % (Auto) 10.6 (2-11) % Eos % (Auto) 1.6 (0-4) % Baso % (Auto) 1.4 (0-2) % Lymph # (Auto) 1.5 (1.2-4.9) X10*3/uL [place] # (Auto) 0.4 (0.1-1.2) X10*3/uL Eos # (Auto) 0.1 (0.0-0.4) X10*3/uL Baso # (Auto) 0.1 (0.0-0.2) X10*3/uL Abs Immat Gran (auto) 0.00 (0.00-0.03) X10*3/uL Absolute Neuts (auto) 1.7 L (2.0-8.3) x10*3/uL Absolute Nucleated RBC 0.000 (0.0-0.012) X10*3/uL Nucleated RBC % (auto) 0.0 (0.0-0.2) /100WBC D-Dimer High Sensitivty NG/ML Sodium 138 (135-145) mmol/L Potassium 3.8 (3.3-5.1) mmol/L Chloride 102 (96-108) mmol/L Carbon Dioxide 23 (22-29) mmol/L Anion Gap 17 (12-20) BUN 6 L (9-16) mg/dL Creatinine 0.66 (0.5-1.4) mg/dL Estim Creat Clear Calc 115.9 Estimated GFR > 60 Random Glucose 120 H (60-115) mg/dL Calcium 8.7 (8.4-10.2) mg/dL Total Bilirubin 0.5 (0.0-1.0) mg/dL Direct Bilirubin 0.2 (0.0-0.5) mg/dL AST 118 H (5-37) U/L ALT 58 H (0-40) U/L Alkaline Phosphatase 84 (39-117) U/L Troponin I High Sens < 3.5 (<3.5-35.0) ng/L Total Protein 7.9 (6.5-8.0) g/dL Albumin 4.2 (3.5-5.0) g/dL Lipase 90 H (8-78) U/L Urine Color Urine Appearance Urine pH (5.0-9.0) Ur Specific [place] (1.005-1.025) Urine Protein (Neg-Trace) mg/dL Urine Glucose (UA) (Negative) mg/dL Urine Ketones (Negative) mg/dL Urine Blood (Negative) Urine Nitrite (Negative) Ur Leukocyte Esterase (Negative) Ethyl Alcohol mg/dL 07/04/22 07/04/22 07/04/22 Range/Units 14:05 14:05 14:37 WBC (4.8-10.8) X10*3/uL RBC (4.60-5.80) X10*6/uL Hgb (14.0-18.0) g/dl Hct (42.0-52.0) % MCV (80.0-98.0) fL MCH (27.0-33.0) pg MCHC (31.0-36.0) g/dl RDW (11.0-16.0) % Plt Count (160-400) X10*3/uL MPV (9.4-12.4) fL Immature Gran % (Auto) (0.0-0.4) % Neut % (Auto) (45-73) % Lymph % (Auto) (20-40) % [place] % (Auto) (2-11) % Eos % (Auto) (0-4) % Baso % (Auto) (0-2) % Lymph # (Auto) (1.2-4.9) X10*3/uL [place] # (Auto) (0.1-1.2) X10*3/uL Eos # (Auto) (0.0-0.4) X10*3/uL Baso # (Auto) (0.0-0.2) X10*3/uL Abs Immat Gran (auto) (0.00-0.03) X10*3/uL Absolute Neuts (auto) (2.0-8.3) x10*3/uL Absolute Nucleated RBC (0.0-0.012) X10*3/uL Nucleated RBC % (auto) (0.0-0.2) /100WBC D-Dimer High Sensitivty 249 NG/ML Sodium (135-145) mmol/L Potassium (3.3-5.1) mmol/L Chloride (96-108) mmol/L Carbon Dioxide (22-29) mmol/L Anion Gap (12-20) BUN (9-16) mg/dL Creatinine (0.5-1.4) mg/dL Estim Creat Clear Calc Estimated GFR Random Glucose (60-115) mg/dL Calcium (8.4-10.2) mg/dL Total Bilirubin (0.0-1.0) mg/dL Direct Bilirubin (0.0-0.5) mg/dL AST (5-37) U/L ALT (0-40) U/L Alkaline Phosphatase (39-117) U/L Troponin I High Sens (<3.5-35.0) ng/L Total Protein (6.5-8.0) g/dL Albumin (3.5-5.0) g/dL Lipase (8-78) U/L Urine Color Yellow Urine Appearance Clear Urine pH 5.5 (5.0-9.0) Ur Specific [place] <= 1.005 (1.005-1.025) Urine Protein Negative (Neg-Trace) mg/dL Urine Glucose (UA) Negative (Negative) mg/dL Urine Ketones Negative (Negative) mg/dL Urine Blood Negative (Negative) Urine Nitrite Negative (Negative) Ur Leukocyte Esterase Negative (Negative) Ethyl Alcohol 436 H* mg/dL Imaging Data Chest x-ray: Attestation: I personally reviewed and interpreted this imaging study as follows: Radiologist's impression: *? Cardiac silhouette appears mildly enlarged with respect to recent prior, however may be exaggerated by AP technique. ? ECG Data ECG #1: Attestation: I personally reviewed and interpreted this ECG as follows: Interpretation: Normal sinus rhythm at 63 beats per minutes, normal axis deviation, normal intervals no ST-T changes. Discharge Plan Discharge Clinical Impression: Chest pain, Alcohol intoxication Patient Disposition: Still a Patient Prescriptions: No Action prednisone 20 mg tablet 60 mg PO DAILY 7 Days Qty: 21 0RF thiamine HCl (vitamin B1) 100 mg tablet 100 mg PO DAILY Qty: 30 0RF multivit [id number] 1-dha 18 mg iron- 1 mg-300 mg capsule 1 cap PO DAILY Qty: 30 0RF naproxen 500 mg tablet 500 mg PO BID PRN (Reason: pain) 10 Days Qty: 20 0RF doxycycline monohydrate 100 mg tablet 100 mg PO BID 10 Days Qty: 20 0RF cephalexin 500 mg capsule 500 mg PO Q6H 10 Days Qty: 40 0RF ibuprofen 600 mg tablet 600 mg PO Q6H PRN (Reason: fever) Qty: 10 0RF silver sulfadiazine [Silvadene] 1 % cream 1 appl topical BID Qty: 400 0RF Rx Instructions: apply a 1.5 mm thickness oxycodone 5 mg tablet 5 mg PO Q6H PRN (Reason: pain) Qty: 14 0RF Rx Instructions: Partial Fill upon patient request. folic acid 1 mg tablet 1 mg PO DAILY thiamine HCl (vitamin B1) 100 mg tablet 100 mg PO DAILY
[2022-07-04] MEDS: Ibuprofen 600 MG TABLET PO (14:11)
[2022-07-04 14:15] LABS: MANUAL DIFF FLAG NO
[2022-07-04 14:17] LABS: Basophils Absolute Auto 0.1 X10*3/uL (0.0-0.2); Basophils Percent Auto 1.4 % (0-2); Eosinophils Absolute Auto 0.1 X10*3/uL (0.0-0.4); Eosinophils Percent Auto 1.6 % (0-4); Hematocrit 38.8 % (42.0-52.0); Hemoglobin 13.5 g/dl (14.0-18.0); Lymphocytes Absolute Auto 1.5 X10*3/uL (1.2-4.9); Lymphocytes Percent Auto 39.4 % (20-40); Mean Corpuscular HGB Conc 34.8 g/dl (31.0-36.0); Mean Corpuscular Hemoglobin 33.4 pg (27.0-33.0); Mean Platelet Volume 8.9 fL (9.4-12.4); Monocytes Absolute Auto 0.4 X10*3/uL (0.1-1.2); Monocytes Percent Auto 10.6 % (2-11); Neutrophils Absolute Auto 1.7 x10*3/uL (2.0-8.3); Platelet Count 157 X10*3/uL (160-400); Red Blood Count 4.04 X10*6/uL (4.60-5.80); Red Cell Distribution Width 13.2 % (11.0-16.0); White Blood Count 3.7 X10*3/uL (4.8-10.8)
[2022-07-04 14:25] LABS: D Dimer High Sensitivity 249 NG/ML
[2022-07-04 14:30] LABS: Ethanol 436 mg/dL
[2022-07-04 14:35] LABS: Alanine Aminotransferase 58 U/L (0-40); Albumin Level 4.2 g/dL (3.5-5.0); Alkaline Phosphatase 84 U/L (39-117); Anion Gap 17 (12-20); Aspartate Amino Transferase 118 U/L (5-37); Bilirubin Direct 0.2 mg/dL (0.0-0.5); Bilirubin Total 0.5 mg/dL (0.0-1.0); Blood Urea Nitrogen 6 mg/dL (9-16); Calcium 8.7 mg/dL (8.4-10.2); Carbon Dioxide 23 mmol/L (22-29); Chloride 102 mmol/L (96-108); Creatinine Clr Calc Pharmacy 115.9; Estimated Glomerular Filt Rate > 60; Glucose Random 120 mg/dL (60-115); Lipase 90 U/L (8-78); Potassium 3.8 mmol/L (3.3-5.1); Sodium 138 mmol/L (135-145); Total Protein 7.9 g/dL (6.5-8.0); Troponin-I High Sensitivity < 3.5 ng/L (<3.5-35.0)
[2022-07-04 14:44] LABS: Appearance Urine Clear; Color Urine Yellow; Glucose Urine UA Negative (Negative); Leukocyte Esterase Urine Negative (Negative); Nitrite Urine Negative (Negative); PH 5.5 (5.0-9.0); Specific Gravity - Urine <= 1.005 (1.005-1.025); Urine Blood Negative (Negative); Urine Ketones Negative (Negative); Urine Protein Negative (Neg-Trace)
[2022-07-04] MEDS: iohexoL 350 MG/ML 75 ML INFUS..BTL 65 ML IV (16:11)
[2022-07-04 16:12] VITALS: BP 113/74; PULSE 65; RESP 16; TEMP 36.4; O2SAT 98
[2022-07-04] MEDS: 0.9 % Sodium Chloride 1,000 ML 999 ML IV (16:13)
[2022-07-04 23:21] VITALS: BP 112/72; PULSE 90; RESP 13; O2SAT 97
[2022-07-05 03:39] VITALS: BP 122/74; PULSE 67; RESP 16; TEMP 36.7; O2SAT 97
[2022-07-05 09:03] VITALS: BP 127/76; PULSE 77; RESP 12; O2SAT 94
[2022-07-05] MEDS: LORazepam 1 MG TABLET 2 MG PO (09:34)
--- NOTE | 2022-07-05 10:05 | PHA.MEDREC ---
Pharmacy Consult ? Medication Reconciliation Pharmacy has completed the medication reconciliation. Rubber Gasket Inspector Trimmer used. Patient states he is taking only vitamins and his antibiotics for his leg. Patient admits to only taking about 3 to 4 days of his antibiotics and the last time hes taken them was about two weeks ago.
--- NOTE | 2022-07-05 11:57 | MHC.RECOVRN ---
T/W met w/ pt, pt alert, oriented, laying in bed. Pt reports was living in [place] doing well. Pt reports left [place] and since has had a reoccurrence. Pt reports drinking daily past 2-3 months. Pt reports 6 beers daily. Pt states in the past had been to ATS, CSS and further treatment in [facility]. Pt reports approximately 2-3 years ago went to detox at [facility]. Pt states in the past had taken MAT for AUD, could not recall name of medication. Pt states is working until July-August and then will seek treatment. Pt states not interested in treatment at this time. Pt states has work tomorrow a.m and eager to discharge. T/W and pt discussed recovery resources, pt agreeable to review recovery resources.
== END 2022-07-05 12:28 | disposition home or self-care (01) ==
PROVIDERS: Emergency Provider Emergency Medicine
DX: R07.89 Other chest pain (principal); F10.129 Alcohol abuse with intoxication, unspecified; Y90.8 Blood alcohol level of 240 mg/100 ml or more; Z79.899 Other long term (current) drug therapy
CPT/HCPCS: 36415; 71045; 71275; 80048; 80076; 81003; 82077; 83690; 84484; 85025; 85379; 93005; 99285; Q9967

== ENCOUNTER 2022-07-10 09:56 | Emergency (ER) | payer MEDICAID, SELFPAY ==
--- NOTE | ~2022-07-10 | XR_ITS ---
EXAMINATION: XR FOREARM, RIGHT CLINICAL INFORMATION: Right forearm pain. COMPARISON: None TECHNIQUE: AP and lateral views of the right forearm were obtained. FINDINGS: The radius and ulna are intact is no acute fracture or dislocation. Nonunited corticated ulnar styloid. Mild soft tissue swelling proximally. Moderate to severe atherosclerosis in the ulnar artery. XR/XR forearm RT 2V IMPRESSION: Mild soft tissue swelling proximally without acute underlying osseous abnormality.
--- NOTE | ~2022-07-10 | XR_ITS ---
EXAMINATION: CR X-RAY HAND AND WRIST CLINICAL INFORMATION: Right hand and wrist pain status post trauma. COMPARISON: None TECHNIQUE: 4 views of the right hand and wrist are obtained. Indicator arrow points to the base of the first digit. FINDINGS: There is no acute fracture or dislocation. The joint spaces are unremarkable the carpal bones are normally aligned. The distal radius and ulna are intact. There is a nonunited corticated ulnar styloid. Moderate atherosclerosis is noted. XR/XR hand wrist RT IMPRESSION: No acute abnormality in the right hand and wrist.
[2022-07-10 11:00] VITALS: BP 111/77; PULSE 77; RESP 16; TEMP 36.3; O2SAT 98; BMI 20.3
--- NOTE | 2022-07-10 11:07 | ED_ITS ---
HPI - Extremity Problem General Chief complaint: Extremity Injury, Upper Stated complaint: L arm pain Time Seen by Provider: 07/10/22 10:33 Source: patient Mode of arrival: ambulatory History of Present Illness HPI Narrative: 51-year-old male with a past medical history of ETOH abuse presenting to the ED complaining of right wrist and forearm pain/swelling s/p box falling on it at work on . Admits to drinking a 6 pack of beers today. Denies injury to the area, numbness, tingling, weakness, fever. MD Complaint: extremity pain, extremity swelling and joint pain Related Data Previous Rx's Medication Instructions Recorded multivit no.40-iron 18 mg-folate 1 cap PO DAILY #30 caps 05/23/22 comb no.1 1 mg-dha 300 mg capsule thiamine HCl (vitamin B1) 100 mg 100 mg PO DAILY #30 tabs 05/23/22 tablet cephalexin 500 mg capsule 500 mg PO Q6H 10 days #40 caps 06/16/22 doxycycline monohydrate 100 mg 100 mg PO BID 10 days #20 tabs 06/16/22 tablet Allergies Allergy/AdvReac Type Severity Reaction Status Date / Time No Known Allergies Allergy Verified 06/08/22 17:49 [No Known Allergies*] Review of Systems Review of Systems: Constitutional: No Fever, No Chills ENT/Mouth: No Ear Pain, No Nasal Congestion, No sore throat, No Rhinorrhea, No Swallowing Difficulty Cardiovascular: No Chest Pain, No SOB Respiratory: No Cough, No Sputum, No Wheezing Gastrointestinal: No Nausea, No Vomiting, No Abdominal pain Genitourinary: No Dysuria, No Urinary Frequency, No Hematuria, No Urgency, No Flank Pain Musculoskeletal: + joint pain, No Myalgias, + Joint Swelling Skin: No Skin Lesions, No rash Neuro: No Weakness, No Numbness, No Paresthesias Yes all other systems are reviewed and are negative Constitutional: Constitutional: Reports as per [facility] Past Medical History Attestation statement: The following information was validated with the patient. Social History Social History Alcohol intake: current Alcohol intake frequency: 3 or more drinks per day Alcohol type: beer Patient Tobacco Use Status: Never used Tobacco Advance Directives: No Current occupational status: disabled Current occupation: rt handed Physical Exam Vital Signs: Vital Signs: Last Vital Signs Temp 97.4 F 07/10/22 11:00 Pulse 77 07/10/22 11:00 Resp 16 07/10/22 11:00 BP 111/77 07/10/22 11:00 Pulse Ox 98 07/10/22 11:00 O2 Del Method 07/10/22 11:00 BMI result Body Mass Index 20.3 Const: General: cooperative, healthy appearing and no acute distress Orientation/consciousness: patient oriented x3 Limitations: no limitations HEENT: Head: Yes normal to inspection and Yes atraumatic Ears: hearing grossly normal bilaterally General nose exam: Normal external nose present Face and sinus: Yes normal facial exam Eyes: General: appearance normal, both eyes and all related structures EOM: EOMs intact bilaterally Neck: Neck: Yes normal visual inspection and Yes no meningeal signs Resp: Effort & Inspection: normal respiratory effort and no respiratory distress Auscultation: clear to auscultation bilaterally Cardio: Rate: regular rate Heart sounds: S1 normal heart sound present and S2 normal heart sound present Peripheral pulses: radial pulses present and ulnar radial pulses present GI: Inspection: Yes normal to inspection Palpation (GI): Soft to palpation and nontender Skin: Rashes: no rashes Wounds: no wounds Neuro: General: patient oriented x3, gait normal, tone normal, moves all extremities and no meningeal signs Gait exam (Neuro): Normal gait present Extrem: Other: Right wrist/forearm with mild swelling. Mid forearm with tenderness. Wrist diffusely tender with + snuffbox tenderness. Sensation intact to light touch. Wrist ROM limited secondary to pain. No warmth or erythema Shoulder/elbow/digits nontender. Full range of motion intact of forearm and digits. Course Course Course Narrative: XR hand wrist RT IMPRESSION: No acute abnormality in the right hand and wrist.? XR forearm RT 2V IMPRESSION: Mild soft tissue swelling proximally without acute underlying osseous abnormality. >> due to snuffbox tenderness thumb spica applied. Discussed with patient r esults and needed close follow-up with Orthopedics. Results discussed with patient including worrisome signs and symptoms and strict return precautions, and when to return to the emergency department. They verbalized understanding and feel safe for discharge at this time. MDM - Extremity (Nontraumatic) MDM Narrative Medical decision making narrative: 51-year-old male with a past medical history of ETOH abuse presenting to the ED complaining of right wrist and forearm pain/swelling s/p box falling on it at work on . On exam vital signs stable, NAD, nontoxic appearing, sleepy, chronic ETOH abuser, appears clinically sober, ambulating with steady gait, physical exam as above. Concern for fracture versus sprain. No evidence of infection Plan: X-rays Medical Records Attestation: I reviewed the patient's medical records. Lab Data Attestation: I reviewed the patient's lab results. Discharge Plan Discharge Clinical Impression: Tenderness of anatomical snuffbox, Arm injury Patient Disposition: Home, Self-Care Instructions: Scaphoid Fracture (ED) Additional Instructions: Your x-rays show soft tissue swelling, no appreciable fracture. Due to the location of her pain there is concern for an underlying fracture that we cannot see YOU NEED TO KEEP SPLINT ON UNTIL YOU FOLLOW-UP WITH ENGINE BOSS. CALL ON TUESDAY TO MAKE AN APPOINTMENT Ice and elevate. If pain persists or worsens return to the emergency department Jennie radiograf?as muestran hinchaz?n de los tejidos blandos, sin fractura apreciable. Debido a la ubicaci?n del dolor, existe preocupaci?n por barbara fractura subyacente que no podemos melissa. NECESITA MANTENER LA F?OMARI PUESTA HASTA QUE TONY UN SEGUIMIENTO CON UN ESPECIALISTA ORTOP?DICO. LLAME EL LUNES PARA HACER BARBARA VAUGHN Hielo y eleva. Si el dolor persiste o empeora, regrese al servicio de urgencias. Prescriptions: No Action thiamine HCl (vitamin B1) 100 mg tablet 100 mg PO DAILY Qty: 30 0RF multivit 29-ohqc-bjcqoo 1-dha 18 mg iron- 1 mg-300 mg capsule 1 cap PO DAILY Qty: 30 0RF doxycycline monohydrate 100 mg tablet 100 mg PO BID 10 Days Qty: 20 0RF cephalexin 500 mg capsule 500 mg PO Q6H 10 Days Qty: 40 0RF Referrals: [facility] [Provider Group] - 1 week Print Language: Greenlandic
== END 2022-07-10 12:14 | disposition home or self-care (01) ==
PROVIDERS: Emergency Provider Emergency Medicine
DX: S59.912A Unspecified injury of left forearm, initial encounter (principal); W20.8XXA Other cause of strike by thrown, projected or falling object, initial encounter; Y93.89 Activity, other specified; Y92.512 Supermarket, store or market as the place of occurrence of the external cause; Y99.0 Civilian activity done for income or pay
CPT/HCPCS: 29125; 73090; 73110; 73130; 99282; 99283

== ENCOUNTER 2022-07-19 18:09 | Emergency (ER) | payer MEDICAID, SELFPAY ==
--- NOTE | ~2022-07-19 | XR_ITS ---
EXAMINATION: XR CHEST CLINICAL INFORMATION: Chest pain COMPARISON: Chest x-ray 07/04/2022 TECHNIQUE: Frontal portable view of the chest was obtained. 6:27 PM FINDINGS: No significant abnormality is noted involving the heart, lungs, mediastinum, bony thorax or soft tissues. XR/XR chest 1V IMPRESSION: Unremarkable examination.
[2022-07-19 18:15] VITALS: BP 131/87; PULSE 77; O2SAT 98
--- NOTE | 2022-07-19 18:19 | ECG_ITS ---
Test Reason : CHEST PAIN Blood Pressure : / mmHG Vent. Rate : 076 BPM Atrial Rate : 076 BPM P-R Int : 158 ms QRS Dur : 100 ms QT Int : 382 ms P-R-T Axes : 061 040 044 degrees QTc Int : 429 ms Sinus rhythm Intra-ventricular conduction delay RSR' or QR pattern in V1 suggests right ventricular conduction delay Abnormal ECG When compared with ECG of 04-JUL-2022 14:07, No significant changes seen Referred By: Generic ED Physician Electronically Signed By:TYLER PARISI MD
[2022-07-19 18:38] VITALS: BP 127/81; PULSE 74; RESP 16; TEMP 36.9; O2SAT 99; BMI 20.9
[2022-07-19 18:39] LABS: MANUAL DIFF FLAG NO
[2022-07-19 18:40] LABS: Basophils Absolute Auto 0.1 X10*3/uL (0.0-0.2); Basophils Percent Auto 1.2 % (0-2); Eosinophils Absolute Auto 0.1 X10*3/uL (0.0-0.4); Eosinophils Percent Auto 1.7 % (0-4); Hematocrit 37.2 % (42.0-52.0); Hemoglobin 12.9 g/dl (14.0-18.0); Imm Gran Abs Auto 0.01 X10*3/uL (0.00-0.03); Imm Gran Pct Auto 0.2 % (0.0-0.4); Lymphocytes Absolute Auto 1.7 X10*3/uL (1.2-4.9); Lymphocytes Percent Auto 40.1 % (20-40); Mean Corpuscular HGB Conc 34.7 g/dl (31.0-36.0); Mean Corpuscular Hemoglobin 32.9 pg (27.0-33.0); Mean Corpuscular Volume 94.9 fL (80.0-98.0); Mean Platelet Volume 8.8 fL (9.4-12.4); Monocytes Absolute Auto 0.4 X10*3/uL (0.1-1.2); Monocytes Percent Auto 9.4 % (2-11); Neutrophils Percent Auto 47.4 % (45-73); Platelet Count 129 X10*3/uL (160-400); Red Blood Count 3.92 X10*6/uL (4.60-5.80); Red Cell Distribution Width 13.1 % (11.0-16.0); White Blood Count 4.2 X10*3/uL (4.8-10.8)
--- NOTE | 2022-07-19 18:46 | ED.CHESTPAIN ---
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 Around 03:00 o'clock patient was working had feeling of palpitation of the left side of his chest, patient also felt a mild dull aching pain localized to the left side of the chest with no radiation, no other associated symptoms, pain is intermittent lasts for few minutes then go away, patient admitted that has been under stress because of daughter situation. Patient drinks every day and he drank a 12 pack of beers today. Related Data Previous Rx's Medication Instructions Recorded multivit no.40-iron 18 mg-folate 1 cap PO DAILY #30 caps 05/23/22 comb no.1 1 mg-dha 300 mg capsule thiamine HCl (vitamin B1) 100 mg 100 mg PO DAILY #30 tabs 05/23/22 tablet cephalexin 500 mg capsule 500 mg PO Q6H 10 days #40 caps 06/16/22 doxycycline monohydrate 100 mg 100 mg PO BID 10 days #20 tabs 06/16/22 tablet diazepam 5 mg tablet 5 mg PO TID PRN muscle spasm #10 07/22/22 tabs ibuprofen 600 mg tablet 600 mg PO Q6H PRN pain #30 tabs 07/22/22 Allergies Allergy/AdvReac Type Severity Reaction Status Date / Time No Known Allergies Allergy Verified 06/08/22 17:49 [No Known Allergies*] Review of Systems Review of Systems: All other systems are reviewed and are negative Constitutional: Reports as per HPI and Reports no additional constitutional complaints Eyes: Reports as per HPI and Reports no additional eye complaints Reports system reviewed and no additional complaints, except as documented Cardiovascular: Reports as per HPI and Reports no additional cardiovascular complaints Respiratory: Reports as per HPI and Reports no additional respiratory complaints Gastrointestinal: Reports as per HPI and Reports no additional gastrointestinal complaints Genitourinary: Reports no additional female genitourinary complaints Musculoskeletal: Reports no additional musculoskeletal complaints Skin/Breast: Reports system reviewed and no additional complaints, except as docu Psychiatric: Reports no additional psychiatric complaints Endocrine: Reports no additional endocrine complaints Hematologic/Lymphatic: Reports no additional hematologic/lymphatic complaints Allergic/Immunologic: Reports no additional allergic/immunologic complaints Reports system reviewed and no additional complaints, except as documented and Reports Abnormal speech present [facility] Social History Social History Alcohol intake: current Alcohol intake frequency: a few times a week Alcohol type: beer Patient Tobacco Use Status: Never used Tobacco Smoked in Last 30 Days: No Use of substances other than those prescribed or required for medical reasons: No Advance Directives: No Advance Directives Information Provided: Yes Current occupational status: disabled Current occupation: rt handed Physical Exam Vital Signs: Vital Signs: Last Vital Signs Temp 98.4 F 07/19/22 18:38 Pulse 75 07/19/22 22:33 Resp 16 07/19/22 22:33 BP 113/73 07/19/22 22:33 Pulse Ox 97 07/19/22 22:33 O2 Del Method 07/19/22 22:33 BMI result Body Mass Index 20.9 Vital signs have been reviewed as appeared to be correct. Blood pressure normal. Heart rate normal. Respiration rate normal. Temperature normal. Oxygen saturation normal. Appearance: Alert. Oriented X3. No acute distress. Head: Normal external exam. Normocephalic. Atraumatic. No Zepeda signs noted. No raccoon eyes noted Eyes: PERRLA. EOMI. Conjunctiva and sclera normal. Eyelids normal. ENT: TM's Normal. Pharynx normal. Uvula midline. Moist mucous membranes. No trismus noted. No drooling noted. No muffled voice noted. Neck: Normal inspection. Neck supple. FROM. No adenopathy. Thyroid Normal. No meningeal signs. No neck mass noted. CVS: Normal heart rate and rhythm. Heart sound normal. No murmurs noted. Pulses normal throughout. Respiratory: No respiratory distress. Painless inspiration. Breath sounds normal. No wheezes/rales/rhonchi noted. Chest nontender. No accessory muscle usage noted or decreased air movement noted. Abdomen: Soft and nontender. Bowel sounds normal in all 4 quadrants. No distention noted. No organomegaly noted. No visible injury noted. Back: No CVA tenderness. Full range of motion noted. Skin: Skin warm and dry. Normal skin color. Normal skin turgor. No rashes/lesions/lacerations noted. Extremities: No lower extremity edema. Extremities exhibit normal range of motion. Extremities nontender. Neuro: Oriented X 3. Cranial nerve exam: II-XII are grossly intact No motor deficit. No sensory deficit. Reflexes normal. Course Course Course Narrative: 51-year-old male with chronic alcohol abuse disorder came in with palpitation and chest pain that is believed to be secondary to anxiety and stress, patient has negative troponin and unremarkable EKG. Will discharge the patient negative 2nd troponin. MDM - Chest Pain Lab Data Result diagrams: 07/19/22 18:33 07/19/22 18:33 Labs: Lab Results 07/19/22 07/19/22 07/19/22 Range/Units 18:33 18:33 18:33 WBC 4.2 L (4.8-10.8) X10*3/uL RBC 3.92 L (4.60-5.80) X10*6/uL Hgb 12.9 L (14.0-18.0) g/dl Hct 37.2 L (42.0-52.0) % MCV 94.9 (80.0-98.0) fL MCH 32.9 (27.0-33.0) pg MCHC 34.7 (31.0-36.0) g/dl RDW 13.1 (11.0-16.0) % Plt Count 129 L (160-400) X10*3/uL MPV 8.8 L (9.4-12.4) fL Immature Gran % (Auto) 0.2 (0.0-0.4) % Neut % (Auto) 47.4 (45-73) % Lymph % (Auto) 40.1 H (20-40) % [place] % (Auto) 9.4 (2-11) % Eos % (Auto) 1.7 (0-4) % Baso % (Auto) 1.2 (0-2) % Lymph # (Auto) 1.7 (1.2-4.9) X10*3/uL [place] # (Auto) 0.4 (0.1-1.2) X10*3/uL Eos # (Auto) 0.1 (0.0-0.4) X10*3/uL Baso # (Auto) 0.1 (0.0-0.2) X10*3/uL Abs Immat Gran (auto) 0.01 (0.00-0.03) X10*3/uL Absolute Neuts (auto) 2.0 (2.0-8.3) x10*3/uL Absolute Nucleated RBC 0.000 (0.0-0.012) X10*3/uL Nucleated RBC % (auto) 0.0 (0.0-0.2) /100WBC Sodium 141 (135-145) mmol/L Potassium 4.1 (3.3-5.1) mmol/L Chloride 105 (96-108) mmol/L Carbon Dioxide 24 (22-29) mmol/L Anion Gap 16 (12-20) BUN 7 L (9-16) mg/dL Creatinine 0.72 (0.5-1.4) mg/dL Estim Creat Clear Calc 102.3 Estimated GFR > 60 Random Glucose 69 D (60-115) mg/dL Calcium 8.8 (8.4-10.2) mg/dL Total Bilirubin 0.2 (0.0-1.0) mg/dL Direct Bilirubin 0.2 (0.0-0.5) mg/dL AST 140 H (5-37) U/L ALT 64 H (0-40) U/L Alkaline Phosphatase 79 (39-117) U/L Troponin I High Sens < 3.5 (<3.5-35.0) ng/L B-Natriuretic Peptide < 10 (<100) pg/mL Total Protein 8.0 (6.5-8.0) g/dL Albumin 4.1 (3.5-5.0) g/dL Lipase 94 H (8-78) U/L Urine Color Urine Appearance Urine pH (5.0-9.0) Ur Specific [place] (1.005-1.025) Urine Protein (Neg-Trace) mg/dL Urine Glucose (UA) (Negative) mg/dL Urine Ketones (Negative) mg/dL Urine Blood (Negative) Urine Nitrite (Negative) Ur Leukocyte Esterase (Negative) COVID-19 ([facility]) (Negative) COVID-19 Clin Com 07/19/22 07/19/22 07/19/22 Range/Units 18:33 21:35 21:35 WBC (4.8-10.8) X10*3/uL RBC (4.60-5.80) X10*6/uL Hgb (14.0-18.0) g/dl Hct (42.0-52.0) % MCV (80.0-98.0) fL MCH (27.0-33.0) pg MCHC (31.0-36.0) g/dl RDW (11.0-16.0) % Plt Count (160-400) X10*3/uL MPV (9.4-12.4) fL Immature Gran % (Auto) (0.0-0.4) % Neut % (Auto) (45-73) % Lymph % (Auto) (20-40) % [place] % (Auto) (2-11) % Eos % (Auto) (0-4) % Baso % (Auto) (0-2) % Lymph # (Auto) (1.2-4.9) X10*3/uL [place] # (Auto) (0.1-1.2) X10*3/uL Eos # (Auto) (0.0-0.4) X10*3/uL Baso # (Auto) (0.0-0.2) X10*3/uL Abs Immat Gran (auto) (0.00-0.03) X10*3/uL Absolute Neuts (auto) (2.0-8.3) x10*3/uL Absolute Nucleated RBC (0.0-0.012) X10*3/uL Nucleated RBC % (auto) (0.0-0.2) /100WBC Sodium (135-145) mmol/L Potassium (3.3-5.1) mmol/L Chloride (96-108) mmol/L Carbon Dioxide (22-29) mmol/L Anion Gap (12-20) BUN (9-16) mg/dL Creatinine (0.5-1.4) mg/dL Estim Creat Clear Calc Estimated GFR Random Glucose (60-115) mg/dL Calcium (8.4-10.2) mg/dL Total Bilirubin (0.0-1.0) mg/dL Direct Bilirubin (0.0-0.5) mg/dL AST (5-37) U/L ALT (0-40) U/L Alkaline Phosphatase (39-117) U/L Troponin I High Sens < 3.5 (<3.5-35.0) ng/L B-Natriuretic Peptide (<100) pg/mL Total Protein (6.5-8.0) g/dL Albumin (3.5-5.0) g/dL Lipase (8-78) U/L Urine Color Yellow Urine Appearance Cloudy Urine pH 5.5 (5.0-9.0) Ur Specific [place] <= 1.005 (1.005-1.025) Urine Protein Negative (Neg-Trace) mg/dL Urine Glucose (UA) Negative (Negative) mg/dL Urine Ketones Negative (Negative) mg/dL Urine Blood Negative (Negative) Urine Nitrite Negative (Negative) Ur Leukocyte Esterase Negative (Negative) COVID-19 ([facility]) Negative (Negative) COVID-19 Clin Com See Note ECG Data ECG #1: Attestation: I personally reviewed and interpreted this ECG as follows: Interpretation: Normal sinus rhythm at 76 beats per minute, normal intervals, no ST-T changes. No change from old EKG. Discharge Plan Discharge Clinical Impression: Atypical chest pain, Alcohol abuse with alcohol-induced anxiety disorder Patient Disposition: Home, Self-Care Instructions: Alcohol Use Disorder (ED) Prescriptions: No Action thiamine HCl (vitamin B1) 100 mg tablet 100 mg PO DAILY Qty: 30 0RF multivit [id number] 1-dha 18 mg iron- 1 mg-300 mg capsule 1 cap PO DAILY Qty: 30 0RF doxycycline monohydrate 100 mg tablet 100 mg PO BID 10 Days Qty: 20 0RF cephalexin 500 mg capsule 500 mg PO Q6H 10 Days Qty: 40 0RF diazepam 5 mg tablet 5 mg PO TID PRN (Reason: muscle spasm) Qty: 10 0RF ibuprofen 600 mg tablet 600 mg PO Q6H PRN (Reason: pain) Qty: 30 0RF Referrals: [facility] [Primary Care Provider] - Interventions: ED Discharge Assessment Last Done: 07/19/22 22:35 Discharge Date/Time: 07/19/22 22:36
[2022-07-19 19:04] LABS: COVID-19 Test Negative (Negative); IDNOW Serial# 55D5AD1C
[2022-07-19 19:05] LABS: B Type Natriuretic Peptide < 10 pg/mL (<100); Troponin-I High Sensitivity < 3.5 ng/L (<3.5-35.0)
[2022-07-19 20:07] LABS: Alanine Aminotransferase 64 U/L (0-40); Albumin Level 4.1 g/dL (3.5-5.0); Alkaline Phosphatase 79 U/L (39-117); Anion Gap 16 (12-20); Aspartate Amino Transferase 140 U/L (5-37); Bilirubin Direct 0.2 mg/dL (0.0-0.5); Bilirubin Total 0.2 mg/dL (0.0-1.0); Blood Urea Nitrogen 7 mg/dL (9-16); Calcium 8.8 mg/dL (8.4-10.2); Carbon Dioxide 24 mmol/L (22-29); Chloride 105 mmol/L (96-108); Creatinine Clr Calc Pharmacy 102.3; Estimated Glomerular Filt Rate > 60; Glucose Random 69 mg/dL (60-115); Lipase 94 U/L (8-78); Potassium 4.1 mmol/L (3.3-5.1); Sodium 141 mmol/L (135-145)
[2022-07-19 21:51] LABS: Appearance Urine Cloudy; Color Urine Yellow; Glucose Urine UA Negative (Negative); Leukocyte Esterase Urine Negative (Negative); Nitrite Urine Negative (Negative); PH 5.5 (5.0-9.0); Specific Gravity - Urine <= 1.005 (1.005-1.025); Urine Blood Negative (Negative); Urine Ketones Negative (Negative); Urine Protein Negative (Neg-Trace)
--- NOTE | 2022-07-19 22:00 | PC.NURSE ---
pt has been sleeping comfortably on stretcher since this RN assumed care at 1915. repeat troponin being drawn, if WNL patient will be discharged back home. call salgado within reach. will continue to monitor.
[2022-07-19 22:04] LABS: Troponin-I High Sensitivity < 3.5 ng/L (<3.5-35.0)
[2022-07-19 22:33] VITALS: BP 113/73; PULSE 75; RESP 16; O2SAT 97
--- NOTE | 2022-07-19 22:35 | PC.NURSE ---
pt ambulatory with steady gait - pt has no current complaints or pain
== END 2022-07-19 22:36 | disposition home or self-care (01) ==
PROVIDERS: Emergency Provider Emergency Medicine
DX: R07.89 Other chest pain (principal); R00.2 Palpitations; F41.1 Generalized anxiety disorder; F43.0 Acute stress reaction; F10.10 Alcohol abuse, uncomplicated; Y90.9 Presence of alcohol in blood, level not specified; Z20.822 Contact with and (suspected) exposure to COVID-19; Z79.899 Other long term (current) drug therapy
CPT/HCPCS: 36415; 71045; 80048; 80076; 81003; 83690; 83880; 84484; 85025; 87635; 93005; 99283

== ENCOUNTER 2022-07-22 15:54 | Emergency (ER) | payer MEDICAID, SELFPAY ==
--- NOTE | ~2022-07-22 | XR_ITS ---
EXAMINATION: XR chest 2V CLINICAL INFORMATION: Reason for Exam R CP COMPARISON: Chest radiograph 07/19/2022 TECHNIQUE: 2 views of the chest FINDINGS: Clear lungs. No pneumothorax or pleural effusion. Normal cardiomediastinal silhouette. XR/XR chest 2V Impression: * Clear lungs.
[2022-07-22 16:22] VITALS: BP 118/89; BP 128/86; PULSE 66; PULSE 74; RESP 25; TEMP 36.9; O2SAT 97; O2SAT 99; BMI 21.1
--- NOTE | 2022-07-22 16:33 | ECG_ITS ---
Test Reason : chest pain Blood Pressure : / mmHG Vent. Rate : 072 BPM Atrial Rate : 072 BPM P-R Int : 146 ms QRS Dur : 094 ms QT Int : 396 ms P-R-T Axes : 049 025 034 degrees QTc Int : 433 ms Normal sinus rhythm RSR' or QR pattern in V1 suggests right ventricular conduction delay Borderline ECG When compared with ECG of 19-JUL-2022 18:23, No significant change was found Referred By: Howie Arce Electronically Signed By:TYLER PARISI MD
--- NOTE | 2022-07-22 16:35 | ED_ITS ---
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 He denies any trauma. He denies any shortness of breath, has had some associated sweats. The pain is sharp, is worsened with movement and taking a deep breath. Patient denies any pain or swelling in his legs. He denies any dizziness. He feels like his heart is going fast. Related Data Previous Rx's Medication Instructions Recorded multivit no.40-iron 18 mg-folate 1 cap PO DAILY #30 caps 05/23/22 comb no.1 1 mg-dha 300 mg capsule thiamine HCl (vitamin B1) 100 mg 100 mg PO DAILY #30 tabs 05/23/22 tablet cephalexin 500 mg capsule 500 mg PO Q6H 10 days #40 caps 06/16/22 doxycycline monohydrate 100 mg 100 mg PO BID 10 days #20 tabs 06/16/22 tablet diazepam 5 mg tablet 5 mg PO TID PRN muscle spasm #10 07/22/22 tabs ibuprofen 600 mg tablet 600 mg PO Q6H PRN pain #30 tabs 07/22/22 Allergies Allergy/AdvReac Type Severity Reaction Status Date / Time No Known Allergies Allergy Verified 06/08/22 17:49 [No Known Allergies*] Review of Systems Review of Systems: Yes all other systems are reviewed and are negative Constitutional: Constitutional: Reports as per HPI and Denies fever(s) Eyes: Eyes: Reports as per HPI and Reports no additional eye complaints ENT: Reports system reviewed and no additional complaints, except as documented, Reports as per HPI, Denies nasal congestion, Denies nasal discharge and Denies sore throat Cardiovascular: Cardiovascular: Reports as per HPI, Reports chest pain and Denies dyspnea Respiratory: Respiratory: Reports as per HPI, Denies cough and Denies dyspnea Gastrointestinal: Gastrointestinal: Reports as per HPI, Denies abdominal pain, Denies diarrhea and Denies vomiting Genitourinary: Genitourinary: Reports as per HPI, Denies hematuria, Denies dysuria and Denies urinary frequency Musculoskeletal: Musculoskeletal: Reports no additional musculoskeletal complaints and Denies numbness Integumentary/Breasts: Skin/Breast: Reports as per HPI and Denies rash Neurologic: Reports as per HPI, Denies focal weakness and Denies numbness Psychiatric: Psychiatric: Reports no additional psychiatric complaints and Reports as per HPI Endocrine: Endocrine: Reports no additional endocrine complaints and Reports as per HPI Hematologic/Lymphatic: Hematologic/Lymphatic: Reports no additional hematologic/lymphatic complaints, Reports as per HPI and Reports other (No peripheral edema) [facility] Social History Social History Alcohol intake: current Alcohol intake frequency: a few times a week Alcohol type: beer Patient Tobacco Use Status: Never used Tobacco Smoked in Last 30 Days: No Use of substances other than those prescribed or required for medical reasons: No Advance Directives: No Advance Directives Information Provided: No Current occupational status: disabled Current occupation: rt handed Physical Exam Vital Signs: Vital Signs: Last Vital Signs Temp 98.5 F 07/22/22 16:22 Pulse 73 07/22/22 19:19 Resp 12 07/22/22 19:19 BP 118/82 07/22/22 19:19 Pulse Ox 99 07/22/22 19:19 O2 Del Method 07/22/22 19:19 BMI result Body Mass Index 21.1 Const: Other: Patient is somewhat anxious appearing, hyperkinetic, rolling around and groaning in pain PERRLA Conj Berger Mucous membranes moist Throat clear Neck supple Lungs CTA Heart RRR no murmurs rubs or gallops Abd soft, non tender, non distended Extremities no pitting edema Neuro alert and oriented x 3, non focal MDM - Chest Pain [facility] Narrative Medical decision making narrative: Patient with right-sided chest pain, onset while working. EKG and chest x-ray normal. Labs unremarkable including a negative troponin. Patient was improved with Valium and Toradol. Lab Data Attestation: I reviewed the patient's lab results. Result diagrams: 07/22/22 17:09 07/22/22 17:09 Labs: Lab Results 07/22/22 07/22/22 07/22/22 Range/Units 17:09 17:09 17:09 WBC 4.3 L (4.8-10.8) X10*3/uL RBC 3.97 L (4.60-5.80) X10*6/uL Hgb 13.0 L (14.0-18.0) g/dl Hct 37.3 L (42.0-52.0) % MCV 94.0 (80.0-98.0) fL MCH 32.7 (27.0-33.0) pg MCHC 34.9 (31.0-36.0) g/dl RDW 12.7 (11.0-16.0) % Plt Count 116 L (160-400) X10*3/uL MPV 9.2 L (9.4-12.4) fL Immature Gran % (Auto) 0.2 (0.0-0.4) % Neut % (Auto) 45.7 (45-73) % Lymph % (Auto) 41.0 H (20-40) % [place] % (Auto) 10.5 (2-11) % Eos % (Auto) 1.9 (0-4) % Baso % (Auto) 0.7 (0-2) % Lymph # (Auto) 1.8 (1.2-4.9) X10*3/uL [place] # (Auto) 0.5 (0.1-1.2) X10*3/uL Eos # (Auto) 0.1 (0.0-0.4) X10*3/uL Baso # (Auto) 0.0 (0.0-0.2) X10*3/uL Abs Immat Gran (auto) 0.01 (0.00-0.03) X10*3/uL Absolute Neuts (auto) 2.0 (2.0-8.3) x10*3/uL Absolute Nucleated RBC 0.000 (0.0-0.012) X10*3/uL Nucleated RBC % (auto) 0.0 (0.0-0.2) /100WBC Sodium 138 (135-145) mmol/L Potassium 3.8 (3.3-5.1) mmol/L Chloride 103 (96-108) mmol/L Carbon Dioxide 20 L (22-29) mmol/L Anion Gap 19 (12-20) BUN 7 L (9-16) mg/dL Creatinine 0.68 (0.5-1.4) mg/dL Estim Creat Clear Calc 112.5 Estimated GFR > 60 Random Glucose 88 (60-115) mg/dL Calcium 8.7 (8.4-10.2) mg/dL Total Bilirubin 0.6 (0.0-1.0) mg/dL AST 115 H (5-37) U/L ALT 61 H (0-40) U/L Alkaline Phosphatase 77 (39-117) U/L Troponin I High Sens < 3.5 (<3.5-35.0) ng/L Total Protein 7.9 (6.5-8.0) g/dL Albumin 4.2 (3.5-5.0) g/dL Discharge Plan Discharge Clinical Impression: Anxiety, Acute chest wall pain Patient Disposition: Home, Self-Care Instructions: Noncardiac Chest Pain (ED), Anxiety (ED), Chest Wall Pain (ED) Additional Instructions: Follow-up with your primary care physician. Use ibuprofen and diazepam as prescribed. Prescriptions: New diazepam 5 mg tablet 5 mg PO TID PRN (Reason: muscle spasm) Qty: 10 0RF ibuprofen 600 mg tablet 600 mg PO Q6H PRN (Reason: pain) Qty: 30 0RF No Action thiamine HCl (vitamin B1) 100 mg tablet 100 mg PO DAILY Qty: 30 0RF multivit 62-frkt-tillvl 1-dha 18 mg iron- 1 mg-300 mg capsule 1 cap PO DAILY Qty: 30 0RF doxycycline monohydrate 100 mg tablet 100 mg PO BID 10 Days Qty: 20 0RF cephalexin 500 mg capsule 500 mg PO Q6H 10 Days Qty: 40 0RF Interventions: ED Discharge Assessment Last Done: 07/22/22 19:18 Discharge Date/Time: 07/22/22 19:20
--- NOTE | 2022-07-22 17:02 | PC.NURSE ---
pt ekg was a delay because pt was being uncooperative ,rn aware . .
[2022-07-22] MEDS: diazePAM 2 MG TABLET 4 MG PO (17:10)
[2022-07-22] MEDS: Ketorolac Tromethamine 15 MG/ML VIAL IVPUSH (17:10)
[2022-07-22 17:13] LABS: MANUAL DIFF FLAG NO
[2022-07-22 17:16] LABS: Basophils Percent Auto 0.7 % (0-2); Eosinophils Absolute Auto 0.1 X10*3/uL (0.0-0.4); Eosinophils Percent Auto 1.9 % (0-4); Hematocrit 37.3 % (42.0-52.0); Imm Gran Abs Auto 0.01 X10*3/uL (0.00-0.03); Imm Gran Pct Auto 0.2 % (0.0-0.4); Lymphocytes Absolute Auto 1.8 X10*3/uL (1.2-4.9); Mean Corpuscular HGB Conc 34.9 g/dl (31.0-36.0); Mean Corpuscular Hemoglobin 32.7 pg (27.0-33.0); Mean Platelet Volume 9.2 fL (9.4-12.4); Monocytes Absolute Auto 0.5 X10*3/uL (0.1-1.2); Monocytes Percent Auto 10.5 % (2-11); Neutrophils Percent Auto 45.7 % (45-73); Platelet Count 116 X10*3/uL (160-400); Red Blood Count 3.97 X10*6/uL (4.60-5.80); Red Cell Distribution Width 12.7 % (11.0-16.0); White Blood Count 4.3 X10*3/uL (4.8-10.8)
[2022-07-22 17:38] LABS: Troponin-I High Sensitivity < 3.5 ng/L (<3.5-35.0)
[2022-07-22 17:45] LABS: Alanine Aminotransferase 61 U/L (0-40); Albumin Level 4.2 g/dL (3.5-5.0); Alkaline Phosphatase 77 U/L (39-117); Anion Gap 19 (12-20); Aspartate Amino Transferase 115 U/L (5-37); Bilirubin Total 0.6 mg/dL (0.0-1.0); Blood Urea Nitrogen 7 mg/dL (9-16); Calcium 8.7 mg/dL (8.4-10.2); Carbon Dioxide 20 mmol/L (22-29); Chloride 103 mmol/L (96-108); Creatinine Clr Calc Pharmacy 112.5; Estimated Glomerular Filt Rate > 60; Glucose Random 88 mg/dL (60-115); Potassium 3.8 mmol/L (3.3-5.1); Sodium 138 mmol/L (135-145); Total Protein 7.9 g/dL (6.5-8.0)
[2022-07-22 19:19] VITALS: BP 118/82; PULSE 73; RESP 12; O2SAT 99
--- NOTE | 2022-07-22 19:19 | PC.NURSE ---
pt discharged, instructions given, verbalized understanding pt alert and oriented left ambulatory independently IV removed
== END 2022-07-22 19:20 | disposition home or self-care (01) ==
PROVIDERS: Emergency Provider Emergency Medicine
DX: F41.9 Anxiety disorder, unspecified (principal); R07.89 Other chest pain
CPT/HCPCS: 36415; 71046; 80053; 84484; 85025; 93005; 96374; 99284; J1885

== ENCOUNTER 2022-07-24 15:51 | Emergency (ER) | payer MEDICAID, SELFPAY ==
[2022-07-24 15:59] VITALS: BP 124/85; BP 134/90; PULSE 70; PULSE 84; RESP 16; TEMP 36.9; O2SAT 98; BMI 23.5
--- NOTE | 2022-07-24 16:03 | ECG_ITS ---
Test Reason : CX PAIN Blood Pressure : / mmHG Vent. Rate : 078 BPM Atrial Rate : 078 BPM P-R Int : 162 ms QRS Dur : 100 ms QT Int : 354 ms P-R-T Axes : 033 026 035 degrees QTc Int : 403 ms Normal sinus rhythm Incomplete right bundle branch block Borderline ECG When compared with ECG of 22-JUL-2022 17:04, No significant change was found Referred By: Generic ED Physician Electronically Signed By:TYLER PARISI MD
--- NOTE | 2022-07-24 17:08 | ED_ITS ---
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 Patient is a poor historian but states that he has been drinking alcohol and is unsure of how much. Otherwise, he is sleeping comfortably but is easily arousable. Related Data Previous Rx's Medication Instructions Recorded multivit no.40-iron 18 mg-folate 1 cap PO DAILY #30 caps 05/23/22 comb no.1 1 mg-dha 300 mg capsule thiamine HCl (vitamin B1) 100 mg 100 mg PO DAILY #30 tabs 05/23/22 tablet cephalexin 500 mg capsule 500 mg PO Q6H 10 days #40 caps 06/16/22 doxycycline monohydrate 100 mg 100 mg PO BID 10 days #20 tabs 06/16/22 tablet diazepam 5 mg tablet 5 mg PO TID PRN muscle spasm #10 07/22/22 tabs ibuprofen 600 mg tablet 600 mg PO Q6H PRN pain #30 tabs 07/22/22 Allergies Allergy/AdvReac Type Severity Reaction Status Date / Time No Known Allergies Allergy Verified 06/08/22 17:49 [No Known Allergies*] Review of Systems Review of Systems: Pertinent positives and negatives as stated in the HPI 10 point review of systems is otherwise negative. PMFSH Past Medical History Source: nursing notes reviewed Social History Social History Alcohol intake: current Alcohol intake frequency: a few times a week Alcohol type: beer Patient Tobacco Use Status: Never used Tobacco Advance Directives: No Advance Directives Information Provided: Yes Current occupational status: disabled Current occupation: rt handed Physical Exam Vital Signs: Vital Signs: Last Vital Signs Temp 97.9 F 07/24/22 18:42 Pulse 71 07/24/22 18:42 Resp 16 07/24/22 18:42 BP 110/71 07/24/22 18:42 Pulse Ox 99 07/24/22 18:42 O2 Del Method 07/24/22 18:42 BMI result Body Mass Index 23.5 VITAL SIGNS: Reviewed. GENERAL: Well developed, well nourished, in no acute distress. HEAD: Normocephalic/atraumatic EYES: PERRLA, EOMI EARS: Ext canals without abnormality OROPHARYNX: no oral lesions noted, posterior pharynx clear, dry mucosa NECK: Supple, no adenopathy LUNGS: Normal breath sounds. No adventitious sounds or accessory muscle use. SpO2<98> CARDIOVASCULAR: Regular rate and rhythm without noted murmurs, no JVD or lower extremity edema. ABDOMEN: Soft, patient is tender in the epigastrium/right upper quadrant, non- distended with bowel sounds. MUSCULOSKELETAL: No tenderness, deformities, or effusions noted on gross inspection. EXTREMITIES: No cyanosis, clubbing or edema. SKIN: Inspection of the skin reveals no rashes NEUROLOGIC: Alert and oriented x 4. Strength and sensation to light touch were grossly intact x 4. Course Course Course Narrative: 51-year-old male with history and clinical presentation most consistent with acute alcohol intoxication and based on clinical exam may have pancreatitis. He is otherwise hemodynamically stable, oxygenating well. Review of all investigations consistent with alcohol intoxication suspect patient has component of alcoholic gastritis as no elevated lipase and otherwise troponins and EKG are without acute findings. Patient will be observed until clinically sober. Reevaluation(s) Reevaluation #1: Patient placed in physician observation because the patient needed more time to become clinically sober. At the time observation was started the patient's vital signs were stable, patient is alert and oriented, neuro: Nonfocal, CV RRR, lungs clear Time: 22:13 MDM - Chest Pain Lab Data Result diagrams: 07/24/22 17:13 07/24/22 21:18 Labs: Lab Results 07/24/22 07/24/22 07/24/22 Range/Units 17:13 17:13 17:51 WBC 3.4 L (4.8-10.8) X10*3/uL RBC 3.59 L (4.60-5.80) X10*6/uL Hgb 12.1 L (14.0-18.0) g/dl Hct 34.2 L (42.0-52.0) % MCV 95.3 (80.0-98.0) fL MCH 33.7 H (27.0-33.0) pg MCHC 35.4 (31.0-36.0) g/dl RDW 12.9 (11.0-16.0) % Plt Count 108 L (160-400) X10*3/uL MPV 9.3 L (9.4-12.4) fL Immature Gran % (Auto) 0.6 H (0.0-0.4) % Neut % (Auto) 46.7 (45-73) % Lymph % (Auto) 40.9 H (20-40) % [place] % (Auto) 10.0 (2-11) % Eos % (Auto) 0.9 (0-4) % Baso % (Auto) 0.9 (0-2) % Lymph # (Auto) 1.4 (1.2-4.9) X10*3/uL [place] # (Auto) 0.3 (0.1-1.2) X10*3/uL Eos # (Auto) 0.0 (0.0-0.4) X10*3/uL Baso # (Auto) 0.0 (0.0-0.2) X10*3/uL Abs Immat Gran (auto) 0.02 (0.00-0.03) X10*3/uL Absolute Neuts (auto) 1.6 L (2.0-8.3) x10*3/uL Absolute Nucleated RBC 0.000 (0.0-0.012) X10*3/uL Nucleated RBC % (auto) 0.0 (0.0-0.2) /100WBC Sodium 136 (135-145) mmol/L Potassium 3.9 (3.3-5.1) mmol/L Chloride 102 (96-108) mmol/L Carbon Dioxide 20 L (22-29) mmol/L Anion Gap 18 (12-20) BUN 6 L (9-16) mg/dL Creatinine 0.68 (0.5-1.4) mg/dL Estim Creat Clear Calc 121.5 Estimated GFR > 60 Random Glucose 95 (60-115) mg/dL Calcium 8.2 L (8.4-10.2) mg/dL Total Bilirubin 0.6 (0.0-1.0) mg/dL AST 128 H (5-37) U/L ALT 59 H (0-40) U/L Alkaline Phosphatase 72 (39-117) U/L Troponin I High Sens (<3.5-35.0) ng/L Total Protein 7.4 (6.5-8.0) g/dL Albumin 4.0 (3.5-5.0) g/dL Lipase 76 (8-78) U/L Urine Opiates Screen (Not Detect) Urine Fentanyl Screen (Not Detect) Ur Barbiturates Screen (Not Detect) Ur Phencyclidine Scrn (Not Detect) Ur Amphetamines Screen (Not Detect) U Benzodiazepines Scrn (Not Detect) Urine Cocaine Screen (Not Detect) U Marijuana (THC) Screen (Not Detect) Ethyl Alcohol 435 H* mg/dL COVID-19 ([facility]) Negative (Negative) COVID-19 Clin Com See Note 07/24/22 07/24/22 07/24/22 Range/Units 17:51 21:18 21:18 WBC (4.8-10.8) X10*3/uL RBC (4.60-5.80) X10*6/uL Hgb (14.0-18.0) g/dl Hct (42.0-52.0) % MCV (80.0-98.0) fL MCH (27.0-33.0) pg MCHC (31.0-36.0) g/dl RDW (11.0-16.0) % Plt Count (160-400) X10*3/uL MPV (9.4-12.4) fL Immature Gran % (Auto) (0.0-0.4) % Neut % (Auto) (45-73) % Lymph % (Auto) (20-40) % [place] % (Auto) (2-11) % Eos % (Auto) (0-4) % Baso % (Auto) (0-2) % Lymph # (Auto) (1.2-4.9) X10*3/uL [place] # (Auto) (0.1-1.2) X10*3/uL Eos # (Auto) (0.0-0.4) X10*3/uL Baso # (Auto) (0.0-0.2) X10*3/uL Abs Immat Gran (auto) (0.00-0.03) X10*3/uL Absolute Neuts (auto) (2.0-8.3) x10*3/uL Absolute Nucleated RBC (0.0-0.012) X10*3/uL Nucleated RBC % (auto) (0.0-0.2) /100WBC Sodium 142 (135-145) mmol/L Potassium 4.0 (3.3-5.1) mmol/L Chloride 108 (96-108) mmol/L Carbon Dioxide 20 L (22-29) mmol/L Anion Gap 18 (12-20) BUN 5 L (9-16) mg/dL Creatinine 0.69 (0.5-1.4) mg/dL Estim Creat Clear Calc 119.7 Estimated GFR > 60 Random Glucose 86 (60-115) mg/dL Calcium 8.0 L (8.4-10.2) mg/dL Total Bilirubin (0.0-1.0) mg/dL AST (5-37) U/L ALT (0-40) U/L Alkaline Phosphatase (39-117) U/L Troponin I High Sens < 3.5 (<3.5-35.0) ng/L Total Protein (6.5-8.0) g/dL Albumin (3.5-5.0) g/dL Lipase (8-78) U/L Urine Opiates Screen Not Detected (Not Detect) Urine Fentanyl Screen Not Detected (Not Detect) Ur Barbiturates Screen Not Detected (Not Detect) Ur Phencyclidine Scrn Not Detected (Not Detect) Ur Amphetamines Screen Not Detected (Not Detect) U Benzodiazepines Scrn Not Detected (Not Detect) Urine Cocaine Screen Not Detected (Not Detect) U Marijuana (THC) Screen Not Detected (Not Detect) Ethyl Alcohol mg/dL COVID-19 ([facility]) (Negative) COVID-19 Clin Com ECG Data ECG #1: Attestation: I personally reviewed and interpreted this ECG as follows: Prior ECG tracings: available for review Interpretation: NSR, HR-78, no STEMI, MS/QRS/QTC are within normal limits. Discharge Plan Discharge Clinical Impression: Alcohol intoxication, Alcohol use disorder Patient Disposition: Still a Patient Instructions: Alcohol Intoxication (ED), Alcohol Use Disorder (ED) Prescriptions: No Action thiamine HCl (vitamin B1) 100 mg tablet 100 mg PO DAILY Qty: 30 0RF multivit [id number] 1-dha 18 mg iron- 1 mg-300 mg capsule 1 cap PO DAILY Qty: 30 0RF doxycycline monohydrate 100 mg tablet 100 mg PO BID 10 Days Qty: 20 0RF cephalexin 500 mg capsule 500 mg PO Q6H 10 Days Qty: 40 0RF diazepam 5 mg tablet 5 mg PO TID PRN (Reason: muscle spasm) Qty: 10 0RF ibuprofen 600 mg tablet 600 mg PO Q6H PRN (Reason: pain) Qty: 30 0RF
[2022-07-24] MEDS: 0.9 % Sodium Chloride 1,000 ML 999 ML IV (17:15)
[2022-07-24 17:17] LABS: MANUAL DIFF FLAG NO
[2022-07-24 17:39] LABS: Alanine Aminotransferase 59 U/L (0-40); Alkaline Phosphatase 72 U/L (39-117); Anion Gap 18 (12-20); Aspartate Amino Transferase 128 U/L (5-37); Bilirubin Total 0.6 mg/dL (0.0-1.0); Blood Urea Nitrogen 6 mg/dL (9-16); Calcium 8.2 mg/dL (8.4-10.2); Carbon Dioxide 20 mmol/L (22-29); Chloride 102 mmol/L (96-108); Creatinine Clr Calc Pharmacy 121.5; Estimated Glomerular Filt Rate > 60; Ethanol 435 mg/dL; Glucose Random 95 mg/dL (60-115); Lipase 76 U/L (8-78); Potassium 3.9 mmol/L (3.3-5.1); Sodium 136 mmol/L (135-145); Total Protein 7.4 g/dL (6.5-8.0)
[2022-07-24 17:43] LABS: Basophils Percent Auto 0.9 % (0-2); Eosinophils Percent Auto 0.9 % (0-4); Hematocrit 34.2 % (42.0-52.0); Hemoglobin 12.1 g/dl (14.0-18.0); Imm Gran Abs Auto 0.02 X10*3/uL (0.00-0.03); Imm Gran Pct Auto 0.6 % (0.0-0.4); Lymphocytes Absolute Auto 1.4 X10*3/uL (1.2-4.9); Lymphocytes Percent Auto 40.9 % (20-40); Mean Corpuscular HGB Conc 35.4 g/dl (31.0-36.0); Mean Corpuscular Hemoglobin 33.7 pg (27.0-33.0); Mean Corpuscular Volume 95.3 fL (80.0-98.0); Mean Platelet Volume 9.3 fL (9.4-12.4); Monocytes Absolute Auto 0.3 X10*3/uL (0.1-1.2); Neutrophils Absolute Auto 1.6 x10*3/uL (2.0-8.3); Neutrophils Percent Auto 46.7 % (45-73); Platelet Count 108 X10*3/uL (160-400); Red Blood Count 3.59 X10*6/uL (4.60-5.80); Red Cell Distribution Width 12.9 % (11.0-16.0); White Blood Count 3.4 X10*3/uL (4.8-10.8)
[2022-07-24 18:13] LABS: COVID-19 Test Negative (Negative)
[2022-07-24 18:18] LABS: Amphetamine Screen Urine Not Detected (Not Detect); Barbiturates, Urine Not Detected (Not Detect); Benzodiazepines Screen Urine Not Detected (Not Detect); Cannabinoid Screen Urine Not Detected (Not Detect); Cocaine Screen Urine Not Detected (Not Detect); Fentanyl, urine Not Detected (Not Detect); Opiate Screen Urine Not Detected (Not Detect); Phencyclidine Screen Urine Not Detected (Not Detect)
[2022-07-24 18:42] VITALS: BP 110/71; PULSE 71; RESP 16; TEMP 36.6; O2SAT 99
[2022-07-24 21:54] LABS: Anion Gap 18 (12-20); Blood Urea Nitrogen 5 mg/dL (9-16); Carbon Dioxide 20 mmol/L (22-29); Chloride 108 mmol/L (96-108); Creatinine Clr Calc Pharmacy 119.7; Estimated Glomerular Filt Rate > 60; Glucose Random 86 mg/dL (60-115); Sodium 142 mmol/L (135-145)
[2022-07-24 22:01] LABS: Troponin-I High Sensitivity < 3.5 ng/L (<3.5-35.0)
--- NOTE | 2022-07-24 22:47 | PC.NURSE ---
pt's brother jia called. Jia is not a person of contact for this pt. explained this to pt's brother and that I could not give him an update at this time do to this fact.
[2022-07-24 23:47] VITALS: BP 115/85; PULSE 65; RESP 15; TEMP 36.8; O2SAT 94
[2022-07-25 01:39] VITALS: BP 110/62; PULSE 68; RESP 14; TEMP 37; O2SAT 95
== END 2022-07-25 09:43 | disposition home or self-care (01) ==
PROVIDERS: Emergency Provider Student in an Organized Health Care Education/Training Program
DX: F10.120 Alcohol abuse with intoxication, uncomplicated (principal); Y90.8 Blood alcohol level of 240 mg/100 ml or more; R07.9 Chest pain, unspecified; M79.605 Pain in left leg; Z20.822 Contact with and (suspected) exposure to COVID-19
CPT/HCPCS: 36415; 80048; 80053; 80307; 82077; 83690; 84484; 85025; 87635; 93005; 96360; 99284; 99285

== ENCOUNTER 2022-07-30 16:42 | Emergency (ER) | payer MEDICAID, SELFPAY ==
--- NOTE | 2022-07-30 | ECG_ITS ---
Test Reason : CHEST PAIN Blood Pressure : / mmHG Vent. Rate : 075 BPM Atrial Rate : 075 BPM P-R Int : 156 ms QRS Dur : 092 ms QT Int : 366 ms P-R-T Axes : 048 030 034 degrees QTc Int : 408 ms Normal sinus rhythm RSR' or QR pattern in V1 suggests right ventricular conduction delay Otherwise normal ECG When compared with ECG of 24-JUL-2022 16:05, No significant change was found Referred By: Generic ED Physician Electronically Signed By:TYLER PARISI MD
--- NOTE | ~2022-07-30 | XR_ITS ---
EXAMINATION: XR CHEST CLINICAL INFORMATION: Chest pain COMPARISON: 07/22/2022 TECHNIQUE: Frontal view of the chest was obtained. FINDINGS: Low lung volumes. No focal consolidation or mass. Normal pulmonary vascularity. No pleural effusion or pneumothorax. Cardiac silhouette appears prominent, accentuated by low lung volumes. XR/XR chest 1V IMPRESSION: No acute pulmonary disease.
[2022-07-30 16:44] VITALS: BP 135/87; PULSE 78; RESP 20; TEMP 36.3; O2SAT 99; BMI 22.6
[2022-07-30 17:14] LABS: MANUAL DIFF FLAG NO
[2022-07-30 17:16] LABS: Basophils Percent Auto 0.8 % (0-2); Eosinophils Absolute Auto 0.1 X10*3/uL (0.0-0.4); Eosinophils Percent Auto 2.6 % (0-4); Hematocrit 37.5 % (42.0-52.0); Hemoglobin 12.9 g/dl (14.0-18.0); Lymphocytes Absolute Auto 1.7 X10*3/uL (1.2-4.9); Lymphocytes Percent Auto 44.5 % (20-40); Mean Corpuscular HGB Conc 34.4 g/dl (31.0-36.0); Mean Corpuscular Hemoglobin 32.8 pg (27.0-33.0); Mean Corpuscular Volume 95.4 fL (80.0-98.0); Mean Platelet Volume 9.1 fL (9.4-12.4); Monocytes Absolute Auto 0.5 X10*3/uL (0.1-1.2); Monocytes Percent Auto 13.5 % (2-11); Neutrophils Absolute Auto 1.5 x10*3/uL (2.0-8.3); Neutrophils Percent Auto 38.6 % (45-73); Platelet Count 114 X10*3/uL (160-400); Red Blood Count 3.93 X10*6/uL (4.60-5.80); Red Cell Distribution Width 12.9 % (11.0-16.0); White Blood Count 3.8 X10*3/uL (4.8-10.8)
[2022-07-30 17:30] LABS: Alanine Aminotransferase 62 U/L (0-40); Albumin Level 4.2 g/dL (3.5-5.0); Alkaline Phosphatase 86 U/L (39-117); Anion Gap 18 (12-20); Aspartate Amino Transferase 130 U/L (5-37); Bilirubin Total 0.4 mg/dL (0.0-1.0); Blood Urea Nitrogen 7 mg/dL (9-16); Calcium 8.7 mg/dL (8.4-10.2); Carbon Dioxide 23 mmol/L (22-29); Chloride 105 mmol/L (96-108); Creatinine Clr Calc Pharmacy 113.3; Estimated Glomerular Filt Rate > 60; Glucose Random 105 mg/dL (60-115); Potassium 3.7 mmol/L (3.3-5.1); Sodium 142 mmol/L (135-145); Total Protein 8.2 g/dL (6.5-8.0)
[2022-07-30 17:36] LABS: Troponin-I High Sensitivity < 3.5 ng/L (<3.5-35.0)
--- NOTE | 2022-07-30 18:05 | ED.CHESTPAIN ---
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 Patient states that right after he got off of work he began to have non-specific chest pain. Patient denies any dizziness, lightheadedness, abdominal pain, nausea, vomiting, fever, chills, blurry vision, double vision, loss of vision, difficulty breathing, shortness of breath, back pain, night sweats, pain with urination, increased urinary frequency, increased urinary urgency, blood in his urine or stool, syncope or a near syncopal episode, recent trauma or falls, bowel incontinence, bladder incontinence, bowel retention, bladder retention, or any other complaints at this time. MD complaint: chest pain Pain radiation: none Severity: mild Pain scale (0-10): 3 Quality: dull Relieving factors: nothing Exacerbating factors: nothing Treatment prior to arrival: none Related Data Previous Rx's Medication Instructions Recorded multivit no.40-iron 18 mg-folate 1 cap PO DAILY #30 caps 05/23/22 comb no.1 1 mg-dha 300 mg capsule thiamine HCl (vitamin B1) 100 mg 100 mg PO DAILY #30 tabs 05/23/22 tablet cephalexin 500 mg capsule 500 mg PO Q6H 10 days #40 caps 06/16/22 doxycycline monohydrate 100 mg 100 mg PO BID 10 days #20 tabs 06/16/22 tablet diazepam 5 mg tablet 5 mg PO TID PRN muscle spasm #10 07/22/22 tabs ibuprofen 600 mg tablet 600 mg PO Q6H PRN pain #30 tabs 07/22/22 Allergies Allergy/AdvReac Type Severity Reaction Status Date / Time No Known Allergies Allergy Verified 06/08/22 17:49 [No Known Allergies*] Review of Systems Constitutional: Constitutional: Reports no additional constitutional complaints, Denies chills, Denies fever(s) and Denies night sweats Eyes: Eyes: Reports no additional eye complaints, Denies blurry vision, Denies change in vision, Denies diplopia, Denies eye discharge, Denies loss of vision and Denies eye pain ENT: Denies dizziness Cardiovascular: Cardiovascular: Reports no additional cardiovascular complaints, Reports chest pain, Denies lightheadedness, Denies Loss of Consciousness and Denies dyspnea Respiratory: Respiratory: Reports no additional respiratory complaints and Denies dyspnea Gastrointestinal: Gastrointestinal: Reports no additional gastrointestinal complaints, Denies abdominal pain, Denies melena, Denies hematochezia, Denies change in bowel habits and Denies change in stool character Genitourinary: Genitourinary: Reports no additional male genitourinary complaints, Denies hematuria, Denies oliguria, Denies difficulty urinating, Denies dysuria, Denies urinary frequency, Denies urinary hesitancy, Denies urinary incontinence and Denies urinary urgency Musculoskeletal: Musculoskeletal: Reports no additional musculoskeletal complaints, Denies numbness and Denies tingling Neurologic: Denies dizziness, Denies loss of vision, Denies numbness and Denies tingling Psychiatric: Psychiatric: Reports no additional psychiatric complaints Endocrine: Endocrine: Reports no additional endocrine complaints Hematologic/Lymphatic: Hematologic/Lymphatic: Reports no additional hematologic/lymphatic complaints Allergic/Immunologic: Allergic/Immunologic: Reports no additional allergic/immunologic complaints PMFSH Past Medical History Attestation statement: The following information was validated with the patient. Source: old records reviewed Social History Social History Alcohol intake: current Alcohol intake frequency: a few times a week Alcohol type: beer Patient Tobacco Use Status: Never used Tobacco Advance Directives: No Advance Directives Information Provided: No Current occupational status: disabled Current occupation: rt handed Physical Exam Vital Signs: Vital Signs: Last Vital Signs Temp 97.3 F 07/30/22 16:44 Pulse 78 07/30/22 20:19 Resp 18 07/30/22 20:19 BP 106/76 07/30/22 20:19 Pulse Ox 96 07/30/22 20:19 O2 Del Method 07/30/22 20:19 BMI result Body Mass Index 22.6 Const: General: cooperative, no acute distress, alert and awake Nutritional Appearance: well nourished Orientation/consciousness: patient oriented x3 Limitations: no limitations HEENT: Head: Yes normal to inspection and Yes atraumatic Ears: hearing grossly normal bilaterally and external ears normal General nose exam: Normal external nose present, no nasal discharge noted and no epistaxis Face and sinus: Yes normal facial exam, No abrasion and No laceration Mouth: Normal oral and palatal mucosa present, no drooling and no muffled voice Eyes: General: appearance normal, both eyes and all related structures Periorbital: periorbital findings normal Eyelids: Yes eyelids normal Conjunctivae: conjunctivae normal Pupils: Equal, round and reactive pupils present EOM: EOMs intact bilaterally Neck: Neck: Yes normal visual inspection, Yes full ROM and Yes no lymphadenopathy Chest: Chest palpation & inspection: normal inspection of the chest Resp: Effort & Inspection: normal respiratory effort and able to speak in complete sentences Auscultation: clear to auscultation bilaterally Cardio: Rate: regular rate Rhythm: regular rhythm GI: Inspection: Yes normal to inspection Neuro: General: patient oriented x3 and moves all extremities Cranial nerves: Yes Equal, round and reactive pupils present Cognition (Neuro): normal cognition Motor exam (neuro): 5/5 motor strength present throughout Sensory Exam: Normal double simultaneous stimulation for sensation Coordination: [id number] test normal Extrem: General: Yes normal to inspection, Yes full ROM and Yes capillary refill normal Psych: Appearance: grossly normal Mental Status: mental status grossly normal Affect: normal affect Attitude: cooperative Thought process: Normal thought process present Thought content: Normal thought content present Insight: Good insight present (Psych) Course Course Course Narrative: RME completed by Aylin De Luna PA-C. Patient placed back in waiting room pending room availability and results of ordered testing. CBC, CMP, Trop, and chest XR ordered. EKG normal. Patient eloped from the department before his results could be reviewed with him. MDM - Chest Pain Medical Records Data Attestation: I reviewed the patient's medical records. Lab Data Result diagrams: 07/30/22 17:09 07/30/22 17:09 Labs: Lab Results 07/30/22 07/30/22 07/30/22 Range/Units 17:09 17:09 17:09 WBC 3.8 L (4.8-10.8) X10*3/uL RBC 3.93 L (4.60-5.80) X10*6/uL Hgb 12.9 L (14.0-18.0) g/dl Hct 37.5 L (42.0-52.0) % MCV 95.4 (80.0-98.0) fL MCH 32.8 (27.0-33.0) pg MCHC 34.4 (31.0-36.0) g/dl RDW 12.9 (11.0-16.0) % Plt Count 114 L (160-400) X10*3/uL MPV 9.1 L (9.4-12.4) fL Immature Gran % (Auto) 0.0 (0.0-0.4) % Neut % (Auto) 38.6 L (45-73) % Lymph % (Auto) 44.5 H (20-40) % [place] % (Auto) 13.5 H (2-11) % Eos % (Auto) 2.6 (0-4) % Baso % (Auto) 0.8 (0-2) % Lymph # (Auto) 1.7 (1.2-4.9) X10*3/uL [place] # (Auto) 0.5 (0.1-1.2) X10*3/uL Eos # (Auto) 0.1 (0.0-0.4) X10*3/uL Baso # (Auto) 0.0 (0.0-0.2) X10*3/uL Abs Immat Gran (auto) 0.00 (0.00-0.03) X10*3/uL Absolute Neuts (auto) 1.5 L (2.0-8.3) x10*3/uL Absolute Nucleated RBC 0.000 (0.0-0.012) X10*3/uL Nucleated RBC % (auto) 0.0 (0.0-0.2) /100WBC Sodium 142 (135-145) mmol/L Potassium 3.7 (3.3-5.1) mmol/L Chloride 105 (96-108) mmol/L Carbon Dioxide 23 (22-29) mmol/L Anion Gap 18 (12-20) BUN 7 L (9-16) mg/dL Creatinine 0.70 (0.5-1.4) mg/dL Estim Creat Clear Calc 113.3 Estimated GFR > 60 Random Glucose 105 (60-115) mg/dL Calcium 8.7 D (8.4-10.2) mg/dL Total Bilirubin 0.4 (0.0-1.0) mg/dL AST 130 H (5-37) U/L ALT 62 H (0-40) U/L Alkaline Phosphatase 86 (39-117) U/L Troponin I High Sens < 3.5 (<3.5-35.0) ng/L Total Protein 8.2 H (6.5-8.0) g/dL Albumin 4.2 (3.5-5.0) g/dL ECG Data ECG #1: Attestation: I personally reviewed and interpreted this ECG as follows: ECG interpretation date: 07/30/22 ECG interpretation time: 16:52 Prior ECG tracings: available for review Interpretation: Vent. Rate: 075 BPM ? ? Atrial Rate: 075 BPM P-R Int: 156 ms? QRS Dur: 092 ms QT Int: 366 ms ? ? ? P-R-T Axes: 048 030 034 degrees QTc Int: 408 ms ? Normal sinus rhythm Normal ECG When compared with ECG of 24-JUL-2022 16:05, No significant change was found DD/ [id number] Discharge Plan Discharge Clinical Impression: Chest pain Patient Disposition: Elopement Prescriptions: No Action thiamine HCl (vitamin B1) 100 mg tablet 100 mg PO DAILY Qty: 30 0RF multivit [id number] 1-dha 18 mg iron- 1 mg-300 mg capsule 1 cap PO DAILY Qty: 30 0RF doxycycline monohydrate 100 mg tablet 100 mg PO BID 10 Days Qty: 20 0RF cephalexin 500 mg capsule 500 mg PO Q6H 10 Days Qty: 40 0RF diazepam 5 mg tablet 5 mg PO TID PRN (Reason: muscle spasm) Qty: 10 0RF ibuprofen 600 mg tablet 600 mg PO Q6H PRN (Reason: pain) Qty: 30 0RF Discharge Date/Time: 07/30/22 21:54
[2022-07-30 20:19] VITALS: BP 106/76; PULSE 78; RESP 18; O2SAT 96
== END 2022-07-30 21:54 | disposition left against medical advice (07) ==
PROVIDERS: Emergency Provider Emergency Medicine
DX: R07.89 Other chest pain (principal); Z79.899 Other long term (current) drug therapy
CPT/HCPCS: 36415; 71045; 80053; 84484; 85025; 93005; 99281; 99283

== ENCOUNTER 2022-07-31 13:05 | Emergency (ER) | payer MEDICAID, SELFPAY ==
--- NOTE | 2022-07-31 13:14 | ED_ITS ---
HPI - Chest Pain General Chief Complaint: Psychiatric Symptoms Stated Complaint: cp Time Seen by Provider: 07/31/22 13:12 Source: patient, EMS and old records reviewed Mode of arrival: EMS Limitations: no limitations History of Present Illness HPI narrative: 51-year-old male with a history of alcohol abuse presents to the ER for the 4th time in 2 weeks with chest pain. He was just seen and evaluated for similar complaints last night and discharge after negative cardiac workup. He also presented in June a couple of times with alcohol intoxication and chest wall pain. He had a negative CTA at that time. On arrival to the ER today patient says he has left-sided chest pain that has been coming and going for a long time. He states he is very depressed and has been drinking excessive amounts of alcohol. He has family problems that are extensive and he does not want to be in his home. He states he wants to hurt himself, will not discuss details. He wants to go to [facility] for mental health and detox from alcohol. States he drinks a six-pack today and does drink alcohol and abuses it every day. MD complaint: chest pain Onset (ago): unknown Timing of current episode: episodic Prior episodes: Yes Onset: during rest Pain location: left chest and right chest Pain radiation: none Quality: sharp Relieving factors: nothing Exacerbating factors: stress Treatment prior to arrival: none Risk Factors Coronary artery disease risk factors: none Thoracic aortic dissection risk factors: none Related Data Previous Rx's Medication Instructions Recorded multivit no.40-iron 18 mg-folate 1 cap PO DAILY #30 caps 05/23/22 comb no.1 1 mg-dha 300 mg capsule thiamine HCl (vitamin B1) 100 mg 100 mg PO DAILY #30 tabs 05/23/22 tablet cephalexin 500 mg capsule 500 mg PO Q6H 10 days #40 caps 06/16/22 doxycycline monohydrate 100 mg 100 mg PO BID 10 days #20 tabs 06/16/22 tablet diazepam 5 mg tablet 5 mg PO TID PRN muscle spasm #10 07/22/22 tabs ibuprofen 600 mg tablet 600 mg PO Q6H PRN pain #30 tabs 07/22/22 Allergies Allergy/AdvReac Type Severity Reaction Status Date / Time No Known Allergies Allergy Verified 06/08/22 17:49 [No Known Allergies*] Review of Systems Review of Systems: Constitutional: No Fever, No Chills ENT/Mouth: No sore throat, No Rhinorrhea Cardiovascular: + Chest Pain, No SOB, No Orthopnea, No Edema Respiratory: No Cough, No Sputum, No Wheezing, No dyspnea Gastrointestinal: No Nausea, No Vomiting, No Diarrhea, No abdominal Pain, No Hematochezia, No Melena Genitourinary: No Dysuria, No Urinary Frequency, No Hematuria Musculoskeletal: No joint pain, No Myalgias Skin: No Skin Lesions, No rash Neuro: No Weakness, No Numbness, No Dizziness, No Headache Psych: + Anxiety/Panic, + Depression, No HI, +SI, No AH, No VH Heme/Lymph: No Bruising, No Lymphadenopathy [facility] Social History Social History Alcohol intake: current Alcohol intake frequency: a few times a week Alcohol type: beer Patient Tobacco Use Status: Never used Tobacco Advance Directives: No Advance Directives Information Provided: Yes Current occupational status: disabled Current occupation: rt handed Physical Exam Vital Signs: Vital Signs: Last Vital Signs Temp 98.3 F 07/31/22 13:22 Pulse 73 07/31/22 13:22 Resp 18 07/31/22 13:22 BP 129/85 07/31/22 13:22 Pulse Ox 97 07/31/22 13:22 O2 Del Method 07/31/22 13:22 BMI result Body Mass Index 21.9 Appearance: Alert. Oriented X3. No acute distress. Eyes: Pupils equal, round and reactive to light. ENT: Pharynx normal. Neck: Normal inspection. Neck supple. CVS: Normal heart rate and rhythm. Pulses normal. chest wall tenderness between middle and lower ribs on the left side Respiratory: No respiratory distress. Breath sounds normal. Abdomen: Soft and nontender. +BS x4 Skin: Skin warm and dry. Normal skin color. Normal skin turgor. No rashes. Extremities: No lower extremity edema. Neuro/psych: Oriented X 3. No motor deficit. No sensory deficit. CN II-XII intact. Makes brief eye contact, vague historian, anxious. suicidal. Course Course Course Narrative: 51-year-old male presents to the ER for recurrent chest pain. He states this chest pain is a result of his depression. He had an unremarkable EKG negative troponin yesterday. Seen also several times throughout the last couple of months for chest pain with unremarkable workup. No cardiac risk factors. He is an alcoholic and wants to get help. He is suicidal and depressed. He has been here several times for the same. He is requesting a bed at [facility] for mental health. Will get alcohol level, EKG, troponin and medical workup. Will have crisis team in asset recovery specialist evaluate him once medically cleared. Reevaluation(s) Reevaluation #1: EKG without any ischemic changes. Troponin is negative. Alcohol level is 400. He has stable pancytopenia. Labs otherwise unremarkable. Will place patient in physician observation at this time. Physician observation started at 14:45. Patient placed in physician observation because patient is awaiting [facility] evaluation for the possible need of inpatient psych admission. He is intoxicated and needs to be clinically sober for evaluation. At the time observation was started patient's vital signs were stable. Patient is alert and oriented. Neuro exam is non-focal. CV: RRR and lungs are clear. Will continue to monitor. MDM - Chest Pain Medical Records Data Attestation: I reviewed the patient's medical records. Lab Data Attestation: I reviewed the patient's lab results. Result diagrams: 07/31/22 14:07 07/31/22 14:06 Labs: Lab Results 07/31/22 07/31/22 07/31/22 Range/Units 14:04 14:06 14:07 WBC 3.3 L (4.8-10.8) X10*3/uL RBC 3.68 L (4.60-5.80) X10*6/uL Hgb 12.7 L (14.0-18.0) g/dl Hct 36.0 L (42.0-52.0) % MCV 97.8 (80.0-98.0) fL MCH 34.5 H (27.0-33.0) pg MCHC 35.3 (31.0-36.0) g/dl RDW 13.5 (11.0-16.0) % Plt Count 104 L (160-400) X10*3/uL MPV 9.9 (9.4-12.4) fL Immature Gran % (Auto) 0.3 (0.0-0.4) % Neut % (Auto) 37.7 L (45-73) % Lymph % (Auto) 41.0 H (20-40) % [place] % (Auto) 16.2 H (2-11) % Eos % (Auto) 3.3 (0-4) % Baso % (Auto) 1.5 (0-2) % Lymph # (Auto) 1.4 (1.2-4.9) X10*3/uL [place] # (Auto) 0.5 (0.1-1.2) X10*3/uL Eos # (Auto) 0.1 (0.0-0.4) X10*3/uL Baso # (Auto) 0.1 (0.0-0.2) X10*3/uL Abs Immat Gran (auto) 0.01 (0.00-0.03) X10*3/uL Absolute Neuts (auto) 1.3 L (2.0-8.3) x10*3/uL Absolute Nucleated RBC 0.000 (0.0-0.012) X10*3/uL Nucleated RBC % (auto) 0.0 (0.0-0.2) /100WBC Sodium 138 (135-145) mmol/L Potassium 3.8 (3.3-5.1) mmol/L Chloride 103 (96-108) mmol/L Carbon Dioxide 21 L (22-29) mmol/L Anion Gap 18 (12-20) BUN 5 L (9-16) mg/dL Creatinine 0.70 (0.5-1.4) mg/dL Estim Creat Clear Calc 113.3 Estimated GFR > 60 Random Glucose 98 (60-115) mg/dL Calcium 8.2 L (8.4-10.2) mg/dL Magnesium 2.1 (1.6-2.6) mg/dL Total Bilirubin 0.4 (0.0-1.0) mg/dL Direct Bilirubin 0.2 (0.0-0.5) mg/dL AST 143 H (5-37) U/L ALT 63 H (0-40) U/L Alkaline Phosphatase 80 (39-117) U/L Troponin I High Sens (<3.5-35.0) ng/L Total Protein 7.5 (6.5-8.0) g/dL Albumin 3.8 (3.5-5.0) g/dL Ethyl Alcohol 413 H* mg/dL COVID-19 ([facility]) Negative (Negative) COVID-19 Clin Com See Note 07/31/22 Range/Units 14:07 WBC (4.8-10.8) X10*3/uL RBC (4.60-5.80) X10*6/uL Hgb (14.0-18.0) g/dl Hct (42.0-52.0) % MCV (80.0-98.0) fL MCH (27.0-33.0) pg MCHC (31.0-36.0) g/dl RDW (11.0-16.0) % Plt Count (160-400) X10*3/uL MPV (9.4-12.4) fL Immature Gran % (Auto) (0.0-0.4) % Neut % (Auto) (45-73) % Lymph % (Auto) (20-40) % [place] % (Auto) (2-11) % Eos % (Auto) (0-4) % Baso % (Auto) (0-2) % Lymph # (Auto) (1.2-4.9) X10*3/uL [place] # (Auto) (0.1-1.2) X10*3/uL Eos # (Auto) (0.0-0.4) X10*3/uL Baso # (Auto) (0.0-0.2) X10*3/uL Abs Immat Gran (auto) (0.00-0.03) X10*3/uL Absolute Neuts (auto) (2.0-8.3) x10*3/uL Absolute Nucleated RBC (0.0-0.012) X10*3/uL Nucleated RBC % (auto) (0.0-0.2) /100WBC Sodium (135-145) mmol/L Potassium (3.3-5.1) mmol/L Chloride (96-108) mmol/L Carbon Dioxide (22-29) mmol/L Anion Gap (12-20) BUN (9-16) mg/dL Creatinine (0.5-1.4) mg/dL Estim Creat Clear Calc Estimated GFR Random Glucose (60-115) mg/dL Calcium (8.4-10.2) mg/dL Magnesium (1.6-2.6) mg/dL Total Bilirubin (0.0-1.0) mg/dL Direct Bilirubin (0.0-0.5) mg/dL AST (5-37) U/L ALT (0-40) U/L Alkaline Phosphatase (39-117) U/L Troponin I High Sens < 3.5 (<3.5-35.0) ng/L Total Protein (6.5-8.0) g/dL Albumin (3.5-5.0) g/dL Ethyl Alcohol mg/dL COVID-19 ([facility]) (Negative) COVID-19 Clin Com ECG Data ECG #1: Attestation: I personally reviewed and interpreted this ECG as follows: ECG interpretation date: 07/31/22 ECG interpretation time: 14:51 Prior ECG tracings: available for review Interpretation: normal sinus rhythm, HR 75 bpm, normal ME interval, normal QTc, no ST segment elevations or depressions Discharge Plan Discharge Clinical Impression: Suicidal ideation, Atypical chest pain, Alcohol intoxication Patient Disposition: Still a Patient Prescriptions: No Action thiamine HCl (vitamin B1) 100 mg tablet 100 mg PO DAILY Qty: 30 0RF multivit [id number] 1-dha 18 mg iron- 1 mg-300 mg capsule 1 cap PO DAILY Qty: 30 0RF doxycycline monohydrate 100 mg tablet 100 mg PO BID 10 Days Qty: 20 0RF cephalexin 500 mg capsule 500 mg PO Q6H 10 Days Qty: 40 0RF diazepam 5 mg tablet 5 mg PO TID PRN (Reason: muscle spasm) Qty: 10 0RF ibuprofen 600 mg tablet 600 mg PO Q6H PRN (Reason: pain) Qty: 30 0RF
--- NOTE | 2022-07-31 13:16 | ECG_ITS ---
Test Reason : CHEST PAIN Blood Pressure : / mmHG Vent. Rate : 075 BPM Atrial Rate : 075 BPM P-R Int : 160 ms QRS Dur : 100 ms QT Int : 376 ms P-R-T Axes : 059 032 042 degrees QTc Int : 419 ms Normal sinus rhythm Normal ECG When compared with ECG of 30-JUL-2022 16:52, No significant change was found Referred By: Yudy Walter Electronically Signed By:TYLER PARISI MD
[2022-07-31 13:22] VITALS: BP 129/85; PULSE 73; RESP 18; TEMP 36.8; O2SAT 97; BMI 21.9
[2022-07-31 14:12] LABS: MANUAL DIFF FLAG NO
[2022-07-31 14:14] LABS: Basophils Absolute Auto 0.1 X10*3/uL (0.0-0.2); Basophils Percent Auto 1.5 % (0-2); Eosinophils Absolute Auto 0.1 X10*3/uL (0.0-0.4); Eosinophils Percent Auto 3.3 % (0-4); Hemoglobin 12.7 g/dl (14.0-18.0); Imm Gran Abs Auto 0.01 X10*3/uL (0.00-0.03); Imm Gran Pct Auto 0.3 % (0.0-0.4); Lymphocytes Absolute Auto 1.4 X10*3/uL (1.2-4.9); Mean Corpuscular HGB Conc 35.3 g/dl (31.0-36.0); Mean Corpuscular Hemoglobin 34.5 pg (27.0-33.0); Mean Corpuscular Volume 97.8 fL (80.0-98.0); Mean Platelet Volume 9.9 fL (9.4-12.4); Monocytes Absolute Auto 0.5 X10*3/uL (0.1-1.2); Monocytes Percent Auto 16.2 % (2-11); Neutrophils Absolute Auto 1.3 x10*3/uL (2.0-8.3); Neutrophils Percent Auto 37.7 % (45-73); Platelet Count 104 X10*3/uL (160-400); Red Blood Count 3.68 X10*6/uL (4.60-5.80); Red Cell Distribution Width 13.5 % (11.0-16.0); White Blood Count 3.3 X10*3/uL (4.8-10.8)
[2022-07-31 14:29] LABS: COVID-19 Test Negative (Negative); IDNOW Serial# 16C4AD1C
[2022-07-31 14:33] LABS: Alanine Aminotransferase 63 U/L (0-40); Albumin Level 3.8 g/dL (3.5-5.0); Alkaline Phosphatase 80 U/L (39-117); Anion Gap 18 (12-20); Aspartate Amino Transferase 143 U/L (5-37); Bilirubin Direct 0.2 mg/dL (0.0-0.5); Bilirubin Total 0.4 mg/dL (0.0-1.0); Blood Urea Nitrogen 5 mg/dL (9-16); Calcium 8.2 mg/dL (8.4-10.2); Carbon Dioxide 21 mmol/L (22-29); Chloride 103 mmol/L (96-108); Creatinine Clr Calc Pharmacy 113.3; Estimated Glomerular Filt Rate > 60; Ethanol 413 mg/dL; Glucose Random 98 mg/dL (60-115); Magnesium 2.1 mg/dL (1.6-2.6); Potassium 3.8 mmol/L (3.3-5.1); Sodium 138 mmol/L (135-145); Total Protein 7.5 g/dL (6.5-8.0)
[2022-07-31 14:39] LABS: Troponin-I High Sensitivity < 3.5 ng/L (<3.5-35.0)
[2022-07-31 14:52] LABS: Amphetamine Screen Urine Not Detected (Not Detect); Barbiturates, Urine Not Detected (Not Detect); Benzodiazepines Screen Urine Not Detected (Not Detect); Cannabinoid Screen Urine Not Detected (Not Detect); Cocaine Screen Urine Not Detected (Not Detect); Fentanyl, urine Not Detected (Not Detect); Opiate Screen Urine Not Detected (Not Detect); Phencyclidine Screen Urine Not Detected (Not Detect)
[2022-07-31 23:23] VITALS: BP 112/69; PULSE 77; RESP 17; TEMP 37.2; O2SAT 97
[2022-07-31] MEDS: LORazepam 1 MG TABLET 2 MG PO (23:33)
--- NOTE | 2022-07-31 23:35 | PC.NURSE ---
Spot Facer called and in room for CIWA and med administration.
--- NOTE | 2022-08-01 03:58 | PC.NURSE ---
Pt sleeping respirations regular and adequate.
--- NOTE | 2022-08-01 07:17 | PC.NURSE ---
Addendum entered by Kya Palma 08/01/22 11:36: Per ashwin from care: N reports pt is safe d/c home to community. Original Note: Report taken from overnight shift. No acute incidents. Plan is for [facility] follow up this AM
== END 2022-08-01 12:27 | disposition home or self-care (01) ==
PROVIDERS: Physician Assistant; Emergency Provider Emergency Medicine
DX: R45.851 Suicidal ideations (principal); R07.89 Other chest pain; F10.220 Alcohol dependence with intoxication, uncomplicated; Y90.8 Blood alcohol level of 240 mg/100 ml or more; F32.A Depression, unspecified; Z20.822 Contact with and (suspected) exposure to COVID-19
CPT/HCPCS: 80048; 80076; 80307; 82077; 83735; 84484; 85025; 87635; 93005; 99285

== ENCOUNTER 2022-08-06 14:06 | Emergency (ER) | payer MEDICAID, SELFPAY ==
--- NOTE | ~2022-08-06 | CT_ITS ---
EXAMINATION: CT ABDOMEN AND PELVIS WITH CONTRAST CLINICAL INFORMATION: Right upper and lower quadrant as well as epigastric pain. COMPARISON: CT abdomen and pelvis 01/29/2018 TECHNIQUE: Multidetector volumetric images were obtained from the superior aspect of the liver through the pubic symphysis following administration 85 mL of Omnipaque 350 intravenous contrast. Sagittal and coronal reformatted images were obtained on the technologist's workstation. Oral contrast: No This CT examination was performed using dose optimization techniques as appropriate, variously including the following: *Automated exposure control *Adjustment of mA and/or kV according to patient size (this includes techniques or standardized protocols for targeted exams where dose is matched to indication/reason for exam; i.e. extremities or head) *Use of iterative reconstruction technique DLP: 415 mGy-cm FINDINGS: LUNG BASES: Unchanged small sub-4 mm right lower lobe pulmonary nodule consistent with benign etiology. Lung bases otherwise clear. LIVER, GALLBLADDER, AND BILIARY TREE: Mild hepatic hypoattenuation/steatosis. No liver lesion or biliary ductal dilation. The gallbladder is unremarkable with no evidence of radiopaque gallstones, gallbladder wall thickening, or obvious pericholecystic inflammatory changes. PANCREAS: Unremarkable. SPLEEN: Unremarkable. ADRENAL GLANDS: Unremarkable. KIDNEYS AND URETERS: The kidneys are normal in size, shape, and attenuation. No hydronephrosis, hydroureter, or calculi seen. No perinephric stranding. BLADDER: Minimal wall thickening likely due to incomplete distention. No focal bladder wall thickening. GASTROINTESTINAL TRACT: The small and large bowel are unremarkable. The appendix is unremarkable. No ascites or free air. ABDOMINAL WALL: No significant hernia is appreciated. LYMPH NODES: Normal. VASCULAR: Unremarkable. PELVIC VISCERA: Unremarkable. OSSEOUS STRUCTURES: No acute fracture or suspicious osseous lesion. Grade 1 anterolisthesis at L5-S1 secondary to bilateral L5 pars defects. Moderate degenerative disc disease at L4-L5 and L5-S1. CT/CT abdomen pelvis w IV con IMPRESSION: 1. No acute intra-abdominal process identified. 2. Mild hepatic steatosis.
--- NOTE | ~2022-08-06 | XR_ITS ---
EXAMINATION: XR CHEST CLINICAL INFORMATION: Chest pain COMPARISON: Chest x-ray 07/30/2022 TECHNIQUE: Frontal upright view of the chest was obtained. 3:01 PM FINDINGS: No significant abnormality is noted involving the heart, lungs, mediastinum, bony thorax or soft tissues. XR/XR chest 1V IMPRESSION: Unremarkable examination.
--- NOTE | 2022-08-06 14:16 | ED_ITS ---
HPI - Alcohol General Chief Complaint: General Medical Stated Complaint: ETOH,CP Time Seen by Provider: 08/06/22 14:14 Source: patient and EMS Mode of arrival: EMS History of Present Illness HPI narrative: 51-year-old male with past medical history of ETOH abuse, presenting to the ED complaining ETOH intoxication, chest pain, epigastric abdominal pain, and nausea x days. Admits to drinking about 30pk ETOH daily, last drink this morning. Also reports vague SI, states feels better in the hospital. Denies SOB, vomiting, diarrhea, dysuria/hematuria, illicit drug use, HI MD complaint: alcohol intoxication Last drink: Just prior to admission Related Data Previous Rx's Medication Instructions Recorded multivit no.40-iron 18 mg-folate 1 cap PO DAILY #30 caps 05/23/22 comb no.1 1 mg-dha 300 mg capsule thiamine HCl (vitamin B1) 100 mg 100 mg PO DAILY #30 tabs 05/23/22 tablet cephalexin 500 mg capsule 500 mg PO Q6H 10 days #40 caps 06/16/22 doxycycline monohydrate 100 mg 100 mg PO BID 10 days #20 tabs 06/16/22 tablet diazepam 5 mg tablet 5 mg PO TID PRN muscle spasm #10 07/22/22 tabs ibuprofen 600 mg tablet 600 mg PO Q6H PRN pain #30 tabs 07/22/22 Allergies Allergy/AdvReac Type Severity Reaction Status Date / Time No Known Allergies Allergy Verified 06/08/22 17:49 [No Known Allergies*] Review of Systems Review of Systems: Constitutional: No Fever, No Chills, No Fatigue, No Malaise ENT/Mouth: No Ear Pain, No Nasal Congestion, No Sinus Pain, No Hoarseness, No sore throat, No Rhinorrhea, No Swallowing Difficulty Eyes: No Eye Pain, No Swelling, No Redness, No Vision Changes Cardiovascular: + Chest Pain, No SOB, No Edema, No Palpitations Respiratory: No Cough, No Sputum, No Dyspnea Gastrointestinal: + Nausea, No Vomiting, No Diarrhea, No Constipation, + A bdominal pain Genitourinary: No Dysuria, No Urinary Frequency, No Hematuria, No Urinary Incontinence/retention, No Flank Pain Musculoskeletal: No joint pain, No Myalgias, No Joint Swelling Skin: No Skin Lesions, No rash Neuro: No Weakness, No Loss of Consciousness, No Dizziness, No Headache Psych: No Anxiety/Panic, + Depression, + SI, No HI/AH/VH, No Social Issues Yes all other systems are reviewed and are negative Constitutional: Constitutional: Reports as per [facility] Past Medical History Attestation statement: The following information was validated with the patient. Social History Social History Alcohol intake: current Alcohol intake frequency: 3 or more drinks per day Alcohol type: beer Patient Tobacco Use Status: Never used Tobacco Smoked in Last 30 Days: No Advance Directives: No Advance Directives Information Provided: No Current occupational status: disabled Current occupation: rt handed Physical Exam ED Vital Signs: Vital Signs - 24 hr 08/06/22 14:45 08/06/22 17:20 Temperature 98.7 F Pulse Rate 70 67 Respiratory Rate 15 18 Blood Pressure 123/86 115/88 Pulse Oximetry 98 98 Oxygen Delivery Method Room Air Room Air BMI result Body Mass Index 21.9 Const Other: + EtOH odor on breath General: cooperative, no acute distress, alert and awake Orientation/consciousness: patient oriented x3 Limitations: no limitations HENMT Head: Yes normal to inspection and Yes atraumatic Ears: hearing grossly normal bilaterally General nose exam: Normal external nose present Face and sinus: Yes normal facial exam Mouth: Normal oral and palatal mucosa present Eyes General: appearance normal, both eyes and all related structures EOM: EOMs intact bilaterally Neck Neck: Yes normal visual inspection and Yes no meningeal signs Resp Effort & Inspection: normal respiratory effort and no respiratory distress Auscultation: clear to auscultation bilaterally, no crackles, no rales, no rhonchi and no wheezes Cardio Rate: regular rate Heart sounds: S1 normal heart sound present and S2 normal heart sound present GI Inspection: Yes normal to inspection Palpation (GI): Soft to palpation, Tenderness to palpation present (GI) in the epigastrum, in the RLQ and in the RUQ; with no rebound tenderness, no guarding and not rigid General: Yes no CVA tenderness Back/Spine/Pelvis Back: no CVA tenderness Skin Other: + old ecchymosis noted to left upper arm with mild tenderness. Rashes: no rashes Wounds: no wounds Neuro General: patient oriented x3, tone normal, moves all extremities, no meningeal signs and CN's II-XI intact bilaterally Extrem General: Yes normal to inspection Psych Affect: Sad affect present Attitude: cooperative Thought content: Suicidality present Course Course Course Narrative: -1703--chronic pancytopenia. Chronic transaminitis likely from chronic EtOH use. Troponin negative -ethanol 378 XR chest 1V IMPRESSION: Unremarkable examination. ? CT abdomen pelvis w IV con IMPRESSION: 1.? No acute intra-abdominal process identified. 2.? Mild hepatic steatosis. ? > patient medically cleared for crisis evaluation. Physician observation initiated at 17:05 2100--ED care transferred to Dr. Lucas pending crisis evaluation Medications Administered Generic Name Dose Route Start Last Admin Trade Name Freq PRN Reason Stop Dose Admin Chlordiazepoxide HCl 25 mg 08/06/22 17:06 08/06/22 17:24 Chlordiazepoxide Hcl 25 Mg Capsule PO 25 mg TID PRN Administration Alcohol Withdrawal Discontinued Medications Generic Name Dose Route Start Last Admin Trade Name Freq PRN Reason Stop Dose Admin Al Hydroxide/Mg Hydroxide 30 ml 08/06/22 14:25 08/06/22 16:06 Magnesium Hydrox/Alum Hydrox 30 Ml Oral.Susp PO 08/06/22 14:26 30 ml ONCE ONE Administration Famotidine 20 mg 08/06/22 14:25 08/06/22 16:07 Famotidine/Pf 20 Mg/2 Ml Vial IVPUSH 08/06/22 14:26 20 mg ONCE ONE Administration Sodium Chloride 1,000 mls @ 999 mls/hr 08/06/22 14:30 08/06/22 17:17 Ns IV 08/06/22 15:30 Infused .Q1H1M JOSE GUADALUPE Infusion Iohexol 100 ml 08/06/22 16:35 08/06/22 16:35 Iohexol 350 Mg/Ml 100 Ml Infus..Btl IV 08/06/22 16:36 85 ml ONCE ONE Administration Multivitamins/Vitamin C 1 tab 08/06/22 14:30 08/06/22 16:07 Multivitamin Tablet PO 08/06/22 14:31 1 tab ONCE ONE Administration MDM - Alcohol MDM Narrative Medical decision making narrative: 51-year-old male with past medical history of ETOH abuse, presenting to the ED complaining of ETOH intoxication, chest pain, epigastric abdominal pain, and nausea x days. On exam vital signs stable, NAD, EtOH odor on breath, no at evidence of tremors or tongue fasciculations, no evidence of withdrawal at this time. Lungs CTA. Abdomen soft with epigastric/RUQ and RLQ tenderness, no rebound or guarding. Concern for ETOH intoxication vs ACS vs pancreatitis vs cholecystitis/lithiasis. Lower suspicion for pneumonia, dissection, PE/DVT Plan: EKG, labs, CXR, CT/AP, drug screen, crisis consult Differential Diagnosis Differential diagnosis: Likely alcohol dependence and alcohol intoxication Medical Records Attestation: I reviewed the patient's medical records. Lab Data Attestation: I reviewed the patient's lab results. Result diagrams: 08/06/22 15:46 08/06/22 15:46 Labs: Lab Results 08/06/22 08/06/22 08/06/22 Range/Units 15:46 15:46 15:46 WBC 3.7 L (4.8-10.8) X10*3/uL RBC 4.02 L (4.60-5.80) X10*6/uL Hgb 13.3 L (14.0-18.0) g/dl Hct 38.5 L (42.0-52.0) % MCV 95.8 (80.0-98.0) fL MCH 33.1 H (27.0-33.0) pg MCHC 34.5 (31.0-36.0) g/dl RDW 13.1 (11.0-16.0) % Plt Count 142 L D (160-400) X10*3/uL MPV 9.0 L (9.4-12.4) fL Immature Gran % (Auto) 0.3 (0.0-0.4) % Neut % (Auto) 43.7 L (45-73) % Lymph % (Auto) 40.3 H (20-40) % [place] % (Auto) 12.4 H (2-11) % Eos % (Auto) 1.9 (0-4) % Baso % (Auto) 1.4 (0-2) % Lymph # (Auto) 1.5 (1.2-4.9) X10*3/uL [place] # (Auto) 0.5 (0.1-1.2) X10*3/uL Eos # (Auto) 0.1 (0.0-0.4) X10*3/uL Baso # (Auto) 0.1 (0.0-0.2) X10*3/uL Abs Immat Gran (auto) 0.01 (0.00-0.03) X10*3/uL Absolute Neuts (auto) 1.6 L (2.0-8.3) x10*3/uL Absolute Nucleated RBC 0.000 (0.0-0.012) X10*3/uL Nucleated RBC % (auto) 0.0 (0.0-0.2) /100WBC Sodium 142 (135-145) mmol/L Potassium 3.7 (3.3-5.1) mmol/L Chloride 107 (96-108) mmol/L Carbon Dioxide 26 (22-29) mmol/L Anion Gap 13 (12-20) BUN 6 L (9-16) mg/dL Creatinine 0.67 (0.5-1.4) mg/dL Estim Creat Clear Calc 118.4 Estimated GFR > 60 Random Glucose 71 (60-115) mg/dL Calcium 8.6 (8.4-10.2) mg/dL Magnesium 2.2 (1.6-2.6) mg/dL Total Bilirubin 0.5 (0.0-1.0) mg/dL Direct Bilirubin 0.2 (0.0-0.5) mg/dL AST 113 H (5-37) U/L ALT 57 H (0-40) U/L Alkaline Phosphatase 79 (39-117) U/L Troponin I High Sens < 3.5 (<3.5-35.0) ng/L Total Protein 7.7 (6.5-8.0) g/dL Albumin 3.9 (3.5-5.0) g/dL Lipase 46 (8-78) U/L Urine Opiates Screen (Not Detect) Urine Fentanyl Screen (Not Detect) Ur Barbiturates Screen (Not Detect) Ur Phencyclidine Scrn (Not Detect) Ur Amphetamines Screen (Not Detect) U Benzodiazepines Scrn (Not Detect) Urine Cocaine Screen (Not Detect) U Marijuana (THC) Screen (Not Detect) Ethyl Alcohol 378 H* mg/dL COVID-19 ([facility]) (Negative) COVID-19 Clin Com 08/06/22 08/06/22 Range/Units 15:46 15:49 WBC (4.8-10.8) X10*3/uL RBC (4.60-5.80) X10*6/uL Hgb (14.0-18.0) g/dl Hct (42.0-52.0) % MCV (80.0-98.0) fL MCH (27.0-33.0) pg MCHC (31.0-36.0) g/dl RDW (11.0-16.0) % Plt Count (160-400) X10*3/uL MPV (9.4-12.4) fL Immature Gran % (Auto) (0.0-0.4) % Neut % (Auto) (45-73) % Lymph % (Auto) (20-40) % [place] % (Auto) (2-11) % Eos % (Auto) (0-4) % Baso % (Auto) (0-2) % Lymph # (Auto) (1.2-4.9) X10*3/uL [place] # (Auto) (0.1-1.2) X10*3/uL Eos # (Auto) (0.0-0.4) X10*3/uL Baso # (Auto) (0.0-0.2) X10*3/uL Abs Immat Gran (auto) (0.00-0.03) X10*3/uL Absolute Neuts (auto) (2.0-8.3) x10*3/uL Absolute Nucleated RBC (0.0-0.012) X10*3/uL Nucleated RBC % (auto) (0.0-0.2) /100WBC Sodium (135-145) mmol/L Potassium (3.3-5.1) mmol/L Chloride (96-108) mmol/L Carbon Dioxide (22-29) mmol/L Anion Gap (12-20) BUN (9-16) mg/dL Creatinine (0.5-1.4) mg/dL Estim Creat Clear Calc Estimated GFR Random Glucose (60-115) mg/dL Calcium (8.4-10.2) mg/dL Magnesium (1.6-2.6) mg/dL Total Bilirubin (0.0-1.0) mg/dL Direct Bilirubin (0.0-0.5) mg/dL AST (5-37) U/L ALT (0-40) U/L Alkaline Phosphatase (39-117) U/L Troponin I High Sens (<3.5-35.0) ng/L Total Protein (6.5-8.0) g/dL Albumin (3.5-5.0) g/dL Lipase (8-78) U/L Urine Opiates Screen Not Detected (Not Detect) Urine Fentanyl Screen Not Detected (Not Detect) Ur Barbiturates Screen Not Detected (Not Detect) Ur Phencyclidine Scrn Not Detected (Not Detect) Ur Amphetamines Screen Not Detected (Not Detect) U Benzodiazepines Scrn Not Detected (Not Detect) Urine Cocaine Screen Not Detected (Not Detect) U Marijuana (THC) Screen Not Detected (Not Detect) Ethyl Alcohol mg/dL COVID-19 ([facility]) Negative (Negative) COVID-19 Clin Com See Note Discharge Plan Discharge Clinical Impression: Alcohol intoxication, Chest pain, Abdominal pain, Suicidal ideations Patient Disposition: Still a Patient Prescriptions: No Action thiamine HCl (vitamin B1) 100 mg tablet 100 mg PO DAILY Qty: 30 0RF multivit [id number] 1-dha 18 mg iron- 1 mg-300 mg capsule 1 cap PO DAILY Qty: 30 0RF doxycycline monohydrate 100 mg tablet 100 mg PO BID 10 Days Qty: 20 0RF cephalexin 500 mg capsule 500 mg PO Q6H 10 Days Qty: 40 0RF diazepam 5 mg tablet 5 mg PO TID PRN (Reason: muscle spasm) Qty: 10 0RF ibuprofen 600 mg tablet 600 mg PO Q6H PRN (Reason: pain) Qty: 30 0RF
[2022-08-06 14:21] VITALS: BP 150/70; PULSE 62; O2SAT 98
--- NOTE | 2022-08-06 14:25 | ECG_ITS ---
Test Reason : CHEST PAIN Blood Pressure : / mmHG Vent. Rate : 064 BPM Atrial Rate : 064 BPM P-R Int : 154 ms QRS Dur : 098 ms QT Int : 412 ms P-R-T Axes : 050 052 042 degrees QTc Int : 425 ms Normal sinus rhythm Low voltage QRS RSR' or QR pattern in V1 suggests right ventricular conduction delay Borderline ECG When compared with ECG of 31-JUL-2022 13:41, No significant change was found Referred By: Marilee Ortiz Electronically Signed By:TYLER PARISI MD
[2022-08-06 14:45] VITALS: BP 123/86; PULSE 70; RESP 15; O2SAT 98; BMI 21.9
[2022-08-06 15:56] LABS: MANUAL DIFF FLAG NO
[2022-08-06 16:00] LABS: Basophils Absolute Auto 0.1 X10*3/uL (0.0-0.2); Basophils Percent Auto 1.4 % (0-2); Eosinophils Absolute Auto 0.1 X10*3/uL (0.0-0.4); Eosinophils Percent Auto 1.9 % (0-4); Hematocrit 38.5 % (42.0-52.0); Hemoglobin 13.3 g/dl (14.0-18.0); Imm Gran Abs Auto 0.01 X10*3/uL (0.00-0.03); Imm Gran Pct Auto 0.3 % (0.0-0.4); Lymphocytes Absolute Auto 1.5 X10*3/uL (1.2-4.9); Lymphocytes Percent Auto 40.3 % (20-40); Mean Corpuscular HGB Conc 34.5 g/dl (31.0-36.0); Mean Corpuscular Hemoglobin 33.1 pg (27.0-33.0); Mean Corpuscular Volume 95.8 fL (80.0-98.0); Monocytes Absolute Auto 0.5 X10*3/uL (0.1-1.2); Monocytes Percent Auto 12.4 % (2-11); Neutrophils Absolute Auto 1.6 x10*3/uL (2.0-8.3); Neutrophils Percent Auto 43.7 % (45-73); Platelet Count 142 X10*3/uL (160-400); Red Blood Count 4.02 X10*6/uL (4.60-5.80); Red Cell Distribution Width 13.1 % (11.0-16.0); White Blood Count 3.7 X10*3/uL (4.8-10.8)
[2022-08-06] MEDS: Magnesium Hydrox/Alum Hydrox 30 ML ORAL.SUSP PO (16:06)
[2022-08-06] MEDS: 0.9 % Sodium Chloride 1,000 ML 999 ML IV (16:06)
[2022-08-06] MEDS: Famotidine/PF 20 MG/2 ML VIAL IVPUSH (16:07)
[2022-08-06] MEDS: Multivitamin TABLET 1 TAB PO (16:07)
[2022-08-06 16:10] LABS: Amphetamine Screen Urine Not Detected (Not Detect); Barbiturates, Urine Not Detected (Not Detect); Benzodiazepines Screen Urine Not Detected (Not Detect); Cannabinoid Screen Urine Not Detected (Not Detect); Cocaine Screen Urine Not Detected (Not Detect); Fentanyl, urine Not Detected (Not Detect); Opiate Screen Urine Not Detected (Not Detect); Phencyclidine Screen Urine Not Detected (Not Detect)
[2022-08-06 16:14] LABS: COVID-19 Test Negative (Negative); IDNOW Serial# 16C4AD1C
[2022-08-06 16:16] LABS: Alanine Aminotransferase 57 U/L (0-40); Albumin Level 3.9 g/dL (3.5-5.0); Alkaline Phosphatase 79 U/L (39-117); Anion Gap 13 (12-20); Aspartate Amino Transferase 113 U/L (5-37); Bilirubin Direct 0.2 mg/dL (0.0-0.5); Bilirubin Total 0.5 mg/dL (0.0-1.0); Blood Urea Nitrogen 6 mg/dL (9-16); Calcium 8.6 mg/dL (8.4-10.2); Carbon Dioxide 26 mmol/L (22-29); Chloride 107 mmol/L (96-108); Creatinine Clr Calc Pharmacy 118.4; Estimated Glomerular Filt Rate > 60; Ethanol 378 mg/dL; Glucose Random 71 mg/dL (60-115); Lipase 46 U/L (8-78); Magnesium 2.2 mg/dL (1.6-2.6); Potassium 3.7 mmol/L (3.3-5.1); Sodium 142 mmol/L (135-145); Total Protein 7.7 g/dL (6.5-8.0)
[2022-08-06 16:29] LABS: Troponin-I High Sensitivity < 3.5 ng/L (<3.5-35.0)
[2022-08-06] MEDS: iohexoL 350 MG/ML 100 ML INFUS..BTL IV (16:35)
[2022-08-06 17:20] VITALS: BP 115/88; PULSE 67; RESP 18; TEMP 37.1; O2SAT 98
[2022-08-06] MEDS: chlordiazePOXIDE HCl 25 MG CAPSULE PO (17:24)
--- NOTE | 2022-08-06 20:31 | PC.NURSE ---
patient alert and oriented x4. ambulating with steady gait. currently in bed watching tv. calm and cooperative with staff.
--- NOTE | 2022-08-07 01:32 | PC.NURSE ---
patient sleeping, resp are equal and unlabored. ambulating with steady gait around the unit. 15 min safety checks in place
[2022-08-07] MEDS: chlordiazePOXIDE HCl 25 MG CAPSULE PO (01:51)
--- NOTE | 2022-08-07 01:54 | PC.NURSE ---
patient woke up to use restroom with tremors and nausea. PRN librium given for withdrawal. Provider notified
[2022-08-07 01:59] VITALS: BP 131/100; PULSE 100; RESP 17; TEMP 36.6; O2SAT 97
[2022-08-07] MEDS: Ondansetron ODT 4 MG TAB.RAPDIS TRANSLINGU (02:03)
--- NOTE | 2022-08-07 08:01 | PC.NURSE ---
Report taken from night rn, understood pt was awaiting N evaluation for SI statement made when intoxicated. Pt was medicated for withdrawals from etoh Pt is awake and alert with nonlabored resps and wpd skin. pt speaking in clear and even tones and maintains appropriate eye contact. pt has slight hand tremors when he holds hands up but they resolve once at rest pt has tolerated all breakfast tray. awaiting n.
[2022-08-07 08:05] VITALS: BP 107/68; PULSE 65; RESP 16; TEMP 36.6; O2SAT 98
== END 2022-08-07 12:44 | disposition home or self-care (01) ==
PROVIDERS: Physician Assistant; Emergency Provider Emergency Medicine Emergency Medical Services
DX: R07.89 Other chest pain (principal); R45.851 Suicidal ideations; R10.9 Unspecified abdominal pain; F10.129 Alcohol abuse with intoxication, unspecified; Y90.8 Blood alcohol level of 240 mg/100 ml or more; Z20.822 Contact with and (suspected) exposure to COVID-19; Z79.899 Other long term (current) drug therapy
CPT/HCPCS: 71045; 74177; 80048; 80076; 80307; 82077; 83690; 83735; 84484; 85025; 87635; 93005; 96361; 96374; 99284; 99285; Q9967

== ENCOUNTER 2022-08-13 10:08 | Emergency (ER) | payer MEDICAID, SELFPAY ==
--- NOTE | ~2022-08-13 | XR_ITS ---
EXAMINATION: XR ELBOW, LEFT CLINICAL INFORMATION: Bruising, pain COMPARISON: None TECHNIQUE: AP, lateral, and oblique views of the left elbow. FINDINGS: The bones and soft tissues are normal. No fracture or joint effusion. Alignment is anatomic. Joint spaces are maintained. XR/XR elbow LT 2V IMPRESSION: Normal left elbow.
--- NOTE | ~2022-08-13 | XR_ITS ---
EXAMINATION: XR CHEST CLINICAL INFORMATION: Chest pain COMPARISON: None TECHNIQUE: 2 views of the chest were obtained. FINDINGS: No significant abnormality is noted involving the heart, lungs, mediastinum, bony thorax or soft tissues. XR/XR chest 2V IMPRESSION: Unremarkable examination.
[2022-08-13 10:17] VITALS: BP 133/82; PULSE 61; PULSE 72; RESP 16; TEMP 36.7; O2SAT 98; O2SAT 99; BMI 20.3
--- NOTE | 2022-08-13 10:19 | ED_ITS ---
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 Patient states that he has been seen here for these things multiple times and it is back, again. Patient denies any dizziness, lightheadedness, abdominal pain, nausea, vomiting, fever, chills, blurry vision, double vision, loss of vision, difficulty breathing, shortness of breath, back pain, night sweats, pain with urination, increased urinary frequency, increased urinary urgency, blood in his urine or stool, syncope or a near syncopal episode, bowel incontinence, bladder incontinence, bowel retention, bladder retention, or any other complaints at this time. Onset (ago): day(s) Location: chest, left and upper extremity Radiation: non-radiation Severity: mild Severity scale (1-10): 4 Quality: dull Relieving factors: none Exacerbating factors: none Associated symptoms: denies other symptoms Treatments prior to arrival: none Related Data Previous Rx's Medication Instructions Recorded multivit no.40-iron 18 mg-folate 1 cap PO DAILY #30 caps 05/23/22 comb no.1 1 mg-dha 300 mg capsule thiamine HCl (vitamin B1) 100 mg 100 mg PO DAILY #30 tabs 05/23/22 tablet cephalexin 500 mg capsule 500 mg PO Q6H 10 days #40 caps 06/16/22 doxycycline monohydrate 100 mg 100 mg PO BID 10 days #20 tabs 06/16/22 tablet diazepam 5 mg tablet 5 mg PO TID PRN muscle spasm #10 07/22/22 tabs ibuprofen 600 mg tablet 600 mg PO Q6H PRN pain #30 tabs 07/22/22 Allergies Allergy/AdvReac Type Severity Reaction Status Date / Time No Known Allergies Allergy Verified 06/08/22 17:49 [No Known Allergies*] Review of Systems Constitutional: Constitutional: Reports no additional constitutional complaints, Denies chills, Denies fever(s) and Denies night sweats Eyes: Eyes: Reports no additional eye complaints, Denies blurry vision, Denies change in vision, Denies diplopia, Denies eye discharge, Denies loss of vision and Denies eye pain ENT: Denies dizziness Cardiovascular: Cardiovascular: Reports no additional cardiovascular complaints, Reports chest pain, Denies lightheadedness, Denies Loss of Consciousness and Denies dyspnea Respiratory: Respiratory: Reports no additional respiratory complaints and Denies dyspnea Gastrointestinal: Gastrointestinal: Reports no additional gastrointestinal complaints, Denies abdominal pain, Denies melena, Denies hematochezia, Denies change in bowel habits and Denies change in stool character Genitourinary: Genitourinary: Reports no additional male genitourinary complaints, Denies hematuria, Denies oliguria, Denies difficulty urinating, Denies dysuria, Denies urinary frequency, Denies urinary hesitancy, Denies urinary incontinence and Denies urinary urgency Musculoskeletal: Musculoskeletal: Reports no additional musculoskeletal complaints, Denies numbness and Denies tingling Comments: left arm pain Neurologic: Denies dizziness, Denies loss of vision, Denies numbness and Denies tingling Psychiatric: Psychiatric: Reports no additional psychiatric complaints Endocrine: Endocrine: Reports no additional endocrine complaints Hematologic/Lymphatic: Hematologic/Lymphatic: Reports no additional hematologi c/lymphatic complaints Allergic/Immunologic: Allergic/Immunologic: Reports no additional allergic/immunologic complaints PMFSH Past Medical History Attestation statement: The following information was validated with the patient. Source: old records reviewed Social History Social History Alcohol intake: current Alcohol intake frequency: 3 or more drinks per day Alcohol type: beer Patient Tobacco Use Status: Never used Tobacco Smoked in Last 30 Days: No Advance Directives: No Current occupational status: disabled Current occupation: rt handed Physical Exam ED Vital Signs: Vital Signs - 24 hr 08/13/22 10:17 08/13/22 11:42 Temperature 98.0 F Pulse Rate 72 72 Respiratory Rate 16 16 Blood Pressure 110/80 Pulse Oximetry 98 98 Oxygen Delivery Method Room Air Room Air BMI result Body Mass Index 20.3 Const General: cooperative, no acute distress, alert and awake Nutritional Appearance: well nourished Orientation/consciousness: patient oriented x3 Limitations: no limitations HENMT Head: Yes normal to inspection and Yes atraumatic Ears: hearing grossly normal bilaterally and external ears normal General nose exam: Normal external nose present, no nasal discharge noted and no epistaxis Face and sinus: Yes normal facial exam, No abrasion and No laceration Mouth: Normal oral and palatal mucosa present, no drooling and no muffled voice Eyes General: appearance normal, both eyes and all related structures Periorbital: periorbital findings normal Eyelids: Yes eyelids normal Conjunctivae: conjunctivae normal Pupils: Equal, round and reactive pupils present EOM: EOMs intact bilaterally Neck Neck: Yes normal visual inspection, Yes full ROM and Yes no lymphadenopathy Chest Chest palpation & inspection: normal inspection of the chest Resp Effort & Inspection: normal respiratory effort and able to speak in complete sentences Auscultation: clear to auscultation bilaterally Cardio Rate: regular rate Rhythm: regular rhythm GI Inspection: Yes normal to inspection Neuro General: patient oriented x3 and moves all extremities Cranial nerves: Yes Equal, round and reactive pupils present Cognition (Neuro): normal cognition Motor exam (neuro): 5/5 motor strength present throughout Sensory Exam: Normal double simultaneous stimulation for sensation Coordination: [id number] test normal Extrem Other: mild bruising to the lateral aspect of the left elbow General: Yes full ROM and Yes capillary refill normal Psych Appearance: grossly normal Mental Status: mental status grossly normal Affect: normal affect Attitude: cooperative Thought process: Normal thought process present Thought content: Normal thought content present Insight: Good insight present (Psych) Medical Decision Making MDM Narrative Medical decision making narrative: Patient is a 51 year old assigned male at with a history of alcohol and cocaine abuse presenting to the emergency department today with chronic left arm pain and chest pain. Patient's physical exam showed minimal bruising to the lateral aspect of the left elbow but was otherwise unremarkable. Patient's blood work was unremarkable. Patient's EKG was unremarkable. Patient's left elbow and chest x-rays showed no acute process. I explained my physical exam findings as well as all test results to the patient. I answered all questions asked by the patient. I stressed the importance of the patient taking his medication as prescribed. I stressed the importance of the patient following up with his [facility] care provider. I stressed the importance of the patient returning to the emergency department immediately if his symptoms were to worsen or if he were to develop any dizziness, shortness of breath, difficulty breathing, chest pain, blurry vision, loss of vision, nausea, vomiting, abdominal pain, fever, chills, back pain, or any other complaints. Patient verbalized agreement and understanding with this treatment plan and discharge. Medical Records Medical records reviewed: Yes I reviewed the patient's medical records. Lab Data Lab results reviewed: Yes I reviewed the patient's lab results. Result diagrams: 08/13/22 10:34 08/13/22 10:34 Labs: Lab Results 08/13/22 08/13/22 08/13/22 Range/Units 10:34 10:34 10:34 WBC 4.9 (4.8-10.8) X10*3/uL RBC 3.90 L (4.60-5.80) X10*6/uL Hgb 13.0 L (14.0-18.0) g/dl Hct 37.8 L (42.0-52.0) % MCV 96.9 (80.0-98.0) fL MCH 33.3 H (27.0-33.0) pg MCHC 34.4 (31.0-36.0) g/dl RDW 13.2 (11.0-16.0) % Plt Count 170 (160-400) X10*3/uL MPV 8.7 L (9.4-12.4) fL Immature Gran % (Auto) 0.4 (0.0-0.4) % Neut % (Auto) 54.1 (45-73) % Lymph % (Auto) 31.2 (20-40) % [place] % (Auto) 11.7 H (2-11) % Eos % (Auto) 1.4 (0-4) % Baso % (Auto) 1.2 (0-2) % Lymph # (Auto) 1.5 (1.2-4.9) X10*3/uL [place] # (Auto) 0.6 (0.1-1.2) X10*3/uL Eos # (Auto) 0.1 (0.0-0.4) X10*3/uL Baso # (Auto) 0.1 (0.0-0.2) X10*3/uL Abs Immat Gran (auto) 0.02 (0.00-0.03) X10*3/uL Absolute Neuts (auto) 2.7 (2.0-8.3) x10*3/uL Absolute Nucleated RBC 0.000 (0.0-0.012) X10*3/uL Nucleated RBC % (auto) 0.0 (0.0-0.2) /100WBC Sodium 141 (135-145) mmol/L Potassium 4.3 (3.3-5.1) mmol/L Chloride 104 (96-108) mmol/L Carbon Dioxide 25 (22-29) mmol/L Anion Gap 16 (12-20) BUN 11 D (9-16) mg/dL Creatinine 0.73 (0.5-1.4) mg/dL Estim Creat Clear Calc 100.9 Estimated GFR > 60 Random Glucose 93 (60-115) mg/dL Calcium 8.8 (8.4-10.2) mg/dL Magnesium 2.1 (1.6-2.6) mg/dL Total Bilirubin 0.4 (0.0-1.0) mg/dL AST 116 H (5-37) U/L ALT 61 H (0-40) U/L Alkaline Phosphatase 74 (39-117) U/L Troponin I High Sens < 3.5 (<3.5-35.0) ng/L Total Protein 8.0 (6.5-8.0) g/dL Albumin 4.2 (3.5-5.0) g/dL Imaging Data Chest x-ray: Attestation: I personally reviewed and interpreted this imaging study as follows: My impression: No acute process. Radiologist's impression: EXAMINATION: XR CHEST CLINICAL INFORMATION: Chest pain COMPARISON: None TECHNIQUE: 2 views of the chest were obtained. FINDINGS: No significant abnormality is noted involving the heart, lungs, mediastinum, bony thorax or soft tissues. XR/XR chest 2V IMPRESSION: Unremarkable examination. Dictated By: Tresa Dunlap MD Signed By: Electronically signed by Tresa Dunlap MD 08/13/22 1121 Left elbow x-ray: Attestation: I personally reviewed and interpreted this imaging study as follows: My impression: No acute process. Radiologist's impression: EXAMINATION: XR ELBOW, LEFT CLINICAL INFORMATION: Bruising, pain? COMPARISON: None? TECHNIQUE: AP, lateral, and oblique views of the left elbow. FINDINGS: The bones and soft tissues are normal. No fracture or joint effusion. Alignment is anatomic. Joint spaces are maintained.? XR/XR elbow LT 2V IMPRESSION: Normal left elbow. Dictated By: Tresa Dunlap MD Signed By: Electronically signed by Tresa Dunlap MD 08/13/22 1122 ECG Data Attestation: I personally reviewed and interpreted this ECG as follows: Prior ECG tracings: available for review Interpretation: Vent. Rate: 060 BPM ? ? Atrial Rate: 060 BPM P-R Int: 166 ms? QRS Dur: 100 ms QT Int: 412 ms ? ? ? P-R-T Axes: 031 009 024 degrees QTc Int: 412 ms ? Normal sinus rhythm Normal ECG When compared with ECG of 06-AUG-2022 14:40, No significant change was found DD/ [id number] Discharge Plan Discharge Clinical Impression: Arm pain Patient Disposition: Home, Self-Care Instructions: Arm Pain (ED) Additional Instructions: Follow up with your primary care provider. Return to the emergency department immediately if your symptoms worsen or if you develop any dizziness, shortness of breath, difficulty breathing, chest pain, blurry vision, loss of vision, nausea, vomiting, abdominal pain, fever, chills, back pain, or any other complaints. Prescriptions: No Action thiamine HCl (vitamin B1) 100 mg tablet 100 mg PO DAILY Qty: 30 0RF multivit [id number] 1-dha 18 mg iron- 1 mg-300 mg capsule 1 cap PO DAILY Qty: 30 0RF doxycycline monohydrate 100 mg tablet 100 mg PO BID 10 Days Qty: 20 0RF cephalexin 500 mg capsule 500 mg PO Q6H 10 Days Qty: 40 0RF diazepam 5 mg tablet 5 mg PO TID PRN (Reason: muscle spasm) Qty: 10 0RF ibuprofen 600 mg tablet 600 mg PO Q6H PRN (Reason: pain) Qty: 30 0RF Referrals: [facility] [Primary Care Provider] - Interventions: ED Discharge Assessment Last Done: 08/13/22 11:42 Discharge Date/Time: 08/13/22 11:45 Print Language: Iraqi
--- NOTE | 2022-08-13 10:19 | ECG_ITS ---
Test Reason : CHEST PAIN Blood Pressure : / mmHG Vent. Rate : 060 BPM Atrial Rate : 060 BPM P-R Int : 166 ms QRS Dur : 100 ms QT Int : 412 ms P-R-T Axes : 031 009 024 degrees QTc Int : 412 ms Normal sinus rhythm RSR' or QR pattern in V1 suggests right ventricular conduction delay Otherwise normal ECG When compared with ECG of 06-AUG-2022 14:40, No significant change was found Referred By: Aylin De Luna Electronically Signed By:TYLER PARISI MD
[2022-08-13 10:41] LABS: MANUAL DIFF FLAG NO
[2022-08-13 10:44] LABS: Basophils Absolute Auto 0.1 X10*3/uL (0.0-0.2); Basophils Percent Auto 1.2 % (0-2); Eosinophils Absolute Auto 0.1 X10*3/uL (0.0-0.4); Eosinophils Percent Auto 1.4 % (0-4); Hematocrit 37.8 % (42.0-52.0); Imm Gran Abs Auto 0.02 X10*3/uL (0.00-0.03); Imm Gran Pct Auto 0.4 % (0.0-0.4); Lymphocytes Absolute Auto 1.5 X10*3/uL (1.2-4.9); Lymphocytes Percent Auto 31.2 % (20-40); Mean Corpuscular HGB Conc 34.4 g/dl (31.0-36.0); Mean Corpuscular Hemoglobin 33.3 pg (27.0-33.0); Mean Corpuscular Volume 96.9 fL (80.0-98.0); Mean Platelet Volume 8.7 fL (9.4-12.4); Monocytes Absolute Auto 0.6 X10*3/uL (0.1-1.2); Monocytes Percent Auto 11.7 % (2-11); Neutrophils Absolute Auto 2.7 x10*3/uL (2.0-8.3); Neutrophils Percent Auto 54.1 % (45-73); Platelet Count 170 X10*3/uL (160-400); Red Cell Distribution Width 13.2 % (11.0-16.0); White Blood Count 4.9 X10*3/uL (4.8-10.8)
[2022-08-13 10:59] LABS: Alanine Aminotransferase 61 U/L (0-40); Albumin Level 4.2 g/dL (3.5-5.0); Alkaline Phosphatase 74 U/L (39-117); Anion Gap 16 (12-20); Aspartate Amino Transferase 116 U/L (5-37); Bilirubin Total 0.4 mg/dL (0.0-1.0); Blood Urea Nitrogen 11 mg/dL (9-16); Calcium 8.8 mg/dL (8.4-10.2); Carbon Dioxide 25 mmol/L (22-29); Chloride 104 mmol/L (96-108); Creatinine Clr Calc Pharmacy 100.9; Estimated Glomerular Filt Rate > 60; Glucose Random 93 mg/dL (60-115); Magnesium 2.1 mg/dL (1.6-2.6); Potassium 4.3 mmol/L (3.3-5.1); Sodium 141 mmol/L (135-145)
[2022-08-13 11:07] LABS: Troponin-I High Sensitivity < 3.5 ng/L (<3.5-35.0)
[2022-08-13 11:42] VITALS: BP 110/80; PULSE 72; RESP 16; O2SAT 98
== END 2022-08-13 11:45 | disposition home or self-care (01) ==
PROVIDERS: Physician Assistant Medical; Emergency Provider Emergency Medicine Emergency Medical Services
DX: M79.602 Pain in left arm (principal); R07.9 Chest pain, unspecified
CPT/HCPCS: 36415; 71046; 73070; 80053; 83735; 84484; 85025; 93005; 99283; 99284

== ENCOUNTER 2022-08-15 10:25 | Emergency (ER) | payer MEDICAID, SELFPAY ==
--- NOTE | ~2022-08-15 | XR_ITS ---
EXAMINATION: XR CHEST CLINICAL INFORMATION: Chest pain COMPARISON: Chest 08/13/2022 TECHNIQUE: Frontal view of the chest was obtained. FINDINGS: Hyperinflated lungs with no acute pneumonic process. The heart size and pulmonary vascularity is normal. No gross bony abnormality seen. XR/XR chest 1V IMPRESSION: Hyperinflated lungs without acute process.
[2022-08-15 10:39] VITALS: BP 135/85; BP 136/85; PULSE 78; PULSE 80; RESP 18; TEMP 36.6; O2SAT 97; O2SAT 98; BMI 21.9
--- NOTE | 2022-08-15 10:52 | ECG_ITS ---
Test Reason : left arm/ chest pain Blood Pressure : / mmHG Vent. Rate : 087 BPM Atrial Rate : 087 BPM P-R Int : 138 ms QRS Dur : 088 ms QT Int : 362 ms P-R-T Axes : 041 046 023 degrees QTc Int : 435 ms Normal sinus rhythm RSR' or QR pattern in V1 suggests right ventricular conduction delay Otherwise normal ECG When compared with ECG of 13-AUG-2022 11:04, Heart rate has increased Referred By: Marilee Ortiz Electronically Signed By:TYLER PARISI MD
--- NOTE | 2022-08-15 11:10 | ED_ITS ---
HPI - Extremity Problem General Chief complaint: Extremity Injury, Upper Stated complaint: arm pain Time Seen by Provider: 08/15/22 10:41 Source: patient and EMS Mode of arrival: EMS History of Present Illness HPI Narrative: 51-year-old male with past medical history of ETOH and substance abuse presenting to the ED complaining of acute on chronic left arm pain and chest pain. Reports mild associated SOB. Admits to drinking 3-4 beers today. Denies illicit drug use. Denies neck/back pain, abdominal pain, nausea, vomiting, numbness/tingling, weakness, known injury/trauma or fall. MD Complaint: extremity pain Related Data Previous Rx's Medication Instructions Recorded multivit no.40-iron 18 mg-folate 1 cap PO DAILY #30 caps 05/23/22 comb no.1 1 mg-dha 300 mg capsule thiamine HCl (vitamin B1) 100 mg 100 mg PO DAILY #30 tabs 05/23/22 tablet cephalexin 500 mg capsule 500 mg PO Q6H 10 days #40 caps 06/16/22 doxycycline monohydrate 100 mg 100 mg PO BID 10 days #20 tabs 06/16/22 tablet diazepam 5 mg tablet 5 mg PO TID PRN muscle spasm #10 07/22/22 tabs ibuprofen 600 mg tablet 600 mg PO Q6H PRN pain #30 tabs 07/22/22 Allergies Allergy/AdvReac Type Severity Reaction Status Date / Time No Known Allergies Allergy Verified 06/08/22 17:49 [No Known Allergies*] Review of Systems Review of Systems: Constitutional: No Fever, No Chills, No Fatigue, No Malaise ENT/Mouth: No Hearing loss, No Ear Pain, No Nasal Congestion, No sore throat, No Rhinorrhea, No Swallowing Difficulty Eyes: No Eye Pain, No Swelling, No Redness, No Vision Changes Cardiovascular: + Chest Pain, + SOB, No Edema, No Palpitations Respiratory: No Cough, No Sputum, No Dyspnea Gastrointestinal: No Nausea, No Vomiting, No Diarrhea, No Constipation, No Abdominal pain Genitourinary: No Dysuria, No Urinary Frequency, No Hematuria, No Urinary Incontinence/retention, No Flank Pain Musculoskeletal: + joint pain, No Myalgias, No Joint Swelling Skin: + Skin Lesions, No rash Neuro: No Weakness, No Numbness, No Paresthesias, No Loss of Consciousness, No Dizziness, No Headache Yes all other systems are reviewed and are negative Constitutional: Constitutional: Reports as per [facility] Past Medical History Attestation statement: The following information was validated with the patient. Social History Social History Alcohol intake: current Alcohol intake frequency: 3 or more drinks per day Alcohol type: beer Patient Tobacco Use Status: Never used Tobacco Advance Directives: No Advance Directives Information Provided: Yes Current occupational status: disabled Current occupation: rt handed Physical Exam Vital Signs: Vital Signs: Last Vital Signs Temp 97.8 F 08/15/22 10:39 Pulse 78 08/15/22 10:39 Resp 18 08/15/22 10:39 BP 136/85 08/15/22 10:39 Pulse Ox 98 08/15/22 10:39 O2 Del Method 08/15/22 10:39 BMI result Body Mass Index 21.9 Const: Other: + ETOH odor on breath General: cooperative and no acute distress Orientation/consciousness: patient oriented x3 Limitations: no limitations HEENT: Head: Yes normal to inspection and Yes atraumatic Ears: hearing grossly normal bilaterally General nose exam: Normal external nose present Face and sinus: Yes normal facial exam Eyes: General: appearance normal, both eyes and all related structures EOM: EOMs intact bilaterally Neck: Neck: Yes normal visual inspection and Yes no meningeal signs Resp: Effort & Inspection: normal respiratory effort, no grunting and no respiratory distress Auscultation: clear to auscultation bilaterally, no crackles, no rales, no rhonchi and no wheezes Cardio: Rate: regular rate Heart sounds: S1 normal heart sound present and S2 normal heart sound present Peripheral pulses: Peripheral pulses 2+ throughout GI: Inspection: Yes normal to inspection Palpation (GI): Soft to palpation, nontender, no guarding and not rigid Back/Spine/Pelvis: Other: No midline thoracic/lumbar spinous tenderness/step-off or deformity Skin: Rashes: no rashes Wounds: no wounds Neuro: General: patient oriented x3, tone normal and no meningeal signs Extrem: Other: + healing ecchymosis noted to left upper arm with mild tenderness to palpation. Compartments soft. Neurovascular intact distally. Full range of motion to left upper extremity WNL Course Course Course Narrative: -1226--no leukocytosis. H&H stable. Chronic transaminitis. Troponin negative -patient sleeping, easily arousable XR chest 1V IMPRESSION: Hyperinflated lungs without acute process. > discussed results with animal husbandry teacher. Patient awake and alert, clinically sober, calling a ride to pick him up Results discussed with patient including worrisome signs and symptoms and strict return precautions, and when to return to the emergency department. They verbalized understanding and feel safe for discharge at this time. MDM - Extremity (Nontraumatic) MDM Narrative Medical decision making narrative: 51-year-old male with past medical history of ETOH and substance abuse presenting to the ED complaining of acute on chronic left arm pain and chest pain. On exam vital signs stable, NAD, EtOH odor on breath, healing ecchymosis noted to left upper arm. Patient was evaluated in our ED on 08/13/2022 for similar symptoms had labs and imaging that were unremarkable. Concern for acute on chronic pain vs atypical ACS. Lower suspicion for fracture or compartment syndrome. low evidence of infection/cellulitis. No suspicion for DVT Plan: EKG, labs, CXR, observe & reassess for clinical sobriety Medical Records Attestation: I reviewed the patient's medical records. Lab Data Attestation: I reviewed the patient's lab results. Result diagrams: 08/15/22 11:21 08/15/22 11:21 Labs: Lab Results 08/15/22 08/15/22 08/15/22 Range/Units 11:21 11:21 11:21 WBC 4.9 (4.8-10.8) X10*3/uL RBC 4.30 L (4.60-5.80) X10*6/uL Hgb 14.1 (14.0-18.0) g/dl Hct 41.3 L (42.0-52.0) % MCV 96.0 (80.0-98.0) fL MCH 32.8 (27.0-33.0) pg MCHC 34.1 (31.0-36.0) g/dl RDW 13.2 (11.0-16.0) % Plt Count 210 (160-400) X10*3/uL MPV 8.9 L (9.4-12.4) fL Immature Gran % (Auto) 0.2 (0.0-0.4) % Neut % (Auto) 47.9 (45-73) % Lymph % (Auto) 36.0 (20-40) % [place] % (Auto) 12.6 H (2-11) % Eos % (Auto) 1.9 (0-4) % Baso % (Auto) 1.4 (0-2) % Lymph # (Auto) 1.8 (1.2-4.9) X10*3/uL [place] # (Auto) 0.6 (0.1-1.2) X10*3/uL Eos # (Auto) 0.1 (0.0-0.4) X10*3/uL Baso # (Auto) 0.1 (0.0-0.2) X10*3/uL Abs Immat Gran (auto) 0.01 (0.00-0.03) X10*3/uL Absolute Neuts (auto) 2.3 (2.0-8.3) x10*3/uL Absolute Nucleated RBC 0.000 (0.0-0.012) X10*3/uL Nucleated RBC % (auto) 0.0 (0.0-0.2) /100WBC Sodium 141 (135-145) mmol/L Potassium 4.3 (3.3-5.1) mmol/L Chloride 105 (96-108) mmol/L Carbon Dioxide 25 (22-29) mmol/L Anion Gap 15 (12-20) BUN 10 (9-16) mg/dL Creatinine 0.69 (0.5-1.4) mg/dL Estim Creat Clear Calc 115.0 Estimated GFR > 60 Random Glucose 98 (60-115) mg/dL Calcium 9.0 (8.4-10.2) mg/dL Magnesium 2.1 (1.6-2.6) mg/dL Total Bilirubin 0.5 (0.0-1.0) mg/dL Direct Bilirubin 0.2 (0.0-0.5) mg/dL AST 114 H (5-37) U/L ALT 56 H (0-40) U/L Alkaline Phosphatase 80 (39-117) U/L Troponin I High Sens < 3.5 (<3.5-35.0) ng/L Total Protein 8.5 H (6.5-8.0) g/dL Albumin 4.3 (3.5-5.0) g/dL ECG Data Attestation EKG: I personally reviewed and interpreted this ECG as follows: ECG interpretation date: 08/15/22 ECG interpretation time: 11:08 Interpretation: EKG normal sinus rhythm at a rate of 87. Pr interval 138. QTC 435. No STEMI Discharge Plan Discharge Clinical Impression: Arm pain, Chest pain Patient Disposition: Home, Self-Care Instructions: Chest Pain (DC), Arm Pain (ED) Additional Instructions: Your blood work and chest x-ray were reassuring today in the emergency department. Place of close follow-up with your doctor. If symptoms persist or worsen return to the emergency department Take Tylenol /Motrin as needed for pain. Avoid drinking alcohol this can kill you Chaudhari an?lisis de dylan y radiograf?a de t?rax fueron tranquilizadores hoy en el departamento de emergencias. Lugar de seguimiento cercano con chaudhari m?dico. Si los s?ntomas persisten o empeoran, regrese al servicio de urgencias. [place] Tylenol/Motrin seg?n sea necesario para el dolor. Meri beber alcohol esto te puede matar Prescriptions: No Action thiamine HCl (vitamin B1) 100 mg tablet 100 mg PO DAILY Qty: 30 0RF multivit [id number] 1-dha 18 mg iron- 1 mg-300 mg capsule 1 cap PO DAILY Qty: 30 0RF doxycycline monohydrate 100 mg tablet 100 mg PO BID 10 Days Qty: 20 0RF cephalexin 500 mg capsule 500 mg PO Q6H 10 Days Qty: 40 0RF diazepam 5 mg tablet 5 mg PO TID PRN (Reason: muscle spasm) Qty: 10 0RF ibuprofen 600 mg tablet 600 mg PO Q6H PRN (Reason: pain) Qty: 30 0RF Referrals: Suzy Delgadillo DO [Primary Care Provider] - Print Language: Vietnamese
[2022-08-15 11:25] LABS: MANUAL DIFF FLAG NO
[2022-08-15 11:28] LABS: Basophils Absolute Auto 0.1 X10*3/uL (0.0-0.2); Basophils Percent Auto 1.4 % (0-2); Eosinophils Absolute Auto 0.1 X10*3/uL (0.0-0.4); Eosinophils Percent Auto 1.9 % (0-4); Hematocrit 41.3 % (42.0-52.0); Hemoglobin 14.1 g/dl (14.0-18.0); Imm Gran Abs Auto 0.01 X10*3/uL (0.00-0.03); Imm Gran Pct Auto 0.2 % (0.0-0.4); Lymphocytes Absolute Auto 1.8 X10*3/uL (1.2-4.9); Mean Corpuscular HGB Conc 34.1 g/dl (31.0-36.0); Mean Corpuscular Hemoglobin 32.8 pg (27.0-33.0); Mean Platelet Volume 8.9 fL (9.4-12.4); Monocytes Absolute Auto 0.6 X10*3/uL (0.1-1.2); Monocytes Percent Auto 12.6 % (2-11); Neutrophils Absolute Auto 2.3 x10*3/uL (2.0-8.3); Neutrophils Percent Auto 47.9 % (45-73); Platelet Count 210 X10*3/uL (160-400); Red Cell Distribution Width 13.2 % (11.0-16.0); White Blood Count 4.9 X10*3/uL (4.8-10.8)
[2022-08-15 11:41] LABS: Alanine Aminotransferase 56 U/L (0-40); Albumin Level 4.3 g/dL (3.5-5.0); Alkaline Phosphatase 80 U/L (39-117); Anion Gap 15 (12-20); Aspartate Amino Transferase 114 U/L (5-37); Bilirubin Direct 0.2 mg/dL (0.0-0.5); Bilirubin Total 0.5 mg/dL (0.0-1.0); Blood Urea Nitrogen 10 mg/dL (9-16); Carbon Dioxide 25 mmol/L (22-29); Chloride 105 mmol/L (96-108); Estimated Glomerular Filt Rate > 60; Glucose Random 98 mg/dL (60-115); Magnesium 2.1 mg/dL (1.6-2.6); Potassium 4.3 mmol/L (3.3-5.1); Sodium 141 mmol/L (135-145); Total Protein 8.5 g/dL (6.5-8.0)
[2022-08-15 11:47] LABS: Troponin-I High Sensitivity < 3.5 ng/L (<3.5-35.0)
[2022-08-15 13:49] VITALS: BP 158/86; PULSE 80; RESP 18; TEMP 36.6; O2SAT 99
== END 2022-08-15 14:21 | disposition home or self-care (01) ==
PROVIDERS: Physician Assistant; Emergency Provider Emergency Medicine; PCP Family Medicine
DX: R07.89 Other chest pain (principal); M79.602 Pain in left arm; Z79.899 Other long term (current) drug therapy
CPT/HCPCS: 36415; 71045; 80048; 80076; 83735; 84484; 85025; 93005; 99284

== ENCOUNTER 2022-08-16 15:56 | Outpatient (REF) | payer MEDICAID, SELFPAY ==
--- NOTE | ~2022-08-16 | US_ITS ---
EXAMINATION: US VENOUS WITH DOPPLER UPPER EXTREMITY, LEFT CLINICAL INFORMATION: Pain. COMPARISON: None TECHNIQUE: Ultrasound of the upper extremity is performed using compression sonography and color and pulse Doppler flow with assessment of augmentation of flow. There is also imaging and Doppler assessment of the jugular and subclavian veins. Spectral analysis with color-flow imaging is performed. FINDINGS: The left internal jugular, subclavian, axillary, brachial, basilic and cephalic veins are patent. There is no evidence of DVT. There is a 4 x 0.8 x 0.9 cm slightly complex fluid collection in the upper arm just deep to the skin in the area of patient's pain. Differential would include liquifying hematoma, abscess and muscle tear. Clinical correlation recommended. This could be better evaluated with MRI if clinically indicated. US/US venous duplex UE LT IMPRESSION: No DVT demonstrated in the left upper extremity. Small fluid collection in the left upper arm in the area of pain. Differential would include liquifying hematoma, abscess and muscle tear. Clinical correlation recommended.
== END 2022-08-16 15:57 | disposition home or self-care (01) ==
LOC: HO.US 15:56
PROVIDERS: Absent Provider Family Medicine; PCP Family Medicine; Visit Provider Emergency Medicine
DX: S49.92XA Unspecified injury of left shoulder and upper arm, initial encounter (principal); X58.XXXA Exposure to other specified factors, initial encounter; Y93.9 Activity, unspecified; Y92.9 Unspecified place or not applicable; Y99.9 Unspecified external cause status
CPT/HCPCS: 93971

== ENCOUNTER 2022-08-19 15:47 | Emergency (ER) | payer MEDICAID, SELFPAY ==
[2022-08-19 16:17] VITALS: BP 112/83; BP 150/80; PULSE 85; PULSE 86; RESP 12; TEMP 36.6; O2SAT 95; O2SAT 96; BMI 21.9
[2022-08-19 16:23] VITALS: BP 107/70; PULSE 78; RESP 12; TEMP 36.6; O2SAT 98
--- NOTE | 2022-08-19 16:45 | ED_ITS ---
HPI - General Adult General Chief complaint: General Medical Stated complaint: Chest Pain/Leg Pain Time Seen by Provider: 08/19/22 16:21 Source: patient Limitations: language barrier (Hospital elephant tamer utilized) History of Present Illness HPI narrative: This is a 51-year-old male who is a frequent visitor to the emergency department, has history of alcohol abuse, possible homelessness. The patient complains of pain to his left upper arm. He notes that he had injured the left arm a month ago when he was lifting something and has had pain there since. He has been evaluated for this. He said he has been to clinic and was prescribed a medicine but he never picked it up. The patient also complains of chronic pain to his left thigh area, since he fell 4 years ago. He denies any re-injury to this area. He denies any chest pain, shortness of breath, cough, abdominal pain Related Data Previous Rx's Medication Instructions Recorded multivit no.40-iron 18 mg-folate 1 cap PO DAILY #30 caps 05/23/22 comb no.1 1 mg-dha 300 mg capsule thiamine HCl (vitamin B1) 100 mg 100 mg PO DAILY #30 tabs 05/23/22 tablet cephalexin 500 mg capsule 500 mg PO Q6H 10 days #40 caps 06/16/22 doxycycline monohydrate 100 mg 100 mg PO BID 10 days #20 tabs 06/16/22 tablet diazepam 5 mg tablet 5 mg PO TID PRN muscle spasm #10 07/22/22 tabs ibuprofen 600 mg tablet 600 mg PO Q6H PRN pain #30 tabs 07/22/22 ibuprofen 600 mg tablet 600 mg PO Q6H PRN pain #30 tabs 08/19/22 Allergies Allergy/AdvReac Type Severity Reaction Status Date / Time No Known Allergies Allergy Verified 06/08/22 17:49 [No Known Allergies*] Review of Systems Review of Systems: As per [facility] Social History Social History Alcohol intake: current Alcohol intake frequency: a few times a month Alcohol type: beer Patient Tobacco Use Status: Never used Tobacco Smoked in Last 30 Days: No Use of substances other than those prescribed or required for medical reasons: No Advance Directives: No Advance Directives Information Provided: No Current occupational status: disabled Current occupation: rt handed Physical Exam ED Vital Signs: Vital Signs - 24 hr 08/19/22 16:17 08/19/22 16:23 Temperature 97.8 F 97.9 F Pulse Rate 85 78 Respiratory Rate 12 12 Blood Pressure 112/83 107/70 Pulse Oximetry 95 98 Oxygen Delivery Method Room Air Room Air BMI result Body Mass Index 21.9 Const General: no acute distress Orientation/consciousness: patient oriented x3 HENMT Head: Yes normal to inspection General nose exam: Normal external nose present Mouth: moist mucous membranes Throat: Yes posterior oropharynx normal, Yes tonsils normal and Yes uvula midline Eyes Eyelids: Yes eyelids normal Conjunctivae: conjunctivae normal Pupils: Equal, round and reactive pupils present Neck Neck: Yes supple Resp Effort & Inspection: normal respiratory effort Auscultation: clear to auscultation bilaterally Cardio Rate: regular rate Rhythm: regular rhythm Heart sounds: S1 normal heart sound present, S2 normal heart sound present, no gallops, no murmurs and no rubs GI Inspection: No distended Palpation (GI): Soft to palpation and nontender Auscultation: normal bowel sounds Skin General skin exam: other (Warm and dry) Neuro General: patient oriented x3 and CN's II-XI intact bilaterally Cranial nerves: Yes Equal, round and reactive pupils present Extrem Other: Left upper arm toward the elbow with old-appearing ecchymosis, no focal tenderness, full range of motion. Left arm is neurovascular intact. General: Yes no pedal edema Psych Affect: normal affect Attitude: cooperative Medications Administered Discontinued Medications Generic Name Dose Route Start Last Admin Trade Name Freq PRN Reason Stop Dose Admin Ibuprofen 600 mg 08/19/22 16:44 08/19/22 17:51 Ibuprofen 600 Mg Tablet PO 08/19/22 16:45 600 mg ONCE ONE Administration Medical Decision Making [facility] Narrative Medical decision making narrative: Patient with chronic pain, no acute injury, frequent visitor to the emergency department, is treated with ibuprofen, can take ibuprofen as an outpatient. Medical Records Medical records reviewed: Yes I reviewed the patient's medical records. Discharge Plan Discharge Clinical Impression: Chronic pain due to injury Patient Disposition: Home, Self-Care Instructions: Chronic Pain (ED) Additional Instructions: Use ibuprofen as prescribed for pain. Follow up with your primary care physician. Prescriptions: New ibuprofen 600 mg tablet 600 mg PO Q6H PRN (Reason: pain) Qty: 30 0RF No Action thiamine HCl (vitamin B1) 100 mg tablet 100 mg PO DAILY Qty: 30 0RF multivit 51-[id number]-vwoctl 1-dha 18 mg iron- 1 mg-300 mg capsule 1 cap PO DAILY Qty: 30 0RF doxycycline monohydrate 100 mg tablet 100 mg PO BID 10 Days Qty: 20 0RF cephalexin 500 mg capsule 500 mg PO Q6H 10 Days Qty: 40 0RF diazepam 5 mg tablet 5 mg PO TID PRN (Reason: muscle spasm) Qty: 10 0RF ibuprofen 600 mg tablet 600 mg PO Q6H PRN (Reason: pain) Qty: 30 0RF Interventions: ED Discharge Assessment Last Done: 08/19/22 17:52 Discharge Date/Time: 08/19/22 17:52
[2022-08-19] MEDS: Ibuprofen 600 MG TABLET PO (17:51)
== END 2022-08-19 17:52 | disposition home or self-care (01) ==
PROVIDERS: Emergency Provider Emergency Medicine; PCP Family Medicine
DX: G89.29 Other chronic pain (principal)
CPT/HCPCS: 99283; 99284

== ENCOUNTER 2022-08-19 23:52 | Emergency (ER) | payer MEDICAID, SELFPAY ==
[2022-08-20] VITALS: BP 119/76; BP 130/84; PULSE 61; PULSE 72; RESP 16; TEMP 36.4; O2SAT 96; O2SAT 98; BMI 22.7
--- NOTE | 2022-08-20 00:33 | PC.NURSE ---
Pt being watched by sitter, pt changed into hospital gown, security called for belongings.
--- NOTE | 2022-08-20 00:48 | ED.PSYCH ---
HPI - Psych General Chief Complaint: Psychiatric Symptoms Stated Complaint: ETOH Time Seen by Provider: 08/20/22 00:02 Source: patient Mode of arrival: EMS Limitations: no limitations History of Present Illness HPI Narrative: Patient with history depression alcohol abuse been feeling more depressed lately had few beers earlier felt suicidal with thoughts of stabbing himself in the neck patient does carry a knife but was not in his bag when he arrived Related Data Previous Rx's Medication Instructions Recorded multivit no.40-iron 18 mg-folate 1 cap PO DAILY #30 caps 05/23/22 comb no.1 1 mg-dha 300 mg capsule thiamine HCl (vitamin B1) 100 mg 100 mg PO DAILY #30 tabs 05/23/22 tablet cephalexin 500 mg capsule 500 mg PO Q6H 10 days #40 caps 06/16/22 doxycycline monohydrate 100 mg 100 mg PO BID 10 days #20 tabs 06/16/22 tablet diazepam 5 mg tablet 5 mg PO TID PRN muscle spasm #10 07/22/22 tabs ibuprofen 600 mg tablet 600 mg PO Q6H PRN pain #30 tabs 07/22/22 ibuprofen 600 mg tablet 600 mg PO Q6H PRN pain #30 tabs 08/19/22 Allergies Allergy/AdvReac Type Severity Reaction Status Date / Time No Known Allergies Allergy Verified 06/08/22 17:49 [No Known Allergies*] Review of Systems Review of Systems: Yes all other systems are reviewed and are negative [facility] Social History Social History Alcohol intake: current Alcohol intake frequency: a few times a month Alcohol type: beer Patient Tobacco Use Status: Never used Tobacco Advance Directives: No Advance Directives Information Provided: Yes Current occupational status: disabled Current occupation: rt handed Physical Exam Vital Signs: Vital Signs: Last Vital Signs Temp 97.6 F 08/20/22 00:00 Pulse 72 08/20/22 00:00 Resp 16 08/20/22 00:00 BP 119/76 08/20/22 00:00 Pulse Ox 96 08/20/22 00:00 O2 Del Method 08/20/22 00:00 BMI result Body Mass Index 22.7 Appearance: Alert. Oriented X3. No acute distress. Intoxicated Eyes: PERRLA, No Nystagmus ENT: Pharynx normal. Oral Mucosa moist atraumatic normocephalic Neck: Normal inspection. Neck supple. CVS: Normal heart rate and rhythm. Pulses normal. Respiratory: No respiratory distress. Equal air entry bilateral, no wheezing/rales/rhonchi Abdomen: Soft and nontender. Bowel sounds are present, no mass palpable, no CVA tenderness Skin: Skin warm and dry. Normal skin color. Normal skin turgor. Extremities: No lower extremity edema. No calf tenderness Psych; intoxicated feel depressed still have SI thoughts no HI no hallucinations or delusions Neuro: Oriented X 3. No motor deficit. No sensory deficit.No cerebellar signs , cranial nerves II-XII intact Medications Administered Discontinued Medications Generic Name Dose Route Start Last Admin Trade Name Freq PRN Reason Stop Dose Admin Lorazepam 1 mg 08/20/22 00:47 08/20/22 00:52 Lorazepam 1 Mg Tablet PO 08/20/22 00:48 1 mg ONCE ONE Administration MDM - Psych MDM Narrative Medical decision making narrative: Patient intoxicated feel depressed and suicidal will get crisis evaluation in a.m. Differential Diagnosis Differential diagnosis: Likely suicidal ideation, depression and alcohol intoxication Lab Data Attestation: I reviewed the patient's lab results. Result diagrams: 08/20/22 00:48 08/20/22 00:48 Labs: Lab Results 08/20/22 08/20/22 08/20/22 Range/Units 00:48 00:48 00:48 WBC 5.2 (4.8-10.8) X10*3/uL RBC 4.11 L (4.60-5.80) X10*6/uL Hgb 13.7 L (14.0-18.0) g/dl Hct 39.3 L (42.0-52.0) % MCV 95.6 (80.0-98.0) fL MCH 33.3 H (27.0-33.0) pg MCHC 34.9 (31.0-36.0) g/dl RDW 12.8 (11.0-16.0) % Plt Count 193 (160-400) X10*3/uL MPV 9.0 L (9.4-12.4) fL Immature Gran % (Auto) 0.2 (0.0-0.4) % Neut % (Auto) 38.4 L (45-73) % Lymph % (Auto) 47.5 H (20-40) % [place] % (Auto) 10.3 (2-11) % Eos % (Auto) 2.1 (0-4) % Baso % (Auto) 1.5 (0-2) % Lymph # (Auto) 2.5 (1.2-4.9) X10*3/uL [place] # (Auto) 0.5 (0.1-1.2) X10*3/uL Eos # (Auto) 0.1 (0.0-0.4) X10*3/uL Baso # (Auto) 0.1 (0.0-0.2) X10*3/uL Abs Immat Gran (auto) 0.01 (0.00-0.03) X10*3/uL Absolute Neuts (auto) 2.0 (2.0-8.3) x10*3/uL Absolute Nucleated RBC 0.000 (0.0-0.012) X10*3/uL Nucleated RBC % (auto) 0.0 (0.0-0.2) /100WBC Sodium 138 (135-145) mmol/L Potassium 3.9 (3.3-5.1) mmol/L Chloride 102 (96-108) mmol/L Carbon Dioxide 25 (22-29) mmol/L Anion Gap 15 (12-20) BUN 11 (9-16) mg/dL Creatinine 0.71 (0.5-1.4) mg/dL Estim Creat Clear Calc 115.7 Estimated GFR > 60 Random Glucose 91 (60-115) mg/dL Calcium 8.9 (8.4-10.2) mg/dL Magnesium 2.1 (1.6-2.6) mg/dL Total Bilirubin 0.4 (0.0-1.0) mg/dL AST 103 H (5-37) U/L ALT 49 H (0-40) U/L Alkaline Phosphatase 82 (39-117) U/L Total Protein 7.9 (6.5-8.0) g/dL Albumin 4.1 (3.5-5.0) g/dL Ethyl Alcohol 399 H* mg/dL COVID-19 ([facility]) Negative (Negative) COVID-19 Clin Com See Note Discharge Plan Discharge Clinical Impression: Suicidal ideation, Elevated ETOH level, Depression Prescriptions: No Action thiamine HCl (vitamin B1) 100 mg tablet 100 mg PO DAILY Qty: 30 0RF multivit 35-lkrq-kpjyuz 1-dha 18 mg iron- 1 mg-300 mg capsule 1 cap PO DAILY Qty: 30 0RF doxycycline monohydrate 100 mg tablet 100 mg PO BID 10 Days Qty: 20 0RF cephalexin 500 mg capsule 500 mg PO Q6H 10 Days Qty: 40 0RF diazepam 5 mg tablet 5 mg PO TID PRN (Reason: muscle spasm) Qty: 10 0RF ibuprofen 600 mg tablet 600 mg PO Q6H PRN (Reason: pain) Qty: 30 0RF ibuprofen 600 mg tablet 600 mg PO Q6H PRN (Reason: pain) Qty: 30 0RF Interventions: [place]-Suicide Risk Severity Scale Last Done: 08/20/22 00:24
[2022-08-20] MEDS: LORazepam 1 MG TABLET PO (00:52)
[2022-08-20 00:53] LABS: MANUAL DIFF FLAG NO
[2022-08-20 01:03] LABS: Basophils Absolute Auto 0.1 X10*3/uL (0.0-0.2); Basophils Percent Auto 1.5 % (0-2); Eosinophils Absolute Auto 0.1 X10*3/uL (0.0-0.4); Eosinophils Percent Auto 2.1 % (0-4); Hematocrit 39.3 % (42.0-52.0); Hemoglobin 13.7 g/dl (14.0-18.0); Imm Gran Abs Auto 0.01 X10*3/uL (0.00-0.03); Imm Gran Pct Auto 0.2 % (0.0-0.4); Lymphocytes Absolute Auto 2.5 X10*3/uL (1.2-4.9); Lymphocytes Percent Auto 47.5 % (20-40); Mean Corpuscular HGB Conc 34.9 g/dl (31.0-36.0); Mean Corpuscular Hemoglobin 33.3 pg (27.0-33.0); Mean Corpuscular Volume 95.6 fL (80.0-98.0); Monocytes Absolute Auto 0.5 X10*3/uL (0.1-1.2); Monocytes Percent Auto 10.3 % (2-11); Neutrophils Percent Auto 38.4 % (45-73); Platelet Count 193 X10*3/uL (160-400); Red Blood Count 4.11 X10*6/uL (4.60-5.80); Red Cell Distribution Width 12.8 % (11.0-16.0); White Blood Count 5.2 X10*3/uL (4.8-10.8)
[2022-08-20 01:13] LABS: COVID-19 Test Negative (Negative); IDNOW Serial# 16C4AD1C
[2022-08-20 01:20] LABS: Alanine Aminotransferase 49 U/L (0-40); Albumin Level 4.1 g/dL (3.5-5.0); Alkaline Phosphatase 82 U/L (39-117); Anion Gap 15 (12-20); Aspartate Amino Transferase 103 U/L (5-37); Bilirubin Total 0.4 mg/dL (0.0-1.0); Blood Urea Nitrogen 11 mg/dL (9-16); Calcium 8.9 mg/dL (8.4-10.2); Carbon Dioxide 25 mmol/L (22-29); Chloride 102 mmol/L (96-108); Creatinine Clr Calc Pharmacy 115.7; Estimated Glomerular Filt Rate > 60; Ethanol 399 mg/dL; Glucose Random 91 mg/dL (60-115); Magnesium 2.1 mg/dL (1.6-2.6); Potassium 3.9 mmol/L (3.3-5.1); Sodium 138 mmol/L (135-145); Total Protein 7.9 g/dL (6.5-8.0)
--- NOTE | 2022-08-20 04:04 | PC.NURSE ---
Pt sleeping at this time respirations regular.
--- NOTE | 2022-08-20 06:51 | PC.NURSE ---
Patient just got transferred from main ed in wheel chair, patient is under ETOH influence BAL 399 @ 0048, N referral at 11 am, no distress observed/reported, will continue
[2022-08-20 08:23] VITALS: RESP 16
[2022-08-20 09:48] LABS: Amphetamine Screen Urine Not Detected (Not Detect); Barbiturates, Urine Not Detected (Not Detect); Benzodiazepines Screen Urine POSITIVE (Not Detect); Cannabinoid Screen Urine Not Detected (Not Detect); Cocaine Screen Urine Not Detected (Not Detect); Fentanyl, urine Not Detected (Not Detect); Opiate Screen Urine Not Detected (Not Detect); Phencyclidine Screen Urine Not Detected (Not Detect)
--- NOTE | 2022-08-20 11:31 | MHC.RECOVRN ---
This junior technical writer met w/ pt via neuro psych sales specialist. Pt cleared by [facility] crisis team, pt requesting detox. Pt states drinking daily 12 beers plus 2 nips daily since around age [age] years old. Pt reports no other substances used. Pt states in the past periods of recovery. Pt reports treatment hx includes 2 programs in [facility], pt reports lived at [facility] in [place] for 5 years. Pt request detox placement in [facility], pt states providers and family are in this area. This junior technical writer to start detox referral process.
== END 2022-08-20 15:31 | disposition home or self-care (01) ==
PROVIDERS: Emergency Provider Internal Medicine
DX: F33.1 Major depressive disorder, recurrent, moderate (principal); R45.851 Suicidal ideations; F10.129 Alcohol abuse with intoxication, unspecified; Y90.8 Blood alcohol level of 240 mg/100 ml or more; Z20.822 Contact with and (suspected) exposure to COVID-19; Z79.899 Other long term (current) drug therapy
CPT/HCPCS: 80053; 80307; 82077; 83735; 85025; 87635; 99285

== ENCOUNTER 2022-10-19 21:19 | Emergency (ER) | payer OTHER, MEDICAID, SELFPAY ==
[2022-10-19 21:27] VITALS: BP 115/78; PULSE 73; O2SAT 97
--- NOTE | 2022-10-19 21:33 | ECG_ITS ---
Test Reason : OD Blood Pressure : / mmHG Vent. Rate : 071 BPM Atrial Rate : 071 BPM P-R Int : 168 ms QRS Dur : 096 ms QT Int : 400 ms P-R-T Axes : 038 018 030 degrees QTc Int : 434 ms Normal sinus rhythm RSR' or QR pattern in V1 suggests right ventricular conduction delay Borderline ECG When compared with ECG of 15-AUG-2022 11:08, RSR' pattern in V1 is now Present Referred By: Jing Herring Electronically Signed By:Lam Cisneros
[2022-10-19 21:38] VITALS: BP 109/68; BP 115/78; PULSE 73; PULSE 75; RESP 17; TEMP 36.4; O2SAT 95; O2SAT 97; BMI 25.0
[2022-10-19] MEDS: 0.9 % Sodium Chloride 1,000 ML 999 ML IV ×2 (22:05→23:17)
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
[2022-10-19 22:06] LABS: MANUAL DIFF FLAG NO
[2022-10-19 22:08] LABS: Basophils Percent Auto 0.6 % (0-2); Eosinophils Absolute Auto 0.2 X10*3/uL (0.0-0.4); Eosinophils Percent Auto 3.5 % (0-4); Hematocrit 37.3 % (42.0-52.0); Hemoglobin 13.2 g/dl (14.0-18.0); Imm Gran Abs Auto 0.02 X10*3/uL (0.00-0.03); Imm Gran Pct Auto 0.3 % (0.0-0.4); Lymphocytes Absolute Auto 2.9 X10*3/uL (1.2-4.9); Lymphocytes Percent Auto 46.9 % (20-40); Mean Corpuscular HGB Conc 35.4 g/dl (31.0-36.0); Mean Corpuscular Hemoglobin 32.3 pg (27.0-33.0); Mean Corpuscular Volume 91.2 fL (80.0-98.0); Mean Platelet Volume 8.7 fL (9.4-12.4); Monocytes Absolute Auto 0.3 X10*3/uL (0.1-1.2); Monocytes Percent Auto 5.5 % (2-11); Neutrophils Absolute Auto 2.7 x10*3/uL (2.0-8.3); Neutrophils Percent Auto 43.2 % (45-73); Platelet Count 206 X10*3/uL (160-400); Red Blood Count 4.09 X10*6/uL (4.60-5.80); Red Cell Distribution Width 11.5 % (11.0-16.0); White Blood Count 6.2 X10*3/uL (4.8-10.8)
[2022-10-19 22:14] LABS: INTERNATIONAL NORM RATIO 1.1 (0.9-1.1); Prothrombin Time 12.2 SEC (10.0-13.1)
[2022-10-19 22:18] LABS: Ethanol 277 mg/dL
[2022-10-19 22:19] LABS: VBG Base Excess -2.6 mmol/L; VBG HCO3 20 mmol/L (22-26); VBG pCO2 31 mmHg; VBG pH 7.42 (7.32-7.43); VBG pO2 90 mmHg
[2022-10-19 22:38] LABS: Acetaminophen LAB < 17 mcg/mL (<30); Alanine Aminotransferase 21 U/L (0-40); Albumin Level 3.8 g/dL (3.5-5.0); Alkaline Phosphatase 48 U/L (39-117); Anion Gap 17 (12-20); Aspartate Amino Transferase 38 U/L (5-37); Bilirubin Total 0.4 mg/dL (0.0-1.0); Blood Urea Nitrogen 9 mg/dL (9-16); Calcium 8.6 mg/dL (8.4-10.2); Carbon Dioxide 17 mmol/L (22-29); Chloride 105 mmol/L (96-108); Creatinine Clr Calc Pharmacy 109.8; Estimated Glomerular Filt Rate > 60; Glucose Random 78 mg/dL (60-115); Magnesium 2.2 mg/dL (1.6-2.6); Potassium 4.9 mmol/L (3.3-5.1); Salicylate < 5.0 mg/dL (15-30); Sodium 134 mmol/L (135-145); Total Protein 7.4 g/dL (6.5-8.0); Troponin-I High Sensitivity < 3.5 ng/L (<3.5-35.0)
[2022-10-19 23:04] LABS: Venous Blood Gas Refer to POC result
[2022-10-19 23:14] VITALS: BP 99/62; PULSE 72; RESP 15; TEMP 36.4; O2SAT 97
--- NOTE | 2022-10-19 23:27 | PC.NURSE ---
this rn called poison conrol per dr caruso request. started new case to update on pt status. per poison control continue to monitor and repeat labs 4 hours from original draw. repeat lab orders placed for 0200. dr caruso made aware agreeable to plan
--- NOTE | 2022-10-20 | PC.NURSE ---
late entry- upon arrival security assisted in changing pt over to hospital attire. pt belongings removed at this time and locked in pod. this rn confirmed that belongings had been accounted for. security team confirmed this
--- NOTE | 2022-10-20 00:03 | PC.NURSE ---
pt resting on stretcher at this time. 1:[address]
[2022-10-20 01:25] LABS: Amphetamine Screen Urine Not Detected (Not Detect); Barbiturates, Urine Not Detected (Not Detect); Benzodiazepines Screen Urine Not Detected (Not Detect); Cannabinoid Screen Urine Not Detected (Not Detect); Cocaine Screen Urine Not Detected (Not Detect); Fentanyl, urine Not Detected (Not Detect); Opiate Screen Urine Not Detected (Not Detect); Phencyclidine Screen Urine Not Detected (Not Detect)
[2022-10-20 02:00] VITALS: BP 111/75; PULSE 76; RESP 17; TEMP 36.6; O2SAT 97
--- NOTE | 2022-10-20 02:10 | MHC.EDTECH ---
Pt urinal emptied at 600cc
[2022-10-20 02:19] LABS: VBG Base Excess -3.6 mmol/L; VBG HCO3 22 mmol/L (22-26); VBG pCO2 41 mmHg; VBG pH 7.33 (7.32-7.43); VBG pO2 225 mmHg
[2022-10-20 02:20] LABS: Venous Blood Gas Refer to POC result
[2022-10-20 02:42] LABS: Acetaminophen LAB < 17 mcg/mL (<30); Alanine Aminotransferase 18 U/L (0-40); Albumin Level 3.7 g/dL (3.5-5.0); Alkaline Phosphatase 50 U/L (39-117); Anion Gap 15 (12-20); Aspartate Amino Transferase 28 U/L (5-37); Bilirubin Total 0.4 mg/dL (0.0-1.0); Blood Urea Nitrogen 8 mg/dL (9-16); Calcium 8.8 mg/dL (8.4-10.2); Carbon Dioxide 18 mmol/L (22-29); Chloride 111 mmol/L (96-108); Creatinine Clr Calc Pharmacy 104.3; Estimated Glomerular Filt Rate > 60; Glucose Random 133 mg/dL (60-115); Potassium 4.5 mmol/L (3.3-5.1); Salicylate < 5.0 mg/dL (15-30); Sodium 139 mmol/L (135-145); Total Protein 6.9 g/dL (6.5-8.0)
--- NOTE | 2022-10-20 03:36 | PC.NURSE ---
poison control called to check status of pt. per poison control pt medically cleared by them with no new recommendations. dr mcgregor made aware and agreeable to plan
[2022-10-20 03:46] VITALS: BP 100/68; PULSE 100; RESP 17; O2SAT 97
--- NOTE | 2022-10-20 04:47 | PC.NURSE ---
this rn attempted to transfer pt to pod. pt unable to ambulated independently at this time. pt awake but unsteady gate. hot metal charger made aware. pt to stay in main ed at this time
--- NOTE | 2022-10-20 05:53 | PC.NURSE ---
pt sleeping on L side on stretcher at this time. 1:[address] at this time
[2022-10-20 06:26] VITALS: BP 114/69; PULSE 93; RESP 19; TEMP 36.6; O2SAT 97
[2022-10-20 06:46] LABS: COVID-19 Test Negative (Negative); IDNOW Serial# BCCEAD1C
[2022-10-20 07:21] VITALS: BP 114/69; PULSE 93; RESP 20
--- NOTE | 2022-10-20 07:24 | PC.NURSE ---
Pt asleep, respirations even and unlabored. Patient observer at bedside.
[2022-10-20 07:48] LABS: Appearance Urine Clear; Color Urine Yellow; Glucose Urine UA Negative (Negative); Leukocyte Esterase Urine Negative (Negative); Nitrite Urine Negative (Negative); PH 5.5 (5.0-9.0); Specific Gravity - Urine <= 1.005 (1.005-1.025); Urine Blood Negative (Negative); Urine Ketones Negative (Negative); Urine Protein Negative (Neg-Trace)
[2022-10-20 14:00] VITALS: RESP 18
== END 2022-10-20 15:31 | disposition home or self-care (01) ==
PROVIDERS: Student in an Organized Health Care Education/Training Program; Emergency Provider Internal Medicine
DX: T65.892A Toxic effect of other specified substances, intentional self-harm, initial encounter (principal); E87.20 Acidosis, unspecified; Y92.019 Unspecified place in single-family (private) house as the place of occurrence of the external cause; F10.920 Alcohol use, unspecified with intoxication, uncomplicated; Y90.8 Blood alcohol level of 240 mg/100 ml or more; R45.851 Suicidal ideations; F32.A Depression, unspecified; Z79.899 Other long term (current) drug therapy; Z20.822 Contact with and (suspected) exposure to COVID-19
CPT/HCPCS: 36415; 80053; 80143; 80179; 80307; 81003; 82077; 82803; 83735; 84484; 85025; 85610; 87635; 93005; 96360; 96361; 99285; S9485

== ENCOUNTER 2022-10-26 08:32 | Outpatient (REF) | payer MEDICAID, SELFPAY ==
--- NOTE | ~2022-10-26 | XR_ITS ---
EXAMINATION: XR WRIST, LEFT CLINICAL INFORMATION: Wrist pain. COMPARISON: None TECHNIQUE: PA, lateral, and oblique views of the left wrist. FINDINGS: The bones and soft tissues are normal. No fracture. Alignment is anatomic with normal joint spaces. No erosions or abnormal soft tissue calcifications. XR/XR wrist LT min 3V IMPRESSION: Normal left wrist.
== END 2022-10-26 08:33 | disposition home or self-care (01) ==
LOC: HO.XRAY 08:32
PROVIDERS: PCP Family Medicine; Visit Provider Family Medicine
DX: M25.532 Pain in left wrist (principal)
CPT/HCPCS: 73110

== ENCOUNTER 2023-01-24 13:10 | Emergency (ER) | payer MEDICAID, SELFPAY ==
--- NOTE | ~2023-01-24 | XR_ITS ---
EXAMINATION: XR WRIST, RIGHT XR HAND, RIGHT CLINICAL INFORMATION: Right hand pain and deformity COMPARISON: Ureter, or sequela x-rays of the right hand and wrist June 2022 TECHNIQUE: 4 views of the hand including wrist, and single scaphoid view of the wrist FINDINGS: RIGHT WRIST: There is a ununited distal ulnar fracture Remaining bone and joints in the wrist normal. Arterial calcification noted. RIGHT HAND: There is a needle shaped metallic density measuring 3 mm in length overlying the soft tissues at the level of the distal phalanx of the thumb. Bone and joints unremarkable. XR/XR hand wrist RT IMPRESSION: RIGHT WRIST: Ununited distal ulnar fracture. RIGHT HAND: Needle-like metallic density overlying the soft tissues of the thumb compatible radiopaque foreign body. Calcific atherosclerotic disease No change.
[2023-01-24 13:24] VITALS: BP 110/78; BP 146/78; PULSE 63; PULSE 69; RESP 18; TEMP 37.1; O2SAT 95; O2SAT 98; BMI 31.3
[2023-01-24 14:28] LABS: Ethanol 407 mg/dL
[2023-01-24 14:43] VITALS: BP 112/65; PULSE 67; RESP 16; TEMP 36.8; O2SAT 96
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
[2023-01-24] MEDS: Acetaminophen 325 MG TABLET 975 MG PO (15:43)
== END 2023-01-24 16:33 | disposition home or self-care (01) ==
PROVIDERS: Emergency Provider Emergency Medicine
DX: S60.211A Contusion of right wrist, initial encounter (principal); M25.531 Pain in right wrist; F10.129 Alcohol abuse with intoxication, unspecified; Y90.8 Blood alcohol level of 240 mg/100 ml or more; V19.9XXA Pedal cyclist (driver) (passenger) injured in unspecified traffic accident, initial encounter; Y93.9 Activity, unspecified; Y92.410 Unspecified street and highway as the place of occurrence of the external cause; Y99.9 Unspecified external cause status
CPT/HCPCS: 29125; 36415; 73110; 73130; 80307; 99283; 99284

== ENCOUNTER 2023-02-15 12:53 | Emergency (ER) | payer OTHER, SELFPAY ==
--- NOTE | ~2023-02-15 | XR_ITS ---
EXAMINATION: XR HAND, RIGHT CLINICAL INFORMATION: Pain post injury COMPARISON: Previous hand and wrist x-ray from earlier this month TECHNIQUE: PA, lateral, and oblique views of the right hand. FINDINGS: There is a recent appearing triquetral fracture. There is overlying soft tissue swelling. There is question of a fracture of the distal radius intra-articular with the radiocarpal joint appreciated on the lateral view. This is not definitely appreciated on other views and may not be acute. There is an old ununited fracture of the ulnar styloid versus accessory ossification center. No other fracture is seen. There is a foreign body adjacent to the palmar surface of the distal phalanx of the thumb. Soft tissue arterial calcification. Joint spaces and soft tissues are otherwise normal.. XR/XR hand RT min 3V IMPRESSION: Recent appearing triquetral fracture and adjacent soft tissue swelling. Old ununited ulnar styloid fracture. Question fracture of the distal radius intra-articular with the radiocarpal joint appreciated on the lateral view only. Small foreign body adjacent to the distal phalanx of the thumb.
[2023-02-15 12:59] VITALS: BP 120/70; PULSE 83; O2SAT 95
--- NOTE | 2023-02-15 13:48 | ED_ITS ---
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 and then hand hurt and then he lifted something and felt a sharp pain and is concerned about injury to his right hand or wrist Related Data Previous Rx's Medication Instructions Recorded ibuprofen 600 mg tablet 600 mg PO Q6H PRN pain #20 tabs 02/15/23 oxycodone 5 mg tablet 5 mg PO Q6H PRN pain #10 tabs 02/15/23 oxycodone 5 mg tablet 5 mg PO Q6H PRN pain #12 tabs 02/16/23 oxycodone-acetaminophen 5 mg-325 1 tab PO Q6H PRN pain #10 tabs 02/17/23 mg tablet (Percocet) Allergies Allergy/AdvReac Type Severity Reaction Status Date / Time No Known Allergies Allergy Verified 06/08/22 17:49 [No Known Allergies*] [facility] Past Medical History Source: nursing notes reviewed Social History Social History Alcohol intake: current Alcohol intake frequency: 3 or more drinks per day Alcohol type: beer Patient Tobacco Use Status: Never used Tobacco Advance Directives: No Advance Directives Information Provided: No Current occupational status: disabled Current occupation: rt handed Physical Exam Vital Signs: Vital Signs: Last Vital Signs Temp 98.0 F 02/15/23 17:15 Pulse 68 02/15/23 17:15 Resp 16 02/15/23 17:15 BP 111/70 02/15/23 17:15 Pulse Ox 98 02/15/23 17:15 O2 Del Method Room Air 02/15/23 17:15 BMI result Body Mass Index 20.4 General appearance no distress Head is normocephalic atraumatic Neck is supple Respiratory no distress The extremities right hand and wrist exam there is tenderness over the dorsal aspect of the wrist and the radial proximal aspect of the hand there is minor swelling the skin is intact it is neurovascular intact distal, range of motion is limited by discomfort Neuro no focal motor sensory deficits Course Course Course Narrative: RME - 52-year-old Welsh-speaking male presents to the ER for evaluation of right hand pain after 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 Patient reports repeated movements of planting plants yesterday causing pain. Pain is in the dorsal aspect of the 2nd and 3rd metatarsal. Pain is worse with movement of the digits. Denies any blunt trauma. Plan: X-ray of the hand X-ray showed a recent appearing triquetral fracture with soft tissue swelling, there is a questionable fracture of the distal radius intra-articular with the radiocarpal joint Patient is given a volar splint and advised to follow with orthopedics and also given the number of [facility] as this is a work related injury Discharge Plan Discharge Clinical Impression: Fracture of wrist Patient Disposition: Home, Self-Care Additional Instructions: follow closely with [facility] for work related injury also follow with orthopedics Return any time any worse condition or any concerns Prescriptions: New ibuprofen 600 mg tablet 600 mg PO Q6H PRN (Reason: pain) Qty: 20 0RF oxycodone 5 mg tablet 5 mg PO Q6H PRN (Reason: pain) Qty: 10 0RF Rx Instructions: Partial Fill upon patient request. oxycodone 5 mg tablet 5 mg PO Q6H PRN (Reason: pain) Qty: 12 0RF Rx Instructions: Partial Fill upon patient request. oxycodone-acetaminophen [Percocet] 5-325 mg tablet 1 tab PO Q6H PRN (Reason: pain) Qty: 10 0RF Rx Instructions: Partial Fill upon patient request. Referrals: [facility] [Provider Group] ( triquetral fracture / possible distal radius fracture /work related) Luis Manuel Francisco MD [Physician] - ( triquetral fracture /possible distal radius fracture) Stand Alone Forms: Work/School Release Interventions: ED Discharge Assessment Last Done: 02/15/23 19:01 Discharge Date/Time: 02/15/23 19:02
[2023-02-15 13:49] VITALS: BP 167/94; PULSE 80; RESP 16; TEMP 36.6; O2SAT 98; BMI 20.4
[2023-02-15 17:15] VITALS: BP 111/70; PULSE 68; RESP 16; TEMP 36.7; O2SAT 98
--- NOTE | 2023-02-15 18:31 | MHC.EDTECH ---
volar splint apply to patient right hand and wrist ,pt tollerated well .
== END 2023-02-15 19:02 | disposition home or self-care (01) ==
PROVIDERS: Emergency Provider Student in an Organized Health Care Education/Training Program; PCP Family Medicine
DX: S62.101A Fracture of unspecified carpal bone, right wrist, initial encounter for closed fracture (principal); X50.3XXA Overexertion from repetitive movements, initial encounter; Y93.H2 Activity, gardening and landscaping; Y92.73 Farm field as the place of occurrence of the external cause; Y99.0 Civilian activity done for income or pay
CPT/HCPCS: 29125; 73130; 99283; 99284

== ENCOUNTER 2023-03-13 15:55 | Emergency (ER) | payer MEDICAID, SELFPAY | END 2023-03-13 17:56 | disposition left against medical advice (07) | PROVIDERS: Emergency Provider Emergency Medicine | DX: R05.9 Cough, unspecified (principal) ==

== ENCOUNTER 2023-03-19 10:53 | Emergency (ER) | payer MEDICAID, SELFPAY ==
[2023-03-19 11:00] VITALS: BP 118/78; PULSE 80; RESP 19; TEMP 36.6; O2SAT 98; BMI 21.9
[2023-03-19 11:25] VITALS: PULSE 66
--- NOTE | 2023-03-19 11:31 | PC.NURSE ---
pt reporting 10/10 right chest pain radiating down right arm and to hand. pt reports no n/v at this time. per pt father recently and has been drinking daily. cardiac cath lab radiology technologist applied, vss.
[2023-03-19 11:44] VITALS: BP 119/67; PULSE 71; RESP 19; O2SAT 95
--- NOTE | 2023-03-19 12:09 | ED.CHESTPAIN ---
HPI - Chest Pain General Chief Complaint: Chest Pain Stated Complaint: chest pain Time Seen by Provider: 03/19/23 12:09 Source: patient, RN notes reviewed and old records reviewed Mode of arrival: ambulatory History of Present Illness HPI narrative: 52-year-old male with a past medical history of depression, ETOH use disorder, presenting to the ED complaining of substernal chest pain since this morning. Also reports daily ETOH use, about 6 cans, last drink around 09:00AM. Patient admits his father recently passed 2 days ago. Denies fever, cough, SOB, abdominal pain, nausea/vomiting, pedal edema. Patient is interested in help. Denies other illicit substances. Denies SI/HI MD complaint: chest pain Related Data Previous Rx's Medication Instructions Recorded ibuprofen 600 mg tablet 600 mg PO Q6H PRN pain #20 tabs 02/15/23 oxycodone 5 mg tablet 5 mg PO Q6H PRN pain #10 tabs 02/15/23 oxycodone 5 mg tablet 5 mg PO Q6H PRN pain #12 tabs 02/16/23 oxycodone-acetaminophen 5 mg-325 1 tab PO Q6H PRN pain #10 tabs 02/17/23 mg tablet (Percocet) Allergies Allergy/AdvReac Type Severity Reaction Status Date / Time No Known Allergies Allergy Verified 03/19/23 11:00 [No Known Allergies*] Review of Systems Review of Systems: Constitutional: No Fever, No Chills, No Fatigue, No Malaise ENT/Mouth: No Ear Pain, No Nasal Congestion, No sore throat, No Rhinorrhea, No Swallowing Difficulty Eyes: No Eye Pain, No Swelling, No Redness, No Foreign Body, No Discharge, No Vision Changes Cardiovascular: + Chest Pain, No SOB, No Edema, No Palpitations Respiratory: No Cough, No Sputum, No Dyspnea Gastrointestinal: No Nausea, No Vomiting, No Diarrhea, No Constipation, No Abdominal pain Genitourinary: No Dysuria, No Urinary Frequency, No Urgency, No Flank Pain Musculoskeletal: No joint pain, No Myalgias, No Joint Swelling Skin: No Skin Lesions, No rash Neuro: No Weakness, No Numbness, No Dizziness, No Headache Psych: No Anxiety/Panic, No Depression, No SI/HI/AH/VH, + Social Issues Yes all other systems are reviewed and are negative Constitutional: Constitutional: Reports as per [facility] Past Medical History Attestation statement: The following information was validated with the patient. Source: old records reviewed Social History Social History Alcohol intake: current Alcohol intake frequency: 3 or more drinks per day Alcohol type: beer and hard liquor Patient Tobacco Use Status: Never used Tobacco Smoked in Last 30 Days: No Use of substances other than those prescribed or required for medical reasons: No Advance Directives: No Current occupational status: disabled Current occupation: rt handed Physical Exam Vital Signs: Vital Signs: Last Vital Signs Temp 97.3 F 03/19/23 16:00 Pulse 64 03/19/23 16:00 Resp 16 03/19/23 16:00 BP 124/77 03/19/23 16:00 Pulse Ox 98 03/19/23 16:00 O2 Del Method Room Air 03/19/23 16:00 BMI result Body Mass Index 21.9 Const: Other: + ETOH odor on breath General: cooperative, healthy appearing and no acute distress Orientation/consciousness: patient oriented x3 Limitations: no limitations HEENT: Head: Yes normal to inspection and Yes atraumatic Ears: hearing grossly normal bilaterally General nose exam: Normal external nose present Face and sinus: Yes normal facial exam Eyes: General: appearance normal, both eyes and all related structures Pupils: Equal, round and reactive pupils present EOM: EOMs intact bilaterally Neck: Neck: Yes normal visual inspection and Yes no meningeal signs Resp: Effort & Inspection: normal respiratory effort and no respiratory distress Auscultation: clear to auscultation bilaterally Cardio: Rate: regular rate Heart sounds: S1 normal heart sound present and S2 normal heart sound present GI: Inspection: Yes normal to inspection Palpation (GI): Soft to palpation, nontender, no guarding and not rigid Skin: Rashes: no rashes Wounds: no wounds Neuro: General: patient oriented x3, tone normal, moves all extremities, no meningeal signs and CN's II-XI intact bilaterally Cranial nerves: Yes Equal, round and reactive pupils present Gait exam (Neuro): Normal gait present Extrem: General: Yes normal to inspection and Yes no pedal edema Psych: Thought content: suicidality and no homicidality Course Course Course Narrative: -1334--acute on chronic leukopenia. H/H stable. Mild pancytopenia likely from chronic ETOH abuse. -AST/ALT acute on chronically elevated likely from chronic EtOH. Troponin negative. Ethanol [id number]-- XR chest 2V IMPRESSION: No acute disease. -1630--repeat troponin equivocal. Recovery team evaluated patient, not interested in detox, was supplied with resources. Patient is clinically sober, has sober ride to pick him up from the emergency department Results discussed with patient including worrisome signs and symptoms and strict return precautions, and when to return to the emergency department. They verbalized understanding and feel safe for discharge at this time. Medical Decision Making Medical Decision Making MDM Narrative: 52-year-old male with a past medical history of depression, ETOH use disorder, presenting to the ED complaining of substernal chest pain since this morning. Also reports daily ETOH use. On exam vital signs stable, NAD, nontoxic appearing, ETOH odor on breath, lungs CTA, abdomen soft/nontender. Concern for ACS vs ETOH intoxication vs depression/anxiety. Lower suspicion for pneumonia, PE, CHF Plan: EKG, labs, ethanol, MONTE, SUDE Please refer to course for remaining clinical decision making, interpretation of labs/imaging results, and discussions with consultants and/or family members. Differential Diagnosis Differential Diagnoses: The differential diagnosis associated with the presentation includes As above Admission/Observation Consideration of admission/observation: Escalation of care including admission/observation considered Consult Healthcare Provider Management of the patient was discussed with: Behavioral Health Provider Lab Data [facility] Lab Attestation statement: I reviewed the patient's lab results. 03/19/23 11:52 03/19/23 11:52 Labs: Lab Results 03/19/23 03/19/23 03/19/23 Range/Units 11:52 11:52 11:52 WBC 3.5 L (4.8-10.8) X10*3/uL RBC 3.65 L (4.60-5.80) X10*6/uL Hgb 12.1 L (14.0-18.0) g/dl Hct 35.0 L (42.0-52.0) % MCV 95.9 (80.0-98.0) fL MCH 33.2 H (27.0-33.0) pg MCHC 34.6 (31.0-36.0) g/dl RDW 14.3 (11.0-16.0) % Plt Count 144 L D (160-400) X10*3/uL MPV 9.4 (9.4-12.4) fL Immature Gran % (Auto) 0.3 (0.0-0.4) % Neut % (Auto) 45.6 (45-73) % Lymph % (Auto) 36.2 (20-40) % [place] % (Auto) 14.5 H (2-11) % Eos % (Auto) 2.0 (0-4) % Baso % (Auto) 1.4 (0-2) % Lymph # (Auto) 1.3 (1.2-4.9) X10*3/uL [place] # (Auto) 0.5 (0.1-1.2) X10*3/uL Eos # (Auto) 0.1 (0.0-0.4) X10*3/uL Baso # (Auto) 0.1 (0.0-0.2) X10*3/uL Abs Immat Gran (auto) 0.01 (0.00-0.03) X10*3/uL Absolute Neuts (auto) 1.6 L (2.0-8.3) x10*3/uL Absolute Nucleated RBC 0.000 (0.0-0.012) X10*3/uL Nucleated RBC % (auto) 0.0 (0.0-0.2) /100WBC Sodium 139 (135-145) mmol/L Potassium 3.3 D (3.3-5.1) mmol/L Chloride 108 (96-108) mmol/L Carbon Dioxide 20 L (22-29) mmol/L Anion Gap 14 (12-20) BUN 10 (9-16) mg/dL Creatinine 0.78 (0.5-1.4) mg/dL Estim Creat Clear Calc 100.6 Estimated GFR > 60 Random Glucose 125 H (60-115) mg/dL Calcium 8.6 (8.4-10.2) mg/dL Magnesium 1.9 (1.6-2.6) mg/dL Total Bilirubin 0.5 (0.0-1.0) mg/dL AST 153 H (5-37) U/L ALT 66 H (0-40) U/L Alkaline Phosphatase 60 (39-117) U/L Troponin I High Sens < 2.7 (<3.5-35.0) ng/L B-Natriuretic Peptide (<100) pg/mL Total Protein 7.3 (6.5-8.0) g/dL Albumin 3.8 (3.5-5.0) g/dL Urine Opiates Screen (Not Detect) Urine Fentanyl Screen (Not Detect) Ur Barbiturates Screen (Not Detect) Ur Phencyclidine Scrn (Not Detect) Ur Amphetamines Screen (Not Detect) U Benzodiazepines Scrn (Not Detect) Urine Cocaine Screen (Not Detect) U Marijuana (THC) Screen (Not Detect) Ethyl Alcohol 403 H* mg/dL COVID-19 ([facility]) (Negative) COVID-19 Clin Com 03/19/23 03/19/23 03/19/23 Range/Units 11:52 11:52 12:46 WBC (4.8-10.8) X10*3/uL RBC (4.60-5.80) X10*6/uL Hgb (14.0-18.0) g/dl Hct (42.0-52.0) % MCV (80.0-98.0) fL MCH (27.0-33.0) pg MCHC (31.0-36.0) g/dl RDW (11.0-16.0) % Plt Count (160-400) X10*3/uL MPV (9.4-12.4) fL Immature Gran % (Auto) (0.0-0.4) % Neut % (Auto) (45-73) % Lymph % (Auto) (20-40) % [place] % (Auto) (2-11) % Eos % (Auto) (0-4) % Baso % (Auto) (0-2) % Lymph # (Auto) (1.2-4.9) X10*3/uL [place] # (Auto) (0.1-1.2) X10*3/uL Eos # (Auto) (0.0-0.4) X10*3/uL Baso # (Auto) (0.0-0.2) X10*3/uL Abs Immat Gran (auto) (0.00-0.03) X10*3/uL Absolute Neuts (auto) (2.0-8.3) x10*3/uL Absolute Nucleated RBC (0.0-0.012) X10*3/uL Nucleated RBC % (auto) (0.0-0.2) /100WBC Sodium (135-145) mmol/L Potassium (3.3-5.1) mmol/L Chloride (96-108) mmol/L Carbon Dioxide (22-29) mmol/L Anion Gap (12-20) BUN (9-16) mg/dL Creatinine (0.5-1.4) mg/dL Estim Creat Clear Calc Estimated GFR Random Glucose (60-115) mg/dL Calcium (8.4-10.2) mg/dL Magnesium (1.6-2.6) mg/dL Total Bilirubin (0.0-1.0) mg/dL AST (5-37) U/L ALT (0-40) U/L Alkaline Phosphatase (39-117) U/L Troponin I High Sens (<3.5-35.0) ng/L B-Natriuretic Peptide < 10 (<100) pg/mL Total Protein (6.5-8.0) g/dL Albumin (3.5-5.0) g/dL Urine Opiates Screen Not Detected (Not Detect) Urine Fentanyl Screen Not Detected (Not Detect) Ur Barbiturates Screen Not Detected (Not Detect) Ur Phencyclidine Scrn Not Detected (Not Detect) Ur Amphetamines Screen Not Detected (Not Detect) U Benzodiazepines Scrn Not Detected (Not Detect) Urine Cocaine Screen Not Detected (Not Detect) U Marijuana (THC) Screen Not Detected (Not Detect) Ethyl Alcohol mg/dL COVID-19 ([facility]) Negative (Negative) COVID-19 Clin Com See Note 03/19/23 Range/Units 15:50 WBC (4.8-10.8) X10*3/uL RBC (4.60-5.80) X10*6/uL Hgb (14.0-18.0) g/dl Hct (42.0-52.0) % MCV (80.0-98.0) fL MCH (27.0-33.0) pg MCHC (31.0-36.0) g/dl RDW (11.0-16.0) % Plt Count (160-400) X10*3/uL MPV (9.4-12.4) fL Immature Gran % (Auto) (0.0-0.4) % Neut % (Auto) (45-73) % Lymph % (Auto) (20-40) % [place] % (Auto) (2-11) % Eos % (Auto) (0-4) % Baso % (Auto) (0-2) % Lymph # (Auto) (1.2-4.9) X10*3/uL [place] # (Auto) (0.1-1.2) X10*3/uL Eos # (Auto) (0.0-0.4) X10*3/uL Baso # (Auto) (0.0-0.2) X10*3/uL Abs Immat Gran (auto) (0.00-0.03) X10*3/uL Absolute Neuts (auto) (2.0-8.3) x10*3/uL Absolute Nucleated RBC (0.0-0.012) X10*3/uL Nucleated RBC % (auto) (0.0-0.2) /100WBC Sodium (135-145) mmol/L Potassium (3.3-5.1) mmol/L Chloride (96-108) mmol/L Carbon Dioxide (22-29) mmol/L Anion Gap (12-20) BUN (9-16) mg/dL Creatinine (0.5-1.4) mg/dL Estim Creat Clear Calc Estimated GFR Random Glucose (60-115) mg/dL Calcium (8.4-10.2) mg/dL Magnesium (1.6-2.6) mg/dL Total Bilirubin (0.0-1.0) mg/dL AST (5-37) U/L ALT (0-40) U/L Alkaline Phosphatase (39-117) U/L Troponin I High Sens < 2.7 (<3.5-35.0) ng/L B-Natriuretic Peptide (<100) pg/mL Total Protein (6.5-8.0) g/dL Albumin (3.5-5.0) g/dL Urine Opiates Screen (Not Detect) Urine Fentanyl Screen (Not Detect) Ur Barbiturates Screen (Not Detect) Ur Phencyclidine Scrn (Not Detect) Ur Amphetamines Screen (Not Detect) U Benzodiazepines Scrn (Not Detect) Urine Cocaine Screen (Not Detect) U Marijuana (THC) Screen (Not Detect) Ethyl Alcohol mg/dL COVID-19 ([facility]) (Negative) COVID-19 Clin Com Independent Interpretation I performed an independent interpretation of an: EKG (EKG normal sinus rhythm at a rate of 80. CA interval 156. QRS 96. No significant change when compared to prior. No STEMI ) and Plain X-Ray Interpretation: CXR: no infiltrates, agree with radiologists read Radiology Impression Discussion of test interpretation with radiology: I have reviewed the radiologist's reading. Radiologist Impression: XR chest 2V IMPRESSION: No acute disease. External Record Review External record reviewed: Inpatient record, Office record, Outpatient record, Prior outpatient labs, Prior outpatient radiology, Primary care record and Outside ED record Tests considered The following testing was considered but not selected: As above Social Determinants Patient?s care significantly limited by Social Determinants of Health including: Alcoholism and drug addiction in family and Problems related to primary support group Discharge Plan Discharge Clinical Impression: Chest pain, Alcohol intoxication Patient Disposition: Still a Patient Instructions: Chest Pain (DC), Abuse of Alcohol (DC) Additional Instructions: Your blood work was reassuring. Recovery team evaluated you & gave you resources Avoid alcohol and drug use this can kill you Prescriptions: No Action ibuprofen 600 mg tablet 600 mg PO Q6H PRN (Reason: pain) Qty: 20 0RF oxycodone 5 mg tablet 5 mg PO Q6H PRN (Reason: pain) Qty: 10 0RF Rx Instructions: Partial Fill upon patient request. oxycodone 5 mg tablet 5 mg PO Q6H PRN (Reason: pain) Qty: 12 0RF Rx Instructions: Partial Fill upon patient request. oxycodone-acetaminophen [Percocet] 5-325 mg tablet 1 tab PO Q6H PRN (Reason: pain) Qty: 10 0RF Rx Instructions: Partial Fill upon patient request. Referrals: [facility] [Provider Group] [facility] [Outside] Print Language: [place]
--- NOTE | 2023-03-19 15:46 | MHC.RECOVRN ---
This database report writer met with patient after consult placed via the Care Team, historic interpreter at bedside for assistance. Pt reports drinking 6 pack daily ETOH. Pt states in the past long time ago was at recovery home . Pt currently declines detox, [facility]. This database report writer reviewed recovery supports, [facility], recovery rn, harm reduction. Pt verbalized understanding. Resources left at bedside.
[2023-03-19 16:00] VITALS: BP 124/77; PULSE 64; RESP 16; TEMP 36.3; O2SAT 98
--- NOTE | 2023-03-19 16:48 | PC.NURSE ---
pt cleared for discharge, discharge instructions reviewed with pt via staff (biomedical electronics technician).
== END 2023-03-19 16:49 | disposition still patient (30) ==
PROVIDERS: Emergency Provider Emergency Medicine Emergency Medical Services
DX: R07.9 Chest pain, unspecified (principal); F10.120 Alcohol abuse with intoxication, uncomplicated; Y90.8 Blood alcohol level of 240 mg/100 ml or more; F32.A Depression, unspecified; D72.819 Decreased white blood cell count, unspecified; D61.818 Other pancytopenia; Z72.89 Other problems related to lifestyle; Z63.4 Disappearance and death of family member; Z20.822 Contact with and (suspected) exposure to COVID-19
CPT/HCPCS: 36415; 71046; 80053; 80307; 83735; 83880; 84484; 85025; 87635; 93005; 99284

== ENCOUNTER 2023-04-04 19:16 | Emergency (ER) | payer MEDICAID, SELFPAY ==
[2023-04-04 19:40] VITALS: BP 102/66; BP 128/78; PULSE 79; PULSE 81; RESP 18; O2SAT 94; O2SAT 96; BMI 24.6
--- NOTE | 2023-04-04 19:44 | ED_ITS ---
HPI - General Adult General Chief complaint: Extremity Injury, Upper Stated complaint: etoh, abd pain, per ems Related Data Previous Rx's Medication Instructions Recorded ibuprofen 600 mg tablet 600 mg PO Q6H PRN pain #20 tabs 02/15/23 oxycodone 5 mg tablet 5 mg PO Q6H PRN pain #10 tabs 02/15/23 oxycodone 5 mg tablet 5 mg PO Q6H PRN pain #12 tabs 02/16/23 oxycodone-acetaminophen 5 mg-325 1 tab PO Q6H PRN pain #10 tabs 02/17/23 mg tablet (Percocet) Allergies Allergy/AdvReac Type Severity Reaction Status Date / Time No Known Allergies Allergy Verified 04/04/23 19:47 [No Known Allergies*] [facility] Social History Social History Alcohol intake: current Alcohol intake frequency: 3 or more drinks per day Alcohol type: beer and hard liquor Patient Tobacco Use Status: Never used Tobacco Advance Directives: No Advance Directives Information Provided: No Current occupational status: disabled Current occupation: rt handed Physical Exam ED Vital Signs: BMI result Body Mass Index 24.6 Course Course Course Narrative: This is an RME: Additional HPI, ROS, PE not included below will be deferred to primary provider. This is a [id number]-male, hx of etoh abuse and depression, presenting to the emergency department via EMS with complaints of left shoulder and arm pain x 1 year. No chest pain or shortness of breath. admits daily etoh use, last drank at noon. No falls, headaches, changes in vision. Appears to be intoxicated, answering appropriately. No head trauma, or loss of consciousness. Plan: basic labs, UA, drug screen, ethanol level Reevaluation(s) Reevaluation #1: Patient eloped prior to be being fully evaluated by primary provider. Medical Decision Making Lab Data 04/04/23 22:19 04/04/23 22:19 Labs: Lab Results 04/04/23 04/04/23 Range/Units 22:19 22:19 WBC 3.6 L (4.8-10.8) X10*3/uL RBC 3.86 L (4.60-5.80) X10*6/uL Hgb 12.6 L (14.0-18.0) g/dl Hct 36.7 L (42.0-52.0) % MCV 95.1 (80.0-98.0) fL MCH 32.6 (27.0-33.0) pg MCHC 34.3 (31.0-36.0) g/dl RDW 14.6 (11.0-16.0) % Plt Count 153 L (160-400) X10*3/uL MPV 9.0 L (9.4-12.4) fL Immature Gran % (Auto) 0.6 H (0.0-0.4) % Neut % (Auto) 28.8 L (45-73) % Lymph % (Auto) 52.6 H (20-40) % [place] % (Auto) 13.6 H (2-11) % Eos % (Auto) 3.3 (0-4) % Baso % (Auto) 1.1 (0-2) % Lymph # (Auto) 1.9 (1.2-4.9) X10*3/uL [place] # (Auto) 0.5 (0.1-1.2) X10*3/uL Eos # (Auto) 0.1 (0.0-0.4) X10*3/uL Baso # (Auto) 0.0 (0.0-0.2) X10*3/uL Abs Immat Gran (auto) 0.02 (0.00-0.03) X10*3/uL Absolute Neuts (auto) 1.0 L (2.0-8.3) x10*3/uL Absolute Nucleated RBC 0.000 (0.0-0.012) X10*3/uL Nucleated RBC % (auto) 0.0 (0.0-0.2) /100WBC Sodium 140 (135-145) mmol/L Potassium 4.1 D (3.3-5.1) mmol/L Chloride 108 (96-108) mmol/L Carbon Dioxide 21 L (22-29) mmol/L Anion Gap 15 (12-20) BUN 7 L (9-16) mg/dL Creatinine 0.72 (0.5-1.4) mg/dL Estim Creat Clear Calc 113.4 Estimated GFR > 60 Random Glucose 84 (60-115) mg/dL Calcium 8.4 (8.4-10.2) mg/dL Total Bilirubin 0.3 (0.0-1.0) mg/dL Direct Bilirubin 0.2 (0.0-0.5) mg/dL AST 109 H (5-37) U/L ALT 55 H (0-40) U/L Alkaline Phosphatase 62 (39-117) U/L Total Protein 7.8 (6.5-8.0) g/dL Albumin 3.9 (3.5-5.0) g/dL Ethyl Alcohol 359 H* mg/dL Discharge Plan Discharge Clinical Impression: Alcohol dependence Patient Disposition: Elopement Prescriptions: No Action ibuprofen 600 mg tablet 600 mg PO Q6H PRN (Reason: pain) Qty: 20 0RF oxycodone 5 mg tablet 5 mg PO Q6H PRN (Reason: pain) Qty: 10 0RF Rx Instructions: Partial Fill upon patient request. oxycodone 5 mg tablet 5 mg PO Q6H PRN (Reason: pain) Qty: 12 0RF Rx Instructions: Partial Fill upon patient request. oxycodone-acetaminophen [Percocet] 5-325 mg tablet 1 tab PO Q6H PRN (Reason: pain) Qty: 10 0RF Rx Instructions: Partial Fill upon patient request. Interventions: ED Discharge Assessment Last Done: 04/05/23 03:08 Discharge Date/Time: 04/05/23 03:08
--- NOTE | 2023-04-04 22:20 | MHC.EDTECH ---
patient blood drawn and sent to lab ,patient unable to give urine sample at this time .
[2023-04-04 22:27] LABS: Basophils Percent Auto 1.1 % (0-2); Eosinophils Absolute Auto 0.1 X10*3/uL (0.0-0.4); Eosinophils Percent Auto 3.3 % (0-4); Hematocrit 36.7 % (42.0-52.0); Hemoglobin 12.6 g/dl (14.0-18.0); Imm Gran Abs Auto 0.02 X10*3/uL (0.00-0.03); Imm Gran Pct Auto 0.6 % (0.0-0.4); Lymphocytes Absolute Auto 1.9 X10*3/uL (1.2-4.9); Lymphocytes Percent Auto 52.6 % (20-40); MANUAL DIFF FLAG NO; Mean Corpuscular HGB Conc 34.3 g/dl (31.0-36.0); Mean Corpuscular Hemoglobin 32.6 pg (27.0-33.0); Mean Corpuscular Volume 95.1 fL (80.0-98.0); Monocytes Absolute Auto 0.5 X10*3/uL (0.1-1.2); Monocytes Percent Auto 13.6 % (2-11); Neutrophils Percent Auto 28.8 % (45-73); Platelet Count 153 X10*3/uL (160-400); Red Blood Count 3.86 X10*6/uL (4.60-5.80); Red Cell Distribution Width 14.6 % (11.0-16.0); White Blood Count 3.6 X10*3/uL (4.8-10.8)
[2023-04-04 22:45] LABS: Alanine Aminotransferase 55 U/L (0-40); Albumin Level 3.9 g/dL (3.5-5.0); Alkaline Phosphatase 62 U/L (39-117); Anion Gap 15 (12-20); Aspartate Amino Transferase 109 U/L (5-37); Bilirubin Direct 0.2 mg/dL (0.0-0.5); Bilirubin Total 0.3 mg/dL (0.0-1.0); Blood Urea Nitrogen 7 mg/dL (9-16); Calcium 8.4 mg/dL (8.4-10.2); Carbon Dioxide 21 mmol/L (22-29); Chloride 108 mmol/L (96-108); Creatinine Clr Calc Pharmacy 113.4; Estimated Glomerular Filt Rate > 60; Ethanol 359 mg/dL; Glucose Random 84 mg/dL (60-115); Potassium 4.1 mmol/L (3.3-5.1); Sodium 140 mmol/L (135-145); Total Protein 7.8 g/dL (6.5-8.0)
== END 2023-04-05 03:08 | disposition left against medical advice (07) ==
PROVIDERS: Physician Assistant Medical; Emergency Provider Emergency Medicine
DX: F10.229 Alcohol dependence with intoxication, unspecified (principal); Y90.8 Blood alcohol level of 240 mg/100 ml or more; Z79.899 Other long term (current) drug therapy
CPT/HCPCS: 36415; 80048; 80076; 80307; 85025; 99282; 99283

== ENCOUNTER 2023-04-16 10:54 | Emergency (ER) | payer MEDICAID, SELFPAY ==
--- NOTE | ~2023-04-16 | XR_ITS ---
EXAMINATION: XR WRIST, RIGHT XR HAND, RIGHT CLINICAL INFORMATION: Pain and swelling COMPARISON: Right hand radiograph from 02/15/2023, right wrist radiograph from 01/24/2023 TECHNIQUE: 4 views of the right hand and wrist FINDINGS: No acute visible fracture or dislocation. Nonunited ulnar styloid fracture fragment, stable. Redemonstration of triquetral fracture. Negative ulnar variance. Multi joint arthritic changes. Joint spaces and alignment are otherwise maintained. Decreased soft tissue prominence along the dorsum of the wrist. Increased soft tissue prominence along the proximal ulna. Atherosclerotic calcifications are noted. XR/XR hand wrist RT IMPRESSION: 1. No acute visible fracture or dislocation. 2. Nonunited ulnar styloid fracture fragment, stable. 3. Redemonstration of triquetral fracture. 4. Negative ulnar variance. 5. Multi joint arthritic changes. 6. Decreased soft tissue prominence along the dorsum of the wrist. Increased soft tissue prominence along the proximal ulna.
--- NOTE | 2023-04-16 11:05 | ED_ITS ---
HPI - General Adult General Chief complaint: General Medical Stated complaint: wrist pain Time Seen by Provider: 04/16/23 12:21 Related Data Previous Rx's Medication Instructions Recorded ibuprofen 600 mg tablet 600 mg PO Q6H PRN pain #20 tabs 02/15/23 oxycodone 5 mg tablet 5 mg PO Q6H PRN pain #10 tabs 02/15/23 oxycodone 5 mg tablet 5 mg PO Q6H PRN pain #12 tabs 02/16/23 oxycodone-acetaminophen 5 mg-325 1 tab PO Q6H PRN pain #10 tabs 02/17/23 mg tablet (Percocet) Allergies Allergy/AdvReac Type Severity Reaction Status Date / Time No Known Allergies Allergy Verified 04/16/23 11:13 [No Known Allergies*] [facility] Social History Social History Alcohol intake: current Alcohol intake frequency: 3 or more drinks per day Alcohol type: beer and hard liquor Patient Tobacco Use Status: Never used Tobacco Advance Directives: No Advance Directives Information Provided: No Current occupational status: disabled Current occupation: rt handed Physical Exam ED Vital Signs: Vital Signs - 24 hr 04/16/23 11:06 Temperature 96.8 F Pulse Rate 80 Respiratory Rate 18 Blood Pressure 107/74 Pulse Oximetry 97 Oxygen Delivery Method Room Air BMI result Body Mass Index 19.4 Course Course Course Narrative: This is a rapid medical exam: Additional HPI, ROS, PE not included below will be deferred to primary provider. Patient is a 52-year-old [id number] Stateless-speaking male presenting to the emergency department with complaint of right wrist and hand pain and swelling for an hour. States pain radiates up to shoulder. Denies fall or other trauma. States when he attempts to make a fist with his right hand he develops worsening pain across his MCP joints. Also complains of right foot pain. Has not tried any OTC medications. Denies history of arthritis. + swelling and erythema to medial and lateral R wrist, limited ROM with flexion of fingers on R hand, 2+ radial pulse. Plan: X-ray R wrist and hand Medications Administered Discontinued Medications Generic Name Dose Route Start Last Admin Trade Name Freq PRN Reason Stop Dose Admin Ibuprofen 600 mg 04/16/23 13:53 04/16/23 14:00 Ibuprofen 600 Mg Tablet PO 04/16/23 13:54 600 mg ONCE ONE Administration Discharge Plan Discharge Clinical Impression: Right wrist pain Patient Disposition: Elopement Prescriptions: No Action ibuprofen 600 mg tablet 600 mg PO Q6H PRN (Reason: pain) Qty: 20 0RF oxycodone 5 mg tablet 5 mg PO Q6H PRN (Reason: pain) Qty: 10 0RF Rx Instructions: Partial Fill upon patient request. oxycodone 5 mg tablet 5 mg PO Q6H PRN (Reason: pain) Qty: 12 0RF Rx Instructions: Partial Fill upon patient request. oxycodone-acetaminophen [Percocet] 5-325 mg tablet 1 tab PO Q6H PRN (Reason: pain) Qty: 10 0RF Rx Instructions: Partial Fill upon patient request. Interventions: ED Discharge Assessment Last Done: 04/16/23 14:20 Discharge Date/Time: 04/16/23 14:20
[2023-04-16 11:06] VITALS: BP 107/74; PULSE 80; RESP 18; TEMP 36; O2SAT 97; BMI 19.4
[2023-04-16] MEDS: Ibuprofen 600 MG TABLET PO (14:00)
--- NOTE | 2023-04-16 14:11 | PC.NURSE ---
pt got right wrist splint placed, pt tolerated procedure well. reported no pain.
== END 2023-04-16 14:20 | disposition left against medical advice (07) ==
LOC: HO.ED 12:32
PROVIDERS: Emergency Provider Student in an Organized Health Care Education/Training Program
DX: M25.531 Pain in right wrist (principal)
CPT/HCPCS: 73110; 73130; 99283

== ENCOUNTER 2023-04-23 12:38 | Emergency (ER) | payer MEDICAID, SELFPAY ==
--- NOTE | ~2023-04-23 | XR_ITS ---
EXAMINATION: XR ELBOW, RIGHT CLINICAL INFORMATION: Traumatic pain COMPARISON: None available. TECHNIQUE: AP, lateral, and oblique views of the right elbow. 3 views FINDINGS: The bones and soft tissues are normal. No fracture or joint effusion. Alignment is anatomic. Joint spaces are maintained. XR/XR elbow RT 2V IMPRESSION: No fracture or dislocation.
--- NOTE | ~2023-04-23 | CT_ITS ---
EXAMINATION: CT HEAD WITHOUT CONTRAST CLINICAL INFORMATION: Acute head injury, EtOH. COMPARISON: CT scan of the head dated 06/08/2022. TECHNIQUE: Contiguous axial imaging was performed from the skull base to vertex without intravenous administration of contrast. Coronal and sagittal reformatted images were obtained. This CT examination was performed using dose optimization techniques as appropriate, variously including the following: *Automated exposure control *Adjustment of mA and/or kV according to patient size (this includes techniques or standardized protocols for targeted exams where dose is matched to indication/reason for exam; i.e. extremities or head) *Use of iterative reconstruction technique DLP: 642 mGy-cm FINDINGS: There is mild widening of the cortical sulci and associated ventriculomegaly. The lateral ventricles are symmetrical. The third and fourth ventricles are in their normal midline position. The basilar and prepontine cisterns are unremarkable. There is no acute intra or extracerebral abnormality. There is no mass effect or midline shift. Sections through the bony calvarium are unremarkable. The orbits are intact. The paranasal sinuses are clear. The mastoid air cells are clear. CT/CT head/brain wo IV con IMPRESSION: No acute intracranial pathology.
--- NOTE | ~2023-04-23 | XR_ITS ---
EXAMINATION: XR WRIST, RIGHT CLINICAL INFORMATION: Injury COMPARISON: None available. TECHNIQUE: PA, lateral, and oblique views of the right wrist. Including scaphoid view total of 4 views. FINDINGS: The bones and soft tissues are normal. No fracture. Alignment is anatomic with normal joint spaces. No erosions or abnormal soft tissue calcifications. There are vascular calcifications. XR/XR wrist RT min 3V IMPRESSION: * No radiographic evidence of acute fracture. * There are vascular calcifications.
--- NOTE | ~2023-04-23 | XR_ITS ---
EXAMINATION: XR SHOULDER, RIGHT CLINICAL INFORMATION: Pain COMPARISON: None available. TECHNIQUE: 3 views frontal lateral and scapular Y view of the right shoulder. FINDINGS: Mild small area of compression in the superior edge of the humeral head might be sequela of prior anterior dislocation Hill-Sachs deformity. Glenohumeral and acromioclavicular alignment is anatomic with normal joint space. No abnormal soft tissue calcifications. XR/XR shoulder RT min 2V IMPRESSION: * Mild small area of compression in the superior edge of the humeral head might be sequela of prior anterior dislocation, Hill-Sachs deformity. Indeterminant age
[2023-04-23 12:49] VITALS: BP 104/70; BP 111/64; PULSE 84; PULSE 88; RESP 18; TEMP 37.1; O2SAT 92; O2SAT 94; BMI 21.7
[2023-04-23 13:47] LABS: MANUAL DIFF FLAG NO
[2023-04-23 13:52] LABS: Eosinophils Absolute Auto 0.1 X10*3/uL (0.0-0.4); Eosinophils Percent Auto 1.3 % (0-4); Hematocrit 34.4 % (42.0-52.0); Hemoglobin 11.8 g/dl (14.0-18.0); Imm Gran Abs Auto 0.01 X10*3/uL (0.00-0.03); Imm Gran Pct Auto 0.3 % (0.0-0.4); Lymphocytes Absolute Auto 1.1 X10*3/uL (1.2-4.9); Lymphocytes Percent Auto 28.3 % (20-40); Mean Corpuscular HGB Conc 34.3 g/dl (31.0-36.0); Mean Corpuscular Hemoglobin 32.8 pg (27.0-33.0); Mean Corpuscular Volume 95.6 fL (80.0-98.0); Monocytes Absolute Auto 0.5 X10*3/uL (0.1-1.2); Monocytes Percent Auto 14.2 % (2-11); Neutrophils Absolute Auto 2.1 x10*3/uL (2.0-8.3); Neutrophils Percent Auto 54.9 % (45-73); Platelet Count 109 X10*3/uL (160-400); Red Cell Distribution Width 14.2 % (11.0-16.0); White Blood Count 3.8 X10*3/uL (4.8-10.8)
[2023-04-23 14:01] LABS: Alanine Aminotransferase 43 U/L (0-40); Albumin Level 3.6 g/dL (3.5-5.0); Alkaline Phosphatase 79 U/L (39-117); Anion Gap 15 (12-20); Aspartate Amino Transferase 83 U/L (5-37); Bilirubin Total 0.4 mg/dL (0.0-1.0); Blood Urea Nitrogen 8 mg/dL (9-16); Calcium 8.3 mg/dL (8.4-10.2); Carbon Dioxide 20 mmol/L (22-29); Chloride 107 mmol/L (96-108); Estimated Glomerular Filt Rate > 60; Ethanol 447 mg/dL; Glucose Random 120 mg/dL (60-115); Lipase 47 U/L (8-78); Potassium 3.7 mmol/L (3.3-5.1); Sodium 138 mmol/L (135-145); Total Protein 7.3 g/dL (6.5-8.0)
[2023-04-23 15:19] VITALS: BP 105/66; PULSE 79; RESP 16; TEMP 36.7; O2SAT 99
[2023-04-23 15:33] LABS: Appearance Urine Clear; Color Urine Yellow; Glucose Urine UA Negative (Negative); Leukocyte Esterase Urine Negative (Negative); Nitrite Urine Negative (Negative); PH 5.5 (5.0-9.0); Specific Gravity - Urine <= 1.005 (1.005-1.025); Urine Blood Negative (Negative); Urine Ketones Negative (Negative); Urine Protein Negative (Neg-Trace)
--- NOTE | 2023-04-23 15:44 | ED_ITS ---
HPI - Alcohol General Chief Complaint: ETOH/Substance Use Stated Complaint: Arm pain, poss ETOH per EMS Time Seen by Provider: 04/23/23 14:16 Source: patient Limitations: no limitations History of Present Illness HPI narrative: 52-year-old male with history of alcohol abuse presents with right upper extremity pain. She is also noted to be somewhat somnolent. His predominant complaint is right upper extremity pain. The pain is severe. Worse with movement. He reports having fallen earlier today. He did hit his head. It is unclear whether he lost consciousness or not. The pain he describes as a 10/10. Is aching and sharp in nature. Predominantly at the wrist. Denies any numbness or tingling. Additionally he denies any significant headache, nausea, vomiting or any focal neurologic deficits. He agrees to have a having alcohol 6 beers earlier today. Related Data Previous Rx's Medication Instructions Recorded ibuprofen 600 mg tablet 600 mg PO Q6H PRN pain #20 tabs 02/15/23 oxycodone 5 mg tablet 5 mg PO Q6H PRN pain #10 tabs 02/15/23 oxycodone 5 mg tablet 5 mg PO Q6H PRN pain #12 tabs 02/16/23 oxycodone-acetaminophen 5 mg-325 1 tab PO Q6H PRN pain #10 tabs 02/17/23 mg tablet (Percocet) Allergies Allergy/AdvReac Type Severity Reaction Status Date / Time No Known Allergies Allergy Verified 04/16/23 11:13 [No Known Allergies*] Review of Systems Review of Systems: CONSTITUTIONAL: Denies weight loss, fever and chills. HEENT: Denies changes in vision and hearing. RESPIRATORY: Denies SOB and cough. CV: Denies palpitations no CP. GI: Denies abdominal pain, nausea, vomiting and diarrhea. : Denies dysuria and urinary frequency. MSK: + myalgia and joint pain. SKIN: Denies rash and pruritus. NEUROLOGICAL: Denies headache and syncope. PSYCHIATRIC: Denies recent changes in mood. Denies anxiety and depression. All other ROS are negative unless in [facility] Social History Social History Alcohol intake: current Alcohol intake frequency: 3 or more drinks per day Alcohol type: beer and hard liquor Patient Tobacco Use Status: Never used Tobacco Smoked in Last 30 Days: Yes Use of substances other than those prescribed or required for medical reasons: No Advance Directives: No Advance Directives Information Provided: No Current occupational status: disabled Current occupation: rt handed Physical Exam ED Vital Signs: Vital Signs - 24 hr 04/23/23 12:49 04/23/23 15:19 Temperature 98.7 F 98.1 F Pulse Rate 84 79 Respiratory Rate 18 16 Blood Pressure 111/64 105/66 Pulse Oximetry 92 99 Oxygen Delivery Method Room Air Room Air BMI result Body Mass Index 21.7 GEN: Well developed, no acute distress, alert, Somnolent HEENT: Normocephalic, atraumatic, normal external ears, nose appears normal, no oropharyngeal edema or exudates Eyes: Normal to appearance Neck: Supple, no lymphadenopathy Respiratory: Talks in complete sentences, no respiratory distress, clear to auscultation bilaterally Cardiovascular: Regular rate and rhythm, no murmurs rubs or gallops Abdomen: Soft, nontender, nondistended, no guarding, no rebound Back: No CVA tenderness Extremities: No clubbing cyanosis or edema, tenderness to right wrist and right shoulder Neurologic: No focal neurologic deficits, cranial nerves 2-12 intact, strength is 5/5 bilaterally Skin: No rash Course Course Course Narrative: no arm pain now - steady gait stable for DC clinically sober wants to leave. 506pm Medical Decision Making Medical Decision Making [facility] Narrative: patient presents what appears to be acute alcohol intoxication, fall and right upper extremity pain. Differential diagnosis includes contusion, fracture, sprain, strain. Will order x-rays of the shoulder elbow and wrist. There is again most of the area that is causing him pain and discomfort. Addition, patient reports having hit his head. Will obtain CT scan of the head to rule out acute intracranial bleeding. Will check an alcohol level to see degree of alcohol intoxication. Differential Diagnosis Differential Diagnoses: The differential diagnosis associated with the presentation includes ( See above) Lab Data [facility] Lab Attestation statement: I reviewed the patient's lab results. 04/23/23 13:42 04/23/23 13:42 Labs: Lab Results 04/23/23 04/23/23 04/23/23 Range/Units 13:42 13:42 15:24 WBC 3.8 L (4.8-10.8) X10*3/uL RBC 3.60 L (4.60-5.80) X10*6/uL Hgb 11.8 L (14.0-18.0) g/dl Hct 34.4 L (42.0-52.0) % MCV 95.6 (80.0-98.0) fL MCH 32.8 (27.0-33.0) pg MCHC 34.3 (31.0-36.0) g/dl RDW 14.2 (11.0-16.0) % Plt Count 109 L D (160-400) X10*3/uL MPV 9.0 L (9.4-12.4) fL Immature Gran % (Auto) 0.3 (0.0-0.4) % Neut % (Auto) 54.9 (45-73) % Lymph % (Auto) 28.3 (20-40) % Mcintosh % (Auto) 14.2 H (2-11) % Eos % (Auto) 1.3 (0-4) % Baso % (Auto) 1.0 (0-2) % Lymph # (Auto) 1.1 L (1.2-4.9) X10*3/uL Mcintosh # (Auto) 0.5 (0.1-1.2) X10*3/uL Eos # (Auto) 0.1 (0.0-0.4) X10*3/uL Baso # (Auto) 0.0 (0.0-0.2) X10*3/uL Abs Immat Gran (auto) 0.01 (0.00-0.03) X10*3/uL Absolute Neuts (auto) 2.1 (2.0-8.3) x10*3/uL Absolute Nucleated RBC 0.000 (0.0-0.012) X10*3/uL Nucleated RBC % (auto) 0.0 (0.0-0.2) /100WBC Sodium 138 (135-145) mmol/L Potassium 3.7 (3.3-5.1) mmol/L Chloride 107 (96-108) mmol/L Carbon Dioxide 20 L (22-29) mmol/L Anion Gap 15 (12-20) BUN 8 L (9-16) mg/dL Creatinine 0.77 (0.5-1.4) mg/dL Estim Creat Clear Calc 104.0 Estimated GFR > 60 Random Glucose 120 H (60-115) mg/dL Calcium 8.3 L (8.4-10.2) mg/dL Total Bilirubin 0.4 (0.0-1.0) mg/dL AST 83 H (5-37) U/L ALT 43 H (0-40) U/L Alkaline Phosphatase 79 (39-117) U/L Total Protein 7.3 (6.5-8.0) g/dL Albumin 3.6 (3.5-5.0) g/dL Lipase 47 (8-78) U/L Urine Color Yellow Urine Appearance Clear Urine pH 5.5 (5.0-9.0) Ur Specific [place] <= 1.005 (1.005-1.025) Urine Protein Negative (Neg-Trace) mg/dL Urine Glucose (UA) Negative (Negative) mg/dL Urine Ketones Negative (Negative) mg/dL Urine Blood Negative (Negative) Urine Nitrite Negative (Negative) Ur Leukocyte Esterase Negative (Negative) Urine Opiates Screen (Not Detect) Urine Fentanyl Screen (Not Detect) Ur Barbiturates Screen (Not Detect) Ur Phencyclidine Scrn (Not Detect) Ur Amphetamines Screen (Not Detect) U Benzodiazepines Scrn (Not Detect) Urine Cocaine Screen (Not Detect) U Marijuana (THC) Screen (Not Detect) Ethyl Alcohol 447 H* mg/dL 04/23/23 Range/Units 15:24 WBC (4.8-10.8) X10*3/uL RBC (4.60-5.80) X10*6/uL Hgb (14.0-18.0) g/dl Hct (42.0-52.0) % MCV (80.0-98.0) fL MCH (27.0-33.0) pg MCHC (31.0-36.0) g/dl RDW (11.0-16.0) % Plt Count (160-400) X10*3/uL MPV (9.4-12.4) fL Immature Gran % (Auto) (0.0-0.4) % Neut % (Auto) (45-73) % Lymph % (Auto) (20-40) % Mcintosh % (Auto) (2-11) % Eos % (Auto) (0-4) % Baso % (Auto) (0-2) % Lymph # (Auto) (1.2-4.9) X10*3/uL Mcintosh # (Auto) (0.1-1.2) X10*3/uL Eos # (Auto) (0.0-0.4) X10*3/uL Baso # (Auto) (0.0-0.2) X10*3/uL Abs Immat Gran (auto) (0.00-0.03) X10*3/uL Absolute Neuts (auto) (2.0-8.3) x10*3/uL Absolute Nucleated RBC (0.0-0.012) X10*3/uL Nucleated RBC % (auto) (0.0-0.2) /100WBC Sodium (135-145) mmol/L Potassium (3.3-5.1) mmol/L Chloride (96-108) mmol/L Carbon Dioxide (22-29) mmol/L Anion Gap (12-20) BUN (9-16) mg/dL Creatinine (0.5-1.4) mg/dL Estim Creat Clear Calc Estimated GFR Random Glucose (60-115) mg/dL Calcium (8.4-10.2) mg/dL Total Bilirubin (0.0-1.0) mg/dL AST (5-37) U/L ALT (0-40) U/L Alkaline Phosphatase (39-117) U/L Total Protein (6.5-8.0) g/dL Albumin (3.5-5.0) g/dL Lipase (8-78) U/L Urine Color Urine Appearance Urine pH (5.0-9.0) Ur Specific [place] (1.005-1.025) Urine Protein (Neg-Trace) mg/dL Urine Glucose (UA) (Negative) mg/dL Urine Ketones (Negative) mg/dL Urine Blood (Negative) Urine Nitrite (Negative) Ur Leukocyte Esterase (Negative) Urine Opiates Screen Not Detected (Not Detect) Urine Fentanyl Screen Not Detected (Not Detect) Ur Barbiturates Screen Not Detected (Not Detect) Ur Phencyclidine Scrn Not Detected (Not Detect) Ur Amphetamines Screen Not Detected (Not Detect) U Benzodiazepines Scrn Not Detected (Not Detect) Urine Cocaine Screen Not Detected (Not Detect) U Marijuana (THC) Screen Not Detected (Not Detect) Ethyl Alcohol mg/dL Independent Interpretation I performed an independent interpretation of an: Plain X-Ray ( risk: No acute fracture or traumatic injury, shoulder: No acute traumatic injury, elbow: No acute traumatic injury) and CT Scan ( head: No acute traumatic injury) Radiology Impression Discussion of test interpretation with radiology: I have reviewed the radiologist's reading. ( XR/XR shoulder RT min 2V IMPRESSION: * Mild small area of compression in the superior edge of the humeral head might be sequela of prior anterior dislocation, Hill-Sachs deformity. Indeterminant age Dictated By:Pao Rincon MDSigned By:<Electronically signed by Had) Radiologist Impression: CT/CT head/brain wo IV con IMPRESSION: No acute intracranial pathology. Dictated By: Dilip Nixon MD Signed By: <Electronically signed by Dilip Nixon MD in OV> 04/23/23 1553 Discharge Plan Discharge Clinical Impression: Arm pain, right, Alcoholic intoxication Patient Disposition: Home, Self-Care Instructions: Abuse of Alcohol (DC), Arm Pain (ED) Additional Instructions: there is an abnormality noted on the shoulder x-ray. It appears that there may be a fracture of and clear etiology / to length in time. Recommending follow-up with an orthopedist. Prescriptions: No Action ibuprofen 600 mg tablet 600 mg PO Q6H PRN (Reason: pain) Qty: 20 0RF oxycodone 5 mg tablet 5 mg PO Q6H PRN (Reason: pain) Qty: 10 0RF Rx Instructions: Partial Fill upon patient request. oxycodone 5 mg tablet 5 mg PO Q6H PRN (Reason: pain) Qty: 12 0RF Rx Instructions: Partial Fill upon patient request. oxycodone-acetaminophen [Percocet] 5-325 mg tablet 1 tab PO Q6H PRN (Reason: pain) Qty: 10 0RF Rx Instructions: Partial Fill upon patient request. Referrals: Luis Manuel Francisco MD [Physician] - 3 days
[2023-04-23 16:11] LABS: Amphetamine Screen Urine Not Detected (Not Detect); Barbiturates, Urine Not Detected (Not Detect); Benzodiazepines Screen Urine Not Detected (Not Detect); Cannabinoid Screen Urine Not Detected (Not Detect); Cocaine Screen Urine Not Detected (Not Detect); Fentanyl, urine Not Detected (Not Detect); Opiate Screen Urine Not Detected (Not Detect); Phencyclidine Screen Urine Not Detected (Not Detect)
--- NOTE | 2023-04-23 17:09 | PC.NURSE ---
pt awake and alert. requesting to leave at this time., pt able to ambulate with a steady gait independently. Luisa AQUINO made aware
== END 2023-04-23 17:10 | disposition home or self-care (01) ==
PROVIDERS: Emergency Medicine; Emergency Provider Emergency Medicine
DX: M79.601 Pain in right arm (principal); F10.220 Alcohol dependence with intoxication, uncomplicated; Y90.8 Blood alcohol level of 240 mg/100 ml or more; Z91.81 History of falling; Z79.899 Other long term (current) drug therapy
CPT/HCPCS: 36415; 70450; 73030; 73070; 73110; 80053; 80307; 81003; 83690; 85025; 99284; 99285

== ENCOUNTER 2023-05-08 12:36 | Emergency (ER) | payer MEDICAID, SELFPAY ==
--- NOTE | ~2023-05-08 | XR_ITS ---
EXAMINATION: XR LUMBAR SPINE CLINICAL INFORMATION: Reason for Exam L1 tenderness COMPARISON: Prior study 2020 TECHNIQUE: Frontal lateral and coned-down L5-S1 frontal lateral, total of 3 views FINDINGS: Five [id number] lumbar vertebrae were identified maintaining normal height, L5 is sacralized. There is grade 2 anterior spondylolisthesis of L5 on S1, the vertebra shifted approximately 1.5 cm forward, radiolucency projecting over the pedicle of L5 probably underlying spondylolysis. Narrowing of intervertebral disc spaces suggest underlying degenerative disc disease. Paravertebral soft tissues are unremarkable. There are radiolucencies, most likely superimposed bowel gas.. No radiographic evidence of osteolytic or osteoblastic lesions. XR/XR lumbar spine 2-3V IMPRESSION: * Redemonstration of chronic Grade 2 anterior spondylolisthesis of L5 on S1, the vertebra shifted approximately 1.5 cm forward, radiolucency projecting over the pedicle of L5 probably underlying spondylolysis. * Narrowing of intervertebral disc spaces suggest underlying degenerative disc disease.
--- NOTE | ~2023-05-08 | XR_ITS ---
EXAMINATION: XR THORACOLUMBAR SPINE CLINICAL INFORMATION: Pain COMPARISON: None available. TECHNIQUE: Frontal and lateral FINDINGS: The vertebral alignment is normal. No intrinsic bony abnormality. The disc heights and neural foramina are well maintained. The endplates and posterior elements are normal. No fracture or subluxation. The surrounding prevertebral soft tissues are unremarkable. XR/XR thoracic spine 2V IMPRESSION: No significant osseous changes to explain patient's pain symptoms.
[2023-05-08 12:43] VITALS: BP 170/110
[2023-05-08 12:53] VITALS: BP 112/62; PULSE 75; RESP 16; TEMP 36.8; O2SAT 95; BMI 20.4
--- NOTE | 2023-05-08 13:05 | ED.GENADULT ---
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 He reports chronic numbness and tingling to bilateral lower extremities. Denies any saddle anesthesia or bowel or bladder incontinence. Denies any fevers. Denies any fall or other trauma. He denies taking any [id number] medications prior to arrival. Patient also complaining of redness and irritation to right lateral foot between 4th and 5th toes, states his feet are often sweating in his socks and shoes while at work. MD complaint: Back pain Onset (ago): hour(s) Location: back Severity: severe Quality: aching Pain Consistency: constant Relieving factors: none Exacerbating factors: movement Associated symptoms: denies other symptoms Treatments prior to arrival: none Related Data Previous Rx's Medication Instructions Recorded ibuprofen 600 mg tablet 600 mg PO Q6H PRN pain #20 tabs 02/15/23 oxycodone 5 mg tablet 5 mg PO Q6H PRN pain #10 tabs 02/15/23 oxycodone 5 mg tablet 5 mg PO Q6H PRN pain #12 tabs 02/16/23 oxycodone-acetaminophen 5 mg-325 1 tab PO Q6H PRN pain #10 tabs 02/17/23 mg tablet (Percocet) cyclobenzaprine 5 mg tablet 5 mg PO TID PRN muscle spasm #12 05/08/23 tabs ibuprofen 600 mg tablet 600 mg PO Q8H PRN pain #20 tabs 05/08/23 lidocaine 5 % topical patch 1 patch topical DAILY #15 ea 05/08/23 Allergies Allergy/AdvReac Type Severity Reaction Status Date / Time No Known Allergies Allergy Verified 05/08/23 12:53 [No Known Allergies*] Review of Systems Review of Systems: As per HPI. Yes all other systems are reviewed and are negative Constitutional: Constitutional: Reports as per [facility] Social History Social History Alcohol intake: current Alcohol intake frequency: 3 or more drinks per day Alcohol type: beer and hard liquor Patient Tobacco Use Status: Never used Tobacco Advance Directives: Yes Advance Directives Information Provided: Yes Advance Directives on File: No Current occupational status: disabled Current occupation: rt handed Physical Exam ED Vital Signs: Vital Signs - 24 hr 05/08/23 12:53 Temperature 98.2 F Pulse Rate 75 Respiratory Rate 16 Blood Pressure 112/62 Pulse Oximetry 95 Oxygen Delivery Method Room Air BMI result Body Mass Index 20.4 Vital signs have been reviewed and appear to be correct. Blood pressure normal. Heart rate normal. Respiratory rate normal. Temperature normal. Oxygen saturation normal. Const General: cooperative, healthy appearing and no acute distress Orientation/consciousness: oriented to person, oriented to place, oriented to time and patient oriented x3 Limitations: no limitations HENMT Head: Yes normocephalic and Yes atraumatic Ears: external ears normal General nose exam: Normal external nose present Face and sinus: Yes face symmetric Mouth: oropharynx normal and moist mucous membranes Throat: Yes uvula midline Eyes Pupils: Equal, round and reactive pupils present Neck Neck: Yes normal visual inspection, Yes no meningeal signs and Yes supple Resp Effort & Inspection: normal respiratory effort and able to speak in complete sentences Auscultation: clear to auscultation bilaterally Cardio Rate: regular rate Rhythm: regular rhythm Heart sounds: S1 normal heart sound present and S2 normal heart sound present GI Palpation (GI): Soft to palpation and nontender Auscultation: normoactive bowel sounds General: Yes no CVA tenderness Back/Spine/Pelvis Back: no CVA tenderness Thoracic/Lumbar Spine: thoracic and lumbar spine normal to inspection, No Thoracic/lumbar spine scar(s), thoraco-lumbar ROM normal, straight leg raise negative bilaterally, pain with thoraco-lumbar ROM, paraspinal muscle tenderness bilaterally in the lower lumbar, thoracic spinal tenderness at T12 and lumbar spinal tenderness at L1 Pelvis: no pain with anterior-posterior compression and no pain with lateral compression Skin General skin exam: elasticity normal and turgor normal Neuro General: oriented to person, oriented to place, oriented to time, patient oriented x3, tone normal, moves all extremities, Normal light touch and pain sensation, no meningeal signs, no focal motor deficits, CN's II-XI intact bilaterally, normal sensation to monofilament and deep tendon reflexes 2+ bilaterally Cranial nerves: Yes Equal, round and reactive pupils present Cognition (Neuro): normal cognition Motor exam (neuro): 5/5 motor strength present throughout Sensory Exam: Normal double simultaneous stimulation for sensation Extrem General: Yes full ROM, Yes no pedal edema and Yes no calf tenderness Right lower extremity: foot (erythema and flaking skin to right lateral foot and between 4th/5th toes ) Psych Mental Status: mental status grossly normal Affect: normal affect Thought process: Normal thought process present Medical Decision Making Medical Decision Making MDM Narrative: Patient is a 52-year-old [place] Irish speaking male with history of chronic low back pain presenting to the emergency department with worsening low back pain since this morning. On exam patient is awake, A+Ox3, VS WNL, afebrile, normal neurological exam without focal deficits, tenderness noted to area of T12/L1, full ROM, paraspinal lumbar tenderness, 5/5 strength to bilat lower extremities, DTRs 2+ throughout. Given reported symptoms and physical exam findings, initial differential includes lumbar strain, fracture, lumbar radiculopathy. No red flag findings concerning for cauda equina, spinal epidural abscess. X-ray notable for spondylolisthesis of L5-S1 with spondylolysis, degenerative disc disease. My interpretation is in agreement with the radiologist's interpretation. Advised patient to alternate Tylenol and ibuprofen, will prescribe short course of cyclobenzaprine and topical lidocaine patches. Instructed patient to follow-up with primary care provider. Return precautions discussed at bedside. Patient verbalized understanding of and agreement with plan. Differential Diagnosis Differential Diagnoses: The differential diagnosis associated with the presentation includes As per MDM. Independent Interpretation I performed an independent interpretation of an: Plain X-Ray Interpretation: spondylolisthesis of L5-S1 with spondylolysis, degenerative disc disease Radiology Impression Discussion of test interpretation with radiology: I have reviewed the radiologist's reading. Radiologist Impression: XR/XR lumbar spine 2-3V IMPRESSION: ? *? Redemonstration of chronic Grade 2 anterior spondylolisthesis of L5 on S1, the vertebra shifted approximately 1.5 cm forward, radiolucency projecting over the pedicle of L5 probably underlying spondylolysis. ? *? Narrowing of intervertebral disc spaces suggest underlying degenerative disc disease. External Record Review External record reviewed: Inpatient record, Office record and Outpatient record Prescription Management I considered prescription management with: Pain Medication Discharge Plan Discharge Clinical Impression: Osteoarthritis of lumbar spine Patient Disposition: Home, Self-Care Instructions: Osteoarthritis (DC) Additional Instructions: You were evaluated in the emergency department today for back pain. Your x-ray shows evidence of osteoarthritis in your lumbar spine. We recommended that you use ibuprofen or Tylenol per package directions every 6 hours as needed for pain. If necessary, you can alternate these medications so that you take one medication every 3 hours. For instance, at noon take ibuprofen, then at 3:00 p.m. take Tylenol, then at 6:00 p.m. take ibuprofen. You have been prescribed a muscle relaxer which you may take every 8 hours as needed for spasms. You have been prescribed 5% topical lidocaine patches which you can wear for up to 12 hours in a 24 hour period. Do not apply heat directly over the patches. Please schedule an appointment for follow-up with your primary care physician this week for further evaluation of your symptoms. Return to the emergency department if you experience worsening back pain, difficulty walking, fevers, numbness, tingling, incontinence, groin numbness or tingling, or any other concerning symptoms. Prescriptions: New ibuprofen 600 mg tablet 600 mg PO Q8H PRN (Reason: pain) Qty: 20 0RF cyclobenzaprine 5 mg tablet 5 mg PO TID PRN (Reason: muscle spasm) Qty: 12 0RF lidocaine 5 % adhesive patch,medicated 1 patch topical DAILY Qty: 15 0RF Rx Instructions: leave on most painful area for up to 12 hrs No Action ibuprofen 600 mg tablet 600 mg PO Q6H PRN (Reason: pain) Qty: 20 0RF oxycodone 5 mg tablet 5 mg PO Q6H PRN (Reason: pain) Qty: 10 0RF Rx Instructions: Partial Fill upon patient request. oxycodone 5 mg tablet 5 mg PO Q6H PRN (Reason: pain) Qty: 12 0RF Rx Instructions: Partial Fill upon patient request. oxycodone-acetaminophen [Percocet] 5-325 mg tablet 1 tab PO Q6H PRN (Reason: pain) Qty: 10 0RF Rx Instructions: Partial Fill upon patient request.
--- NOTE | 2023-05-08 14:03 | PC.NURSE ---
PT AMBULATING STEADILY WITH NO ISSUE AND NO ASSISTANCE TO RESTROOM.
== END 2023-05-08 15:08 | disposition home or self-care (01) ==
PROVIDERS: Emergency Provider Emergency Medicine
DX: M47.896 Other spondylosis, lumbar region (principal); M79.671 Pain in right foot; M54.6 Pain in thoracic spine
CPT/HCPCS: 72070; 72100; 99283

== ENCOUNTER 2023-05-13 16:09 | Emergency (ER) | payer MEDICAID, SELFPAY ==
--- NOTE | 2023-05-13 17:00 | ED.GENADULT ---
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 States he was seen here several days ago but was unable to fill his prescriptions as they were not sent to the correct pharmacy. Denies any worsening pain or falls/other trauma since that visit. Denies any saddle anesthesia or bowel or bladder incontinence. Denies fevers. Admits to drinking a 6 pack of beer today to help with the pain. States he did not drive to the emergency department, he was dropped off and is getting picked up. States he is not interested in assistance with detox from alcohol. MD complaint: back pain Onset (ago): day(s) Location: back Radiation: non-radiation Severity: severe Quality: aching Pain Consistency: constant Relieving factors: rest Exacerbating factors: movement Associated symptoms: denies other symptoms Treatments prior to arrival: other (alcohol) Related Data Previous Rx's Medication Instructions Recorded ibuprofen 600 mg tablet 600 mg PO Q6H PRN pain #20 tabs 02/15/23 oxycodone 5 mg tablet 5 mg PO Q6H PRN pain #10 tabs 02/15/23 oxycodone 5 mg tablet 5 mg PO Q6H PRN pain #12 tabs 02/16/23 oxycodone-acetaminophen 5 mg-325 1 tab PO Q6H PRN pain #10 tabs 02/17/23 mg tablet (Percocet) cyclobenzaprine 5 mg tablet 5 mg PO TID PRN muscle spasm #12 05/08/23 tabs ibuprofen 600 mg tablet 600 mg PO Q8H PRN pain #20 tabs 05/08/23 lidocaine 5 % topical patch 1 patch topical DAILY #15 ea 05/08/23 cyclobenzaprine 5 mg tablet 5 mg PO TID PRN muscle spasm #12 05/13/23 tabs ibuprofen 600 mg tablet 600 mg PO Q8H PRN pain #20 tabs 05/13/23 lidocaine 5 % topical patch 1 patch topical DAILY #15 ea 05/13/23 Allergies Allergy/AdvReac Type Severity Reaction Status Date / Time No Known Allergies Allergy Verified 08/20/23 12:53 [No Known Allergies*] Review of Systems Review of Systems: As per HPI. Yes all other systems are reviewed and are negative Constitutional: Constitutional: Reports as per HPI [facility] Social History Social History Alcohol intake: current Alcohol intake frequency: 3 or more drinks per day Alcohol type: beer and hard liquor Patient Tobacco Use Status: Never used Tobacco Current occupational status: disabled Current occupation: rt handed Physical Exam ED Vital signs have been reviewed and appear to be correct. Blood pressure normal. Heart rate normal. Respiratory rate normal. Temperature normal. Oxygen saturation normal. Const General: cooperative, healthy appearing and no acute distress Orientation/consciousness: oriented to person, oriented to place, oriented to time and patient oriented x3 Limitations: no limitations HENMT Head: Yes normocephalic and Yes atraumatic Ears: external ears normal General nose exam: Normal external nose present Face and sinus: Yes face symmetric Mouth: oropharynx normal and moist mucous membranes Throat: Yes uvula midline Eyes Pupils: Equal, round and reactive pupils present Neck Neck: Yes normal visual inspection, Yes no meningeal signs and Yes supple Resp Effort & Inspection: normal respiratory effort and able to speak in complete sentences Auscultation: clear to auscultation bilaterally Cardio Rate: regular rate Rhythm: regular rhythm Heart sounds: S1 normal heart sound present and S2 normal heart sound present GI Palpation (GI): Soft to palpation and nontender Auscultation: normoactive bowel sounds General: Yes no CVA tenderness Back/Spine/Pelvis Back: no CVA tenderness Thoracic/Lumbar Spine: thoracic and lumbar spine normal to inspection, thoraco-lumbar ROM normal, straight leg raise negative bilaterally, pain with thoraco-lumbar ROM, paraspinal muscle tenderness bilaterally in the lower lumbar, No thoracic spinal tenderness and No lumbar spinal tenderness Skin General skin exam: elasticity normal and turgor normal Neuro General: oriented to person, oriented to place, oriented to time, patient oriented x3, gait normal, tone normal, moves all extremities, Normal light touch and pain sensation, no meningeal signs, no focal motor deficits, CN's II-XI intact bilaterally and deep tendon reflexes 2+ bilaterally Cranial nerves: Yes Equal, round and reactive pupils present Cognition (Neuro): normal cognition Motor exam (neuro): 5/5 motor strength present throughout, Normal motor muscle tone present throughout and Motor abnormalities not present Sensory Exam: Normal double simultaneous stimulation for sensation Extrem General: Yes full ROM, Yes no pedal edema and Yes no calf tenderness Psych Mental Status: mental status grossly normal Affect: normal affect Thought process: Normal thought process present Course Course Course Narrative: Medical Decision Making Medical Decision Making [facility] Narrative: Patient is a 52-year-old Slovak speaking male with history of chronic low back pain presenting to the emergency department with worsening low back pain for several days.? On exam patient is awake, A+Ox3, VS WNL, afebrile, normal neurological exam without focal deficits, tenderness noted to area of T12/L1, full ROM, paraspinal lumbar tenderness, 5/5 strength to bilat lower extremities, DTRs 2+ throughout.? Given reported symptoms and physical exam findings, initial differential includes lumbar strain, fracture, lumbar radiculopathy. ? No red flag findings concerning for cauda equina, spinal epidural abscess.? X-ray from 05/08/23 notable for? spondylolisthesis of L5-S1 with spondylolysis, degenerative disc disease.? Do not feel repeat imaging is indicated patient denies any recent falls or other trauma. My interpretation is in agreement with the radiologist's interpretation.? Advised patient to alternate Tylenol and ibuprofen, will resend prescriptions for cyclobenzaprine and topical lidocaine patches.? Instructed patient to follow-up with primary care provider.? Return precautions discussed at bedside.? Patient verbalized understanding of and agreement with plan. Differential Diagnosis Differential Diagnoses: The differential diagnosis associated with the presentation includes As per [facility]. External Record Review External record reviewed: Inpatient record, Office record and Outpatient record Prescription Management I considered prescription management with: Pain Medication Discharge Plan Discharge Clinical Impression: Osteoarthritis of lumbar spine Patient Disposition: Home, Self-Care Instructions: Osteoarthritis (DC), Acute Low Back Pain (ED) Additional Instructions: You were evaluated in the emergency department today for back pain.? Your x-ray shows evidence of osteoarthritis in your lumbar spine.? We recommended that you use ibuprofen or Tylenol per package directions every 6 hours as needed for pain.? If necessary, you can alternate these medications so that you take one medication every 3 hours.? For instance, at noon take ibuprofen, then at 3:00 p.m. take Tylenol, then at 6:00 p.m. take ibuprofen.? You have been prescribed a muscle relaxer which you may take every 8 hours as needed for spasms.? You have been prescribed 5% topical lidocaine patches which you can wear for up to 12 hours in a 24 hour period.? Do not apply heat directly over the patches. Please schedule an appointment for follow-up with your primary care physician this week for further evaluation of your symptoms.? Return to the emergency department if you experience worsening back pain, difficulty walking, fevers, numbness, tingling, incontinence, groin numbness or tingling, or any other concerning symptoms. Prescriptions: New cyclobenzaprine 5 mg tablet 5 mg PO TID PRN (Reason: muscle spasm) Qty: 12 0RF ibuprofen 600 mg tablet 600 mg PO Q8H PRN (Reason: pain) Qty: 20 0RF lidocaine 5 % adhesive patch,medicated 1 patch topical DAILY Qty: 15 0RF Rx Instructions: leave on most painful area for up to 12 hrs No Action ibuprofen 600 mg tablet 600 mg PO Q8H PRN (Reason: pain) Qty: 20 0RF cyclobenzaprine 5 mg tablet 5 mg PO TID PRN (Reason: muscle spasm) Qty: 12 0RF lidocaine 5 % adhesive patch,medicated 1 patch topical DAILY Qty: 15 0RF Rx Instructions: leave on most painful area for up to 12 hrs ibuprofen 600 mg tablet 600 mg PO Q6H PRN (Reason: pain) Qty: 20 0RF oxycodone 5 mg tablet 5 mg PO Q6H PRN (Reason: pain) Qty: 10 0RF Rx Instructions: Partial Fill upon patient request. oxycodone 5 mg tablet 5 mg PO Q6H PRN (Reason: pain) Qty: 12 0RF Rx Instructions: Partial Fill upon patient request. oxycodone-acetaminophen [Percocet] 5-325 mg tablet 1 tab PO Q6H PRN (Reason: pain) Qty: 10 0RF Rx Instructions: Partial Fill upon patient request. Stand Alone Forms: Work/School Release
[2023-05-13 17:02] VITALS: BP 115/79; PULSE 83; RESP 17; TEMP 36.4; O2SAT 97; BMI 20.4
== END 2023-05-13 17:32 | disposition home or self-care (01) ==
PROVIDERS: Emergency Provider Emergency Medicine
DX: M47.816 Spondylosis without myelopathy or radiculopathy, lumbar region (principal); M54.50 Low back pain, unspecified
CPT/HCPCS: 99282; 99283

== ENCOUNTER 2023-05-14 10:35 | Emergency (ER) | payer MEDICAID, SELFPAY ==
--- NOTE | ~2023-05-14 | CT_ITS ---
CT HEAD WITHOUT IV CONTRAST CT CERVICAL SPINE WITHOUT IV CONTRAST INDICATION: Status post fall. COMPARISON: Head CT 04/23/2023. TECHNIQUE: Multidetector CT acquisitions of the head and cervical spine were obtained without IV contrast. Multiplanar reformats were acquired and utilized for image interpretation. This CT examination was performed using dose optimization techniques as appropriate, variously including the following: *Automated exposure control *Adjustment of mA and/or kV according to patient size (this includes techniques or standardized protocols for targeted exams where dose is matched to indication/reason for exam; i.e. extremities or head) *Use of iterative reconstruction technique FINDINGS: HEAD: Chronic microangiopathy. There is no intracranial hemorrhage, hydrocephalus, extra-axial surface collection, midline shift, or other herniation pattern. Barrios to white matter differentiation is diffusely maintained without evidence of an evolved acute territorial infarct. The basilar cisterns are preserved. No significant soft tissue abnormality. No acute osseous abnormality. Mucosal thickening throughout the paranasal sinuses. CERVICAL SPINE: Cervical alignment is maintained. Vertebral body heights are preserved. Mild disc volume loss and endplate osteophytes at C6-C7. There are no acute fractures and there are no acute subluxations. The craniocervical junction is unremarkable. Imaged upper lungs are clear. Atherosclerotic calcification involving the carotid bifurcations bilaterally, greater on the left. CT/CT cervical spine wo IV con IMPRESSION: No acute intracranial findings. Chronic microangiopathy. No acute osseous findings within the cervical spine.
--- NOTE | ~2023-05-14 | CT_ITS ---
CT HEAD WITHOUT IV CONTRAST CT CERVICAL SPINE WITHOUT IV CONTRAST INDICATION: Status post fall. COMPARISON: Head CT 04/23/2023. TECHNIQUE: Multidetector CT acquisitions of the head and cervical spine were obtained without IV contrast. Multiplanar reformats were acquired and utilized for image interpretation. This CT examination was performed using dose optimization techniques as appropriate, variously including the following: *Automated exposure control *Adjustment of mA and/or kV according to patient size (this includes techniques or standardized protocols for targeted exams where dose is matched to indication/reason for exam; i.e. extremities or head) *Use of iterative reconstruction technique FINDINGS: HEAD: Chronic microangiopathy. There is no intracranial hemorrhage, hydrocephalus, extra-axial surface collection, midline shift, or other herniation pattern. Barrios to white matter differentiation is diffusely maintained without evidence of an evolved acute territorial infarct. The basilar cisterns are preserved. No significant soft tissue abnormality. No acute osseous abnormality. Mucosal thickening throughout the paranasal sinuses. CERVICAL SPINE: Cervical alignment is maintained. Vertebral body heights are preserved. Mild disc volume loss and endplate osteophytes at C6-C7. There are no acute fractures and there are no acute subluxations. The craniocervical junction is unremarkable. Imaged upper lungs are clear. Atherosclerotic calcification involving the carotid bifurcations bilaterally, greater on the left. CT/CT head/brain wo IV con IMPRESSION: No acute intracranial findings. Chronic microangiopathy. No acute osseous findings within the cervical spine.
--- NOTE | ~2023-05-14 | XR_ITS ---
EXAMINATION: XR WRIST, RIGHT XR HAND, RIGHT CLINICAL INFORMATION: Fell COMPARISON: Right wrist radiograph from 04/23/2023 TECHNIQUE: 4 views of the right hand and wrist FINDINGS: No acute visible fracture or dislocation. Chronic appearing ulnar styloid fracture fragment redemonstrated. Mild multi joint arthritic changes. Joint spaces and alignment are otherwise maintained. Soft tissues are unremarkable. Atherosclerotic calcifications are noted. XR/XR hand wrist RT IMPRESSION: 1. No acute visible fracture or dislocation. 2. Chronic appearing ulnar styloid fracture fragment redemonstrated. 3. Mild multi joint arthritic changes.
[2023-05-14 10:47] VITALS: BP 142/80; PULSE 82; RESP 18; TEMP 37.1; O2SAT 97; BMI 22.4
--- NOTE | 2023-05-14 11:06 | ED_ITS ---
HPI - Alcohol General Chief Complaint: Fall Stated Complaint: weakness? Time Seen by Provider: 05/14/23 11:06 Source: patient Mode of arrival: ambulatory History of Present Illness HPI narrative: This is a 52-year-old male with longstanding history of alcohol use disorder and alcohol intoxication who presents with complaints of having fallen but is unable to remember what he hit his head on her when and is also complaining of right wrist pain and headache. He is unable to recall is last drink. Related Data Previous Rx's Medication Instructions Recorded ibuprofen 600 mg tablet 600 mg PO Q6H PRN pain #20 tabs 02/15/23 oxycodone 5 mg tablet 5 mg PO Q6H PRN pain #10 tabs 02/15/23 oxycodone 5 mg tablet 5 mg PO Q6H PRN pain #12 tabs 02/16/23 oxycodone-acetaminophen 5 mg-325 1 tab PO Q6H PRN pain #10 tabs 02/17/23 mg tablet (Percocet) cyclobenzaprine 5 mg tablet 5 mg PO TID PRN muscle spasm #12 05/08/23 tabs ibuprofen 600 mg tablet 600 mg PO Q8H PRN pain #20 tabs 05/08/23 lidocaine 5 % topical patch 1 patch topical DAILY #15 ea 05/08/23 cyclobenzaprine 5 mg tablet 5 mg PO TID PRN muscle spasm #12 05/13/23 tabs ibuprofen 600 mg tablet 600 mg PO Q8H PRN pain #20 tabs 05/13/23 lidocaine 5 % topical patch 1 patch topical DAILY #15 ea 05/13/23 Allergies Allergy/AdvReac Type Severity Reaction Status Date / Time No Known Allergies Allergy Verified 05/14/23 10:58 [No Known Allergies*] Review of Systems Review of Systems: Pertinent positives and negatives as stated in HPI [facility] Past Medical History Source: nursing notes reviewed Social History Social History Alcohol intake: current Alcohol intake frequency: 3 or more drinks per day Alcohol type: beer Patient Tobacco Use Status: Never used Tobacco Smoked in Last 30 Days: No Use of substances other than those prescribed or required for medical reasons: No Advance Directives: No Advance Directives Information Provided: Yes Current occupational status: disabled Current occupation: rt handed Physical Exam ED Vital Signs: Vital Signs - 24 hr 05/14/23 10:47 05/14/23 12:01 Temperature 98.8 F 97.9 F Pulse Rate 82 79 Respiratory Rate 18 18 Blood Pressure 142/80 H 113/75 Pulse Oximetry 97 99 Oxygen Delivery Method Room Air Room Air BMI result Body Mass Index 22.4 VITAL SIGNS: Reviewed. GENERAL: Well nourished, in no acute distress, appears intoxicated. HEAD: Normocephalic/atraumatic EYES: PERRLA, EOMI EARS: Ext canals without abnormality NOSE: Nares patent bilateral OROPHARYNX: no oral lesions noted, posterior pharynx clear NECK: Supple, no adenopathy LUNGS: Normal breath sounds. No adventitious sounds or accessory muscle use. SpO2<99> CARDIOVASCULAR: Regular rate and rhythm without noted murmurs ABDOMEN: Soft, non-tender, non-distended with bowel sounds. MUSCULOSKELETAL: No tenderness, deformities, or effusions noted on gross inspection. EXTREMITIES: No cyanosis, clubbing or edema. RIGHT WRIST: pain on palpation at right, no deformity SKIN: Inspection of the skin reveals no rashes NEUROLOGIC: Alert and oriented x 3. Strength and sensation to light touch were grossly intact x 4. Medical Decision Making Medical Decision Making MDM Narrative: 52-year-old male with history and clinical presentation of current alcohol intoxication, given his falls a CT scan of the head and neck was performed and there is no evidence of intracranial hemorrhage or cervical spine fracture or subluxation and otherwise my interpretation is in agreement with radiology's impression. BAL-430. Awaiting right wrist x-ray and then will discharge when clinically sober. Patient placed in physician observation because the patient needed more time for clinical sobriety. At the time observation was started the patient's vital signs were stable, patient is alert and oriented, neuro: Nonfocal, CV RRR, lungs clear RIGHT chronic styloid fx Differential Diagnosis Differential Diagnoses: The differential diagnosis associated with the presentation includes Please see the discussion above Admission/Observation Consideration of admission/observation: Escalation of care including admission/observation considered Please see the discussion above Lab Data Labs: Lab Results 05/14/23 Range/Units 11:42 Ethyl Alcohol 430 H* mg/dL Independent Interpretation Interpretation: Please see the discussion above Social Determinants Patient?s care significantly limited by Social Determinants of Health including: Alcoholism and drug addiction in family Discharge Plan Discharge Clinical Impression: Alcohol intoxication, Alcohol use disorder, Fall Patient Disposition: Still a Patient Instructions: Alcohol Intoxication (ED), Abuse of Alcohol (ED) Additional Instructions: Return to the ER for any worsening symptoms. Prescriptions: No Action ibuprofen 600 mg tablet 600 mg PO Q8H PRN (Reason: pain) Qty: 20 0RF cyclobenzaprine 5 mg tablet 5 mg PO TID PRN (Reason: muscle spasm) Qty: 12 0RF lidocaine 5 % adhesive patch,medicated 1 patch topical DAILY Qty: 15 0RF Rx Instructions: leave on most painful area for up to 12 hrs ibuprofen 600 mg tablet 600 mg PO Q6H PRN (Reason: pain) Qty: 20 0RF oxycodone 5 mg tablet 5 mg PO Q6H PRN (Reason: pain) Qty: 10 0RF Rx Instructions: Partial Fill upon patient request. oxycodone 5 mg tablet 5 mg PO Q6H PRN (Reason: pain) Qty: 12 0RF Rx Instructions: Partial Fill upon patient request. oxycodone-acetaminophen [Percocet] 5-325 mg tablet 1 tab PO Q6H PRN (Reason: pain) Qty: 10 0RF Rx Instructions: Partial Fill upon patient request. cyclobenzaprine 5 mg tablet 5 mg PO TID PRN (Reason: muscle spasm) Qty: 12 0RF ibuprofen 600 mg tablet 600 mg PO Q8H PRN (Reason: pain) Qty: 20 0RF lidocaine 5 % adhesive patch,medicated 1 patch topical DAILY Qty: 15 0RF Rx Instructions: leave on most painful area for up to 12 hrs Referrals: [facility] [Primary Care Provider] -
--- NOTE | 2023-05-14 11:18 | PC.NURSE ---
pt a&ox3. respirations even and unlabored. pt showing signs of stumbling, inadequate sentences, high likelihood of intoxication. pt unable to state when his last drink was. pt states he had a fall but does not remember when that fall was. pt reports a lot of head pain. vss. fall precautions in place.
--- NOTE | 2023-05-14 11:39 | PC.NURSE ---
heading saw operator at bedside. pt reports having 12 beers per day. reports of taking one fireball nip today but does not know what time. pt is still unsure where he fell. pt does not know where he fell or if he hit his head or if he had any LOC. pt reports having head pain 10/10.
[2023-05-14 12:01] VITALS: BP 113/75; PULSE 79; RESP 18; TEMP 36.6; O2SAT 99
[2023-05-14 12:03] LABS: Ethanol 430 mg/dL
[2023-05-14 14:26] VITALS: BP 102/58; PULSE 51; RESP 18; O2SAT 96
[2023-05-14 16:00] VITALS: BP 128/84; PULSE 100; RESP 16; TEMP 36.7; O2SAT 97
== END 2023-05-14 16:46 | disposition home or self-care (01) ==
PROVIDERS: Emergency Provider Student in an Organized Health Care Education/Training Program
DX: F10.920 Alcohol use, unspecified with intoxication, uncomplicated (principal); F10.988 Alcohol use, unspecified with other alcohol-induced disorder; Y90.8 Blood alcohol level of 240 mg/100 ml or more; Z79.899 Other long term (current) drug therapy; Z91.81 History of falling
CPT/HCPCS: 36415; 70450; 72125; 73110; 73130; 80307; 99284

== ENCOUNTER 2023-05-29 13:01 | Emergency (ER) | payer MEDICAID, SELFPAY ==
--- NOTE | ~2023-05-29 | XR_ITS ---
EXAMINATION: XR CHEST 2 VIEWS CLINICAL INFORMATION: Chest pain. COMPARISON: Chest radiographs dated 03/19/2023. TECHNIQUE: Frontal and lateral views of the chest were obtained. FINDINGS: The heart, great vessels, pulmonary vasculature and mediastinum are normal. The lungs show no focal infiltrate, effusion or pneumothorax. There is no acute osseous abnormality. XR/XR chest 2V IMPRESSION: No active cardiopulmonary disease. EXAMINATION: XR LUMBOSACRAL SPINE CLINICAL INFORMATION: Chest pain. COMPARISON: None TECHNIQUE: AP and lateral views of the lumbar spine and lateral view of the lumbosacral junction. FINDINGS: Vertebral body heights are normal. At L4-L5, there is moderately severe disc space narrowing, with a 4 mm retrolisthesis. At L5-S1, is marked degenerative disc disease, with marked posterior disc space narrowing and a grade 2, 1.0 cm anterolisthesis. There are are bilateral L5 spondylolysis defects. There is facet arthropathy at L4-L5. The paravertebral soft tissues are unremarkable. IMPRESSION: 1. There is moderately severe degenerative disc disease at L4-L5, and marked degenerative disc disease is seen at L5-S1. 2. 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 3. There is facet arthropathy L4-L5.
--- NOTE | ~2023-05-29 | XR_ITS ---
EXAMINATION: XR CHEST 2 VIEWS CLINICAL INFORMATION: Chest pain. COMPARISON: Chest radiographs dated 03/19/2023. TECHNIQUE: Frontal and lateral views of the chest were obtained. FINDINGS: The heart, great vessels, pulmonary vasculature and mediastinum are normal. The lungs show no focal infiltrate, effusion or pneumothorax. There is no acute osseous abnormality. XR/XR lumbar spine 2-3V IMPRESSION: No active cardiopulmonary disease. EXAMINATION: XR LUMBOSACRAL SPINE CLINICAL INFORMATION: Chest pain. COMPARISON: None TECHNIQUE: AP and lateral views of the lumbar spine and lateral view of the lumbosacral junction. FINDINGS: Vertebral body heights are normal. At L4-L5, there is moderately severe disc space narrowing, with a 4 mm retrolisthesis. At L5-S1, is marked degenerative disc disease, with marked posterior disc space narrowing and a grade 2, 1.0 cm anterolisthesis. There are are bilateral L5 spondylolysis defects. There is facet arthropathy at L4-L5. The paravertebral soft tissues are unremarkable. IMPRESSION: 1. There is moderately severe degenerative disc disease at L4-L5, and marked degenerative disc disease is seen at L5-S1. 2. 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 3. There is facet arthropathy L4-L5.
[2023-05-29 13:20] VITALS: BP 128/77; PULSE 76; RESP 19; TEMP 36.6; O2SAT 98; BMI 21.0
--- NOTE | 2023-05-29 13:22 | ED_ITS ---
HPI - Back Pain/Injury General Chief Complaint: Back Pain/Injury Stated Complaint: Lower back pain Time Seen by Provider: 05/29/23 13:34 Source: patient Mode of arrival: ambulatory Limitations: no limitations History of Present Illness HPI Narrative: 52-year-old male with a history of alcohol use disorder, depression, chronic back pain presents the ER with complaints of lower back pain after lifting a refrigerator at unknown date and time. Patient denies any radiation of pain. He denies any numbness or tingling of the extremities. No numbness in the groin. No bowel or bladder incontinence. Patient also complained of chest pain to the triage nurse. No history of IVDA, does have history of cocaine use but reports he has not used in >14 yrs patient reports he drank 12 beers today. Related Data Previous Rx's Medication Instructions Recorded ibuprofen 600 mg tablet 600 mg PO Q6H PRN pain #20 tabs 02/15/23 oxycodone 5 mg tablet 5 mg PO Q6H PRN pain #10 tabs 02/15/23 oxycodone 5 mg tablet 5 mg PO Q6H PRN pain #12 tabs 02/16/23 oxycodone-acetaminophen 5 mg-325 1 tab PO Q6H PRN pain #10 tabs 02/17/23 mg tablet (Percocet) cyclobenzaprine 5 mg tablet 5 mg PO TID PRN muscle spasm #12 05/08/23 tabs ibuprofen 600 mg tablet 600 mg PO Q8H PRN pain #20 tabs 05/08/23 lidocaine 5 % topical patch 1 patch topical DAILY #15 ea 05/08/23 cyclobenzaprine 5 mg tablet 5 mg PO TID PRN muscle spasm #12 05/13/23 tabs ibuprofen 600 mg tablet 600 mg PO Q8H PRN pain #20 tabs 05/13/23 lidocaine 5 % topical patch 1 patch topical DAILY #15 ea 05/13/23 Allergies Allergy/AdvReac Type Severity Reaction Status Date / Time No Known Allergies Allergy Verified 05/14/23 10:58 [No Known Allergies*] Review of Systems 2 Review of Systems: Yes all other systems are reviewed and are negative Constitutional: Constitutional: Reports no additional constitutional complaints, Denies body ache(s), Denies chills, Denies fever(s), Denies headache(s) and Denies weakness Eyes: Eyes: Reports no additional eye complaints and Denies change in vision ENT: Reports system reviewed and no additional complaints, except as documented, Denies dizziness, Denies headache(s), Denies nasal congestion, Denies nasal discharge and Denies neck pain Cardiovascular: Cardiovascular: Reports no additional cardiovascular complaints, Reports chest pain, Denies leg edema and Denies dyspnea Respiratory: Respiratory: Reports no additional respiratory complaints, Denies cough and Denies dyspnea Gastrointestinal: Gastrointestinal: Reports no additional gastrointestinal complaints, Denies abdominal pain, Denies diarrhea, Denies nausea and Denies vomiting Genitourinary: Genitourinary: Denies urinary incontinence Musculoskeletal: Musculoskeletal: Reports no additional musculoskeletal complaints, Reports back pain, Denies arthralgias, Denies joint swelling, Denies neck pain, Denies numbness and Denies tingling Integumentary/Breasts: Skin/Breast: Reports system reviewed and no additional complaints, except as docu and Denies rash Neurologic: Reports system reviewed and no additional complaints, except as documented, Denies Abnormal speech present, Denies dizziness, Denies headache(s), Denies numbness, Denies tingling and Denies weakness FORMERLY [facility], [facility] Past Medical History Attestation statement: The following information was validated with the patient. Source: old records reviewed and nursing notes reviewed Social History Social History Alcohol intake: current Alcohol intake frequency: 3 or more drinks per day Alcohol type: beer and hard liquor Patient Tobacco Use Status: Never used Tobacco Smoked in Last 30 Days: No Use of substances other than those prescribed or required for medical reasons: No Advance Directives: No Current occupational status: disabled Current occupation: rt handed Physical Exam 2 Vital Signs: Vital Signs: Last Vital Signs Temp 98.2 F 05/30/23 02:00 Pulse 77 05/30/23 02:00 Resp 16 05/30/23 02:00 BP 111/71 05/30/23 02:00 Pulse Ox 96 05/30/23 02:00 O2 Del Method Room Air 05/30/23 02:00 BMI result Body Mass Index 21.0 Const: General: cooperative, healthy appearing, comfortable and no acute distress Orientation/consciousness: patient oriented x3 Limitations: no limitations HEENT: Head: Yes normal to inspection Ears: hearing grossly normal bilaterally General nose exam: Normal external nose present Face and sinus: Yes normal facial exam Mouth: Normal oral and palatal mucosa present Throat: Yes posterior oropharynx normal Eyes: General: appearance normal, both eyes and all related structures P upils: Equal, round and reactive pupils present Neck: Neck: Yes normal visual inspection Chest: Chest palpation & inspection: normal inspection of the chest Resp: Effort & Inspection: normal respiratory effort Auscultation: clear to auscultation bilaterally Cardio: Rate: regular rate Rhythm: regular rhythm Peripheral pulses: P eripheral pulses 2+ throughout GI: Inspection: Yes normal to inspection Palpation (GI): Soft to palpation and nontender Auscultation: normal bowel sounds Back/Spine/Pelvis: Other: Midline tenderness the lumbar spine with no step-offs or deformities. Worsen with bilateral straight leg raise Thoracic/Lumbar Spine: thoracic and lumbar spine normal to inspection Skin: General skin exam: no rashes or lesions noted Neuro: General: patient oriented x3, no focal motor deficits and normal sensation to monofilament Cranial nerves: Yes CN's II-XII intact bilaterally, Yes Equal, round and reactive pupils present, Yes Bilaterally intact EOM present, Yes Nystagmus not present, Yes Normal facial strength present and Yes Midline tongue present Cognition (Neuro): normal cognition Speech: No Abnormal speech present Gait exam (Neuro): Normal gait present Motor exam (neuro): 5/5 motor strength present throughout Sensory Exam: Normal double simultaneous stimulation for sensation Deep tendon reflexes (DTR's): Right patellar reflex intensity grade: 2+ and Left patellar reflex intensity grade: 2+ Extrem: General: Yes normal to inspection Course Course Course Narrative: This is an RME: Additional HPI, ROS, PE not included below will be deferred to primary provider. Patient is a 52-year-old male who presents emergency department for evaluation of lower back pain radiating to the bilateral legs. Reports history of recent back pain related to a work injury. He states that 3 days ago he was lifting a lot of tomatoes at work when he felt sudden onset of severe pain. Pain has been progressively worsening since then. Denies bladder bowel dysfunction. He states he has been seen here before for similar pain, he received medications but he is unable to take them as he has to care for his grandchildren, and the medicine makes him drowsy. Brought to triage room in a wheelchair, states unable to walk due to pain. Plan: placed in WR pending bed availability for pain management. Reevaluation(s) Reevaluation #1: 1700- Patient had mildly elevated CPK otherwise unremarkable workup with the exception of being intoxicated. Patient will receive 2 L of IV fluids. Will then reassess. Patient will need a sober re-eval prior to discharge. Reevaluation #2: 1850-Sign out to Donya TANG pending sober re-eval Reevaluation #3: Signed out to Dr. Lucas pending re-evaluation/sobriety Time: 20:54 Additional Reevaluation(s): Patient sleeping taking p.o. fluids received IV fluids asymptomatic now discharge patient home Medications Administered Discontinued Medications Generic Name Dose Route Start Last Admin Trade Name Gamalq PRN Reason Stop Dose Admin Sodium Chloride 1,000 mls @ 999 mls/hr 05/29/23 16:10 05/29/23 22:40 Ns IV 05/29/23 17:10 Infused .Q1H1M STA Infusion Ketorolac Tromethamine 30 mg 05/29/23 14:35 05/29/23 15:44 Ketorolac Tromethamine 30 Mg/Ml Vial IM 05/29/23 14:36 30 mg ONCE ONE Administration Medical Decision Making Medical Decision Making MDM Narrative: 52-year-old male with a history of alcohol use disorder, depression, chronic back pain presents the ER with complaints of lower back pain after lifting a refrigerator at unknown date and time. Patient denies any radiation of pain. He denies any numbness or tingling of the extremities. No numbness in the groin. No bowel or bladder incontinence. Patient also complained of chest pain to the triage nurse. No history of IVDA, does have history of cocaine use but reports he has not used in >14 yrs patient reports he drank 12 beers today. on exam patient has tenerness the lumbar mid spine and soft tissues with no palpable step-offs deformities which is worsened with bilateral straight leg raise normal neurological exam with no overt neurological deficits or red flag symptoms. Lungs are clear. Vitals are stable. Will check labs, EKG, chest x-ray and lumbar x-ray, viral testing, drug and alcohol screen Differential Diagnosis Differential Diagnoses: The differential diagnosis associated with the presentation includes low suspicion for AAA with gradual onset, low concern for renal colic, pyelonephritis, UTI with no CVA tenderness or urinary symptoms, low concern for cauda equina/cord compression with no overt neurological deficits or red flag symptoms, low concern for epidural abscess with no history of immunocompromise state, IV drug abuse a normal neurological exam, low concern for malignancy with no reports of night sweats, weight loss. Consider lumbar strain, lumbar radiculopathy, compression fracture Admission/Observation Consideration of admission/observation: Escalation of care including admission/observation considered Lab Data MDM Lab Attestation statement: I reviewed the patient's lab results. 05/29/23 15:32 05/29/23 15:32 Labs: Lab Results 05/29/23 05/29/23 Range/Units 14:22 15:32 WBC 3.8 L (4.8-10.8) X10*3/uL RBC 3.91 L (4.60-5.80) X10*6/uL Hgb 13.3 L (14.0-18.0) g/dl Hct 37.2 L (42.0-52.0) % MCV 95.1 (80.0-98.0) fL MCH 34.0 H (27.0-33.0) pg MCHC 35.8 (31.0-36.0) g/dl RDW 13.3 (11.0-16.0) % Plt Count 163 D (160-400) X10*3/uL MPV 9.0 L (9.4-12.4) fL Immature Gran % (Auto) 0.5 H (0.0-0.4) % Neut % (Auto) 37.9 L (45-73) % Lymph % (Auto) 41.6 H (20-40) % [place] % (Auto) 17.0 H (2-11) % Eos % (Auto) 1.9 (0-4) % Baso % (Auto) 1.1 (0-2) % Lymph # (Auto) 1.6 (1.2-4.9) X10*3/uL [place] # (Auto) 0.6 (0.1-1.2) X10*3/uL Eos # (Auto) 0.1 (0.0-0.4) X10*3/uL Baso # (Auto) 0.0 (0.0-0.2) X10*3/uL Abs Immat Gran (auto) 0.02 (0.00-0.03) X10*3/uL Absolute Neuts (auto) 1.4 L (2.0-8.3) x10*3/uL Absolute Nucleated RBC 0.000 (0.0-0.012) X10*3/uL Nucleated RBC % (auto) 0.0 (0.0-0.2) /100WBC PT 11.1 (11.1-13.3) SEC INR 0.9 (0.9-1.1) Sodium 137 (135-145) mmol/L Potassium 4.1 (3.3-5.1) mmol/L Chloride 103 (96-108) mmol/L Carbon Dioxide 23 (22-29) mmol/L Anion Gap 15 (12-20) BUN 6 L (9-16) mg/dL Creatinine 0.76 (0.5-1.4) mg/dL Estim Creat Clear Calc 98.8 Estimated GFR > 60 Random Glucose 77 (60-115) mg/dL Calcium 9.2 D (8.4-10.2) mg/dL Magnesium 2.1 (1.6-2.6) mg/dL Total Bilirubin 0.5 (0.0-1.0) mg/dL Direct Bilirubin 0.3 (0.0-0.5) mg/dL AST 208 H (5-37) U/L ALT 77 H (0-40) U/L Alkaline Phosphatase 87 (39-117) U/L Total Creatine Kinase 824 H (38-174) U/L Troponin I High Sens < 2.7 (<3.5-35.0) ng/L Total Protein 8.7 H (6.5-8.0) g/dL Albumin 4.2 (3.5-5.0) g/dL Lipase 47 (8-78) U/L Urine Color Yellow Urine Appearance Clear Urine pH 5.0 (5.0-9.0) Ur Specific [place] <= 1.005 (1.005-1.025) Urine Protein Negative (Neg-Trace) mg/dL Urine Glucose (UA) Negative (Negative) mg/dL Urine Ketones Negative (Negative) mg/dL Urine Blood Negative (Negative) Urine Nitrite Negative (Negative) Ur Leukocyte Esterase Negative (Negative) Urine Opiates Screen Not Detected (Not Detect) Urine Fentanyl Screen Not Detected (Not Detect) Ur Barbiturates Screen Not Detected (Not Detect) Ur Phencyclidine Scrn Not Detected (Not Detect) Ur Amphetamines Screen Not Detected (Not Detect) U Benzodiazepines Scrn Not Detected (Not Detect) Urine Cocaine Screen Not Detected (Not Detect) U Marijuana (THC) Screen Not Detected (Not Detect) Ethyl Alcohol 434 H* mg/dL COVID-19 ([place]) Negative (Negative) COVID-19 Clin Com See Note Independent Interpretation I performed an independent interpretation of an: EKG and Plain X-Ray Interpretation: I independently reviewed the EKG which shows sinus bradycardia with a rate of 59, normal OK, normal QRS, normal QT I independently reviewed the chest x-ray and lumbar x-ray and agree with the radiology report Radiology Impression Discussion of test interpretation with radiology: I have reviewed the radiologist's reading. Radiologist Impression: FINDINGS: The heart, great vessels, pulmonary vasculature and mediastinum are normal. The lungs show no focal infiltrate, effusion or pneumothorax. There is no acute osseous abnormality. XR/XR lumbar spine 2-3V IMPRESSION: No active cardiopulmonary disease. EXAMINATION: XR LUMBOSACRAL SPINE CLINICAL INFORMATION: Chest pain. COMPARISON: None TECHNIQUE: AP and lateral views of the lumbar spine and lateral view of the lumbosacral junction. FINDINGS: Vertebral body heights are normal. At L4-L5, there is moderately severe disc space narrowing, with a 4 mm retrolisthesis. At L5-S1, is marked degenerative disc disease, with marked posterior disc space narrowing and a grade 2, 1.0 cm anterolisthesis. There are are bilateral L5 spondylolysis defects. There is facet arthropathy at L4-L5. The paravertebral soft tissues are unremarkable. IMPRESSION: 1. There is moderately severe degenerative disc disease at L4-L5, and marked degenerative disc disease is seen at L5-S1. 2. 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 3. There is facet arthropathy L4-L5. Discharge Plan Discharge Clinical Impression: Alcohol intoxication, Lumbar strain Patient Disposition: Home, Self-Care Instructions: Low Back Strain (ED), Alcohol Intoxication (ED) Prescriptions: No Action ibuprofen 600 mg tablet 600 mg PO Q8H PRN (Reason: pain) Qty: 20 0RF cyclobenzaprine 5 mg tablet 5 mg PO TID PRN (Reason: muscle spasm) Qty: 12 0RF lidocaine 5 % adhesive patch,medicated 1 patch topical DAILY Qty: 15 0RF Rx Instructions: leave on most painful area for up to 12 hrs ibuprofen 600 mg tablet 600 mg PO Q6H PRN (Reason: pain) Qty: 20 0RF oxycodone 5 mg tablet 5 mg PO Q6H PRN (Reason: pain) Qty: 10 0RF Rx Instructions: Partial Fill upon patient request. oxycodone 5 mg tablet 5 mg PO Q6H PRN (Reason: pain) Qty: 12 0RF Rx Instructions: Partial Fill upon patient request. oxycodone-acetaminophen [Percocet] 5-325 mg tablet 1 tab PO Q6H PRN (Reason: pain) Qty: 10 0RF Rx Instructions: Partial Fill upon patient request. cyclobenzaprine 5 mg tablet 5 mg PO TID PRN (Reason: muscle spasm) Qty: 12 0RF ibuprofen 600 mg tablet 600 mg PO Q8H PRN (Reason: pain) Qty: 20 0RF lidocaine 5 % adhesive patch,medicated 1 patch topical DAILY Qty: 15 0RF Rx Instructions: leave on most painful area for up to 12 hrs Referrals: [facility] [Primary Care Provider] - 1 week
[2023-05-29 13:35] VITALS: BP 115/76; PULSE 61; RESP 18; TEMP 36.2; O2SAT 98
--- NOTE | 2023-05-29 13:35 | PC.NURSE ---
pt collected from waiting room in wheelchair. pt speaking upper sorbian on the phone, pt handed phone to nurse- nurse was advised that republican on the phone was pt . sts that he has back back pain, pt speech noted to be slurred , with slumped posture in wheelchair. questioned if pt sounds liek his base line. informed nurse that pt had consumed at least 6 beersd today PALLIATIVE CARE COORDINATOR (unknown time) pt, assisted to exam room [place] with ax2, urinal and call salgado within reach, awaiting provider eval, care ongoing
--- NOTE | 2023-05-29 13:57 | ECG_ITS ---
Test Reason : cp Blood Pressure : / mmHG Vent. Rate : 059 BPM Atrial Rate : 059 BPM P-R Int : 156 ms QRS Dur : 092 ms QT Int : 402 ms P-R-T Axes : 043 064 046 degrees QTc Int : 397 ms Sinus bradycardia Otherwise normal ECG When compared with ECG of 19-MAR-2023 10:54, T wave amplitude has increased in Anterior leads Referred By: Celena Goldberg Electronically Signed By:ARON BROWER
--- NOTE | 2023-05-29 14:01 | PC.NURSE ---
pt stated to nurse that he has consumes 12 beers per day, in addition to fireball whiskey. pt is slow to respond and requires prompting. pt assisted to bedside with urinal, noted to be nodding, responding in short sentances, pt began reporting CP EKG ordered.
[2023-05-29 14:34] LABS: Appearance Urine Clear; Color Urine Yellow; Glucose Urine UA Negative (Negative); Leukocyte Esterase Urine Negative (Negative); Nitrite Urine Negative (Negative); Specific Gravity - Urine <= 1.005 (1.005-1.025); Urine Blood Negative (Negative); Urine Ketones Negative (Negative); Urine Protein Negative (Neg-Trace)
[2023-05-29 15:10] LABS: Amphetamine Screen Urine Not Detected (Not Detect); Barbiturates, Urine Not Detected (Not Detect); Benzodiazepines Screen Urine Not Detected (Not Detect); Cannabinoid Screen Urine Not Detected (Not Detect); Cocaine Screen Urine Not Detected (Not Detect); Fentanyl, urine Not Detected (Not Detect); Opiate Screen Urine Not Detected (Not Detect); Phencyclidine Screen Urine Not Detected (Not Detect)
[2023-05-29 15:36] VITALS: BP 113/77; PULSE 62; RESP 16; TEMP 36.9; O2SAT 98
[2023-05-29 15:39] LABS: MANUAL DIFF FLAG NO
[2023-05-29 15:42] LABS: Basophils Percent Auto 1.1 % (0-2); Eosinophils Absolute Auto 0.1 X10*3/uL (0.0-0.4); Eosinophils Percent Auto 1.9 % (0-4); Hematocrit 37.2 % (42.0-52.0); Hemoglobin 13.3 g/dl (14.0-18.0); Imm Gran Abs Auto 0.02 X10*3/uL (0.00-0.03); Imm Gran Pct Auto 0.5 % (0.0-0.4); Lymphocytes Absolute Auto 1.6 X10*3/uL (1.2-4.9); Lymphocytes Percent Auto 41.6 % (20-40); Mean Corpuscular HGB Conc 35.8 g/dl (31.0-36.0); Mean Corpuscular Volume 95.1 fL (80.0-98.0); Monocytes Absolute Auto 0.6 X10*3/uL (0.1-1.2); Neutrophils Absolute Auto 1.4 x10*3/uL (2.0-8.3); Neutrophils Percent Auto 37.9 % (45-73); Platelet Count 163 X10*3/uL (160-400); Red Blood Count 3.91 X10*6/uL (4.60-5.80); Red Cell Distribution Width 13.3 % (11.0-16.0); White Blood Count 3.8 X10*3/uL (4.8-10.8)
[2023-05-29] MEDS: Ketorolac Tromethamine 30 MG/ML VIAL IM (15:44)
[2023-05-29 16:00] LABS: COVID-19 Test Negative (Negative); IDNOW Serial# 9DB6401D
[2023-05-29 16:05] LABS: INTERNATIONAL NORM RATIO 0.9 (0.9-1.1); Prothrombin Time 11.1 SEC (11.1-13.3)
[2023-05-29 16:08] LABS: Alanine Aminotransferase 77 U/L (0-40); Albumin Level 4.2 g/dL (3.5-5.0); Alkaline Phosphatase 87 U/L (39-117); Anion Gap 15 (12-20); Aspartate Amino Transferase 208 U/L (5-37); Bilirubin Direct 0.3 mg/dL (0.0-0.5); Bilirubin Total 0.5 mg/dL (0.0-1.0); Blood Urea Nitrogen 6 mg/dL (9-16); Calcium 9.2 mg/dL (8.4-10.2); Carbon Dioxide 23 mmol/L (22-29); Chloride 103 mmol/L (96-108); Creatinine Clr Calc Pharmacy 98.8; Estimated Glomerular Filt Rate > 60; Ethanol 434 mg/dL; Glucose Random 77 mg/dL (60-115); Lipase 47 U/L (8-78); Magnesium 2.1 mg/dL (1.6-2.6); Potassium 4.1 mmol/L (3.3-5.1); Sodium 137 mmol/L (135-145); Total Protein 8.7 g/dL (6.5-8.0)
[2023-05-29 16:17] LABS: Troponin-I High Sensitivity < 2.7 ng/L (<3.5-35.0)
[2023-05-29] MEDS: 0.9 % Sodium Chloride 1,000 ML 999 ML IV (16:40)
[2023-05-29 18:00] VITALS: BP 118/74; PULSE 62; RESP 16; TEMP 36.7; O2SAT 98
--- NOTE | 2023-05-29 18:58 | PC.NURSE ---
pt care continues at this time, NS infusing per order, reminded pt to keep arm straight to allow fluids to infuse. NAD noted, call salgado within reach.
[2023-05-29 19:40] VITALS: BP 108/75; PULSE 94; RESP 16; TEMP 36.9; O2SAT 98
--- NOTE | 2023-05-29 20:43 | PC.NURSE ---
care continues at this time, pt is sleeping, rise and fall of chest noted, even symmetrical expansion of the chest NAD noted, no new orders at this time, bedside urinal emptied. call salgado within reach
[2023-05-29 21:21] VITALS: BP 109/64; PULSE 62; RESP 16; TEMP 36.8; O2SAT 98
--- NOTE | 2023-05-29 22:40 | PC.NURSE ---
pt care continues, assisted pt with urinal, pt voided 1000ml of straw colored urine. bed linens freshened, and pt repositioned to side for comfort. 20g IV still in place in right medial AC. pt NSR on personnel monitor, NAD noted, no complaints from pt at this time. pt remains drowsy, rousable to verbal stimuli, call salgado within reach.fall precautions in place
[2023-05-30] VITALS: BP 118/70; PULSE 64; RESP 16; TEMP 36.9; O2SAT 95
[2023-05-30 02:00] VITALS: BP 111/71; PULSE 77; RESP 16; TEMP 36.8; O2SAT 96
[2023-05-30] MEDS: Acetaminophen 325 MG TABLET 975 MG PO (03:18)
== END 2023-05-30 03:20 | disposition home or self-care (01) ==
PROVIDERS: Nurse Practitioner Family; Emergency Provider Emergency Medicine
DX: S39.012A Strain of muscle, fascia and tendon of lower back, initial encounter (principal); R07.89 Other chest pain; R00.1 Bradycardia, unspecified; X50.0XXA Overexertion from strenuous movement or load, initial encounter; Y93.9 Activity, unspecified; Y92.9 Unspecified place or not applicable; Y99.9 Unspecified external cause status; Z20.822 Contact with and (suspected) exposure to COVID-19; Z20.828 Contact with and (suspected) exposure to other viral communicable diseases; Z79.899 Other long term (current) drug therapy
CPT/HCPCS: 36415; 71046; 72100; 80048; 80076; 80307; 81003; 82550; 83690; 83735; 84484; 85025; 85610; 87635; 93005; 96360; 96361; 96372; 99284; 99285; J1885

== ENCOUNTER 2023-05-31 18:22 | Emergency (ER) | payer MEDICAID, SELFPAY ==
[2023-05-31 18:36] VITALS: BP 105/79; PULSE 89; RESP 18; TEMP 36.8; O2SAT 95; BMI 20.4
--- NOTE | 2023-05-31 18:36 | ED.BACK ---
HPI - Back Pain/Injury General Chief Complaint: Back Pain/Injury Stated Complaint: back pain Time Seen by Provider: 05/31/23 19:53 Source: patient Mode of arrival: ambulatory Limitations: no limitations History of Present Illness HPI Narrative: Patient presents to ED for back pain since yesterday after heavy lifting of multiple boxes. Patient denies any blunt trauma to back or rest of body, falling, head trauma, or loss of consciousness. Related Data Previous Rx's Medication Instructions Recorded ibuprofen 600 mg tablet 600 mg PO Q6H PRN pain #20 tabs 02/15/23 oxycodone 5 mg tablet 5 mg PO Q6H PRN pain #10 tabs 02/15/23 oxycodone 5 mg tablet 5 mg PO Q6H PRN pain #12 tabs 02/16/23 oxycodone-acetaminophen 5 mg-325 1 tab PO Q6H PRN pain #10 tabs 02/17/23 mg tablet (Percocet) cyclobenzaprine 5 mg tablet 5 mg PO TID PRN muscle spasm #12 05/08/23 tabs ibuprofen 600 mg tablet 600 mg PO Q8H PRN pain #20 tabs 05/08/23 lidocaine 5 % topical patch 1 patch topical DAILY #15 ea 05/08/23 cyclobenzaprine 5 mg tablet 5 mg PO TID PRN muscle spasm #12 05/13/23 tabs ibuprofen 600 mg tablet 600 mg PO Q8H PRN pain #20 tabs 05/13/23 lidocaine 5 % topical patch 1 patch topical DAILY #15 ea 05/13/23 naproxen 500 mg tablet 500 mg PO BID PRN pain 7 days #14 05/31/23 tabs Allergies Allergy/AdvReac Type Severity Reaction Status Date / Time No Known Allergies Allergy Verified 05/14/23 10:58 [No Known Allergies*] Review of Systems Review of Systems: low back pain and right arm pain after lfiting multiple heavy boxex. Yes all other systems are reviewed and are negative [facility] Social History Social History Alcohol intake: current Alcohol intake frequency: 3 or more drinks per day Alcohol type: beer and hard liquor Patient Tobacco Use Status: Never used Tobacco Advance Directives: No Advance Directives Information Provided: No Current occupational status: disabled Current occupation: rt handed Physical Exam Vital Signs: Vital Signs: Last Vital Signs Temp 98.3 F 05/31/23 23:00 Pulse 61 05/31/23 23:00 Resp 16 05/31/23 23:00 BP 119/76 05/31/23 23:00 Pulse Ox 97 05/31/23 23:00 O2 Del Method Room Air 05/31/23 23:00 BMI result Body Mass Index 20.4 Const: Other: alcohol on breath General: cooperative, healthy appearing and comfortable Orientation/consciousness: oriented to person, oriented to place, oriented to time and patient oriented x3 HEENT: Head: Yes normal to inspection, Yes No palpable skull fracture present, Yes normocephalic and Yes atraumatic Ears: hearing grossly normal bilaterally, external ears normal, TM's normal bilaterally, TM normal on the right, TM normal on the left, EAC's normal, mastoids normal and no periauricular adenopathy General nose exam: Normal external nose present and Normal nares present Face and sinus: Yes normal facial exam and Yes sinuses nontender Mouth: Normal oral and palatal mucosa present, lip normal and tongue normal Throat: Yes posterior oropharynx normal, Yes tonsils normal and Yes uvula midline Eyes: General: appearance normal, both eyes and all related structures Neck: Neck: Yes normal visual inspection, Yes full ROM, Yes no lymphadenopathy, Yes no meningeal signs, Yes trachea midline, Yes supple, No anterior neck swelling and No tender Chest: Chest palpation & inspection: normal inspection of the chest and normal palpation of entire chest wall Resp: Effort & Inspection: normal respiratory effort and able to speak in complete sentences Auscultation: clear to auscultation bilaterally Cardio: Jugular venous distension: no JVD Heart sounds: S1 normal heart sound present and S2 normal heart sound present GI: Inspection: Yes normal to inspection and No abdominal wall ecchymosis Palpation (GI): Soft to palpation, not firm, nontender, no guarding and not rigid : General: Yes no CVA tenderness Back/Spine/Pelvis: Back: no CVA tenderness and back tenderness (left lower muscular back pain. no spine tenderness) Skin: General skin exam: no rashes or lesions noted, elasticity normal and turgor normal Neuro: General: oriented to person, oriented to place, oriented to time, patient oriented x3, gait normal, tone normal, moves all extremities, Normal light touch and pain sensation, no meningeal signs and No no focal motor deficits Extrem: Other: RIght upper extremity normal and adriana/neuro/vascular exam is intact. General: Yes normal to inspection and Yes full ROM Psych: Other: Alcohol on breath Appearance: grossly normal Course Course Course Narrative: RME: 52-year-old male with a history of alcohol use disorder, depression, chronic back pain, presents the ED with complaints of lower back pain s/p lifting heavy boxes at work and also reports EVANS. Admits to drinking 1 beer today. Ambulating with a guarded gait Patient was evaluated in our ED on 05/29 for similar symptoms had labs which showed elevated CPK and ethanol 434. Had x-rays that showed degenerative disc disease Need for repeat x-ray at this time. Labs/UA and tox screen ordered Full HPI, ROS and PE to be performed by primary ED provider. Medical Decision Making Medical Decision Making [facility] Narrative: 52 yold male presents to ED for lower back pain and right arm pain after heavy lifiting. Patietn states no blunt trauma. patient denies any urinary/bowel incontinence. patient denies any abdominal pain, nausea, vomitting, fever, chills, chest pain, headache, swelling, dysuria, hematuria or any other concerning symptoms. Patient sobered up and has normal gait with A0x3. Labs are baselin. patient does not wan detox. Differential Diagnosis Differential Diagnoses: The differential diagnosis associated with the presentation includes (Muscle strain, UTI, spine fracture, epidural abscess, caudina equina, alcohol intox) Admission/Observation Consideration of admission/observation: Escalation of care including admission/observation considered Lab Data [facility] Lab Attestation statement: I reviewed the patient's lab results. 05/31/23 19:37 05/31/23 19:37 Labs: Lab Results 05/31/23 Range/Units 19:37 WBC 3.6 L (4.8-10.8) X10*3/uL RBC 3.57 L (4.60-5.80) X10*6/uL Hgb 11.9 L (14.0-18.0) g/dl Hct 33.8 L (42.0-52.0) % MCV 94.7 (80.0-98.0) fL MCH 33.3 H (27.0-33.0) pg MCHC 35.2 (31.0-36.0) g/dl RDW 13.5 (11.0-16.0) % Plt Count 130 L (160-400) X10*3/uL MPV 9.8 (9.4-12.4) fL Immature Gran % (Auto) 0.3 (0.0-0.4) % Neut % (Auto) 44.3 L (45-73) % Lymph % (Auto) 39.6 (20-40) % [place] % (Auto) 13.6 H (2-11) % Eos % (Auto) 1.1 (0-4) % Baso % (Auto) 1.1 (0-2) % Lymph # (Auto) 1.4 (1.2-4.9) X10*3/uL [place] # (Auto) 0.5 (0.1-1.2) X10*3/uL Eos # (Auto) 0.0 (0.0-0.4) X10*3/uL Baso # (Auto) 0.0 (0.0-0.2) X10*3/uL Abs Immat Gran (auto) 0.01 (0.00-0.03) X10*3/uL Absolute Neuts (auto) 1.6 L (2.0-8.3) x10*3/uL Absolute Nucleated RBC 0.000 (0.0-0.012) X10*3/uL Nucleated RBC % (auto) 0.0 (0.0-0.2) /100WBC Sodium 140 (135-145) mmol/L Potassium 3.4 (3.3-5.1) mmol/L Chloride 108 (96-108) mmol/L Carbon Dioxide 20 L (22-29) mmol/L Anion Gap 15 (12-20) BUN 7 L (9-16) mg/dL Creatinine 0.74 (0.5-1.4) mg/dL Estim Creat Clear Calc 98.4 Estimated GFR > 60 Random Glucose 131 H (60-115) mg/dL Calcium 8.7 (8.4-10.2) mg/dL Magnesium 1.8 (1.6-2.6) mg/dL Total Bilirubin 0.4 (0.0-1.0) mg/dL Direct Bilirubin 0.2 (0.0-0.5) mg/dL AST 235 H (5-37) U/L ALT 91 H (0-40) U/L Alkaline Phosphatase 85 (39-117) U/L Total Protein 8.0 (6.5-8.0) g/dL Albumin 3.9 (3.5-5.0) g/dL Ethyl Alcohol 355 H* mg/dL Tests considered The following testing was considered but not selected: Xrays, Ct Prescription Management I considered prescription management with: Pain Medication Discharge Plan Discharge Clinical Impression: Strain of lumbar region, Alcohol intoxication Patient Disposition: Home, Self-Care Instructions: Low Back Strain (ED), Alcohol Intoxication (ED), Back Pain (ED) Additional Instructions: Katherine un seguimiento con doss proveedor de atenci?n primaria. Tambi?n seguimiento con programa detox. Regrese al servicio de urgencias de inmediato si presenta dolor de jesica, n?useas, v?mitos, incontinencia urinaria o intestinal, dolor de espalda intenso, fiebre, escalofr?os, dolor de pecho, dificultad para respirar o cualquier otro s?ntoma preocupante. Los MARSHAL de venta scott y Tylenol se pueden utilizar para el dolor Prescriptions: New naproxen 500 mg tablet 500 mg PO BID PRN (Reason: pain) 7 Days Qty: 14 0RF No Action ibuprofen 600 mg tablet 600 mg PO Q8H PRN (Reason: pain) Qty: 20 0RF cyclobenzaprine 5 mg tablet 5 mg PO TID PRN (Reason: muscle spasm) Qty: 12 0RF lidocaine 5 % adhesive patch,medicated 1 patch topical DAILY Qty: 15 0RF Rx Instructions: leave on most painful area for up to 12 hrs ibuprofen 600 mg tablet 600 mg PO Q6H PRN (Reason: pain) Qty: 20 0RF oxycodone 5 mg tablet 5 mg PO Q6H PRN (Reason: pain) Qty: 10 0RF Rx Instructions: Partial Fill upon patient request. oxycodone 5 mg tablet 5 mg PO Q6H PRN (Reason: pain) Qty: 12 0RF Rx Instructions: Partial Fill upon patient request. oxycodone-acetaminophen [Percocet] 5-325 mg tablet 1 tab PO Q6H PRN (Reason: pain) Qty: 10 0RF Rx Instructions: Partial Fill upon patient request. cyclobenzaprine 5 mg tablet 5 mg PO TID PRN (Reason: muscle spasm) Qty: 12 0RF ibuprofen 600 mg tablet 600 mg PO Q8H PRN (Reason: pain) Qty: 20 0RF lidocaine 5 % adhesive patch,medicated 1 patch topical DAILY Qty: 15 0RF Rx Instructions: leave on most painful area for up to 12 hrs Interventions: ED Discharge Assessment Last Done: 05/31/23 23:33 Discharge Date/Time: 05/31/23 23:33 Print Language: Chinese
[2023-05-31 19:42] LABS: MANUAL DIFF FLAG NO
[2023-05-31 19:46] LABS: Basophils Percent Auto 1.1 % (0-2); Eosinophils Percent Auto 1.1 % (0-4); Hematocrit 33.8 % (42.0-52.0); Hemoglobin 11.9 g/dl (14.0-18.0); Imm Gran Abs Auto 0.01 X10*3/uL (0.00-0.03); Imm Gran Pct Auto 0.3 % (0.0-0.4); Lymphocytes Absolute Auto 1.4 X10*3/uL (1.2-4.9); Lymphocytes Percent Auto 39.6 % (20-40); Mean Corpuscular HGB Conc 35.2 g/dl (31.0-36.0); Mean Corpuscular Hemoglobin 33.3 pg (27.0-33.0); Mean Corpuscular Volume 94.7 fL (80.0-98.0); Mean Platelet Volume 9.8 fL (9.4-12.4); Monocytes Absolute Auto 0.5 X10*3/uL (0.1-1.2); Monocytes Percent Auto 13.6 % (2-11); Neutrophils Absolute Auto 1.6 x10*3/uL (2.0-8.3); Neutrophils Percent Auto 44.3 % (45-73); Platelet Count 130 X10*3/uL (160-400); Red Blood Count 3.57 X10*6/uL (4.60-5.80); Red Cell Distribution Width 13.5 % (11.0-16.0); White Blood Count 3.6 X10*3/uL (4.8-10.8)
[2023-05-31 19:59] LABS: Alanine Aminotransferase 91 U/L (0-40); Albumin Level 3.9 g/dL (3.5-5.0); Alkaline Phosphatase 85 U/L (39-117); Anion Gap 15 (12-20); Aspartate Amino Transferase 235 U/L (5-37); Bilirubin Direct 0.2 mg/dL (0.0-0.5); Bilirubin Total 0.4 mg/dL (0.0-1.0); Blood Urea Nitrogen 7 mg/dL (9-16); Calcium 8.7 mg/dL (8.4-10.2); Carbon Dioxide 20 mmol/L (22-29); Chloride 108 mmol/L (96-108); Creatinine Clr Calc Pharmacy 98.4; Estimated Glomerular Filt Rate > 60; Ethanol 355 mg/dL; Glucose Random 131 mg/dL (60-115); Magnesium 1.8 mg/dL (1.6-2.6); Potassium 3.4 mmol/L (3.3-5.1); Sodium 140 mmol/L (135-145)
[2023-05-31 23:00] VITALS: BP 119/76; PULSE 61; RESP 16; TEMP 36.8; O2SAT 97
== END 2023-05-31 23:33 | disposition home or self-care (01) ==
PROVIDERS: Physician Assistant; Emergency Provider Emergency Medicine
DX: S39.012A Strain of muscle, fascia and tendon of lower back, initial encounter (principal); X50.0XXA Overexertion from strenuous movement or load, initial encounter; F10.920 Alcohol use, unspecified with intoxication, uncomplicated; Y90.8 Blood alcohol level of 240 mg/100 ml or more; Y93.9 Activity, unspecified; Y92.9 Unspecified place or not applicable; Y99.0 Civilian activity done for income or pay
CPT/HCPCS: 36415; 80048; 80076; 80307; 83735; 85025; 99283

== ENCOUNTER 2023-06-11 09:59 | Emergency (ER) | payer MEDICAID, SELFPAY ==
--- NOTE | ~2023-06-11 | CT_ITS ---
EXAMINATION: CT CERVICAL SPINE CLINICAL INFORMATION: Reason for Exam neck pain, etoh, ?fall COMPARISON: No prior CT available, TECHNIQUE: Computed axial sagittal and coronal images acquired using department's standard protocol. This CT examination was performed using dose optimization techniques as appropriate, variously including the following: *Automated exposure control *Adjustment of mA and/or kV according to patient size (this includes techniques or standardized protocols for targeted exams where dose is matched to indication/reason for exam; i.e. extremities or head) *Use of iterative reconstruction technique CONTRAST: None DLP: 324 mGy-cm FINDINGS: SKULL BASE: Visualized structures at skull base are normal, Included facial sinuses are clear, CERVICAL VERTEBRAE: Seven cervical vertebrae identified maintaining proper height and alignment, DISCS: C1-C2: There is no CT evidence of significant osseous narrowing of the central canal or neural foramen. C2-C3: There is no CT evidence of significant osseous narrowing of the central canal or neural foramen. C3-C4: There is no CT evidence of significant osseous narrowing of the central canal or neural foramen. C4-C5: There is no CT evidence of significant osseous narrowing of the central canal or neural foramen. C5-C6: There is no CT evidence of significant osseous narrowing of the central canal or neural foramen. C6-C7: There is no CT evidence of significant osseous narrowing of the central canal or neural foramen. C7-T1: There is no CT evidence of significant osseous narrowing of the central canal or neural foramen. PARAVERTEBRAL SOFT TISSUE: Paravertebral soft tissues unremarkable. CT/CT cervical spine wo IV con IMPRESSION: No CT evidence of cervical spine fractures.
--- NOTE | ~2023-06-11 | CT_ITS ---
EXAMINATION: CT LUMBAR SPINE WITHOUT CONTRAST CLINICAL INFORMATION: Question fracture. Abnormal CT scan. COMPARISON: Lumbar spine radiographs 07/11/2023. TECHNIQUE: Pricing Intern images were obtained. CT imaging of the lumbar spine was performed without contrast. Data was reformatted into multiplanar images at the acquisition workstation. This CT examination was performed using dose optimization techniques as appropriate, variously including the following: *Automated exposure control *Adjustment of mA and/or kV according to patient size (this includes techniques or standardized protocols for targeted exams where dose is matched to indication/reason for exam; i.e. extremities or head) *Use of iterative reconstruction technique DLP; 293 mGy-cm FINDINGS: There is grade 2 anterolisthesis of L5 on S1 related to bilateral L5 pars interarticularis defects. Slight grade 1 retrolisthesis of L4 on L5. Vertebral heights are preserved. There is loss of intervertebral disc height with associated sclerotic degenerative endplate changes, hypertrophic disc osteophyte spurring, and intervertebral vacuum disc phenomenon at L4-L5 and L5-S1. There is severe compression of both L5 foraminal nerve roots related to multiple factors. Partial effacement of the paranasal fat at L4-L5 causing no more than mild mass effect on both L4 foraminal nerve roots. No canal compromise. Limited visualization of the retroperitoneal anatomy reveals no abnormal finding. CT/CT lumbar spine wo IV con IMPRESSION: There is grade 2 anterolisthesis of L5 on S1 related to bilateral L5 pars interarticularis defects. Slight grade 1 retrolisthesis of L4 on L5. There is advanced degenerative spondylosis at L4-L5 and L5-S1. A pseudodisc bulge in conjunction with facet degenerative change at L5-S1 causes severe compression of both L5 foraminal nerve roots. No canal compromise.
--- NOTE | ~2023-06-11 | XR_ITS ---
EXAMINATION: XR WRIST, RIGHT CLINICAL INFORMATION: Pain and swelling COMPARISON: None available. TECHNIQUE: PA, lateral, and oblique views of the right wrist. FINDINGS: Radiolucent line at the base of the ulnar styloid could be an old fracture or congenitally unfused secondary ossification center. Radiocarpal, intercarpal and carpometacarpal joints otherwise intact. No other acute fractures. Mild degenerative osteoarthritic changes of the carpometacarpal joints. There are mild vascular calcifications. XR/XR wrist RT min 3V IMPRESSION: * Radiolucent line at the base of the ulnar styloid could be an old fracture or congenitally unfused secondary ossification center. * Underlying mild DJD. * Vascular calcifications.
--- NOTE | ~2023-06-11 | XR_ITS ---
EXAMINATION: XR LUMBAR SPINE CLINICAL INFORMATION: Reason for Exam back pain COMPARISON: None TECHNIQUE: Frontal lateral and coned-down L5-S1 frontal lateral,total of 3 views FINDINGS: Five [id number] lumbar vertebrae were identified maintaining normal height, there is a grade 2 anterior spondylolisthesis of L5 on S1, radiolucency projecting over the left pedicle of L5 suggests possible underlying spondylolysis, L5 vertebra has shifted 1.2 cm forward.. Narrowing of intervertebral disc spaces L4-L5 and L5-S1 suggest underlying degenerative disc disease. Paravertebral soft tissues are unremarkable. There are radiolucencies, most likely superimposed bowel gas.. No radiographic evidence of osteolytic or osteoblastic lesions. XR/XR lumbar spine 2-3V IMPRESSION: * Grade 2 anterior spondylolisthesis of L5 on S1. * Radiolucency projecting over the left pedicle of L5 suggests possible underlying spondylolysis, this can be confirmed by CT scan or MRI. * Narrowing of intervertebral disc spaces suggest underlying degenerative disc disease.
--- NOTE | ~2023-06-11 | XR_ITS ---
EXAMINATION: XR THORACIC SPINE CLINICAL INFORMATION: Back pain COMPARISON: None available. TECHNIQUE: 3 views of the thoracic spine were obtained. FINDINGS: There is no fracture or bone destruction seen and the vertebral alignment is normal. There is no disc space narrowing. There is no abnormality of the paraspinal soft tissues. XR/XR thoracic spine 3V IMPRESSION: No significant osseous changes to explain patient's back pain symptoms.
--- NOTE | ~2023-06-11 | CT_ITS ---
CT head/brain wo IV con CLINICAL INFORMATION: Reason for Exam lobato, etoh ?fall COMPARISON: Prior CT April 2023 TECHNIQUE: Department standard protocol. This CT examination was performed using dose optimization techniques as appropriate, variously including the following: *Automated exposure control *Adjustment of mA and/or kV according to patient size (this includes techniques or standardized protocols for targeted exams where dose is matched to indication/reason for exam; i.e. extremities or head) *Use of iterative reconstruction technique DLP: 643 mGy-cm FINDINGS: CEREBRAL HEMISPHERES: There is no evidence of intra-axial or extra-axial mass, hemorrhage or acute infarct. BRAIN PARENCHYMA: Normal michaud-white matter differentiation. SUBDURAL SPACE: No bleed. BASAL GANGLIA AND PINEAL GLAND: Unremarkable VENTRICLES: Symmetric and normal in size. CEREBELLUM AND BRAINSTEM: No space-occupying mass, hemorrhage or acute infarct. CEREBELLOPONTINE ANGLES: No lesion found. ORBITS: No intraorbital mass. VESSELS: Unremarkable SKULL BASE: Unremarkable INCLUDED SINUSES AT SKULL BASE: Clear SKULL AND SKIN: No fracture or bone lesion found. CT/CT head/brain wo IV con IMPRESSION: No CT evidence of intracranial space-occupying mass, bleed or infarct.
[2023-06-11 10:11] VITALS: BP 124/92; BP 150/90; PULSE 67; PULSE 70; RESP 16; TEMP 36.7; O2SAT 97; BMI 21.1
[2023-06-11 10:32] LABS: MANUAL DIFF FLAG NO
[2023-06-11 10:34] LABS: Basophils Percent Auto 0.9 % (0-2); Eosinophils Percent Auto 0.9 % (0-4); Hematocrit 36.8 % (42.0-52.0); Hemoglobin 12.8 g/dl (14.0-18.0); Imm Gran Abs Auto 0.01 X10*3/uL (0.00-0.03); Imm Gran Pct Auto 0.2 % (0.0-0.4); Lymphocytes Absolute Auto 1.5 X10*3/uL (1.2-4.9); Lymphocytes Percent Auto 34.3 % (20-40); Mean Corpuscular HGB Conc 34.8 g/dl (31.0-36.0); Mean Corpuscular Volume 97.6 fL (80.0-98.0); Mean Platelet Volume 9.4 fL (9.4-12.4); Monocytes Absolute Auto 0.5 X10*3/uL (0.1-1.2); Monocytes Percent Auto 11.1 % (2-11); Neutrophils Absolute Auto 2.4 x10*3/uL (2.0-8.3); Neutrophils Percent Auto 52.6 % (45-73); Platelet Count 121 X10*3/uL (160-400); Red Blood Count 3.77 X10*6/uL (4.60-5.80); White Blood Count 4.5 X10*3/uL (4.8-10.8)
[2023-06-11 10:51] LABS: Alanine Aminotransferase 68 U/L (0-40); Albumin Level 3.8 g/dL (3.5-5.0); Alkaline Phosphatase 87 U/L (39-117); Anion Gap 14 (12-20); Aspartate Amino Transferase 151 U/L (5-37); Bilirubin Direct 0.2 mg/dL (0.0-0.5); Bilirubin Total 0.4 mg/dL (0.0-1.0); Blood Urea Nitrogen 8 mg/dL (9-16); Calcium 8.2 mg/dL (8.4-10.2); Carbon Dioxide 20 mmol/L (22-29); Chloride 111 mmol/L (96-108); Creatinine Clr Calc Pharmacy 99.5; Estimated Glomerular Filt Rate > 60; Ethanol 415 mg/dL; Glucose Random 109 mg/dL (60-115); Potassium 3.8 mmol/L (3.3-5.1); Sodium 141 mmol/L (135-145)
--- NOTE | 2023-06-11 10:56 | ED.NECK ---
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 Patient admits to drinking about 10 or more beers last night, unsure if he fell, does not remember. Also reports acute on chronic right wrist pain. Denies other illicit drug use, SI/HI. Unknown fall, LOC. Denies nausea/vomiting, CP/SOB, abdominal pain, incontinence/retention MD complaint: neck pain Related Data Previous Rx's Medication Instructions Recorded ibuprofen 600 mg tablet 600 mg PO Q6H PRN pain #20 tabs 02/15/23 oxycodone 5 mg tablet 5 mg PO Q6H PRN pain #10 tabs 02/15/23 oxycodone 5 mg tablet 5 mg PO Q6H PRN pain #12 tabs 02/16/23 oxycodone-acetaminophen 5 mg-325 1 tab PO Q6H PRN pain #10 tabs 02/17/23 mg tablet (Percocet) cyclobenzaprine 5 mg tablet 5 mg PO TID PRN muscle spasm #12 05/08/23 tabs ibuprofen 600 mg tablet 600 mg PO Q8H PRN pain #20 tabs 05/08/23 lidocaine 5 % topical patch 1 patch topical DAILY #15 ea 05/08/23 cyclobenzaprine 5 mg tablet 5 mg PO TID PRN muscle spasm #12 05/13/23 tabs ibuprofen 600 mg tablet 600 mg PO Q8H PRN pain #20 tabs 05/13/23 lidocaine 5 % topical patch 1 patch topical DAILY #15 ea 05/13/23 naproxen 500 mg tablet 500 mg PO BID PRN pain 7 days #14 05/31/23 tabs Allergies Allergy/AdvReac Type Severity Reaction Status Date / Time No Known Allergies Allergy Verified 05/14/23 10:58 [No Known Allergies*] Review of Systems Review of Systems: Constitutional: No Fever, No Chills ENT/Mouth: No Ear Pain, No Nasal Congestion, No sore throat, No Rhinorrhea, No Swallowing Difficulty Cardiovascular: No Chest Pain, No SOB Respiratory: No Cough Gastrointestinal: No Nausea, No Vomiting, No Diarrhea, No Abdominal pain Genitourinary: No Dysuria, No Urinary Frequency, No Hematuria, No Urinary Incontinence/retention Musculoskeletal: + joint pain, No Myalgias, No Joint Swelling Skin: No Skin Lesions, No rash Neuro: No Weakness, No Numbness, No Paresthesias, +EVANS Yes all other systems are reviewed and are negative Constitutional: Constitutional: Reports as per HPI Neurologic: Denies Abnormal speech present [facility] Past Medical History Attestation statement: The following information was validated with the patient. Source: old records reviewed Social History Social History Alcohol intake: current Alcohol intake frequency: 3 or more drinks per day Alcohol type: beer and hard liquor Patient Tobacco Use Status: Never used Tobacco Use of substances other than those prescribed or required for medical reasons: Unknown Last Used Substance: Hours (ago) Advance Directives: No Advance Directives Information Provided: No Current occupational status: disabled Current occupation: rt handed Physical Exam Vital Signs: Vital Signs: Last Vital Signs Temp 98.4 F 06/11/23 14:19 Pulse 83 06/11/23 14:19 Resp 16 06/11/23 14:19 BP 113/76 06/11/23 14:19 Pulse Ox 98 06/11/23 14:19 O2 Del Method Room Air 06/11/23 14:19 BMI result Body Mass Index 21.1 Const: Other: + EtOH odor on breath General: cooperative, no acute distress, alert, awake and intoxicated appearing Orientation/consciousness: patient oriented x3 Limitations: no limitations HEENT: Head: Yes normal to inspection, Yes atraumatic, No Zepeda's sign and No raccoon eyes Ears: hearing grossly normal bilaterally General nose exam: Normal external nose present Face and sinus: Yes normal facial exam Eyes: General: appearance normal, both eyes and all related structures EOM: EOMs intact bilaterally Neck: Neck: Yes normal visual inspection and Yes no meningeal signs Chest: Chest palpation & inspection: normal inspection of the chest and no crepitus Resp: Effort & Inspection: normal respiratory effort and no respiratory distress Cardio: Rate: regular rate Heart sounds: S1 normal heart sound present and S2 normal heart sound present GI: Inspection: Yes normal to inspection Palpation (GI): Soft to palpation, nontender, no guarding and not rigid : General: Yes no CVA tenderness Back/Spine/Pelvis: Other: No midline cervical/thoracic/lumbar spinous tenderness/step-off or deformity Back: no CVA tenderness Skin: Rashes: no rashes Wounds: no wounds Neuro: Other: Strength intact throughout. No saddle anesthesia. Sensation intact to light touch. Neurovascular intact distally General: patient oriented x3, gait normal, tone normal, moves all extremities, no meningeal signs, no focal motor deficits and CN's II-XI intact bilaterally Cranial nerves: Yes CN's II-XII intact bilaterally Speech: No Abnormal speech present Motor exam (neuro): 5/5 motor strength present throughout Extrem: Other: Right wrist volar aspect with slight swelling. Mildly tender. Full range of motion intact. Neurovascularly intact. No snuffbox tenderness Psych: Thought content: suicidality and no homicidality Course Course Course Narrative: 1153--chronically elevated AST/ALT. Ethanol 415 > chronically high CT head/brain wo IV con IMPRESSION: No CT evidence of intracranial space-occupying mass, bleed or infarct. CT cervical spine wo IV con IMPRESSION: No CT evidence of cervical spine fractures. XR thoracic spine 3V IMPRESSION: No significant osseous changes to explain patient's back pain symptoms. XR lumbar spine 2-3V IMPRESSION: * Grade 2 anterior spondylolisthesis of L5 on S1. * Radiolucency projecting over the left pedicle of L5 suggests possible underlying spondylolysis, this can be confirmed by CT scan or MRI. * Narrowing of intervertebral disc spaces suggest underlying degenerative disc disease. > will obtain CT for further eval XR wrist RT min 3V IMPRESSION: * Radiolucent line at the base of the ulnar styloid could be an old fracture or congenitally unfused secondary ossification center. * Underlying mild DJD. * Vascular calcifications. > patient with history of old fracture in [place] 1317--CT lumbar spine wo IV con IMPRESSION: There is grade 2 anterolisthesis of L5 on S1 related to bilateral L5 pars interarticularis defects. Slight grade 1 retrolisthesis of L4 on L5. There is advanced degenerative spondylosis at L4-L5 and L5-S1. A pseudodisc bulge in conjunction with facet degenerative change at L5-S1 causes severe compression of both L5 foraminal nerve roots. No canal compromise. > patient without acute numbness/weakness or red flag symptoms. Likely chronic findings. Discussed with ED attending Dr. Rolon who is in agreement. -patient ambulating in the ED with steady gait without assistance. No slurred speech. Clinically sober at this time. Results discussed with patient including worrisome signs and symptoms and strict return precautions, and when to return to the emergency department. They verbalized understanding and feel safe for discharge at this time. Medical Decision Making Medical Decision Making [facility] Narrative: 52-year-old male with past medical history of ETOH use disorder, depression, chronic back pain, presenting to the ED via EMS s/p being at store drinking orange juice then complaining of headache, neck and back pain. On exam vital signs stable, NAD, nontoxic appearing, + intoxicated/EtOH odor on breath, no evidence of trauma, no midline spinous tenderness throughout, no focal neuro deficits, abdomen soft/nontender. Denies SI/HI. Concern for contusion versus fractures versus ICH. Low suspicion for intrathoracic or intra-abdominal bleeding/injury or hematoma. Unlikely cauda equina/cord compression or epidural abscess. Plan: Head/C-spine CT, x-rays Please refer to course for remaining clinical decision making, interpretation of labs/imaging results, and discussions with consultants and/or family members. Differential Diagnosis Differential Diagnoses: The differential diagnosis associated with the presentation includes As above Admission/Observation Consideration of admission/observation: Escalation of care including admission/observation considered Lab Data [facility] Lab Attestation statement: I reviewed the patient's lab results. 06/11/23 10:27 06/11/23 10:27 Labs: Lab Results 06/11/23 06/11/23 Range/Units 10:27 12:26 WBC 4.5 L (4.8-10.8) X10*3/uL RBC 3.77 L (4.60-5.80) X10*6/uL Hgb 12.8 L (14.0-18.0) g/dl Hct 36.8 L (42.0-52.0) % MCV 97.6 (80.0-98.0) fL MCH 34.0 H (27.0-33.0) pg MCHC 34.8 (31.0-36.0) g/dl RDW 14.0 (11.0-16.0) % Plt Count 121 L (160-400) X10*3/uL MPV 9.4 (9.4-12.4) fL Immature Gran % (Auto) 0.2 (0.0-0.4) % Neut % (Auto) 52.6 (45-73) % Lymph % (Auto) 34.3 (20-40) % [place] % (Auto) 11.1 H (2-11) % Eos % (Auto) 0.9 (0-4) % Baso % (Auto) 0.9 (0-2) % Lymph # (Auto) 1.5 (1.2-4.9) X10*3/uL [place] # (Auto) 0.5 (0.1-1.2) X10*3/uL Eos # (Auto) 0.0 (0.0-0.4) X10*3/uL Baso # (Auto) 0.0 (0.0-0.2) X10*3/uL Abs Immat Gran (auto) 0.01 (0.00-0.03) X10*3/uL Absolute Neuts (auto) 2.4 (2.0-8.3) x10*3/uL Absolute Nucleated RBC 0.000 (0.0-0.012) X10*3/uL Nucleated RBC % (auto) 0.0 (0.0-0.2) /100WBC Sodium 141 (135-145) mmol/L Potassium 3.8 (3.3-5.1) mmol/L Chloride 111 H (96-108) mmol/L Carbon Dioxide 20 L (22-29) mmol/L Anion Gap 14 (12-20) BUN 8 L (9-16) mg/dL Creatinine 0.76 (0.5-1.4) mg/dL Estim Creat Clear Calc 99.5 Estimated GFR > 60 Random Glucose 109 (60-115) mg/dL Calcium 8.2 L (8.4-10.2) mg/dL Total Bilirubin 0.4 (0.0-1.0) mg/dL Direct Bilirubin 0.2 (0.0-0.5) mg/dL AST 151 H (5-37) U/L ALT 68 H (0-40) U/L Alkaline Phosphatase 87 (39-117) U/L Total Protein 8.0 (6.5-8.0) g/dL Albumin 3.8 (3.5-5.0) g/dL Urine Opiates Screen Not Detected (Not Detect) Urine Fentanyl Screen Not Detected (Not Detect) Ur Barbiturates Screen Not Detected (Not Detect) Ur Phencyclidine Scrn Not Detected (Not Detect) Ur Amphetamines Screen Not Detected (Not Detect) U Benzodiazepines Scrn Not Detected (Not Detect) Urine Cocaine Screen Not Detected (Not Detect) U Marijuana (THC) Screen Not Detected (Not Detect) Ethyl Alcohol 415 H* mg/dL Radiology Impression Discussion of test interpretation with radiology: I have reviewed the radiologist's reading. External Record Review External record reviewed: Inpatient record, Office record, Outpatient record, Prior outpatient labs, Prior outpatient radiology, Primary care record and Outside ED record Tests considered The following testing was considered but not selected: As above Discharge Plan Discharge Clinical Impression: Chronic alcohol abuse, Chronic back pain, Neck pain Patient Disposition: Home, Self-Care Instructions: Abuse of Alcohol (DC), Back Pain (ED), Neck Pain (ED) Additional Instructions: You have many degenerative changes of your lower back Please follow-up with psych sales specialist, call on Tuesday to make an appointment Your wrist x-ray shows evidence of old fracture AVOID ALCOHOL AND DRUG USE THIS CAN KILL YOU FOLLOW-UP WITH YOUR DOCTOR Tienes muchos cambios degenerativos en tu espalda baja. Katherine un seguimiento con un especialista en [place], llame el para programar barbara yesenia. La radiograf?a de graham mu?eca muestra evidencia de barbara fractura marlena EVITE EL CONSUMO DE ALCOHOL Y DROGAS ESTO PUEDE MATAR SEGUIMIENTO CON GRAHAM M?DICO Prescriptions: No Action ibuprofen 600 mg tablet 600 mg PO Q8H PRN (Reason: pain) Qty: 20 0RF cyclobenzaprine 5 mg tablet 5 mg PO TID PRN (Reason: muscle spasm) Qty: 12 0RF lidocaine 5 % adhesive patch,medicated 1 patch topical DAILY Qty: 15 0RF Rx Instructions: leave on most painful area for up to 12 hrs ibuprofen 600 mg tablet 600 mg PO Q6H PRN (Reason: pain) Qty: 20 0RF oxycodone 5 mg tablet 5 mg PO Q6H PRN (Reason: pain) Qty: 10 0RF Rx Instructions: Partial Fill upon patient request. oxycodone 5 mg tablet 5 mg PO Q6H PRN (Reason: pain) Qty: 12 0RF Rx Instructions: Partial Fill upon patient request. oxycodone-acetaminophen [Percocet] 5-325 mg tablet 1 tab PO Q6H PRN (Reason: pain) Qty: 10 0RF Rx Instructions: Partial Fill upon patient request. cyclobenzaprine 5 mg tablet 5 mg PO TID PRN (Reason: muscle spasm) Qty: 12 0RF ibuprofen 600 mg tablet 600 mg PO Q8H PRN (Reason: pain) Qty: 20 0RF lidocaine 5 % adhesive patch,medicated 1 patch topical DAILY Qty: 15 0RF Rx Instructions: leave on most painful area for up to 12 hrs naproxen 500 mg tablet 500 mg PO BID PRN (Reason: pain) 7 Days Qty: 14 0RF Referrals: Ken Wright MD, PhD [Physician] - Stand Alone Forms: Work/School Release Interventions: ED Discharge Assessment Last Done: 06/11/23 14:31 Discharge Date/Time: 06/11/23 14:31 Print Language: Greek
--- NOTE | 2023-06-11 12:22 | PC.NURSE ---
pt returned from imaging, call salgado within reach- pt appears drowsy, easily roused to name/ external stimuli. care ongoing
[2023-06-11 12:47] LABS: Amphetamine Screen Urine Not Detected (Not Detect); Barbiturates, Urine Not Detected (Not Detect); Benzodiazepines Screen Urine Not Detected (Not Detect); Cannabinoid Screen Urine Not Detected (Not Detect); Cocaine Screen Urine Not Detected (Not Detect); Fentanyl, urine Not Detected (Not Detect); Opiate Screen Urine Not Detected (Not Detect); Phencyclidine Screen Urine Not Detected (Not Detect)
--- NOTE | 2023-06-11 13:27 | PC.NURSE ---
UA sent to lab- pt continues to be calm and cooperative in exam room- care ongoing
[2023-06-11 14:19] VITALS: BP 113/76; PULSE 83; RESP 16; TEMP 36.9; O2SAT 98
== END 2023-06-11 14:31 | disposition home or self-care (01) ==
PROVIDERS: Physician Assistant; Emergency Provider Emergency Medicine Emergency Medical Services; PCP Family Medicine
DX: F10.120 Alcohol abuse with intoxication, uncomplicated (principal); Y90.8 Blood alcohol level of 240 mg/100 ml or more; G89.29 Other chronic pain; M54.50 Low back pain, unspecified; M54.2 Cervicalgia; M25.531 Pain in right wrist; Z79.899 Other long term (current) drug therapy
CPT/HCPCS: 36415; 70450; 72072; 72100; 72125; 72131; 73110; 80048; 80076; 80307; 85025; 99284

== ENCOUNTER 2023-06-13 11:11 | Emergency (ER) | payer MEDICAID, SELFPAY ==
--- NOTE | 2023-06-13 | ECG_ITS ---
Test Reason : CP Blood Pressure : / mmHG Vent. Rate : 063 BPM Atrial Rate : 063 BPM P-R Int : 168 ms QRS Dur : 098 ms QT Int : 398 ms P-R-T Axes : 043 062 052 degrees QTc Int : 407 ms Normal sinus rhythm Incomplete right bundle branch block Borderline ECG When compared with ECG of 29-MAY-2023 14:18, No significant change was found Referred By: Vianey Ferrari Electronically Signed By:ARON BROWER
--- NOTE | ~2023-06-13 | XR_ITS ---
EXAMINATION: XR CHEST CLINICAL INFORMATION: Right-sided chest pain COMPARISON: X-rays thoracic spine 06/11/2023, chest 05/29/2023 TECHNIQUE: Single frontal view of the chest. FINDINGS: The lungs are well inflated. There is no gross pneumothorax. The heart size is normal. No pleural effusion. No focal consolidation to suggest pneumonia. XR/XR chest 1V IMPRESSION: Well-inflated lungs. No evidence of pneumonia.
[2023-06-13 11:26] VITALS: BP 112/74; BP 125/81; PULSE 62; PULSE 80; RESP 16; TEMP 36.4; O2SAT 100; BMI 23.3
--- NOTE | 2023-06-13 11:40 | ED.ALCOHOL ---
HPI - Alcohol General Chief Complaint: ETOH/Substance Use Stated Complaint: R SIDE SHARP PAIN,CP,ETOH USE PER EMS Time Seen by Provider: 06/13/23 11:19 Source: patient and EMS Mode of arrival: EMS Limitations: no limitations History of Present Illness HPI narrative: 52-year-old male with history of alcohol use disorder, depression, chronic back pain presented to the ED complains of right-sided chest pain right upper extremity pain and right hip/ groin pain. Patient is a former IV drug abuser last use was greater than 14 years ago, patient admitted to drinking beer this morning. No recent traveling, no recent prolonged immobilization , no lower extremity swelling or tenderness. MD complaint: medical clearance for detox facility Related Data Previous Rx's Medication Instructions Recorded ibuprofen 600 mg tablet 600 mg PO Q6H PRN pain #20 tabs 02/15/23 oxycodone 5 mg tablet 5 mg PO Q6H PRN pain #10 tabs 02/15/23 oxycodone 5 mg tablet 5 mg PO Q6H PRN pain #12 tabs 02/16/23 oxycodone-acetaminophen 5 mg-325 1 tab PO Q6H PRN pain #10 tabs 02/17/23 mg tablet (Percocet) cyclobenzaprine 5 mg tablet 5 mg PO TID PRN muscle spasm #12 05/08/23 tabs ibuprofen 600 mg tablet 600 mg PO Q8H PRN pain #20 tabs 05/08/23 lidocaine 5 % topical patch 1 patch topical DAILY #15 ea 05/08/23 cyclobenzaprine 5 mg tablet 5 mg PO TID PRN muscle spasm #12 05/13/23 tabs ibuprofen 600 mg tablet 600 mg PO Q8H PRN pain #20 tabs 05/13/23 lidocaine 5 % topical patch 1 patch topical DAILY #15 ea 05/13/23 naproxen 500 mg tablet 500 mg PO BID PRN pain 7 days #14 05/31/23 tabs Allergies Allergy/AdvReac Type Severity Reaction Status Date / Time No Known Allergies Allergy Verified 05/14/23 10:58 [No Known Allergies*] Review of Systems Review of Systems: All other systems are reviewed and are negative Constitutional: Reports as per HPI and Reports no additional constitutional complaints Eyes: Reports as per HPI and Reports no additional eye complaints Reports system reviewed and no additional complaints, except as documented Cardiovascular: Reports as per HPI and Reports no additional cardiovascular complaints Respiratory: Reports as per HPI and Reports no additional respiratory complaints Gastrointestinal: Reports as per HPI and Reports no additional gastrointestinal complaints Genitourinary: Reports no additional female genitourinary complaints Musculoskeletal: Reports no additional musculoskeletal complaints Skin/Breast: Reports system reviewed and no additional complaints, except as docu Psychiatric: Reports no additional psychiatric complaints Endocrine: Reports no additional endocrine complaints Hematologic/Lymphatic: Reports no additional hematologic/lymphatic complaints Allergic/Immunologic: Reports no additional allergic/immunologic complaints Reports system reviewed and no additional complaints, except as documented and Reports Abnormal speech present [facility] Social History Social History Alcohol intake: current Alcohol intake frequency: 3 or more drinks per day Alcohol type: beer and hard liquor Patient Tobacco Use Status: Never used Tobacco Advance Directives: No Current occupational status: disabled Current occupation: rt handed Physical Exam ED Vital Signs: Vital Signs - 24 hr 06/13/23 11:26 06/13/23 12:22 06/13/23 14:21 Temperature 97.5 F 96.8 F Pulse Rate 62 59 70 Respiratory Rate 16 16 16 Blood Pressure 112/74 116/73 110/65 Pulse Oximetry 100 99 98 Oxygen Delivery Method Room Air Room Air Room Air BMI result Body Mass Index 23.3 Vital signs have been reviewed and appear to be correct. Blood pressure elevated. Heart rate normal. Respiratory rate normal. Temperature normal. Oxygen saturation normal. Appearance: Alert. Oriented X3. No acute distress. Head: Normal external exam. Normocephalic. Atraumatic. No Zepeda signs noted. No raccoon eyes noted Eyes: PERRLA. EOMI. Conjunctiva and sclera normal. Eyelids normal. ENT: TM's Normal. Pharynx normal. Uvula midline. Moist mucous membranes. No trismus noted. No drooling noted. No muffled voice noted. Neck: Normal inspection. Neck supple. FROM. No adenopathy. Thyroid Normal. No meningeal signs. No neck mass noted. CVS: Normal heart rate and rhythm. Heart sound normal. No murmurs noted. Pulses normal throughout. Respiratory: No respiratory distress. Painless inspiration. Breath sounds normal. No wheezes/rales/rhonchi noted. Chest nontender. No accessory muscle usage noted or decreased air movement noted. Abdomen: Soft and nontender. Bowel sounds normal in all 4 quadrants. No distention noted. No organomegaly noted. No visible injury noted. Back: No CVA tenderness. Full range of motion noted. Skin: Skin warm and dry. Normal skin color. Normal skin turgor. No rashes/lesions/lacerations noted. Extremities: No lower extremity edema. Extremities exhibit normal range of motion. Extremities nontender. Neuro: Oriented X 3. Cranial nerve exam: II-XII are grossly intact No motor deficit. No sensory deficit. Reflexes normal. Course Course Course Narrative: 52-year-old male well known to our staff with alcohol abuse history presented in alcohol intoxication and alcohol in the 400s, to be very evaluated when he is sober than likely to be discharged. Medical Decision Making Differential Diagnosis Differential Diagnoses: The differential diagnosis associated with the presentation includes ( alcohol intoxication, electrolyte abnormality, severe anemia.) Admission/Observation Consideration of admission/observation: Escalation of care including admission/observation considered Lab Data MDM Lab Attestation statement: I reviewed the patient's lab results. 06/13/23 12:00 06/13/23 12:01 Labs: Lab Results 06/13/23 06/13/23 Range/Units 12:00 12:01 WBC 4.1 L (4.8-10.8) X10*3/uL RBC 3.88 L (4.60-5.80) X10*6/uL Hgb 13.1 L (14.0-18.0) g/dl Hct 37.2 L (42.0-52.0) % MCV 95.9 (80.0-98.0) fL MCH 33.8 H (27.0-33.0) pg MCHC 35.2 (31.0-36.0) g/dl RDW 13.8 (11.0-16.0) % Plt Count 118 L (160-400) X10*3/uL MPV 9.0 L (9.4-12.4) fL Immature Gran % (Auto) 0.2 (0.0-0.4) % Neut % (Auto) 55.8 (45-73) % Lymph % (Auto) 32.1 (20-40) % Lamb % (Auto) 9.4 (2-11) % Eos % (Auto) 1.5 (0-4) % Baso % (Auto) 1.0 (0-2) % Lymph # (Auto) 1.3 (1.2-4.9) X10*3/uL Lamb # (Auto) 0.4 (0.1-1.2) X10*3/uL Eos # (Auto) 0.1 (0.0-0.4) X10*3/uL Baso # (Auto) 0.0 (0.0-0.2) X10*3/uL Abs Immat Gran (auto) 0.01 (0.00-0.03) X10*3/uL Absolute Neuts (auto) 2.3 (2.0-8.3) x10*3/uL Absolute Nucleated RBC 0.000 (0.0-0.012) X10*3/uL Nucleated RBC % (auto) 0.0 (0.0-0.2) /100WBC D-Dimer High Sensitivty 396 NG/ML Sodium 141 (135-145) mmol/L Potassium 3.8 (3.3-5.1) mmol/L Chloride 109 H (96-108) mmol/L Carbon Dioxide 21 L (22-29) mmol/L Anion Gap 15 (12-20) BUN 7 L (9-16) mg/dL Creatinine 0.71 (0.5-1.4) mg/dL Estim Creat Clear Calc 115.0 Estimated GFR > 60 Random Glucose 85 (60-115) mg/dL Calcium 8.6 (8.4-10.2) mg/dL Total Bilirubin 0.5 (0.0-1.0) mg/dL Direct Bilirubin 0.2 (0.0-0.5) mg/dL AST 163 H (5-37) U/L ALT 69 H (0-40) U/L Alkaline Phosphatase 90 (39-117) U/L Troponin I High Sens < 2.7 (<3.5-35.0) ng/L Total Protein 8.1 H (6.5-8.0) g/dL Albumin 3.9 (3.5-5.0) g/dL Lipase 48 (8-78) U/L Ethyl Alcohol 408 H* mg/dL Influenza Type A (PCR) NEGATIVE (Negative) Influenza Type B (PCR) NEGATIVE (Negative) RSV RNA Qual (PCR) NEGATIVE (Negative) SARS-CoV-2 RNA (RT-PCR) NEGATIVE (Negative) Chronic Conditions Patient?s care impacted by: Other ( alcohol abuse.) Discharge Plan Discharge Clinical Impression: Alcoholic intoxication Patient Disposition: Still a Patient Instructions: Alcohol Intoxication (ED) Prescriptions: No Action ibuprofen 600 mg tablet 600 mg PO Q8H PRN (Reason: pain) Qty: 20 0RF cyclobenzaprine 5 mg tablet 5 mg PO TID PRN (Reason: muscle spasm) Qty: 12 0RF lidocaine 5 % adhesive patch,medicated 1 patch topical DAILY Qty: 15 0RF Rx Instructions: leave on most painful area for up to 12 hrs ibuprofen 600 mg tablet 600 mg PO Q6H PRN (Reason: pain) Qty: 20 0RF oxycodone 5 mg tablet 5 mg PO Q6H PRN (Reason: pain) Qty: 10 0RF Rx Instructions: Partial Fill upon patient request. oxycodone 5 mg tablet 5 mg PO Q6H PRN (Reason: pain) Qty: 12 0RF Rx Instructions: Partial Fill upon patient request. oxycodone-acetaminophen [Percocet] 5-325 mg tablet 1 tab PO Q6H PRN (Reason: pain) Qty: 10 0RF Rx Instructions: Partial Fill upon patient request. cyclobenzaprine 5 mg tablet 5 mg PO TID PRN (Reason: muscle spasm) Qty: 12 0RF ibuprofen 600 mg tablet 600 mg PO Q8H PRN (Reason: pain) Qty: 20 0RF lidocaine 5 % adhesive patch,medicated 1 patch topical DAILY Qty: 15 0RF Rx Instructions: leave on most painful area for up to 12 hrs naproxen 500 mg tablet 500 mg PO BID PRN (Reason: pain) 7 Days Qty: 14 0RF Referrals: [facility] [Primary Care Provider] -
--- NOTE | 2023-06-13 11:54 | PC.NURSE ---
security at bedside to pat pt down for ETOH
[2023-06-13 12:05] LABS: MANUAL DIFF FLAG NO
[2023-06-13 12:06] LABS: Eosinophils Absolute Auto 0.1 X10*3/uL (0.0-0.4); Eosinophils Percent Auto 1.5 % (0-4); Hematocrit 37.2 % (42.0-52.0); Hemoglobin 13.1 g/dl (14.0-18.0); Imm Gran Abs Auto 0.01 X10*3/uL (0.00-0.03); Imm Gran Pct Auto 0.2 % (0.0-0.4); Lymphocytes Absolute Auto 1.3 X10*3/uL (1.2-4.9); Lymphocytes Percent Auto 32.1 % (20-40); Mean Corpuscular HGB Conc 35.2 g/dl (31.0-36.0); Mean Corpuscular Hemoglobin 33.8 pg (27.0-33.0); Mean Corpuscular Volume 95.9 fL (80.0-98.0); Monocytes Absolute Auto 0.4 X10*3/uL (0.1-1.2); Monocytes Percent Auto 9.4 % (2-11); Neutrophils Absolute Auto 2.3 x10*3/uL (2.0-8.3); Neutrophils Percent Auto 55.8 % (45-73); Platelet Count 118 X10*3/uL (160-400); Red Blood Count 3.88 X10*6/uL (4.60-5.80); Red Cell Distribution Width 13.8 % (11.0-16.0); White Blood Count 4.1 X10*3/uL (4.8-10.8)
[2023-06-13 12:15] LABS: D Dimer High Sensitivity 396 NG/ML
[2023-06-13 12:22] VITALS: BP 116/73; PULSE 59; RESP 16; TEMP 36; O2SAT 99
[2023-06-13 12:25] LABS: Alanine Aminotransferase 69 U/L (0-40); Albumin Level 3.9 g/dL (3.5-5.0); Alkaline Phosphatase 90 U/L (39-117); Anion Gap 15 (12-20); Aspartate Amino Transferase 163 U/L (5-37); Bilirubin Direct 0.2 mg/dL (0.0-0.5); Bilirubin Total 0.5 mg/dL (0.0-1.0); Blood Urea Nitrogen 7 mg/dL (9-16); Calcium 8.6 mg/dL (8.4-10.2); Carbon Dioxide 21 mmol/L (22-29); Chloride 109 mmol/L (96-108); Estimated Glomerular Filt Rate > 60; Ethanol 408 mg/dL; Glucose Random 85 mg/dL (60-115); Lipase 48 U/L (8-78); Potassium 3.8 mmol/L (3.3-5.1); Sodium 141 mmol/L (135-145); Total Protein 8.1 g/dL (6.5-8.0)
[2023-06-13 12:28] LABS: Troponin-I High Sensitivity < 2.7 ng/L (<3.5-35.0)
[2023-06-13 12:43] LABS: Influenza A PCR NEGATIVE (Negative); Influenza B PCR NEGATIVE (Negative); Resp Syncy Virus RNA Qual PCR NEGATIVE (Negative); SARS COV2 PCR INHOUSE NEGATIVE (Negative)
[2023-06-13 14:21] VITALS: BP 110/65; PULSE 70; RESP 16; O2SAT 98
[2023-06-13 16:00] VITALS: BP 110/64; PULSE 72; RESP 16; TEMP 36.8; O2SAT 96
--- NOTE | 2023-06-13 16:50 | PC.NURSE ---
pt resting in bed comfortably, NAD, RR even and unlabored. pt with no complaints/ no needs at this time.
--- NOTE | 2023-06-13 17:15 | PC.NURSE ---
ppt able to ambulate in steady gait without assistance. pt requesting d/c at this time. made aware
== END 2023-06-13 17:16 | disposition home or self-care (01) ==
PROVIDERS: Emergency Provider Emergency Medicine
DX: F10.220 Alcohol dependence with intoxication, uncomplicated (principal); Y90.8 Blood alcohol level of 240 mg/100 ml or more; Z20.822 Contact with and (suspected) exposure to COVID-19; Z20.828 Contact with and (suspected) exposure to other viral communicable diseases
CPT/HCPCS: 0241U; 36415; 71045; 80048; 80076; 80307; 83690; 84484; 85025; 85379; 93005; 99283; 99285

== ENCOUNTER 2023-06-18 11:34 | Emergency (ER) | payer MEDICAID, SELFPAY ==
--- NOTE | ~2023-06-18 | XR_ITS ---
EXAMINATION: XR CHEST CLINICAL INFORMATION: Chest pain COMPARISON: Previous chest x-ray May 2023 TECHNIQUE: Frontal view of the chest was obtained. FINDINGS: No significant abnormality is noted involving the heart, lungs, mediastinum, bony thorax or soft tissues. XR/XR chest 1V IMPRESSION: Unremarkable examination.
--- NOTE | 2023-06-18 11:44 | ED.GENADULT ---
HPI - General Adult General Chief complaint: Chest Pain Stated complaint: ABD PAIN CHEST PAIN Time Seen by Provider: 06/18/23 11:44 Source: patient, EMS and court interpreter Mode of arrival: EMS Limitations: language barrier History of Present Illness HPI narrative: Patient is a 52 year old assigned male at with a history of alcohol abuse presenting to the emergency department today with alcohol intoxication and chest pain. Patient states that the chest pain is the same chest pain he has been having and been examined here for before. Patient states that he has been drinking today. Patient denies any dizziness, lightheadedness, abdominal pain, nausea, vomiting, fever, chills, blurry vision, double vision, loss of vision, difficulty breathing, shortness of breath, back pain, night sweats, pain with urination, increased urinary frequency, increased urinary urgency, blood in his urine or stool, syncope or a near syncopal episode, recent trauma or falls, bowel incontinence, bladder incontinence, bowel retention, bladder retention, or any other complaints at this time. Onset (ago): week(s) Location: chest Severity: mild Severity scale (1-10): 3 Quality: aching and dull Pain Consistency: intermittent Relieving factors: none Exacerbating factors: none Associated symptoms: chest pain Treatments prior to arrival: none Related Data Previous Rx's Medication Instructions Recorded ibuprofen 600 mg tablet 600 mg PO Q6H PRN pain #20 tabs 02/15/23 oxycodone 5 mg tablet 5 mg PO Q6H PRN pain #10 tabs 02/15/23 oxycodone 5 mg tablet 5 mg PO Q6H PRN pain #12 tabs 02/16/23 oxycodone-acetaminophen 5 mg-325 1 tab PO Q6H PRN pain #10 tabs 02/17/23 mg tablet (Percocet) cyclobenzaprine 5 mg tablet 5 mg PO TID PRN muscle spasm #12 05/08/23 tabs ibuprofen 600 mg tablet 600 mg PO Q8H PRN pain #20 tabs 05/08/23 lidocaine 5 % topical patch 1 patch topical DAILY #15 ea 05/08/23 cyclobenzaprine 5 mg tablet 5 mg PO TID PRN muscle spasm #12 05/13/23 tabs ibuprofen 600 mg tablet 600 mg PO Q8H PRN pain #20 tabs 08/25/23 lidocaine 5 % topical patch 1 patch topical DAILY #15 ea 05/13/23 naproxen 500 mg tablet 500 mg PO BID PRN pain 7 days #14 05/31/23 tabs Allergies Allergy/AdvReac Type Severity Reaction Status Date / Time No Known Allergies Allergy Verified 05/14/23 10:58 [No Known Allergies*] Review of Systems Constitutional: Constitutional: Reports no additional constitutional complaints, Denies chills, Denies fever(s) and Denies night sweats Eyes: Eyes: Reports no additional eye complaints, Denies blurry vision, Denies change in vision, Denies diplopia, Denies eye discharge, Denies loss of vision and Denies eye pain ENT: Denies dizziness Cardiovascular: Cardiovascular: Reports no additional cardiovascular complaints, Reports chest pain, Denies lightheadedness, Denies Loss of Consciousness and Denies dyspnea Respiratory: Respiratory: Reports no additional respiratory complaints and Denies dyspnea Gastrointestinal: Gastrointestinal: Reports no additional gastrointestinal complaints, Denies abdominal pain, Denies melena, Denies hematochezia, Denies change in bowel habits and Denies change in stool character Genitourinary: Genitourinary: Reports no additional male genitourinary complaints, Denies hematuria, Denies oliguria, Denies difficulty urinating, Denies dysuria, Denies urinary frequency, Denies urinary hesitancy, Denies urinary incontinence and Denies urinary urgency Musculoskeletal: Musculoskeletal: Reports no additional musculoskeletal complaints, Denies numbness and Denies tingling Neurologic: Denies dizziness, Denies loss of vision, Denies numbness and Denies tingling Psychiatric: Psychiatric: Reports no additional psychiatric complaints Endocrine: Endocrine: Reports no additional endocrine complaints Hematologic/Lymphatic: Hematologic/Lymphatic: Reports no additional hematologic/lymphatic complaints Allergic/Immunologic: Allergic/Immunologic: Reports no additional allergic/immunologic complaints FOR[facility]LY [facility] Past Medical History Attestation statement: The following information was validated with the patient. Source: old records reviewed and nursing notes reviewed Social History Social History Alcohol intake: current Alcohol intake frequency: 3 or more drinks per day Alcohol type: beer and hard liquor Patient Tobacco Use Status: Never used Tobacco Substance Use Type: Marijuana Advance Directives: No Advance Directives Information Provided: No Current occupational status: disabled Current occupation: rt handed Physical Exam ED Vital Signs: Vital Signs - 24 hr 06/18/23 11:48 06/18/23 14:53 Temperature 97.5 F Pulse Rate 67 97 Respiratory Rate 15 14 Blood Pressure 115/71 108/73 Pulse Oximetry 100 97 Oxygen Delivery Method Room Air Room Air BMI result Body Mass Index 21.1 Const General: cooperative, no acute distress, alert and awake Nutritional Appearance: well nourished Orientation/consciousness: patient oriented x3 Limitations: no limitations HENMT Head: Yes normal to inspection and Yes atraumatic Ears: hearing grossly normal bilaterally and external ears normal General nose exam: Normal external nose present, no nasal discharge noted and no epistaxis Face and sinus: Yes normal facial exam, No abrasion and No laceration Mouth: Normal oral and palatal mucosa present, no drooling and no muffled voice Eyes General: appearance normal, both eyes and all related structures Periorbital: periorbital findings normal Eyelids: Yes eyelids normal Conjunctivae: conjunctivae normal Pupils: Equal, round and reactive pupils present EOM: EOMs intact bilaterally Neck Neck: Yes normal visual inspection, Yes full ROM and Yes no lymphadenopathy Chest Chest palpation & inspection: normal inspection of the chest Resp Effort & Inspection: normal respiratory effort and able to speak in complete sentences Auscultation: clear to auscultation bilaterally Cardio Rate: regular rate Rhythm: regular rhythm GI Inspection: Yes normal to inspection Palpation (GI): Soft to palpation, not firm, nontender and no guarding Neuro General: patient oriented x3 and moves all extremities Cranial nerves: Yes Equal, round and reactive pupils present Cognition (Neuro): normal cognition Motor exam (neuro): 5/5 motor strength present throughout Sensory Exam: Normal double simultaneous stimulation for sensation Coordination: [id number] test normal Extrem General: Yes normal to inspection, Yes full ROM and Yes capillary refill normal Psych Appearance: grossly normal Mental Status: mental status grossly normal Affect: normal affect Attitude: cooperative Thought process: Normal thought process present Thought content: Normal thought content present Insight: Good insight present (Psych) Medical Decision Making Medical Decision Making MDM Narrative: Patient is a 52 year old assigned male at with a history of alcohol abuse presenting to the emergency department today with chronic chest pain and alcohol intoxication. Patient's physical exam was unremarkable. Patient's blood work was unremarkable with the exception of an elevated ethanol level of 428. Patient's EKG was unremarkable. Patient's chest x-ray showed no acute process. I explained my physical exam findings as well as all test results to the patient. I answered all questions asked by the patient. I stressed the importance of the patient taking his medication as prescribed. I stressed the importance of the patient following up with his primary care provider. I stressed the importance of the patient returning to the emergency department immediately if his symptoms were to worsen or if he were to develop any dizziness, shortness of breath, difficulty breathing, chest pain, blurry vision, loss of vision, nausea, vomiting, abdominal pain, fever, chills, back pain, or any other complaints. Patient verbalized agreement and understanding with this treatment plan and discharge. Differential Diagnosis Differential Diagnoses: The differential diagnosis associated with the presentation includes Alcohol abuse Chest pain Alcohol use Admission/Observation Consideration of admission/observation: Escalation of care including admission/observation considered Patient would have been admitted to the hospital had his work up had any findings where hospital admission was appropriate and his clinical presentation warranted hospital admission. Lab Data MDM Lab Attestation statement: I reviewed the patient's lab results. My interpretation of these results are in the rationale portion of this note. 06/18/23 12:11 06/18/23 12:11 Labs: Lab Results 06/18/23 Range/Units 12:11 WBC 4.7 L (4.8-10.8) X10*3/uL RBC 3.78 L (4.60-5.80) X10*6/uL Hgb 12.7 L (14.0-18.0) g/dl Hct 36.4 L (42.0-52.0) % MCV 96.3 (80.0-98.0) fL MCH 33.6 H (27.0-33.0) pg MCHC 34.9 (31.0-36.0) g/dl RDW 13.3 (11.0-16.0) % Plt Count 123 L (160-400) X10*3/uL MPV 9.2 L (9.4-12.4) fL Immature Gran % (Auto) 0.2 (0.0-0.4) % Neut % (Auto) 50.4 (45-73) % Lymph % (Auto) 33.8 (20-40) % Evangeline % (Auto) 12.4 H (2-11) % Eos % (Auto) 2.1 (0-4) % Baso % (Auto) 1.1 (0-2) % Lymph # (Auto) 1.6 (1.2-4.9) X10*3/uL Evangeline # (Auto) 0.6 (0.1-1.2) X10*3/uL Eos # (Auto) 0.1 (0.0-0.4) X10*3/uL Baso # (Auto) 0.1 (0.0-0.2) X10*3/uL Abs Immat Gran (auto) 0.01 (0.00-0.03) X10*3/uL Absolute Neuts (auto) 2.4 (2.0-8.3) x10*3/uL Absolute Nucleated RBC 0.000 (0.0-0.012) X10*3/uL Nucleated RBC % (auto) 0.0 (0.0-0.2) /100WBC PT 11.5 (11.1-13.3) SEC INR 0.9 (0.9-1.1) APTT 31.6 (26.0-36.4) SEC Sodium 139 (135-145) mmol/L Potassium 3.8 (3.3-5.1) mmol/L Chloride 103 (96-108) mmol/L Carbon Dioxide 23 (22-29) mmol/L Anion Gap 17 (12-20) BUN 7 L (9-16) mg/dL Creatinine 0.58 (0.5-1.4) mg/dL Estim Creat Clear Calc 134.4 Estimated GFR > 60 Random Glucose 86 (60-115) mg/dL Calcium 8.4 (8.4-10.2) mg/dL Magnesium 2.2 (1.6-2.6) mg/dL Total Bilirubin 0.5 (0.0-1.0) mg/dL AST 154 H (5-37) U/L ALT 72 H (0-40) U/L Alkaline Phosphatase 85 (39-117) U/L Troponin I High Sens < 2.7 (<3.5-35.0) ng/L Total Protein 8.1 H (6.5-8.0) g/dL Albumin 3.9 (3.5-5.0) g/dL Ethyl Alcohol 428 H* mg/dL Influenza Type A (PCR) NEGATIVE (Negative) Influenza Type B (PCR) NEGATIVE (Negative) RSV RNA Qual (PCR) NEGATIVE (Negative) SARS-CoV-2 RNA (RT-PCR) NEGATIVE (Negative) Independent Interpretation I performed an independent interpretation of an: EKG and Plain X-Ray Interpretation: My interpretation is in agreement with the radiologist's impression of this imaging study. EXAMINATION: XR CHEST CLINICAL INFORMATION: Chest pain COMPARISON: Previous chest x-ray May 2023 TECHNIQUE: Frontal view of the chest was obtained. FINDINGS: No significant abnormality is noted involving the heart, lungs, mediastinum, bony thorax or soft tissues. XR/XR chest 1V IMPRESSION: Unremarkable examination. Dictated By: Jing Cespedes MD Signed By: Electronically signed by Jing Cespedes MD 06/18/23 1337 Vent. Rate: 062 BPM Atrial Rate: 062 BPM P-R Int: 160 ms QRS Dur: 098 ms QT Int: 414 ms P-R-T Axes: 000 250 266 degrees QTc Int: 420 ms Normal sinus rhythm Right superior axis deviation Incomplete right bundle branch block Interior infarct, age undetermined Abnormal ECG 06/18/23 1155 Radiology Impression Discussion of test interpretation with radiology: I have reviewed the radiologist's reading. Independent Historian Clinical information obtained from an independent historian. History obtained from or confirmed by: EMS (EMS provided additional history and confirmed the history provided by the patient.) Chronic Conditions Patient?s care impacted by: Other (alcohol abuse) Discharge Plan Discharge Clinical Impression: Alcohol use, Chronic chest pain Patient Disposition: Still a Patient Instructions: Chest Pain (DC), Abuse of Alcohol (DC) Additional Instructions: Follow up with your primary care provider. Return to the emergency department immediately if your symptoms worsen or if you develop any dizziness, shortness of breath, difficulty breathing, chest pain, blurry vision, loss of vision, nausea, vomiting, abdominal pain, fever, chills, back pain, or any other complaints. Katherine un seguimiento con doss proveedor de atenci?n primaria. Regrese al departamento de emergencias inmediatamente si joey s?ntomas empeoran o si presenta mareos, dificultad para respirar, dificultad para respirar, dolor en el pecho, visi?n borrosa, p?rdida de la visi?n, n?useas, v?mitos, dolor abdominal, fiebre, escalofr?os, dolor de espalda o cualquier otras quejas. Prescriptions: No Action ibuprofen 600 mg tablet 600 mg PO Q8H PRN (Reason: pain) Qty: 20 0RF cyclobenzaprine 5 mg tablet 5 mg PO TID PRN (Reason: muscle spasm) Qty: 12 0RF lidocaine 5 % adhesive patch,medicated 1 patch topical DAILY Qty: 15 0RF Rx Instructions: leave on most painful area for up to 12 hrs ibuprofen 600 mg tablet 600 mg PO Q6H PRN (Reason: pain) Qty: 20 0RF oxycodone 5 mg tablet 5 mg PO Q6H PRN (Reason: pain) Qty: 10 0RF Rx Instructions: Partial Fill upon patient request. oxycodone 5 mg tablet 5 mg PO Q6H PRN (Reason: pain) Qty: 12 0RF Rx Instructions: Partial Fill upon patient request. oxycodone-acetaminophen [Percocet] 5-325 mg tablet 1 tab PO Q6H PRN (Reason: pain) Qty: 10 0RF Rx Instructions: Partial Fill upon patient request. cyclobenzaprine 5 mg tablet 5 mg PO TID PRN (Reason: muscle spasm) Qty: 12 0RF ibuprofen 600 mg tablet 600 mg PO Q8H PRN (Reason: pain) Qty: 20 0RF lidocaine 5 % adhesive patch,medicated 1 patch topical DAILY Qty: 15 0RF Rx Instructions: leave on most painful area for up to 12 hrs naproxen 500 mg tablet 500 mg PO BID PRN (Reason: pain) 7 Days Qty: 14 0RF Referrals: [facility] [Primary Care Provider] - Print Language: Slovak
[2023-06-18 11:48] VITALS: BP 115/71; BP 132/78; PULSE 64; PULSE 67; RESP 15; TEMP 36.4; O2SAT 100; O2SAT 98; BMI 21.1
--- NOTE | 2023-06-18 11:51 | ECG_ITS ---
Test Reason : CP Blood Pressure : / mmHG Vent. Rate : 062 BPM Atrial Rate : 062 BPM P-R Int : 160 ms QRS Dur : 098 ms QT Int : 414 ms P-R-T Axes : 000 250 266 degrees QTc Int : 420 ms Suspect limb lead reversal, interpretation assumes no reversal Normal sinus rhythm Right superior axis deviation Incomplete right bundle branch block Inferior infarct , age undetermined Abnormal ECG When compared with ECG of 13-JUN-2023 11:32, QRS axis Shifted left Inferior infarct is now Present Non-specific change in ST segment in Inferior leads T wave inversion now evident in Inferior leads Referred By: Aylin De Luna Electronically Signed By:ARON BROWER
--- NOTE | 2023-06-18 12:18 | PC.NURSE ---
labs drawn, ekg done. pt resting.
[2023-06-18 12:19] LABS: MANUAL DIFF FLAG NO
[2023-06-18 12:23] LABS: Basophils Absolute Auto 0.1 X10*3/uL (0.0-0.2); Basophils Percent Auto 1.1 % (0-2); Eosinophils Absolute Auto 0.1 X10*3/uL (0.0-0.4); Eosinophils Percent Auto 2.1 % (0-4); Hematocrit 36.4 % (42.0-52.0); Hemoglobin 12.7 g/dl (14.0-18.0); Imm Gran Abs Auto 0.01 X10*3/uL (0.00-0.03); Imm Gran Pct Auto 0.2 % (0.0-0.4); Lymphocytes Absolute Auto 1.6 X10*3/uL (1.2-4.9); Lymphocytes Percent Auto 33.8 % (20-40); Mean Corpuscular HGB Conc 34.9 g/dl (31.0-36.0); Mean Corpuscular Hemoglobin 33.6 pg (27.0-33.0); Mean Corpuscular Volume 96.3 fL (80.0-98.0); Mean Platelet Volume 9.2 fL (9.4-12.4); Monocytes Absolute Auto 0.6 X10*3/uL (0.1-1.2); Monocytes Percent Auto 12.4 % (2-11); Neutrophils Absolute Auto 2.4 x10*3/uL (2.0-8.3); Neutrophils Percent Auto 50.4 % (45-73); Platelet Count 123 X10*3/uL (160-400); Red Blood Count 3.78 X10*6/uL (4.60-5.80); Red Cell Distribution Width 13.3 % (11.0-16.0); White Blood Count 4.7 X10*3/uL (4.8-10.8)
[2023-06-18 12:32] LABS: INTERNATIONAL NORM RATIO 0.9 (0.9-1.1); Prothrombin Time 11.5 SEC (11.1-13.3)
[2023-06-18 12:34] LABS: Partial Thromboplastin Time 31.6 SEC (26.0-36.4)
[2023-06-18 12:47] LABS: Alanine Aminotransferase 72 U/L (0-40); Albumin Level 3.9 g/dL (3.5-5.0); Alkaline Phosphatase 85 U/L (39-117); Anion Gap 17 (12-20); Aspartate Amino Transferase 154 U/L (5-37); Bilirubin Total 0.5 mg/dL (0.0-1.0); Blood Urea Nitrogen 7 mg/dL (9-16); Calcium 8.4 mg/dL (8.4-10.2); Carbon Dioxide 23 mmol/L (22-29); Chloride 103 mmol/L (96-108); Creatinine Clr Calc Pharmacy 134.4; Estimated Glomerular Filt Rate > 60; Ethanol 428 mg/dL; Glucose Random 86 mg/dL (60-115); Magnesium 2.2 mg/dL (1.6-2.6); Potassium 3.8 mmol/L (3.3-5.1); Sodium 139 mmol/L (135-145); Total Protein 8.1 g/dL (6.5-8.0)
[2023-06-18 12:59] LABS: Troponin-I High Sensitivity < 2.7 ng/L (<3.5-35.0)
[2023-06-18 13:05] LABS: Influenza A PCR NEGATIVE (Negative); Influenza B PCR NEGATIVE (Negative); Resp Syncy Virus RNA Qual PCR NEGATIVE (Negative); SARS COV2 PCR INHOUSE NEGATIVE (Negative)
[2023-06-18 14:53] VITALS: BP 108/73; PULSE 97; RESP 14; O2SAT 97
--- NOTE | 2023-06-18 16:43 | PC.NURSE ---
pt reports minimal back pain, pt is alert, oriented and, walking with a teady gait, no signs of distress. Per PA, pt is suited for discharge. pt got dressed. IV removed and pt will be discharged home.
== END 2023-06-18 16:45 | disposition still patient (30) ==
PROVIDERS: Physician Assistant Medical; Emergency Provider Emergency Medicine
DX: F10.120 Alcohol abuse with intoxication, uncomplicated (principal); Y90.8 Blood alcohol level of 240 mg/100 ml or more; G89.29 Other chronic pain; R07.9 Chest pain, unspecified; Z20.822 Contact with and (suspected) exposure to COVID-19; Z20.828 Contact with and (suspected) exposure to other viral communicable diseases; Z79.899 Other long term (current) drug therapy
CPT/HCPCS: 0241U; 36415; 71045; 80053; 80307; 83735; 84484; 85025; 85610; 85730; 93005; 99284

== ENCOUNTER 2023-06-29 19:30 | Emergency (ER) | payer MEDICAID, SELFPAY ==
--- NOTE | ~2023-06-29 | CT_ITS ---
EXAMINATION: CT ABDOMEN AND PELVIS WITHOUT CONTRAST CLINICAL INFORMATION: Left flank pain and hematuria COMPARISON: Previous CT of the abdomen and pelvis July 2022 TECHNIQUE: Multidetector volumetric imaging was performed from the superior aspect of the liver through the pubic symphysis. Sagittal and coronal reformatted images were obtained on the technologist's workstation. This CT examination was performed using dose optimization techniques as appropriate, variously including the following: *Automated exposure control *Adjustment of mA and/or kV according to patient size (this includes techniques or standardized protocols for targeted exams where dose is matched to indication/reason for exam; i.e. extremities or head) *Use of iterative reconstruction technique DLP: 343 mGy-cm FINDINGS: LUNG BASES: The visualized lung bases are unremarkable. LIVER, GALLBLADDER, AND BILIARY TREE: The liver is normal in size, shape, and attenuation. No focal hepatic lesion or biliary ductal dilatation is present. The gallbladder is unremarkable with no evidence of radiopaque gallstones, gallbladder wall thickening, or obvious pericholecystic inflammatory changes. PANCREAS: Unremarkable. SPLEEN: Unremarkable. ADRENAL GLANDS: Unremarkable. KIDNEYS AND URETERS: Small 1 to 2 mm nonobstructing right lower pole renal stone. No left renal stone is mild left hydronephrosis and left no left ureteral stone is. This may represent a recently passed left renal stone. BLADDER: Unremarkable. GASTROINTESTINAL TRACT: The small and large bowel are unremarkable. The appendix is unremarkable. ABDOMINAL WALL: No significant hernia is appreciated. LYMPH NODES: Normal. VASCULAR: Unremarkable. PELVIC VISCERA: Unremarkable. OSSEOUS STRUCTURES: Spondylolysis spondylolisthesis and degenerative disc disease at L5-S1. Degenerative disc disease at L4-L5 as well. CT/CT abdomen pelvis wo IV con IMPRESSION: Small nonobstructing right renal stone. No left renal stone seen. Mild left hydronephrosis and ureteral dilatation. No left ureteral stone seen. This may represent a recently passed stone. Spondylolysis, spondylolisthesis and degenerative disc disease at L5-S1. There is also degenerative disc disease at L4-L5. Fleischner guidelines were followed.
--- NOTE | 2023-06-29 19:41 | ED.ALCOHOL ---
HPI - Alcohol General Chief Complaint: Back Pain/Injury Stated Complaint: ETOH Time Seen by Provider: 06/29/23 19:34 Source: patient and EMS Mode of arrival: EMS Limitations: other (Intoxicated) History of Present Illness HPI narrative: Patient comes to the emergency room from a liquor store. Patient is intoxicated. Patient did not fall, patient states that he called the ambulance because he has been having left-sided flank pain and hematuria, no dysuria, no fever chills. Patient denies any recent injuries Related Data Previous Rx's Medication Instructions Recorded ibuprofen 600 mg tablet 600 mg PO Q6H PRN pain #20 tabs 02/15/23 oxycodone 5 mg tablet 5 mg PO Q6H PRN pain #10 tabs 02/15/23 oxycodone 5 mg tablet 5 mg PO Q6H PRN pain #12 tabs 02/16/23 oxycodone-acetaminophen 5 mg-325 1 tab PO Q6H PRN pain #10 tabs 02/17/23 mg tablet (Percocet) cyclobenzaprine 5 mg tablet 5 mg PO TID PRN muscle spasm #12 05/08/23 tabs ibuprofen 600 mg tablet 600 mg PO Q8H PRN pain #20 tabs 05/08/23 lidocaine 5 % topical patch 1 patch topical DAILY #15 ea 05/08/23 cyclobenzaprine 5 mg tablet 5 mg PO TID PRN muscle spasm #12 05/13/23 tabs ibuprofen 600 mg tablet 600 mg PO Q8H PRN pain #20 tabs 05/13/23 lidocaine 5 % topical patch 1 patch topical DAILY #15 ea 05/13/23 naproxen 500 mg tablet 500 mg PO BID PRN pain 7 days #14 05/31/23 tabs Allergies Allergy/AdvReac Type Severity Reaction Status Date / Time No Known Allergies Allergy Verified 05/14/23 10:58 [No Known Allergies*] Review of Systems Review of Systems: Constitutional : No Weight loss, No Fever, No Chills, No Night Sweats, No Fatigue, No Malaise ENT/Mouth : No Hearing loss, No Ear Pain, No Nasal Congestion, No Sinus Pain, No Hoarseness, No sore throat, No Rhinorrhea, No Swallowing Difficulty Eyes: No Eye Pain, No Swelling, No Redness, No Foreign Body, No Discharge, No Vision Changes Cardiovascular : No Chest Pain, No SOB, No Dyspnea on Exertion, No Orthopnea, No Edema, No Palpitations Respiratory : No Cough, No Sputum, No Wheezing, No Smoke Exposure, No Dyspnea Gastrointestinal : No Nausea, No Vomiting, No Diarrhea, No Constipation, No abdominal Pain, No Hematochezia, No Melena Genitourinary : no irregular bleeding, No Dysuria, No Urinary Frequency, complaining of Hematuria, No Urinary Incontinence, No Urgency, complaining of left-sided Flank Pain, No Urinary Flow Changes, No Hesitancy Musculoskeletal : Complaining of left-sided back pain, No joint pain, No Myalgias, No Joint Swelling Skin : No Skin Lesions, No rash Neuro : No Weakness, No Numbness, No Paresthesias, No Loss of Consciousness, No Dizziness, No Headache Psych : No Anxiety/Panic, No Depression, No SI/HI/AH/VH, No Social Issues, Heme/Lymph: No Bruising, No Bleeding,No Lymphadenopathy Endocrine : No Polyuria, No Polydipsia, No Temperature Intolerance [facility] Past Medical History Medical History (Updated 06/29/23 @ 19:52 by Xochilt Patel MD) Alcohol intoxication Social History Social History Alcohol intake: current Alcohol intake frequency: 3 or more drinks per day Alcohol type: beer Patient Tobacco Use Status: Never used Tobacco Smoked in Last 30 Days: No Use of substances other than those prescribed or required for medical reasons: No Substance Use Type: Marijuana Advance Directives: No Advance Directives Information Provided: No Current occupational status: disabled Current occupation: rt handed Physical Exam ED Vital Signs: Vital Signs - 24 hr 06/29/23 19:54 06/29/23 19:57 Temperature 97.3 F 97.3 F Pulse Rate 71 71 Respiratory Rate 16 18 Blood Pressure 119/87 119/87 Pulse Oximetry 99 98 Oxygen Delivery Method Room Air Room Air BMI result Body Mass Index 21.5 Const Other: Appearance: Alert. Oriented X3. Intoxicated, able to hold a coherent conversation Eyes: Pupils equal, round and reactive to light. ENT: Pharynx normal. Neck: Normal inspection. Neck supple. No lymph nodes noted. No crepitus CVS: Normal heart rate and rhythm. Pulses normal. Normal S1 and S2 Respiratory: No respiratory distress. Breath sounds normal. No Wheezing. No rales Abdomen: Soft and nontender. No rigidity. No distention. Bilateral flank pain/lower back pain Skin: Skin warm and dry. Normal skin color. Normal skin turgor. Extremities: No lower extremity edema. No Lacerations. No Rash Neuro: Oriented X 3. No motor deficit. No sensory deficit. Moving all extremities. No slurred speech. CN 2 through 12 grossly intact Psych: calm, cooperative, normal affect Course Course Course Narrative: -patient is intoxicated, able to speak coherently -of patient's labs and imaging pending. Patient may have a UTI versus kidney stones versus musculoskeletal pain -patient denies any falls, CT scan of the head/neck not indicated at this time. -patient denies SI or HI Medical Decision Making Medical Decision Making MDM Narrative: -my interpretation of labs, normal hematology and chemistry, AST slightly bumped due to alcohol abuse, at baseline. Patient has trace leukocyte esterase, no UTI symptoms -CT scan of abdomen pelvis pending to rule out ureterolithiasis. -sign-out given to Dr. Lucas Differential Diagnosis Differential Diagnoses: The differential diagnosis associated with the presentation includes (Alcohol intoxication, musculoskeletal pain, renal colic, ureterolithiasis) Admission/Observation Consideration of admission/observation: Escalation of care including admission/observation considered (Given patient's presentation, patient was considered on arrival) Lab Data MDM Lab Attestation statement: I reviewed the patient's lab results. 06/29/23 20:14 06/29/23 20:14 Labs: Lab Results 06/29/23 06/29/23 06/29/23 Range/Units 19:56 20:14 20:31 WBC 4.2 L (4.8-10.8) X10*3/uL RBC 3.59 L (4.60-5.80) X10*6/uL Hgb 12.1 L (14.0-18.0) g/dl Hct 34.4 L (42.0-52.0) % MCV 95.8 (80.0-98.0) fL MCH 33.7 H (27.0-33.0) pg MCHC 35.2 (31.0-36.0) g/dl RDW 12.9 (11.0-16.0) % Plt Count 117 L (160-400) X10*3/uL MPV 10.0 (9.4-12.4) fL Immature Gran % (Auto) 0.2 (0.0-0.4) % Neut % (Auto) 36.8 L (45-73) % Lymph % (Auto) 48.9 H (20-40) % [place] % (Auto) 11.4 H (2-11) % Eos % (Auto) 1.7 (0-4) % Baso % (Auto) 1.0 (0-2) % Lymph # (Auto) 2.1 (1.2-4.9) X10*3/uL [place] # (Auto) 0.5 (0.1-1.2) X10*3/uL Eos # (Auto) 0.1 (0.0-0.4) X10*3/uL Baso # (Auto) 0.0 (0.0-0.2) X10*3/uL Abs Immat Gran (auto) 0.01 (0.00-0.03) X10*3/uL Absolute Neuts (auto) 1.6 L (2.0-8.3) x10*3/uL Absolute Nucleated RBC 0.000 (0.0-0.012) X10*3/uL Nucleated RBC % (auto) 0.0 (0.0-0.2) /100WBC PT 11.3 (11.1-13.3) SEC INR 0.9 (0.9-1.1) Sodium 139 (135-145) mmol/L Potassium 3.9 (3.3-5.1) mmol/L Chloride 103 (96-108) mmol/L Carbon Dioxide 22 (22-29) mmol/L Anion Gap 18 (12-20) BUN 8 L (9-16) mg/dL Creatinine 0.65 (0.5-1.4) mg/dL Estim Creat Clear Calc 118.1 Estimated GFR > 60 POC Glucose 83 (60-115) mg/dL Random Glucose 80 (60-115) mg/dL Lactic Acid 1.2 (0.5-2.0) mmol/L Calcium 8.5 (8.4-10.2) mg/dL Total Bilirubin 0.4 (0.0-1.0) mg/dL Direct Bilirubin 0.2 (0.0-0.5) mg/dL AST 110 H (5-37) U/L ALT 49 H (0-40) U/L Alkaline Phosphatase 76 (39-117) U/L Total Protein 8.0 (6.5-8.0) g/dL Albumin 3.8 (3.5-5.0) g/dL Urine Color Yellow Urine Appearance Clear Urine pH 6.0 (5.0-9.0) Ur Specific [place] <= 1.005 (1.005-1.025) Urine Protein Negative (Neg-Trace) mg/dL Urine Glucose (UA) Negative (Negative) mg/dL Urine Ketones Negative (Negative) mg/dL Urine Blood Negative (Negative) Urine Nitrite Negative (Negative) Ur Leukocyte Esterase Trace H (Negative) Urine Opiates Screen Not Detected (Not Detect) Urine Fentanyl Screen Not Detected (Not Detect) Ur Barbiturates Screen Not Detected (Not Detect) Ur Phencyclidine Scrn Not Detected (Not Detect) Ur Amphetamines Screen Not Detected (Not Detect) U Benzodiazepines Scrn Not Detected (Not Detect) Urine Cocaine Screen Not Detected (Not Detect) U Marijuana (THC) Screen Not Detected (Not Detect) Ethyl Alcohol 465 H* mg/dL Critical Care Time Critical Care Time Critical Care Time: Yes Total Critical Care Time: 60 Attestation: I have personally provided critical care time. Time includes review of lab data, radiology results, discussion with consultants, and monitoring for potential decompensation. Intervention performed as documented. Discharge Plan Discharge Clinical Impression: Alcohol intoxication, Bilateral flank pain Patient Disposition: Still a Patient Prescriptions: No Action ibuprofen 600 mg tablet 600 mg PO Q8H PRN (Reason: pain) Qty: 20 0RF cyclobenzaprine 5 mg tablet 5 mg PO TID PRN (Reason: muscle spasm) Qty: 12 0RF lidocaine 5 % adhesive patch,medicated 1 patch topical DAILY Qty: 15 0RF Rx Instructions: leave on most painful area for up to 12 hrs ibuprofen 600 mg tablet 600 mg PO Q6H PRN (Reason: pain) Qty: 20 0RF oxycodone 5 mg tablet 5 mg PO Q6H PRN (Reason: pain) Qty: 10 0RF Rx Instructions: Partial Fill upon patient request. oxycodone 5 mg tablet 5 mg PO Q6H PRN (Reason: pain) Qty: 12 0RF Rx Instructions: Partial Fill upon patient request. oxycodone-acetaminophen [Percocet] 5-325 mg tablet 1 tab PO Q6H PRN (Reason: pain) Qty: 10 0RF Rx Instructions: Partial Fill upon patient request. cyclobenzaprine 5 mg tablet 5 mg PO TID PRN (Reason: muscle spasm) Qty: 12 0RF ibuprofen 600 mg tablet 600 mg PO Q8H PRN (Reason: pain) Qty: 20 0RF lidocaine 5 % adhesive patch,medicated 1 patch topical DAILY Qty: 15 0RF Rx Instructions: leave on most painful area for up to 12 hrs naproxen 500 mg tablet 500 mg PO BID PRN (Reason: pain) 7 Days Qty: 14 0RF
[2023-06-29 19:54] VITALS: BP 119/87; BP 142/92; PULSE 71; PULSE 78; RESP 16; TEMP 36.3; O2SAT 98; O2SAT 99; BMI 21.5
[2023-06-29 19:57] VITALS: BP 119/87; PULSE 71; RESP 18; TEMP 36.3; O2SAT 98
[2023-06-29 19:59] LABS: Glucose, Whole Blood 83 mg/dL (60-115)
[2023-06-29 20:21] LABS: MANUAL DIFF FLAG NO
[2023-06-29 20:28] LABS: Eosinophils Absolute Auto 0.1 X10*3/uL (0.0-0.4); Eosinophils Percent Auto 1.7 % (0-4); Hematocrit 34.4 % (42.0-52.0); Hemoglobin 12.1 g/dl (14.0-18.0); Imm Gran Abs Auto 0.01 X10*3/uL (0.00-0.03); Imm Gran Pct Auto 0.2 % (0.0-0.4); Lymphocytes Absolute Auto 2.1 X10*3/uL (1.2-4.9); Lymphocytes Percent Auto 48.9 % (20-40); Mean Corpuscular HGB Conc 35.2 g/dl (31.0-36.0); Mean Corpuscular Hemoglobin 33.7 pg (27.0-33.0); Mean Corpuscular Volume 95.8 fL (80.0-98.0); Monocytes Absolute Auto 0.5 X10*3/uL (0.1-1.2); Monocytes Percent Auto 11.4 % (2-11); Neutrophils Absolute Auto 1.6 x10*3/uL (2.0-8.3); Neutrophils Percent Auto 36.8 % (45-73); Platelet Count 117 X10*3/uL (160-400); Red Blood Count 3.59 X10*6/uL (4.60-5.80); Red Cell Distribution Width 12.9 % (11.0-16.0); White Blood Count 4.2 X10*3/uL (4.8-10.8)
--- NOTE | 2023-06-29 20:30 | MHC.EDTECH ---
Patient came in by ambulance, vitals were taken.POC was obtained and is 83 RN Christine made aware, Patient ambulated with a one assist to bathroom with a steady gait, urine specimen was collected and patient was changed into hospital attire. Labs and blood cultures were obtained and sent to lab.
[2023-06-29 20:32] LABS: Lactic Acid 1.2 mmol/L (0.5-2.0)
[2023-06-29 20:33] LABS: INTERNATIONAL NORM RATIO 0.9 (0.9-1.1); Prothrombin Time 11.3 SEC (11.1-13.3)
[2023-06-29 20:43] LABS: Alanine Aminotransferase 49 U/L (0-40); Albumin Level 3.8 g/dL (3.5-5.0); Alkaline Phosphatase 76 U/L (39-117); Anion Gap 18 (12-20); Aspartate Amino Transferase 110 U/L (5-37); Bilirubin Direct 0.2 mg/dL (0.0-0.5); Bilirubin Total 0.4 mg/dL (0.0-1.0); Blood Urea Nitrogen 8 mg/dL (9-16); Calcium 8.5 mg/dL (8.4-10.2); Carbon Dioxide 22 mmol/L (22-29); Chloride 103 mmol/L (96-108); Creatinine Clr Calc Pharmacy 118.1; Estimated Glomerular Filt Rate > 60; Ethanol 465 mg/dL; Glucose Random 80 mg/dL (60-115); Potassium 3.9 mmol/L (3.3-5.1); Sodium 139 mmol/L (135-145)
[2023-06-29 20:44] LABS: Appearance Urine Clear; Color Urine Yellow; Glucose Urine UA Negative (Negative); Leukocyte Esterase Urine Trace (Negative); Nitrite Urine Negative (Negative); Specific Gravity - Urine <= 1.005 (1.005-1.025); UMIC TRIGGER UACC YES; Urine Blood Negative (Negative); Urine Ketones Negative (Negative); Urine Protein Negative (Neg-Trace)
[2023-06-29 20:53] LABS: Amphetamine Screen Urine Not Detected (Not Detect); Barbiturates, Urine Not Detected (Not Detect); Benzodiazepines Screen Urine Not Detected (Not Detect); Cannabinoid Screen Urine Not Detected (Not Detect); Cocaine Screen Urine Not Detected (Not Detect); Fentanyl, urine Not Detected (Not Detect); Opiate Screen Urine Not Detected (Not Detect); Phencyclidine Screen Urine Not Detected (Not Detect)
--- NOTE | 2023-06-29 21:08 | PC.NURSE ---
Pt is having another episode of shaking and hyperventilating. Pt would not make eye contact to calm down but presented her finger without prompting for oxygen monitoring. Pt O2 remains adequate at 98%. MANUEL Liang is aware. Discussed possibly sending pt home with anxiety medications.
[2023-06-29 21:20] LABS: Bacteria Urine None Seen (None Seen); Hyaline Casts Urine 0-2 /LPF (0-2); RBC Urine 0-2 /HPF (0-2); Squamous Epithelial Cell Urine 0-2 /HPF (0-2); WBC Urine 0-5 /HPF (0-5)
[2023-06-29 22:08] VITALS: BP 122/82; PULSE 81; RESP 16; TEMP 36.4; O2SAT 98
--- NOTE | 2023-06-29 22:09 | MHC.EDTECH ---
Hourly rounds and vitals completed,patient is resting comfortably at this time.
[2023-06-30 00:06] VITALS: BP 105/59; PULSE 71; RESP 16; TEMP 36.6; O2SAT 97
--- NOTE | 2023-06-30 00:31 | MHC.EDTECH ---
Hourly rounds and vitals completed,patient is sleeping at this time.
[2023-06-30 02:13] VITALS: BP 106/77; PULSE 75; RESP 16; TEMP 36.6; O2SAT 98
--- NOTE | 2023-06-30 02:17 | MHC.EDTECH ---
Hourly rounds and vitals completed
[2023-06-30 04:18] VITALS: BP 109/68; PULSE 79; RESP 16; TEMP 36.7; O2SAT 96
--- NOTE | 2023-06-30 04:19 | MHC.EDTECH ---
Hourly rounds and vitals completed,patient sleeping at this time.
[2023-06-30 06:03] VITALS: BP 103/64; PULSE 93; RESP 16; TEMP 36.7; O2SAT 97
--- NOTE | 2023-06-30 06:08 | MHC.EDTECH ---
Hourly rounds and vitals completed,patient is sleeping comfortably at this time.
--- NOTE | 2023-06-30 06:20 | PC.NURSE ---
Pt ambulated to bathroom with one assist. Steady gait and good balance.
[2023-06-30 07:58] VITALS: BP 118/75; PULSE 103; RESP 14; O2SAT 98
== END 2023-06-30 08:03 | disposition home or self-care (01) ==
PROVIDERS: Emergency Medicine; Emergency Provider Internal Medicine
DX: F10.129 Alcohol abuse with intoxication, unspecified (principal); R10.9 Unspecified abdominal pain; M54.50 Low back pain, unspecified; Y90.8 Blood alcohol level of 240 mg/100 ml or more; Z79.899 Other long term (current) drug therapy
CPT/HCPCS: 36415; 74176; 80048; 80076; 80307; 81001; 82947; 83605; 85025; 85610; 87040; 99284; 99285

== ENCOUNTER 2023-07-14 17:15 | Emergency (ER) | payer MEDICAID, SELFPAY ==
--- NOTE | ~2023-07-14 | XR_ITS ---
EXAMINATION: XR LUMBOSACRAL SPINE CLINICAL INFORMATION: Pain. COMPARISON: CT abdomen/pelvis 06/29/2023. TECHNIQUE: Three views of the lumbosacral spine. FINDINGS: Unchanged grade 1/2 anterolisthesis of L5 on S1 with bilateral L5 pars defects. Unchanged minimal retrolisthesis of L4 on L5. Stable mild posterior vertebral body height loss at L5. No interval compression deformity or subluxation. Moderate to severe intervertebral disc height loss with associated vacuum disc phenomena at L4-L5 and L5-S1. Moderate facet arthropathy at same levels with some degree of neural foraminal encroachment and central canal stenosis. SI joints are symmetric. Pubic symphysis is maintained. No significant paraspinal soft tissue abnormality. XR/XR lumbar spine 2-3V IMPRESSION: 1. No new compression deformity or subluxation. 2. Stable mild posterior vertebral body height loss at L5. 3. Unchanged grade 1/2 anterolisthesis of L5 on S1 with bilateral L5 pars defects. 4. Unchanged minimal retrolisthesis of L4 on L5. 5. Moderate to severe lower lumbar spondylosis.
--- NOTE | 2023-07-14 17:23 | ED_ITS ---
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 He is not on thinners. He notes he also made a statement of SI because he was upset about the pain but he does not feel like that and does not want to I was having a moment of sadness. He has no other complaints at this time MD complaint: back pain Onset (ago): day(s) (1) Location: back Radiation: non-radiation Severity: moderate Quality: aching and constant Pain Consistency: constant Relieving factors: rest Exacerbating factors: movement Associated symptoms: denies other symptoms Treatments prior to arrival: none Related Data Previous Rx's Medication Instructions Recorded ibuprofen 600 mg tablet 600 mg PO Q6H PRN pain #20 tabs 02/15/23 oxycodone 5 mg tablet 5 mg PO Q6H PRN pain #10 tabs 02/15/23 oxycodone 5 mg tablet 5 mg PO Q6H PRN pain #12 tabs 02/16/23 oxycodone-acetaminophen 5 mg-325 1 tab PO Q6H PRN pain #10 tabs 02/17/23 mg tablet (Percocet) cyclobenzaprine 5 mg tablet 5 mg PO TID PRN muscle spasm #12 05/08/23 tabs ibuprofen 600 mg tablet 600 mg PO Q8H PRN pain #20 tabs 05/08/23 lidocaine 5 % topical patch 1 patch topical DAILY #15 ea 05/08/23 cyclobenzaprine 5 mg tablet 5 mg PO TID PRN muscle spasm #12 05/13/23 tabs ibuprofen 600 mg tablet 600 mg PO Q8H PRN pain #20 tabs 05/13/23 lidocaine 5 % topical patch 1 patch topical DAILY #15 ea 05/13/23 naproxen 500 mg tablet 500 mg PO BID PRN pain 7 days #14 05/31/23 tabs Allergies Allergy/AdvReac Type Severity Reaction Status Date / Time No Known Allergies Allergy Verified 07/14/23 17:27 [No Known Allergies*] Review of Systems 2 Review of Systems: Constitutional : No Weight loss, No Fever, No Chills, ENT/Mouth : No Hearing loss, No Ear Pain, No Nasal Congestion, No Sinus Pain, No Hoarseness, No sore throat, No Rhinorrhea, No Swallowing Difficulty Cardiovascular : No Chest Pain, No SOB Respiratory : No Cough, No Dyspnea Gastrointestinal : No Nausea, No Vomiting, No Diarrhea, No abdominal Pain, No Hematochezia, No Melena Genitourinary : No Dysuria, No Urinary Frequency, No Hematuria, No Urinary Incontinence, Musculoskeletal : positive back pain Skin : No Skin Lesions, No rash Neuro : No Weakness, No Numbness, No Paresthesias, no loss of bowel or bladder incontinence, no saddle anesthesia All other systems reviewed and are negative [facility] Past Medical History Attestation statement: The following information was validated with the patient. Source: old records reviewed Medical History Alcohol intoxication Social History Social History Alcohol intake: current Alcohol intake frequency: 3 or more drinks per day Alcohol type: beer and hard liquor Patient Tobacco Use Status: Never used Tobacco Smoked in Last 30 Days: No Use of substances other than those prescribed or required for medical reasons: Refusing to respond Substance Use Type: Marijuana Advance Directives: No Advance Directives Information Provided: No Current occupational status: disabled Current occupation: rt handed Physical Exam ED Vital Signs: Vital Signs - 24 hr 07/14/23 17:24 07/14/23 17:43 07/14/23 18:00 Temperature 98.0 F Pulse Rate 91 79 88 Respiratory Rate 18 18 16 Blood Pressure 126/83 116/74 Pulse Oximetry 97 96 97 Oxygen Delivery Method Room Air Room Air Room Air 07/14/23 20:58 Temperature 97.8 F Pulse Rate 79 Respiratory Rate 16 Blood Pressure 112/65 Pulse Oximetry 95 Oxygen Delivery Method Room Air BMI result Body Mass Index 20.4 Appearance: Alert. Oriented X3. No acute distress. Eyes: Pupils equal, round and reactive to light. ENT: Pharynx normal. Neck: Normal inspection. Neck supple. CVS: Normal heart rate and rhythm. Pulses normal. Respiratory: No respiratory distress. Breath sounds normal. Abdomen: Soft and nontender. Back: ttp along lower bilateral lumbar paraspinal - some pain with bilateral leg raise distal NV intact, strength and motor intact, SILT intact Skin: Skin warm and dry. Normal skin color. Normal skin turgor. Extremities: No lower extremity edema. No calf ttp Neuro: Oriented X 3. No motor deficit. No sensory deficit. Course Course Course Narrative: RME- 52 year old male presents for evaluation of lower back pain and wrist pain. His symptoms started a few weeks Reevaluation(s) Reevaluation #1: signed out to Dr. Patel pending clinical sobriety. Medications Administered Discontinued Medications Generic Name Dose Route Start Last Admin Trade Name Sherman PRN Reason Stop Dose Admin Acetaminophen 650 mg 07/14/23 18:13 07/14/23 18:18 Acetaminophen 325 Mg Tablet PO 07/14/23 18:14 650 mg ONCE ONE Administration Cyclobenzaprine HCl 10 mg 07/14/23 18:13 07/14/23 18:18 Cyclobenzaprine Hcl 10 Mg Tablet PO 07/14/23 18:14 10 mg ONCE ONE Administration Ibuprofen 600 mg 07/14/23 18:13 07/14/23 18:18 Ibuprofen 600 Mg Tablet PO 07/14/23 18:14 600 mg ONCE ONE Administration Medical Decision Making Medical Decision Making [facility] Narrative: 52 yo male with PMH of ETOH abuse, chronic back pain here with low back pain after lifting no CE symptoms he is NV intact. At this time will obtain labs, xray and start on oral medications. He made SI statement but he recants now will reassess and check. He states he did this when he was in pain but he would not hurt himself and doesn't feel this way at all. Differential Diagnosis Differential Diagnoses: The differential diagnosis associated with the presentation includes ETOH abuse, back strain, no b/b inconitnence or saddle anesthesia to suggest CE, no IVDA and it was reported with injury - epidural abscess unlikely Admission/Observation Consideration of admission/observation: Escalation of care including admission/observation considered Lab Data [facility] Lab Attestation statement: I reviewed the patient's lab results. 07/14/23 18:19 07/14/23 18:19 Labs: Lab Results 07/14/23 Range/Units 18:19 WBC 4.2 L (4.8-10.8) X10*3/uL RBC 3.38 L (4.60-5.80) X10*6/uL Hgb 11.5 L (14.0-18.0) g/dl Hct 32.3 L (42.0-52.0) % MCV 95.6 (80.0-98.0) fL MCH 34.0 H (27.0-33.0) pg MCHC 35.6 (31.0-36.0) g/dl RDW 13.5 (11.0-16.0) % Plt Count 121 L (160-400) X10*3/uL MPV 8.7 L (9.4-12.4) fL Immature Gran % (Auto) 0.2 (0.0-0.4) % Neut % (Auto) 48.7 (45-73) % Lymph % (Auto) 34.8 (20-40) % [place] % (Auto) 13.9 H (2-11) % Eos % (Auto) 1.7 (0-4) % Baso % (Auto) 0.7 (0-2) % Lymph # (Auto) 1.5 (1.2-4.9) X10*3/uL [place] # (Auto) 0.6 (0.1-1.2) X10*3/uL Eos # (Auto) 0.1 (0.0-0.4) X10*3/uL Baso # (Auto) 0.0 (0.0-0.2) X10*3/uL Abs Immat Gran (auto) 0.01 (0.00-0.03) X10*3/uL Absolute Neuts (auto) 2.0 (2.0-8.3) x10*3/uL Absolute Nucleated RBC 0.000 (0.0-0.012) X10*3/uL Nucleated RBC % (auto) 0.0 (0.0-0.2) /100WBC Sodium 138 (135-145) mmol/L Potassium 3.9 (3.3-5.1) mmol/L Chloride 106 (96-108) mmol/L Carbon Dioxide 22 (22-29) mmol/L Anion Gap 14 (12-20) BUN 8 L (9-16) mg/dL Creatinine 0.68 (0.5-1.4) mg/dL Estim Creat Clear Calc 107.1 Estimated GFR > 60 Random Glucose 84 (60-115) mg/dL Calcium 8.7 (8.4-10.2) mg/dL Magnesium 2.2 (1.6-2.6) mg/dL Total Bilirubin 0.4 (0.0-1.0) mg/dL Direct Bilirubin 0.2 (0.0-0.5) mg/dL AST 97 H (5-37) U/L ALT 51 H (0-40) U/L Alkaline Phosphatase 100 (39-117) U/L Total Protein 7.8 (6.5-8.0) g/dL Albumin 3.8 (3.5-5.0) g/dL Ethyl Alcohol 378 H* mg/dL COVID-19 ([facility]) Negative (Negative) COVID-19 Clin Com See Note Independent Interpretation I performed an independent interpretation of an: Plain X-Ray Radiology Impression Discussion of test interpretation with radiology: I have reviewed the radiologist's reading. Discharge Plan Discharge Clinical Impression: Alcohol intoxication Qualifiers: Complication of substance-induced condition: uncomplicated Qualified Code(s): F 10.920 - Alcohol use, unspecified with intoxication, uncomplicated Low back pain Qualifiers: Chronicity: chronic Back pain laterality: bilateral Sciatica presence: without sciatica Qualified Code(s): M54.50 - Low back pain, unspecified Patient Disposition: Still a Patient Prescriptions: No Action ibuprofen 600 mg tablet 600 mg PO Q8H PRN (Reason: pain) Qty: 20 0RF cyclobenzaprine 5 mg tablet 5 mg PO TID PRN (Reason: muscle spasm) Qty: 12 0RF lidocaine 5 % adhesive patch,medicated 1 patch topical DAILY Qty: 15 0RF Rx Instructions: leave on most painful area for up to 12 hrs ibuprofen 600 mg tablet 600 mg PO Q6H PRN (Reason: pain) Qty: 20 0RF oxycodone 5 mg tablet 5 mg PO Q6H PRN (Reason: pain) Qty: 10 0RF Rx Instructions: Partial Fill upon patient request. oxycodone 5 mg tablet 5 mg PO Q6H PRN (Reason: pain) Qty: 12 0RF Rx Instructions: Partial Fill upon patient request. oxycodone-acetaminophen [Percocet] 5-325 mg tablet 1 tab PO Q6H PRN (Reason: pain) Qty: 10 0RF Rx Instructions: Partial Fill upon patient request. cyclobenzaprine 5 mg tablet 5 mg PO TID PRN (Reason: muscle spasm) Qty: 12 0RF ibuprofen 600 mg tablet 600 mg PO Q8H PRN (Reason: pain) Qty: 20 0RF lidocaine 5 % adhesive patch,medicated 1 patch topical DAILY Qty: 15 0RF Rx Instructions: leave on most painful area for up to 12 hrs naproxen 500 mg tablet 500 mg PO BID PRN (Reason: pain) 7 Days Qty: 14 0RF
[2023-07-14 17:24] VITALS: BP 126/83; PULSE 91; RESP 18; TEMP 36.7; O2SAT 97; BMI 20.4
[2023-07-14 17:43] VITALS: BP 116/74; PULSE 79; RESP 18; O2SAT 96
[2023-07-14 18:00] VITALS: PULSE 88; RESP 16; O2SAT 97
[2023-07-14] MEDS: Ibuprofen 600 MG TABLET PO (18:18)
[2023-07-14] MEDS: Acetaminophen 325 MG TABLET 650 MG PO (18:18)
[2023-07-14] MEDS: Cyclobenzaprine HCl 10 MG TABLET PO (18:18)
[2023-07-14 18:24] LABS: MANUAL DIFF FLAG NO
[2023-07-14 18:29] LABS: Basophils Percent Auto 0.7 % (0-2); Eosinophils Absolute Auto 0.1 X10*3/uL (0.0-0.4); Eosinophils Percent Auto 1.7 % (0-4); Hematocrit 32.3 % (42.0-52.0); Hemoglobin 11.5 g/dl (14.0-18.0); Imm Gran Abs Auto 0.01 X10*3/uL (0.00-0.03); Imm Gran Pct Auto 0.2 % (0.0-0.4); Lymphocytes Absolute Auto 1.5 X10*3/uL (1.2-4.9); Lymphocytes Percent Auto 34.8 % (20-40); Mean Corpuscular HGB Conc 35.6 g/dl (31.0-36.0); Mean Corpuscular Volume 95.6 fL (80.0-98.0); Mean Platelet Volume 8.7 fL (9.4-12.4); Monocytes Absolute Auto 0.6 X10*3/uL (0.1-1.2); Monocytes Percent Auto 13.9 % (2-11); Neutrophils Percent Auto 48.7 % (45-73); Platelet Count 121 X10*3/uL (160-400); Red Blood Count 3.38 X10*6/uL (4.60-5.80); Red Cell Distribution Width 13.5 % (11.0-16.0); White Blood Count 4.2 X10*3/uL (4.8-10.8)
--- NOTE | 2023-07-14 18:32 | PC.NURSE ---
pt changed over and is now resting on stretcher, respirations even and unlabored, skin pwd, alert and oriented x3. Pt is intoxicated, endorses drinking. Labs drawn and patient medicated
--- NOTE | 2023-07-14 18:33 | PC.NURSE ---
pt currently denies SI, does endorse depression
[2023-07-14 18:37] LABS: Ethanol 378 mg/dL
[2023-07-14 18:39] LABS: Alanine Aminotransferase 51 U/L (0-40); Albumin Level 3.8 g/dL (3.5-5.0); Alkaline Phosphatase 100 U/L (39-117); Anion Gap 14 (12-20); Aspartate Amino Transferase 97 U/L (5-37); Bilirubin Direct 0.2 mg/dL (0.0-0.5); Bilirubin Total 0.4 mg/dL (0.0-1.0); Blood Urea Nitrogen 8 mg/dL (9-16); Calcium 8.7 mg/dL (8.4-10.2); Carbon Dioxide 22 mmol/L (22-29); Chloride 106 mmol/L (96-108); Creatinine Clr Calc Pharmacy 107.1; Estimated Glomerular Filt Rate > 60; Glucose Random 84 mg/dL (60-115); Magnesium 2.2 mg/dL (1.6-2.6); Potassium 3.9 mmol/L (3.3-5.1); Sodium 138 mmol/L (135-145); Total Protein 7.8 g/dL (6.5-8.0)
[2023-07-14 18:41] LABS: COVID-19 Test Negative (Negative); IDNOW Serial# BCCEAD1C
[2023-07-14 20:58] VITALS: BP 112/65; PULSE 79; RESP 16; TEMP 36.6; O2SAT 95
--- NOTE | 2023-07-14 21:14 | PC.NURSE ---
Pt initially reporting SI due to increased pain upon arrival. Pt now denies SI stating I only felt that way because I was in so much pain, I am just sad and depressed. Pt changed over and belongings secured
--- NOTE | 2023-07-14 22:03 | PC.NURSE ---
belongings in locker 12 in pod
--- NOTE | 2023-07-15 01:41 | PC.NURSE ---
pt sleeping, respirations even and unlabored, skin pwd, occasionally repositioning, no apparent distress at this time
[2023-07-15 01:42] VITALS: RESP 14
--- NOTE | 2023-07-15 03:16 | PC.NURSE ---
this rn assumed care of pt at 0300. pt side lying on left side. respirations non labored rr 18
[2023-07-15 04:21] VITALS: BP 122/78; PULSE 69; RESP 17; TEMP 36.4; O2SAT 96
--- NOTE | 2023-07-15 04:36 | PC.NURSE ---
pt awoke stating ready to go home. pt denies to this rn and dr breaux no thoughts of self harm and no SI. band saw filer utilized. pt belongings provided to pt from pod locker # [id number]. pt ambulatory at discharge. pt calm and cooperative. pt provided with discharge packet. pt verbalized understanding of discharge plan
== END 2023-07-15 04:38 | disposition home or self-care (01) ==
PROVIDERS: Emergency Provider Emergency Medicine
DX: M54.50 Low back pain, unspecified (principal); M25.532 Pain in left wrist; F10.920 Alcohol use, unspecified with intoxication, uncomplicated; Y90.8 Blood alcohol level of 240 mg/100 ml or more; Z11.52 Encounter for screening for COVID-19; Z20.822 Contact with and (suspected) exposure to COVID-19; Z79.899 Other long term (current) drug therapy
CPT/HCPCS: 36415; 72100; 80048; 80076; 80307; 83735; 85025; 87635; 99283; 99284

== ENCOUNTER 2023-07-16 13:30 | Emergency (ER) | payer MEDICAID, SELFPAY ==
--- NOTE | ~2023-07-16 | XR_ITS ---
EXAMINATION: XR CHEST CLINICAL INFORMATION: Fall with chest trauma COMPARISON: 06/18/2023 chest radiograph TECHNIQUE: Frontal view of the chest was obtained. FINDINGS: No significant abnormality is noted involving the heart, lungs, mediastinum, bony thorax or soft tissues. XR/XR chest 1V IMPRESSION: Unremarkable examination.
--- NOTE | ~2023-07-16 | CT_ITS ---
EXAMINATION: CT HEAD WITHOUT CONTRAST CLINICAL INFORMATION: Fall EtOH COMPARISON: CT head from 06/11/2023 TECHNIQUE: Contiguous axial imaging was performed from the skull base to vertex without intravenous administration of contrast. This CT examination was performed using dose optimization techniques as appropriate, variously including the following: *Automated exposure control *Adjustment of mA and/or kV according to patient size (this includes techniques or standardized protocols for targeted exams where dose is matched to indication/reason for exam; i.e. extremities or head) *Use of iterative reconstruction technique DLP: 978 mGy-cm FINDINGS: There is no evidence of acute intracranial hemorrhage or territorial infarction. No abnormal mass effect or midline shift is seen. Barrios to white matter differentiation is well preserved. No extra-axial fluid collections are identified. The ventricles are normal in size. There is no abnormal attenuation within the brain parenchyma. The osseous structures and soft tissues are normal. The mastoid air cells and visualized portions of the paranasal sinuses are well aerated. CT/CT cervical spine wo IV con IMPRESSION: No acute intracranial pathology. EXAMINATION: Noncontrast CT scan of the cervical spine. INDICATION: EtOH fall COMPARISON: CT cervical spine from 06/11/2023 TECHNIQUE: Helical, multidetector axial images were obtained from the occiput to the upper thorax. Coronal and sagittal reformats of the cervical spine were provided for interpretation. DLP: 978 mGy-cm FINDINGS: No acute fractures or dislocations of the cervical spine are seen. Straightening of normal cervical curvature with very slight reversal of curvature in the upper portion. Multilevel degenerative changes. Anatomic alignment and positioning of the vertebral bodies and posterior elements is noted. The atlantoaxial joint and craniovertebral articulations are normal without evidence of subluxation. There is no prevertebral soft tissue swelling. The thyroid gland and visualized portions of the lung apices and mediastinum are unremarkable. IMPRESSION: 1. No acute visible fracture or dislocation. 2. Straightening of normal cervical curvature with very slight reversal of curvature in the upper portion. 3. Multilevel degenerative changes.
--- NOTE | 2023-07-16 13:33 | ECG_ITS ---
Test Reason : CHEST PAIN Blood Pressure : / mmHG Vent. Rate : 080 BPM Atrial Rate : 080 BPM P-R Int : 160 ms QRS Dur : 094 ms QT Int : 352 ms P-R-T Axes : 039 064 039 degrees QTc Int : 405 ms Normal sinus rhythm Normal ECG When compared with ECG of 18-JUN-2023 11:55, Incomplete right bundle branch block is no longer Present Criteria for Inferior infarct are no longer Present T wave inversion no longer evident in Inferior leads Referred By: Donya Watson Electronically Signed By:TYLER PARISI MD
[2023-07-16 13:50] VITALS: BP 117/83; PULSE 76; RESP 17; TEMP 36.5; O2SAT 95; BMI 23.0
[2023-07-16 15:34] VITALS: BP 105/69; PULSE 75; RESP 16; O2SAT 96
--- NOTE | 2023-07-16 15:36 | PC.NURSE ---
PT RESTING IN STRETCHER, ROUSABLE TO VERBAL STIM. C/O L HIP PAIN AND CHEST PAIN, PT UNABLE TO PROVIDE DETAILS OF PAIN OR DETERMINE POSSIBLE CAUSES. 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 NSR ON MONITOR. LABS ORDERED, EKG COMPLETED, AWAITING ED PROVIDER.
[2023-07-16 15:45] LABS: Hematocrit 33.9 % (42.0-52.0); Hemoglobin 11.9 g/dl (14.0-18.0); Mean Corpuscular HGB Conc 35.1 g/dl (31.0-36.0); Mean Corpuscular Hemoglobin 34.2 pg (27.0-33.0); Mean Corpuscular Volume 97.4 fL (80.0-98.0); Platelet Count 137 X10*3/uL (160-400); Red Blood Count 3.48 X10*6/uL (4.60-5.80); Red Cell Distribution Width 13.6 % (11.0-16.0); White Blood Count 4.1 X10*3/uL (4.8-10.8)
[2023-07-16 15:59] LABS: Anion Gap 15 (12-20); Blood Urea Nitrogen 7 mg/dL (9-16); Calcium 8.3 mg/dL (8.4-10.2); Carbon Dioxide 21 mmol/L (22-29); Chloride 106 mmol/L (96-108); Estimated Glomerular Filt Rate > 60; Glucose Random 72 mg/dL (60-115); Sodium 138 mmol/L (135-145)
[2023-07-16 16:12] LABS: Troponin-I High Sensitivity < 2.7 ng/L (<3.5-35.0)
[2023-07-16 17:37] VITALS: BP 95/60; PULSE 64; RESP 14; O2SAT 97
--- NOTE | 2023-07-16 18:12 | ED.ALCOHOL ---
HPI - Alcohol General Chief Complaint: ETOH/Substance Use Stated Complaint: arm chest neck pain Time Seen by Provider: 07/16/23 16:59 Source: patient Mode of arrival: ambulatory Limitations: other (Intoxicated) History of Present Illness HPI narrative: 52-year-old male presents in tells me he drank too much unable to tell me how much he drinks. Started sleeping in the middle of my history taking. Unable to tell me what he drink. Denies any medical complaints at states he thinks he fell. Not on blood thinners. Denies headache, vision changes, chest pain, shortness of breath, nausea, vomiting, abdominal pain Related Data Previous Rx's Medication Instructions Recorded ibuprofen 600 mg tablet 600 mg PO Q6H PRN pain #20 tabs 02/15/23 oxycodone 5 mg tablet 5 mg PO Q6H PRN pain #10 tabs 02/15/23 oxycodone 5 mg tablet 5 mg PO Q6H PRN pain #12 tabs 02/16/23 oxycodone-acetaminophen 5 mg-325 1 tab PO Q6H PRN pain #10 tabs 02/17/23 mg tablet (Percocet) cyclobenzaprine 5 mg tablet 5 mg PO TID PRN muscle spasm #12 05/08/23 tabs ibuprofen 600 mg tablet 600 mg PO Q8H PRN pain #20 tabs 05/08/23 lidocaine 5 % topical patch 1 patch topical DAILY #15 ea 05/08/23 cyclobenzaprine 5 mg tablet 5 mg PO TID PRN muscle spasm #12 05/13/23 tabs ibuprofen 600 mg tablet 600 mg PO Q8H PRN pain #20 tabs 05/13/23 lidocaine 5 % topical patch 1 patch topical DAILY #15 ea 05/13/23 naproxen 500 mg tablet 500 mg PO BID PRN pain 7 days #14 05/31/23 tabs Allergies Allergy/AdvReac Type Severity Reaction Status Date / Time No Known Allergies Allergy Verified 07/14/23 17:27 [No Known Allergies*] Review of Systems Review of Systems: Yes Unobtainable due to mental status PMFSH Past Medical History Attestation statement: The following information was validated with the patient. Source: old records reviewed and nursing notes reviewed Medical History Alcohol intoxication Social History Social History Alcohol intake: current Alcohol intake frequency: 3 or more drinks per day Alcohol type: beer and hard liquor Patient Tobacco Use Status: Never used Tobacco Smoked in Last 30 Days: No Use of substances other than those prescribed or required for medical reasons: No Substance Use Type: Marijuana Advance Directives: No Advance Directives Information Provided: No Current occupational status: disabled Current occupation: rt handed Physical Exam ED Vital Signs: Vital Signs - 24 hr 07/16/23 13:50 07/16/23 15:34 07/16/23 17:37 Temperature 97.7 F Pulse Rate 76 75 64 Respiratory Rate 17 16 14 Blood Pressure 117/83 105/69 95/60 Pulse Oximetry 95 96 97 Oxygen Delivery Method Room Air Room Air Room Air BMI result Body Mass Index 23.0 vss Appearance: Alert.? Oriented X3.? No acute distress.?smells like alcohol Head: Normocephalic, atraumatic, no step-offs or deformities Eyes: Pupils equal, round and reactive to light.? Neck: Normal inspection.? Neck supple.? CVS: Normal heart rate and rhythm.? Pulses normal.? Respiratory: No respiratory distress.? Breath sounds normal.? Abdomen: Soft and nontender.? Skin: Skin warm and dry.? Normal skin color.? Normal skin turgor.? Extremities: No lower extremity edema.? No calf ttp. 5/5 strength to bilateral upper and lower extremities Neuro: Oriented X 3.? No motor deficit.? No sensory deficit. CN 2-12 intact Course Reevaluation(s) Reevaluation #1: CBC appears to be around patient's baseline with a normocytic anemia and leukopenia. Also noted to have chronic thrombocytopenia. Chemistry unremarkable. Troponin negative, EKG nonischemic. Ethanol 110 consistent with acute alcohol intoxication. Cervical spine with no acute visible fracture dislocation. There is straightening of the normal cervical curvature likely positional. Multilevel degenerative changes noted. CT of the head with no evidence of acute intracranial hemorrhage or territorial infarction no abnormal mass effect or midline shift no extra-axial fluid collection. Ventricles normal size. Unremarkable CT of head. Chest x-ray unremarkable. At this time patient to be placed into observation to allow for clinical sobriety. At time observation started vital signs stable patient resting comfortably no acute distress Time: 20:14 Medical Decision Making Medical Decision Making [facility] [place] Narrative: [id number] 52 year old male presents w/ acute alcohol intoxication PE patient intoxicated Likely concussion w/ alcohol intoxiction unlikely ICH, stroke, posterior stroke. Unlikely traumatic injury to chest, abdomen and pelvis. Unlikely cervical spine fracture. Plan- head and neck scan, basic labs, cxr Differential Diagnosis Differential Diagnoses: The differential diagnosis associated with the presentation includes Likely concussion w/ alcohol intoxiction unlikely ICH, stroke, posterior stroke. Unlikely traumatic injury to chest, abdomen and pelvis. Unlikely cervical spine fracture. Admission/Observation Consideration of admission/observation: Escalation of care including admission/observation considered Lab Data [facility] [place] Lab Attestation statement: I reviewed the patient's lab results. 07/16/23 15:39 07/16/23 15:39 Labs: Lab Results 07/16/23 Range/Units 15:39 WBC 4.1 L (4.8-10.8) X10*3/uL RBC 3.48 L (4.60-5.80) X10*6/uL Hgb 11.9 L (14.0-18.0) g/dl Hct 33.9 L (42.0-52.0) % MCV 97.4 (80.0-98.0) fL MCH 34.2 H (27.0-33.0) pg MCHC 35.1 (31.0-36.0) g/dl RDW 13.6 (11.0-16.0) % Plt Count 137 L (160-400) X10*3/uL MPV 9.0 L (9.4-12.4) fL Absolute Nucleated RBC 0.000 (0.0-0.012) X10*3/uL Nucleated RBC % (auto) 0.0 (0.0-0.2) /100WBC Sodium 138 (135-145) mmol/L Potassium 4.0 (3.3-5.1) mmol/L Chloride 106 (96-108) mmol/L Carbon Dioxide 21 L (22-29) mmol/L Anion Gap 15 (12-20) BUN 7 L (9-16) mg/dL Creatinine 0.65 (0.5-1.4) mg/dL Estim Creat Clear Calc 138.0 Estimated GFR > 60 Random Glucose 72 (60-115) mg/dL Calcium 8.3 L (8.4-10.2) mg/dL Troponin I High Sens < 2.7 (<3.5-35.0) ng/L Ethyl Alcohol 410 H* mg/dL Social Determinants Patient?s care significantly limited by Social Determinants of Health including: Other Social Determinant of Health Discharge Plan Discharge Clinical Impression: Alcoholic intoxication Patient Disposition: Still a Patient Prescriptions: No Action ibuprofen 600 mg tablet 600 mg PO Q8H PRN (Reason: pain) Qty: 20 0RF cyclobenzaprine 5 mg tablet 5 mg PO TID PRN (Reason: muscle spasm) Qty: 12 0RF lidocaine 5 % adhesive patch,medicated 1 patch topical DAILY Qty: 15 0RF Rx Instructions: leave on most painful area for up to 12 hrs ibuprofen 600 mg tablet 600 mg PO Q6H PRN (Reason: pain) Qty: 20 0RF oxycodone 5 mg tablet 5 mg PO Q6H PRN (Reason: pain) Qty: 10 0RF Rx Instructions: Partial Fill upon patient request. oxycodone 5 mg tablet 5 mg PO Q6H PRN (Reason: pain) Qty: 12 0RF Rx Instructions: Partial Fill upon patient request. oxycodone-acetaminophen [Percocet] 5-325 mg tablet 1 tab PO Q6H PRN (Reason: pain) Qty: 10 0RF Rx Instructions: Partial Fill upon patient request. cyclobenzaprine 5 mg tablet 5 mg PO TID PRN (Reason: muscle spasm) Qty: 12 0RF ibuprofen 600 mg tablet 600 mg PO Q8H PRN (Reason: pain) Qty: 20 0RF lidocaine 5 % adhesive patch,medicated 1 patch topical DAILY Qty: 15 0RF Rx Instructions: leave on most painful area for up to 12 hrs naproxen 500 mg tablet 500 mg PO BID PRN (Reason: pain) 7 Days Qty: 14 0RF
[2023-07-16 18:36] LABS: Ethanol 410 mg/dL
--- NOTE | 2023-07-16 19:20 | PC.NURSE ---
Pt laying comfortably in bed. Pt responds to verbal stimuli Plan of care ongoing.
[2023-07-16 20:35] VITALS: BP 105/71; PULSE 69; RESP 13; O2SAT 97
[2023-07-16 23:19] VITALS: BP 92/54; PULSE 73; RESP 13; O2SAT 97
[2023-07-17 03:59] VITALS: BP 116/78; PULSE 80; RESP 15; TEMP 37; O2SAT 97
--- NOTE | 2023-07-17 04:06 | PC.NURSE ---
Pt resting comfortably in bed, no signs of distress. Ciwa completed pt scored a 5. Plan of care ongoing.
[2023-07-17 06:26] VITALS: BP 125/80; PULSE 84; RESP 14; TEMP 37.2; O2SAT 98
[2023-07-17 07:31] VITALS: BP 133/82; PULSE 131; RESP 18; O2SAT 97
[2023-07-17] MEDS: LORazepam 1 MG TABLET PO (07:38)
== END 2023-07-17 08:40 | disposition home or self-care (01) ==
PROVIDERS: Physician Assistant; Emergency Provider Internal Medicine
DX: F10.220 Alcohol dependence with intoxication, uncomplicated (principal); Y90.8 Blood alcohol level of 240 mg/100 ml or more; R25.1 Tremor, unspecified; Z79.899 Other long term (current) drug therapy
CPT/HCPCS: 36415; 70450; 71045; 72125; 80048; 80307; 84484; 85027; 93005; 99285

== ENCOUNTER 2023-07-22 08:17 | Outpatient (REF) | payer MEDICAID, SELFPAY ==
[2023-07-22 11:14] LABS: MANUAL DIFF FLAG NO
[2023-07-22 11:25] LABS: Basophils Absolute Auto 0.1 X10*3/uL (0.0-0.2); Basophils Percent Auto 1.1 % (0-2); Eosinophils Absolute Auto 0.1 X10*3/uL (0.0-0.4); Eosinophils Percent Auto 1.7 % (0-4); Hematocrit 38.3 % (42.0-52.0); Hemoglobin 13.3 g/dl (14.0-18.0); Imm Gran Abs Auto 0.03 X10*3/uL (0.00-0.03); Imm Gran Pct Auto 0.5 % (0.0-0.4); Lymphocytes Absolute Auto 1.3 X10*3/uL (1.2-4.9); Lymphocytes Percent Auto 20.2 % (20-40); Mean Corpuscular HGB Conc 34.7 g/dl (31.0-36.0); Mean Platelet Volume 9.7 fL (9.4-12.4); Monocytes Percent Auto 14.8 % (2-11); Neutrophils Percent Auto 61.7 % (45-73); Platelet Count 160 X10*3/uL (160-400); Red Blood Count 3.91 X10*6/uL (4.60-5.80); Red Cell Distribution Width 13.8 % (11.0-16.0); White Blood Count 6.4 X10*3/uL (4.8-10.8)
[2023-07-22 11:42] LABS: Estimated Average Glucose 100 mg/dL; Hemoglobin A1c % 5.1 % (<6.0)
[2023-07-22 12:03] LABS: Alanine Aminotransferase 39 U/L (0-40); Alkaline Phosphatase 100 U/L (39-117); Anion Gap 13 (12-20); Aspartate Amino Transferase 79 U/L (5-37); Bilirubin Direct 0.3 mg/dL (0.0-0.5); Bilirubin Total 0.6 mg/dL (0.0-1.0); Blood Urea Nitrogen 9 mg/dL (9-16); Carbon Dioxide 27 mmol/L (22-29); Chloride 103 mmol/L (96-108); Cholesterol 198 mg/dL (<200); Estimated Glomerular Filt Rate > 60; Glucose Random 91 mg/dL (60-115); HDL Cholesterol 99 mg/dL (>40); LDL Cholesterol Calculated 88 mg/dL (<100); Potassium 4.1 mmol/L (3.3-5.1); Sodium 139 mmol/L (135-145); Total Protein 8.5 g/dL (6.5-8.0); Triglycerides 59 mg/dL (<150)
[2023-07-22 12:06] LABS: Free T4 (Free Thyroxine) 0.75 ng/dL (0.71-1.85); Thyroid Stimulating Hormone 0.72 uIU/mL (0.32-4.0); Vitamin D 25-OH Total 14.8 ng/mL (>30)
[2023-07-22 12:21] LABS: Folate 7.7 ng/mL (> or = 4.0); Vitamin B12 448 pg/mL (200-900)
[2023-07-22 13:17] LABS: CT PCR NOT DETECTED (Not Detect.); NG PCR NOT DETECTED (Not Detect.)
[2023-07-25 04:15] LABS: HIV AB/AG Nonreactive (Nonreactive); HIV Num 1 0.05 S/CO (0.00-0.99)
[2023-07-25 05:16] LABS: HBsAGNum1 0.48 S/CO (0.00-0.99); Hepatitis B Surface Antigen Negative (Negative); ~Hepatitis B Surface Antibody REACTIVE (Nonreactive)
[2023-07-25 05:45] LABS: Syphilis Screen Nonreactive (Nonreactive)
[2023-07-25 05:49] LABS: ~HepC Num1 0.08 S/CO (0.00-0.79); ~Hepatitis C Antibody Nonreactive (Nonreactive)
[2023-07-26 16:04] LABS: HIV RNA PCR Qn Copies NOT DETECTED copies/mL (NOT DETECTED); HIV RNA PCR Qn Log Copies NOT DETECTED (NOT DETECTED)
== END 2023-07-22 08:18 | disposition home or self-care (01) ==
LOC: HO.HHCL 08:17
PROVIDERS: Visit Provider Family Medicine
DX: R68.89 Other general symptoms and signs (principal); Z20.2 Contact with and (suspected) exposure to infections with a predominantly sexual mode of transmission; K21.9 Gastro-esophageal reflux disease without esophagitis; F10.20 Alcohol dependence, uncomplicated; N20.0 Calculus of kidney
CPT/HCPCS: 0353U; 36415; 80048; 80061; 80076; 82306; 82607; 82746; 83036; 84439; 84443; 85025; 86706; 86780; 86803; 87340; 87389; 87536

== ENCOUNTER 2023-07-22 16:24 | Emergency (ER) | payer MEDICAID, SELFPAY ==
[2023-07-22 16:42] VITALS: BP 123/83; PULSE 85; RESP 18; TEMP 35.8; O2SAT 100; BMI 21.0
--- NOTE | 2023-07-22 16:42 | ED_ITS ---
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 He denies any redness or swelling. Denies fevers. Denies any decreased range of motion arm. Denies any numbness or tingling. MD complaint: Left arm pain Onset (ago): hour(s) Location: left and upper extremity Radiation: non-radiation Severity: moderate Quality: aching Pain Consistency: constant Relieving factors: none Exacerbating factors: none Associated symptoms: denies other symptoms Treatments prior to arrival: none Related Data Previous Rx's Medication Instructions Recorded ibuprofen 600 mg tablet 600 mg PO Q6H PRN pain #20 tabs 02/15/23 oxycodone 5 mg tablet 5 mg PO Q6H PRN pain #10 tabs 02/15/23 oxycodone 5 mg tablet 5 mg PO Q6H PRN pain #12 tabs 02/16/23 oxycodone-acetaminophen 5 mg-325 1 tab PO Q6H PRN pain #10 tabs 02/17/23 mg tablet (Percocet) cyclobenzaprine 5 mg tablet 5 mg PO TID PRN muscle spasm #12 05/08/23 tabs ibuprofen 600 mg tablet 600 mg PO Q8H PRN pain #20 tabs 05/08/23 lidocaine 5 % topical patch 1 patch topical DAILY #15 ea 05/08/23 cyclobenzaprine 5 mg tablet 5 mg PO TID PRN muscle spasm #12 05/13/23 tabs ibuprofen 600 mg tablet 600 mg PO Q8H PRN pain #20 tabs 05/13/23 lidocaine 5 % topical patch 1 patch topical DAILY #15 ea 05/13/23 naproxen 500 mg tablet 500 mg PO BID PRN pain 7 days #14 05/31/23 tabs Allergies Allergy/AdvReac Type Severity Reaction Status Date / Time No Known Allergies Allergy Verified 07/22/23 16:45 [No Known Allergies*] Review of Systems Review of Systems: As per HPI. Yes all other systems are reviewed and are negative Constitutional: Constitutional: Reports as per HPI [facility] Past Medical History Medical History Alcohol intoxication Social History Social History Alcohol intake: current Alcohol intake frequency: 3 or more drinks per day Alcohol type: beer and hard liquor Patient Tobacco Use Status: Never used Tobacco Substance Use Type: Marijuana Advance Directives: No Current occupational status: disabled Current occupation: rt handed Physical Exam ED Vital Signs: Vital Signs - 24 hr 07/22/23 16:42 Temperature 96.4 F L Pulse Rate 85 Respiratory Rate 18 Blood Pressure 123/83 Pulse Oximetry 100 Oxygen Delivery Method Room Air BMI result Body Mass Index 21.0 Vital signs have been reviewed and appear to be correct. Blood pressure normal. Heart rate normal. Respiratory rate normal. Temperature normal. Oxygen saturation normal. Const General: cooperative and no acute distress Orientation/consciousness: oriented to person, oriented to place, oriented to time and patient oriented x3 Limitations: no limitations HENMT Head: Yes normocephalic and Yes atraumatic Ears: external ears normal General nose exam: Normal external nose present Face and sinus: Yes face symmetric Mouth: oropharynx normal and moist mucous membranes Throat: Yes uvula midline Eyes Pupils: Equal, round and reactive pupils present Neck Neck: Yes normal visual inspection and Yes supple Resp Effort & Inspection: normal respiratory effort and able to speak in complete sentences Auscultation: clear to auscultation bilaterally Cardio Rate: regular rate Rhythm: regular rhythm Heart sounds: S1 normal heart sound present and S2 normal heart sound present Skin General skin exam: elasticity normal and turgor normal Neuro General: oriented to person, oriented to place, oriented to time, patient oriented x3, moves all extremities, no focal motor deficits and CN's II-XI intact bilaterally Cranial nerves: Yes Equal, round and reactive pupils present Cognition (Neuro): normal cognition Extrem General: Yes full ROM Left upper extremity: normal to inspection (no erythema, calor, swelling, ecchymosis to upper arm) and full ROM Psych Mental Status: mental status grossly normal Affect: normal affect Thought process: Normal thought process present Medical Decision Making Medical Decision Making MDM Narrative: Patient is a 52-year-old male presenting to the ED with complaint of left upper arm pain after receiving the flu vaccine at the clinic yesterday. On exam patie nt is awake, A+Ox3, VS WNL, afebrile, normal neurological exam without focal deficits, physical exam findings as above. Given reported symptoms and physical exam findings, initial differential includes adverse medication reaction, cellulitis, abscess. No evidence of infection on physical exam. Discussed with patient that he should perform [id number] exercises with left arm several times daily, can apply ice throughout the day, Tylenol or ibuprofen as needed for discomfort. Return precautions discussed. Patient verbalized understanding of and agreement with plan. Differential Diagnosis Differential Diagnoses: The differential diagnosis associated with the presentation includes As per [facility] External Record Review External record reviewed: Inpatient record, Office record and Outpatient record Discharge Plan Discharge Clinical Impression: Arm pain, left Patient Disposition: Home, Self-Care Instructions: Flu Shot (Vaccine) for Adults (ED), Arm Pain (ED), The Importance of Immunizations (Vaccines) for Adults (ED) Prescriptions: No Action ibuprofen 600 mg tablet 600 mg PO Q8H PRN (Reason: pain) Qty: 20 0RF cyclobenzaprine 5 mg tablet 5 mg PO TID PRN (Reason: muscle spasm) Qty: 12 0RF lidocaine 5 % adhesive patch,medicated 1 patch topical DAILY Qty: 15 0RF Rx Instructions: leave on most painful area for up to 12 hrs ibuprofen 600 mg tablet 600 mg PO Q6H PRN (Reason: pain) Qty: 20 0RF oxycodone 5 mg tablet 5 mg PO Q6H PRN (Reason: pain) Qty: 10 0RF Rx Instructions: Partial Fill upon patient request. oxycodone 5 mg tablet 5 mg PO Q6H PRN (Reason: pain) Qty: 12 0RF Rx Instructions: Partial Fill upon patient request. oxycodone-acetaminophen [Percocet] 5-325 mg tablet 1 tab PO Q6H PRN (Reason: pain) Qty: 10 0RF Rx Instructions: Partial Fill upon patient request. cyclobenzaprine 5 mg tablet 5 mg PO TID PRN (Reason: muscle spasm) Qty: 12 0RF ibuprofen 600 mg tablet 600 mg PO Q8H PRN (Reason: pain) Qty: 20 0RF lidocaine 5 % adhesive patch,medicated 1 patch topical DAILY Qty: 15 0RF Rx Instructions: leave on most painful area for up to 12 hrs naproxen 500 mg tablet 500 mg PO BID PRN (Reason: pain) 7 Days Qty: 14 0RF Interventions: ED Discharge Assessment Last Done: 07/22/23 16:58 Discharge Date/Time: 07/22/23 16:58 Print Language: Macanese
== END 2023-07-22 16:58 | disposition home or self-care (01) ==
PROVIDERS: Emergency Provider Emergency Medicine
DX: M79.602 Pain in left arm (principal)
CPT/HCPCS: 99282; 99283

== ENCOUNTER 2023-07-24 11:56 | Emergency (ER) | payer MEDICAID, SELFPAY ==
[2023-07-24] VITALS (7 sets, daily range): BP systolic 113–150; BP diastolic 76–92; PULSE 55–89; RESP 12–18; TEMP 36.4–36.7; O2SAT 98–100; BMI 22.0
--- NOTE | 2023-07-24 | ECG_ITS ---
Test Reason : CP Blood Pressure : / mmHG Vent. Rate : 066 BPM Atrial Rate : 066 BPM P-R Int : 152 ms QRS Dur : 096 ms QT Int : 394 ms P-R-T Axes : 040 056 037 degrees QTc Int : 413 ms Normal sinus rhythm RSR' or QR pattern in V1 suggests right ventricular conduction delay Otherwise normal ECG When compared with ECG of 16-JUL-2023 13:39, No significant change was found Referred By: Generic ED Physician Electronically Signed By:TYLER PARISI MD
--- NOTE | ~2023-07-24 | XR_ITS ---
EXAMINATION: XR LUMBOSACRAL SPINE CLINICAL INFORMATION: Fall. Pain. COMPARISON: 07/14/[address] 06/11/2023 TECHNIQUE: Three views of the lumbosacral spine. FINDINGS: No acute compression deformity. Stable grade 1 5 mm L4-L5 retrolisthesis. Stable grade 2 15 mm L5-S1 anterolisthesis. Chronic pars fractures at L5 again noted. Sacroiliac joints preserved. No acute sacral abnormality. Nonobstructive gas pattern. XR/XR lumbar spine 2-3V IMPRESSION: No acute disease. Stable L5 pars fractures with grade 2 L5-S1 anterolisthesis. Stable grade 1, L4-L5 retrolisthesis.
--- NOTE | ~2023-07-24 | XR_ITS ---
EXAMINATION: CHEST 2 VIEWS CLINICAL INFORMATION: chest pain. COMPARISON: 07/08/2023. TECHNIQUE: AP frontal and lateral views of the chest obtained FINDINGS: The lungs are well expanded. No focal infiltrate, effusion, edema, or pneumothorax. Cardiac and mediastinal silhouettes are within normal limits for technique. No acute bony abnormality seen XR/XR chest 2V IMPRESSION: No evidence of acute disease
--- NOTE | ~2023-07-24 | XR_ITS ---
EXAMINATION: XR HIP, LEFT CLINICAL INFORMATION: Trauma. Fall. Pain. COMPARISON: 06/08/2022 TECHNIQUE: Two views of the left hip. AP pelvis. FINDINGS: AP pelvis: The pelvic ring is intact. No acute fracture or dislocation. Stable chronic degenerative changes in the lower lumbar spine with bilateral L5 pars fractures. Normal gas pattern. Atherosclerotic peripheral vascular disease. Left hip: No fracture or dislocation. Mild osteoarthritis. XR/XR hip LT min 2V IMPRESSION: No acute fracture or dislocation.
--- NOTE | 2023-07-24 12:07 | ED_ITS ---
HPI - Chest Pain General Chief Complaint: Chest Pain Stated Complaint: CHEST PAIN,LOWER BACK PAIN PER EMS Time Seen by Provider: 07/24/23 12:05 Source: patient Mode of arrival: EMS Limitations: no limitations and language barrier ( [place]-speaking clinical trials manager utilized) History of Present Illness HPI narrative: patient is a 52-year-old male presents emergency department via EMS, EMS was called to the outside of [employer] store were patient was present he had been reporting chest pain and lower back pain. When asked he states that he drank 6 nips of fireball earlier this morning. Denies any recreational drug usage. He states he is having substernal chest pain, Reproducible to movement, constant, difficult to discern how longthis has been occuring, he states a pain like this many times in the past but is unsure why. He denies fevers, chills, URI symptoms, cough, shortness of breath, nausea, vomiting, abdominal pain. He is also reporting left lower back of the left hip pain, has history of chronic pain however he does report a fall 2 days ago he slipped while mowing the lawn and fell backwards landing onto his left side. denies numbness or tingling to the leg, bladder bowel dysfunction. Has been ambulatory since this fall. Units to being depressed due to his brother's 4 years ago, denies suicidal or homicidal ideations. Related Data Previous Rx's Medication Instructions Recorded ibuprofen 600 mg tablet 600 mg PO Q6H PRN pain #20 tabs 02/15/23 oxycodone 5 mg tablet 5 mg PO Q6H PRN pain #10 tabs 02/15/23 oxycodone 5 mg tablet 5 mg PO Q6H PRN pain #12 tabs 02/16/23 oxycodone-acetaminophen 5 mg-325 1 tab PO Q6H PRN pain #10 tabs 02/17/23 mg tablet (Percocet) cyclobenzaprine 5 mg tablet 5 mg PO TID PRN muscle spasm #12 05/08/23 tabs ibuprofen 600 mg tablet 600 mg PO Q8H PRN pain #20 tabs 05/08/23 lidocaine 5 % topical patch 1 patch topical DAILY #15 ea 05/08/23 cyclobenzaprine 5 mg tablet 5 mg PO TID PRN muscle spasm #12 08/25/23 tabs ibuprofen 600 mg tablet 600 mg PO Q8H PRN pain #20 tabs 05/13/23 lidocaine 5 % topical patch 1 patch topical DAILY #15 ea 05/13/23 naproxen 500 mg tablet 500 mg PO BID PRN pain 7 days #14 05/31/23 tabs Allergies Allergy/AdvReac Type Severity Reaction Status Date / Time No Known Allergies Allergy Verified 07/22/23 16:45 [No Known Allergies*] Review of Systems 2 Review of Systems: Yes all other systems are reviewed and are negative [facility] Past Medical History Attestation statement: The following information was validated with the patient. Source: old records reviewed Medical History Alcohol intoxication Social History Social History Alcohol intake: current Alcohol intake frequency: 3 or more drinks per day Alcohol type: beer and hard liquor Patient Tobacco Use Status: Never used Tobacco Smoked in Last 30 Days: No Use of substances other than those prescribed or required for medical reasons: No Substance Use Type: Marijuana Advance Directives: No Advance Directives Information Provided: Yes Current occupational status: disabled Current occupation: rt handed Physical Exam 2 Vital Signs: Vital Signs: Last Vital Signs Temp 98.0 F 07/24/23 15:08 Pulse 87 07/24/23 15:08 Resp 17 07/24/23 15:08 BP 118/81 07/24/23 15:08 Pulse Ox 100 07/24/23 15:08 O2 Del Method Room Air 07/24/23 15:08 O2 Flow Rate 3 07/24/23 13:04 BMI result Body Mass Index 22.0 Appearance: Alert.?Oriented to person, place and time. No acute distress.?Normal affect. Eyes: Pupils equal, round and reactive to light.? ENT: Pharynx normal.?? Neck: Normal inspection.? Neck supple.?? CVS: Heart sounds normal. Normal heart rate and rhythm.? Pulses normal.?? Respiratory: No respiratory distress.? Lung sounds clear to auscultation bilaterally?? Abdomen: Soft and non-tender. Normoactive bowel sounds. No pulsatile mass.?? Skin: Skin warm and dry.? Normal skin color.? Back: diffuse left-sided lumbar region tenderness upon palpation, left hip tenderness upon palpation, no obvious deformity, no lesions, no rashes, no shortening or rotation of the extremity, 2+ DP/PT pulse bilaterally. Extremities: No lower extremity edema.? No calf ttp? Neuro: Moves all extremities spontaneously. Sensation intact bilaterally. No focal neuro deficits. Ambulates with normal steady gait. Course Reevaluation(s) Reevaluation #1: CBC is without leukocytosis, mild anemia not meeting transfusion criteria, thrombocytopenia with improvement from baseline. BMP overall unremarkable. High sensitive troponin nondetectable, EKG revealing normal sinus rhythm ventricular rate of 66 in no acute ischemic findings, unlikely ACS. D-dimer 247 age adjusted with cutoff of 255, unlikely pulmonary embolism. CT of the lumbar spine from April 2023 revealing antrolisthesis L5 on S1, retro listhesis of L4 on L5, advanced degenerative spondylosis, degenerative changes resulting in compression of L5 form renal nerve roots without canal compromise. He has no acute numbness weakness, bladder bowel dysfunction, inability to bear weight on the extremity, this coupled with XR imaging obtained today without acute abnormality, suspect most consistent with chronic finding. XR the hip without acute fracture dislocation. chest x-ray without acute abnormality, no evidence of consolidation or infiltrate to suggest pneumonia. Ethanol level 475, urine toxicology negative are urine without microscopic hematuria or signs of infection. At this time he is medically cleared, placed in position observation for clinical sobriety, no distress, vitals stable. Time: 14:32 Reevaluation #2: patient signed out to Lebron JACKSON pending sobriety Time: 16:20 Medications Administered Discontinued Medications Generic Name Dose Route Start Last Admin Trade Name Freq PRN Reason Stop Dose Admin Naloxone HCl 0.2 mg 07/24/23 12:57 07/24/23 13:00 Naloxone Hcl 0.4 Mg/Ml Vial IVPUSH 07/24/23 12:58 0.2 mg STAT STA Administration Medical Decision Making Medical Decision Making MDM Narrative: Patient is a 52-year-old male past medical history of alcohol use disorder, chronic back pain, presenting to emergency department for evaluation of Chest, left lower back and left hip pain as per HPI. At the time my examination he does appear acutely intoxicated though he reports not having consumed alcohol since earlier this morning. He is alert and oriented x3, however having difficulty staying focused when asking questions. Has no focal neurological deficits, he is afebrile without tachycardia tachypnea or hypoxia. No respiratory distress. Diffuse tenderness upon palpation of the left lumbar region and left hip. plan to obtain XR imaging to exclude acute fracture/ dislocation, suspect likely muscular etiology, although cannot completely exclude herniated disc. Exam without concern for cauda equinus syndrome. No high-risk past medical history including incontinence, fever, immunosuppression, recent surgery or LP, coagulopathy, significant trauma, or recent unintentional weight loss, pulsatile mass, history of malignancy that would warrant emergent MRI or CT. Plan to obtain serum labs, EKG, XR images. Nursing staff has advised me that on 2 occasions since his arrival while he is sleeping O2 saturation have noted to drop to low 80%, requiring tactile and verbal stimuli to awaken, and O2 imediately improves upon awakening. Pupils are pinpoint, but he adamantly denies any drug usage. Will trial Narcan 0.2 mg IV. with these episodes of hypoxia ( and improvement on awakening) and associated chest pain, seems less likely to be pulmonary embolism, no clinical symptoms of DVT, however will obtain D-dimer to exclude. Differential Diagnosis Differential Diagnoses: The differential diagnosis associated with the presentation includes ( As noted above) Admission/Observation Consideration of admission/observation: Escalation of care including admission/observation considered ( I considered admission for chest pain, see course narrative for further detail) Lab Data MDM Lab Attestation statement: I reviewed the patient's lab results. ( see course narrative for further detail) 07/24/23 12:12 07/24/23 12:12 Labs: Lab Results 07/24/23 07/24/23 07/24/23 Range/Units 12:12 12:48 13:13 WBC 4.7 L (4.8-10.8) X10*3/uL RBC 3.74 L (4.60-5.80) X10*6/uL Hgb 12.4 L (14.0-18.0) g/dl Hct 35.8 L (42.0-52.0) % MCV 95.7 (80.0-98.0) fL MCH 33.2 H (27.0-33.0) pg MCHC 34.6 (31.0-36.0) g/dl RDW 13.0 (11.0-16.0) % Plt Count 152 L (160-400) X10*3/uL MPV 9.1 L (9.4-12.4) fL Immature Gran % (Auto) 0.2 (0.0-0.4) % Neut % (Auto) 51.9 (45-73) % Lymph % (Auto) 34.5 (20-40) % [place] % (Auto) 11.0 (2-11) % Eos % (Auto) 1.3 (0-4) % Baso % (Auto) 1.1 (0-2) % Lymph # (Auto) 1.6 (1.2-4.9) X10*3/uL [place] # (Auto) 0.5 (0.1-1.2) X10*3/uL Eos # (Auto) 0.1 (0.0-0.4) X10*3/uL Baso # (Auto) 0.1 (0.0-0.2) X10*3/uL Abs Immat Gran (auto) 0.01 (0.00-0.03) X10*3/uL Absolute Neuts (auto) 2.5 (2.0-8.3) x10*3/uL Absolute Nucleated RBC 0.000 (0.0-0.012) X10*3/uL Nucleated RBC % (auto) 0.0 (0.0-0.2) /100WBC D-Dimer High Sensitivty 247 NG/ML Sodium 138 (135-145) mmol/L Potassium 3.8 (3.3-5.1) mmol/L Chloride 104 (96-108) mmol/L Carbon Dioxide 22 (22-29) mmol/L Anion Gap 16 (12-20) BUN 10 (9-16) mg/dL Creatinine 0.72 (0.5-1.4) mg/dL Estim Creat Clear Calc 115.8 Estimated GFR > 60 Random Glucose 125 H (60-115) mg/dL Calcium 8.8 (8.4-10.2) mg/dL Troponin I High Sens < 2.7 (<3.5-35.0) ng/L Urine Color Yellow Urine Appearance Clear Urine pH 6.5 (5.0-9.0) Ur Specific [place] <= 1.005 (1.005-1.025) Urine Protein Negative (Neg-Trace) mg/dL Urine Glucose (UA) Negative (Negative) mg/dL Urine Ketones Negative (Negative) mg/dL Urine Blood Negative (Negative) Urine Nitrite Negative (Negative) Ur Leukocyte Esterase Negative (Negative) Urine Opiates Screen Not Detected (Not Detect) Urine Fentanyl Screen Not Detected (Not Detect) Ur Barbiturates Screen Not Detected (Not Detect) Ur Phencyclidine Scrn Not Detected (Not Detect) Ur Amphetamines Screen Not Detected (Not Detect) U Benzodiazepines Scrn Not Detected (Not Detect) Urine Cocaine Screen Not Detected (Not Detect) U Marijuana (THC) Screen Not Detected (Not Detect) Ethyl Alcohol 475 H* mg/dL Independent Interpretation I performed an independent interpretation of an: Plain X-Ray ( personally interpreted x-ray and agree with radiologist impression.) Radiology Impression Discussion of test interpretation with radiology: I have reviewed the radiologist's reading. Radiologist Impression: XR/XR lumbar spine 2-3V IMPRESSION: No acute disease. Stable L5 pars fractures with grade 2 L5-S1 anterolisthesis. Stable grade 1, L4-L5 retrolisthesis. XR/XR hip LT min 2V IMPRESSION: No acute fracture or dislocation. XR/XR chest 2V IMPRESSION: No evidence of acute disease Independent Historian Clinical information obtained from an independent historian. History obtained from or confirmed by: EMS Discharge Plan Discharge Clinical Impression: Chest pain, Acute left lumbar radiculopathy, Alcohol intoxication Patient Disposition: Still a Patient Prescriptions: No Action ibuprofen 600 mg tablet 600 mg PO Q8H PRN (Reason: pain) Qty: 20 0RF cyclobenzaprine 5 mg tablet 5 mg PO TID PRN (Reason: muscle spasm) Qty: 12 0RF lidocaine 5 % adhesive patch,medicated 1 patch topical DAILY Qty: 15 0RF Rx Instructions: leave on most painful area for up to 12 hrs ibuprofen 600 mg tablet 600 mg PO Q6H PRN (Reason: pain) Qty: 20 0RF oxycodone 5 mg tablet 5 mg PO Q6H PRN (Reason: pain) Qty: 10 0RF Rx Instructions: Partial Fill upon patient request. oxycodone 5 mg tablet 5 mg PO Q6H PRN (Reason: pain) Qty: 12 0RF Rx Instructions: Partial Fill upon patient request. oxycodone-acetaminophen [Percocet] 5-325 mg tablet 1 tab PO Q6H PRN (Reason: pain) Qty: 10 0RF Rx Instructions: Partial Fill upon patient request. cyclobenzaprine 5 mg tablet 5 mg PO TID PRN (Reason: muscle spasm) Qty: 12 0RF ibuprofen 600 mg tablet 600 mg PO Q8H PRN (Reason: pain) Qty: 20 0RF lidocaine 5 % adhesive patch,medicated 1 patch topical DAILY Qty: 15 0RF Rx Instructions: leave on most painful area for up to 12 hrs naproxen 500 mg tablet 500 mg PO BID PRN (Reason: pain) 7 Days Qty: 14 0RF
[2023-07-24 12:16] LABS: MANUAL DIFF FLAG NO
[2023-07-24 12:17] LABS: Basophils Absolute Auto 0.1 X10*3/uL (0.0-0.2); Basophils Percent Auto 1.1 % (0-2); Eosinophils Absolute Auto 0.1 X10*3/uL (0.0-0.4); Eosinophils Percent Auto 1.3 % (0-4); Hematocrit 35.8 % (42.0-52.0); Hemoglobin 12.4 g/dl (14.0-18.0); Imm Gran Abs Auto 0.01 X10*3/uL (0.00-0.03); Imm Gran Pct Auto 0.2 % (0.0-0.4); Lymphocytes Absolute Auto 1.6 X10*3/uL (1.2-4.9); Lymphocytes Percent Auto 34.5 % (20-40); Mean Corpuscular HGB Conc 34.6 g/dl (31.0-36.0); Mean Corpuscular Hemoglobin 33.2 pg (27.0-33.0); Mean Corpuscular Volume 95.7 fL (80.0-98.0); Mean Platelet Volume 9.1 fL (9.4-12.4); Monocytes Absolute Auto 0.5 X10*3/uL (0.1-1.2); Neutrophils Absolute Auto 2.5 x10*3/uL (2.0-8.3); Neutrophils Percent Auto 51.9 % (45-73); Platelet Count 152 X10*3/uL (160-400); Red Blood Count 3.74 X10*6/uL (4.60-5.80); White Blood Count 4.7 X10*3/uL (4.8-10.8)
--- NOTE | 2023-07-24 12:52 | PC.NURSE ---
Pt had episode of desat, this RN had to sternal rub patient to wake up. Pt desatted to about 72% on room air when sternal rubbed, patient O2 back up to 96-98%. Pt denies taking any drugs, solely ETOH today.
[2023-07-24] MEDS: Naloxone HCl 0.4 MG/ML VIAL 0.2 MG IVPUSH (13:00)
--- NOTE | 2023-07-24 13:01 | PC.NURSE ---
Patient continued to doze off, requiring sternal rub to wake up, dropping sats down to low 80s. Spoke with BENCH HAND MACHINE Jaspal who stated to give 0.2 mg IV Narcan. Pt continues be mildly unresponsive. Pt satting 99% on 4 L Oxymask at this time
[2023-07-24 13:06] LABS: Amphetamine Screen Urine Not Detected (Not Detect); Barbiturates, Urine Not Detected (Not Detect); Benzodiazepines Screen Urine Not Detected (Not Detect); Cannabinoid Screen Urine Not Detected (Not Detect); Cocaine Screen Urine Not Detected (Not Detect); Fentanyl, urine Not Detected (Not Detect); Opiate Screen Urine Not Detected (Not Detect); Phencyclidine Screen Urine Not Detected (Not Detect)
[2023-07-24 13:10] LABS: Anion Gap 16 (12-20); Blood Urea Nitrogen 10 mg/dL (9-16); Calcium 8.8 mg/dL (8.4-10.2); Carbon Dioxide 22 mmol/L (22-29); Chloride 104 mmol/L (96-108); Creatinine Clr Calc Pharmacy 115.8; Estimated Glomerular Filt Rate > 60; Ethanol 475 mg/dL; Glucose Random 125 mg/dL (60-115); Potassium 3.8 mmol/L (3.3-5.1); Sodium 138 mmol/L (135-145); Troponin-I High Sensitivity < 2.7 ng/L (<3.5-35.0)
[2023-07-24 13:10] LABS: Appearance Urine Clear; Color Urine Yellow; Glucose Urine UA Negative (Negative); Leukocyte Esterase Urine Negative (Negative); Nitrite Urine Negative (Negative); PH 6.5 (5.0-9.0); Specific Gravity - Urine <= 1.005 (1.005-1.025); Urine Blood Negative (Negative); Urine Ketones Negative (Negative); Urine Protein Negative (Neg-Trace)
[2023-07-24 13:24] LABS: D Dimer High Sensitivity 247 NG/ML
--- NOTE | 2023-07-24 13:58 | PC.NURSE ---
Patient continues to rest on stretcher, respiraitons even and unlabored, O2 improved, no longer requiring O2 to maintain. Patient using urinal with minimal assistance
--- NOTE | 2023-07-24 19:30 | PC.NURSE ---
Patient continues to sleep, respirations even and unlabored, skin pwd, no apparent distress
[2023-07-25 00:29] VITALS: BP 112/85; PULSE 84; RESP 14; O2SAT 100
[2023-07-25 02:32] VITALS: BP 129/80; PULSE 79; RESP 14; O2SAT 100
--- NOTE | 2023-07-25 02:50 | PC.NURSE ---
this rn and blocker hand at bedside for discharge plan. iv removed at discharge. pt ambulatory at discharge. pt provided with discharge packet, pt verbalized understanding of discharge plan. pt states no questions regarding discharge plan
== END 2023-07-25 03:03 | disposition home or self-care (01) ==
PROVIDERS: Nurse Practitioner Family; Emergency Provider Emergency Medicine
DX: R07.9 Chest pain, unspecified (principal); M54.16 Radiculopathy, lumbar region; F10.129 Alcohol abuse with intoxication, unspecified; Y90.8 Blood alcohol level of 240 mg/100 ml or more; M54.50 Low back pain, unspecified; M25.552 Pain in left hip; D64.9 Anemia, unspecified
CPT/HCPCS: 36415; 71046; 72100; 73502; 80048; 80307; 81003; 84484; 85025; 85379; 93005; 96374; 99285